=== PATIENT | female | born 1965 | race Caucasian/White ===

== ENCOUNTER 2021-08-20 13:59 | Outpatient (CLI) | payer MEDICARE, SELFPAY ==
--- NOTE | ~2021-08-20 | CT_ITS ---
EXAMINATION: CT sinus wo con DATE: 08/20/2021 14:19 INDICATION: Facial pressure, chronic sinus drainage TECHNIQUE: Computed tomography (CT) of the paranasal sinuses was performed without contrast. Iterativ e reconstruction technique was employed. Exam dose: 303.98 mGy-cm total exam DLP. COMPARISON: None FINDINGS: There is prominent rightward deviation of the lower portion of the nasal septum. The upper portion of the nasal septum bows leftward. There is prominent soft tissue swelling of the nasal turbinates. There is mild geovanny bullosa of the right middle nasal turbinate. The ostiomeatal units are patent. Up to 6.7 mm mucus retention cyst at the base of the right maxillary sinus and 10 mm mucus retention cyst at the anterior base of the left maxillary sinus. There is minimal soft tissue thickening in the posterior right ethmoid air cells. The paranasal sinus es are otherwise normally developed and aerated. There is opacification of the minimally developed left mastoid air cells. The right mastoid air cells are normally aerated. IMPRESSION: Small mucus retention cyst in lower aspect of each maxillary sinus, minimal mucoperioste al thickening of posterior right ethmoid air cells; otherwise normal paranasal sinuses Rightward deviation of lower nasal septum, leftward bowing of upper nasal septum Soft tissue prominence of the nasal turbinates, geovanny bullosa of right middle nasal turbinate Reviewed, dictated and finalized at [facility]. Reviewed, dictated and finalized at location [facility]. IMPRESSION: Small mucus retention cyst in lower aspect of each maxillary sinus , minimal mucoperiosteal thickening of posterior right ethmoid air cells; other le normal paranasal sinuses Rightward deviation of lower nasal septum, leftward bowing of upper nasal septu m Soft tissue prominence of the nasal turbinates, geovanny bullosa of right middle nasal turbinate
== END 2021-08-20 14:00 | disposition home or self-care (01) ==
PROVIDERS: PCP Internal Medicine; Visit Provider Otolaryngology
DX: J34.2 Deviated nasal septum (principal); J32.9 Chronic sinusitis, unspecified; J34.3 Hypertrophy of nasal turbinates; J34.89 Other specified disorders of nose and nasal sinuses; R09.81 Nasal congestion; R44.8 Other symptoms and signs involving general sensations and perceptions; R09.82 Postnasal drip
CPT/HCPCS: 70486

== ENCOUNTER 2021-09-10 12:19 | Outpatient (CLI) | payer MEDICARE, SELFPAY ==
--- NOTE | 2021-09-10 12:27 | ECG_ITS ---
Measurements Intervals [place] Rate: 64 P: 68 ME: 176 QRS: -20 QRSD: 91 T: 58 QT: 412 QTc: 427 Interpretive Statements SINUS RHYTHM POSSIBLE LEFT ATRIAL ENLARGEMENT INCOMPLETE RIGHT BUNDLE BRANCH BLOCK BASELINE ARTIFACT- I, III, AVR, AVL, AVF BORDERLINE ECG Electronically Signed On 09-10-2021 18:38:46 CDT by Jeramie Chen D.O.
== END 2021-09-10 12:20 | disposition home or self-care (01) ==
PROVIDERS: PCP Internal Medicine; Visit Provider Otolaryngology
DX: Z01.810 Encounter for preprocedural cardiovascular examination (principal); I45.10 Unspecified right bundle-branch block; I10 Essential (primary) hypertension
CPT/HCPCS: 93005

== ENCOUNTER 2021-09-14 01:00 | Day surgery (SDC) | payer MEDICARE, SELFPAY ==
[2021-09-05 13:00] VITALS: BMI 24.5
--- NOTE | 2021-09-05 13:19 | PC.NURSE ---
Report to the Outpatient Waiting Room, entrance under the green pavilion located off [facility], at time 6:15 on date 09/14/21. OR Time: 8:15. IF YOUR SURGERY TIME CHANGES, YOU WILL BE CALLED FRIDAY AFTERNOON. - You and your visitor will be asked a series of questions to screen for COVID 19 for your protection. - Only one visitor is allowed at this time. - The patient visitor is requested to leave or wait in car when not with patient. - A mask is required within the hospital. Patients may have clear liquids (water, carbonated beverages, clear teas, apple juice) until 3 hours prior to surgery with a maximum of 20 ounces. - No food from midnight until time of surgery Take the following medications with a SIP of water the morning of surgery: BUPROPION, ESCITALOPRAM, TOPIRAMATE, LORAZEPAM (IF NEEDED) Medications to discontinue per physician: VITAMINS/SUPPLEMENTS Date to take last dose: 09/10/21 Please no make-up, nail japanese, hairspray, perfume, deodorant, or body powder the day of surgery. No jewelry (including any body piercings) or valuables the day of surgery, leave them at home. Please take a shower or bath the night before, or the morning of, surgery with an antibacterial soap. Wear comfortable, loose fitting clothing. - Jewelry must be removed prior to entering the operating room. Rings and piercings that are not removed may be cut off. - The hospital will not accept responsibility for valuables. - Please leave all valuables, including medications, at home the day of surgery. If you are going home after surgery, a licensed straddle bug driver must drive you home. - NO public transportation without another adult. - We recommend that an adult stay with you for 24 hours following discharge. - We also recommend that you do not drive, make important decision, drink alcoholic beverages, or take any drugs that were not prescribed by your health care provider for at least 24 hours after your discharge time. Follow any additional instructions given to you from your surgeon. If you or anyone in your household have experienced Covid symptoms in the past week, please notify your surgeon or the nurse liaison at the phone number below for possible testing. Telephone instructions given to PT - SWATI MENDEZ and asked if any additional questions and then verbalized understanding. Patient advised to call surgeon office or pre surgery nurse liaison [phone] if any additional questions.
--- NOTE | 2021-09-13 10:20 | PM.IMHP ---
H&P: HPI History of Present Illness Date/Time: 09/13/21 10:20 Chief Complaint: Septal deviation turbinate hypertrophy right geovanny bullosa nasal obstruction nasal congestion Narrative: planned surgical procedure Review of Systems Review of Systems: All systems reviewed & are unremarkable except as noted in HPI and below PMFSH Family History Family History Father Hypertension Grandparent Hypertension Family history of respiratory disorder Carcinoma of colon Family history of malignant neoplasm of breast Diabetes mellitus Other Family history of malignant neoplasm of male breast Social History Social History Smoking packs per day: 0.5 Smoking cigarettes per day: 10.0 Years smoked: 26 Smoking pack-years: 13.00 Smoking status: Former smoker Tobacco type: cigarettes Smoking end date: 02/24/11 Alcohol intake: current Alcohol use details: 1/MONTH Substance use: never Substance use type: does not use Spiritual care concerns: No Meds Home Medications and Allergies Home Medications Medication Instructions Recorded Confirmed Type bupropion HCl 300 mg 24 hr tablet, 300 mg PO QAM 07/31/21 09/05/21 History extended release (Wellbutrin XL) escitalopram oxalate 20 mg tablet 20 mg PO DAILY 07/31/21 09/05/21 History lisinopril 5 mg tablet 5 mg PO DAILY 07/31/21 09/05/21 History lorazepam 0.5 mg tablet 0.5 mg PO DAILY PRN Anxiety 07/31/21 09/05/21 History sumatriptan succinate 6 mg/0.5 mL 6 mg subcut ONCE 07/31/21 09/05/21 History subcutaneous solution (Imitrex) topiramate 200 mg tablet (Topamax) 200 mg PO BID 07/31/21 09/05/21 History ipratropium bromide 21 mcg (0.03 2 spray intranasal TID 09/05/21 09/05/21 History %) nasal spray lactobacillus comb no.10 20 20,000 mmu cells PO DAILY 09/05/21 09/05/21 History billion cell capsule (Probiotic) multivitamin 1 tablet PO DAILY 09/05/21 09/05/21 History Allergies Allergy/AdvReac Type Severity Reaction Status Date / Time morphine Allergy Unknown Hallucinati Verified 09/05/21 12:57 ng soap Allergy Unknown Hives Verified 09/05/21 12:57 Exam Narrative: normal ENT exam other than septal deviation turbinate hypertrophy right geovanny bullosa Assessment and Plan Assessment and plan (1) Nasal congestion: Code(s): R09.81 - Nasal congestion Status: Acute Assessment and Plan: plan is for OR endoscopic assisted septoplasty inferior turbinate submucosal reduction with outfracture right geovanny bullosa resection. Risks discussed including bleeding infection damage to surrounding structures need for further procedures septal CSF leak brain damage blindness change in vision. Patient voiced understanding and agreed. (2) Nasal obstruction: Code(s): J34.89 - Other specified disorders of nose and nasal sinuses Status: Acute (3) Geovanny bullosa: Code(s): J34.89 - Other specified disorders of nose and nasal sinuses Status: Acute (4) Hypertrophy of both inferior nasal turbinates: Code(s): J34.3 - Hypertrophy of nasal turbinates Status: Acute (5) Nasal septal deviation: Code(s): J34.2 - Deviated nasal septum Status: Acute
[2021-09-14] VITALS (7 sets, daily range): BP systolic 109–156; BP diastolic 66–83; PULSE 60–79; RESP 14–20; TEMP 36.7–36.9; O2SAT 99–100
--- NOTE | 2021-09-14 07:10 | WPDHPUPDATE1 ---
History and Physical Update Update Date/Time: 09/14/21 07:10 History and Physical has been reviewed, including an updated exam of the patient. There are NO changes in the patient's condition. Risks, benefits, and alternatives have been discussed and questions answered. Patient agrees to proceed with procedure.
[2021-09-14] MEDS: ACETAMINOPHEN 500 MG TABLET 1000 MG PO (08:15)
--- NOTE | 2021-09-14 08:20 | WPDANESEPPF ---
Anes - Initial Pre Proc Eval Procedure: Operation Date: 09/14/21 09:15 Proposed Procedures p Bilateral Inferior Turbinectomy with Outfracture, Resection of Right Anel Bullosa - Kike Pepper MD s Endoscopic Septoplasty - Kike Pepper MD Date/Time: 09/14/21 08:20 Surgeon: Kike Pepper MD Pre Op Diagnosis: Septal Deviation Turbinate Hypertropic Patient Data Age: 56 Gender: F Height: 1.55 m Weight: 59 kg Allergies Allergy/AdvReac Type Severity Reaction Status Date / Time morphine Allergy Unknown Hallucinati Verified 09/14/21 08:16 ng soap Allergy Unknown Hives Verified 09/14/21 08:16 Home Medications Medication Instructions Recorded Confirmed Type bupropion HCl 300 mg 24 hr tablet, 300 mg PO QAM 07/31/21 09/05/21 History extended release (Wellbutrin XL) escitalopram oxalate 20 mg tablet 20 mg PO DAILY 07/31/21 09/05/21 History lisinopril 5 mg tablet 5 mg PO DAILY 07/31/21 09/05/21 History lorazepam 0.5 mg tablet 0.5 mg PO DAILY PRN Anxiety 07/31/21 09/05/21 History sumatriptan succinate 6 mg/0.5 mL 6 mg subcut ONCE 07/31/21 09/05/21 History subcutaneous solution (Imitrex) topiramate 200 mg tablet (Topamax) 200 mg PO BID 07/31/21 09/05/21 History ipratropium bromide 21 mcg (0.03 2 spray intranasal TID 09/05/21 09/05/21 History %) nasal spray lactobacillus comb no.10 20 20,000 mmu cells PO DAILY 09/05/21 09/05/21 History billion cell capsule (Probiotic) multivitamin 1 tablet PO DAILY 09/05/21 09/05/21 History Patient hx anesthesia problems: none Family hx anesthesia problems: none Results Review: All pre-operative results and documents have been reviewed as part of the pre-operative evaluation. [facility] Past Medical History Medical History Anxiety Chronic pain syndrome Depression Hx of migraines Reactive airway disease Family History Family History Father Hypertension Grandparent Hypertension Family history of respiratory disorder Carcinoma of colon Family history of malignant neoplasm of breast Diabetes mellitus Other Family history of malignant neoplasm of male breast Social History Social History Smoking packs per day: 0.5 Smoking cigarettes per day: 10.0 Years smoked: 26 Smoking pack-years: 13.00 Smoking status: Former smoker Tobacco type: cigarettes Smoking end date: 02/24/11 Alcohol intake: current Alcohol use details: 1/MONTH Substance use: never Substance use type: does not use Living arrangements: alone Spiritual care concerns: No Anes - Eval Final PreProcedure Day of Procedure 09/14/21 08:20 Patient weight: normal Heart: regular rate and rhythm Lungs: clear to auscultation Airway: Mallampati scale class II Neurological: alert and oriented Last oral intake: >/= 8 hours ASA classification: III Emergent: no Anesthetic plan: proceed Anesthesia type and monitoring: general GIVS and standard monitoring Results Review: All pre-operative results and documents have been reviewed as part of the pre-operative evaluation. Informed Consent: The patient's anesthetic plan and its attendant risks and benefits were discussed with the patient/family/POA. Questions were solicited and answers provided to the satisfaction of the patient/family/POA.
[2021-09-14] MEDS: ceFAZolin 2 GM/D5W 50 ML 2 GM/50 ML BAG IVPB (09:03)
[2021-09-14] MEDS: OXYMETAZOLINE HCL 0.05% NAS 15 ML BTL (*BKC) 1 SPRAY NASAL (09:13)
[2021-09-14] MEDS: LACTATED RINGERS 1,000 ML 30 ML IV CONT (09:24)
[2021-09-14] MEDS: MUPIROCIN 2% OINT 22 GM TUBE 1 APPLIC EACH NARE (10:20)
[2021-09-14] MEDS: LIDO 1%/EPINEPHRINE 1:100,000 10 ML VIAL INFILTRATE (10:20)
--- NOTE | 2021-09-14 11:00 | W.PM.PROC2 ---
Procedure Note - Detailed Date of Procedure 09/14/21 Pre-op Diagnosis Septal Deviation Turbinate Hypertropic, nasal obstruction, nasal congestion, right geovanny bullosa Post-op Diagnosis Same Procedure Performed Endoscopic assisted septoplasty, inferior turbinate submucosal resection with outfracture, right geovanny bullosa resection Surgeon Kike Pepper MD Anesthesia General Indications See above Findings Big turbinates deviated septum right geovanny all resected straightened good results small amount of excess bleeding probably 20-25 cc Description of Procedure Patient identified consent verified. Patient brought operating room. Time-out performed. General anesthesia induced endotracheal tube secured patient's airway taped left lower lip. Patient prepped and draped for for mentioned procedure. Second time-out performed. 10 cc 1% lidocaine 1 100,000 parts epinephrine injected into the bilateral submucoperichondrial nasal septum inferior turbinates and right geovanny Afrin-soaked pledgets then placed allowed to sit for 5 minutes before being removed. Left Sean incision made with 15 blade. Left mucoperichondrial flap elevated with 7 Chinese suction. Septum crossed over the osteotome. Right mucoperichondrial flap elevated. Small perforations on the right none on the left right is were was deviated severely to. Deviated nasal septum removed combination Kike forceps Dany Wu forceps and osteotome with mallet. Again small perforations were noted on the right none on the left. Turbinates reduced in the submucosal plane with microdebrider with turbinate blade this was bilateral. Outfractured with Gans. Good reduction. Right geovanny incised inferiorly with sickle blade lateral aspect removed with straight through cut. Stump cauterized with Bovie suction electrocautery. [place] tips also cauterized with Bovie suction electrocautery. Patient tolerated the procedure very well. Total blood loss about 20 cc. Sean incision closed with 2 interrupted 5 0 fast gut sutures. Rust splints covered in mupirocin placed bilaterally sutured anteriorly using a 3-0 interrupted nylon suture. Care the patient given Anesthesiology transferred to PACU no complications. Estimated Blood Loss -25.0 Drains No Packing No Pathology None sent Complications No immediate complications Condition Stable Disposition PACU
[2021-09-14] MEDS: oxyCODONE HCL (*CRX) 5 MG TAB IR PO (12:06)
== END 2021-09-14 12:15 | disposition home or self-care (01) ==
PROVIDERS: PCP Internal Medicine; Visit Provider Otolaryngology
PROC: (CPT 31240; principal; 2021-09-14 09:15)
PROC: (CPT 30520; 2021-09-14 09:15)
DX: J34.2 Deviated nasal septum (principal); J34.3 Hypertrophy of nasal turbinates; J34.89 Other specified disorders of nose and nasal sinuses; R09.81 Nasal congestion; F41.9 Anxiety disorder, unspecified; F32.A Depression, unspecified; Z87.891 Personal history of nicotine dependence
CPT/HCPCS: 31240; 30520; 30140; 93005; A9270; J0330; J0690; J1100; J2250; J2405; J2704; J3010; J7120

== ENCOUNTER → 2021-12-27 10:09 | Outpatient (CLI) | payer MEDICARE, SELFPAY ==
--- NOTE | ~2021-12-27 | CT_ITS ---
EXAMINATION: CT pelvis wo con DATE: 12/27/2021 10:22 INDICATION: Right groin pain. TECHNIQUE: Computed tomography (CT) of the pelvis was performed without intravenous contrast. Automat ed exposure control and iterative reconstruction technique were employed. The dose-length product was 336.51 mGy-cm. COMPARISON: CT abdomen and pelvis 07/09/2010 FINDINGS: There are no dilated loops of bowel. There is diverticulosis of the colon without evidence of diverticulitis. There are no pathologically enlarged lymph nodes. There is no free intraperitoneal fluid. There is mild osteoarthritis of the hips. There is moderate lumbar spondylosis. IMPRESSION: 1. No specific etiology for the patient's symptoms. Reviewed, dictated and finalized at location [facility].
== END ==
PROVIDERS: PCP Internal Medicine; Visit Provider Surgery
DX: R10.31 Right lower quadrant pain (principal)
CPT/HCPCS: 72192

== ENCOUNTER → 2022-02-11 11:46 | Outpatient (CLI) | payer MEDICARE, SELFPAY ==
--- NOTE | ~2022-02-11 | CT_ITS ---
EXAMINATION: CT sinus wo con DATE: 02/11/2022 12:01 INDICATION: Chronic sinusitis. Right rhinorrhea. History of surgery and deviated septum in August 2021. TECHNIQUE: Computed tomography (CT) of the paranasal sinuses was performed without contrast. Iterativ e reconstruction technique was employed. Exam dose: 401.69 mGy-cm total exam DLP. COMPARISON: 08/20/2021 CT sinuses FINDINGS: There is interval correction of the septal deviation since 08/20/2021. There is interval par tial resection of the right middle nasal turbinate with elimination of the prior geovanny bullosa struc ture noted on 08/20/2021. Chronic stable mucous retention cysts or polyps in the lower aspect of each maxillary sinus, not sign ificantly changed since since 08/20/2021. Minimal mucoperiosteal thickening in the right posterior ethmoid area. The paranasal sinuses are othe rwise normally developed and aerated. The right mastoid air cells are normally developed and aerated. The left mastoid air cells are normal ly developed and aerated. Degenerative changes of the temporal mandibular joints. IMPRESSION: Interval surgical correction of rightward deviation of the nasal septum and partial rese ction of right middle nasal turbinate eliminating geovanny bullosa Reviewed, dictated and finalized at [facility]. Reviewed, dictated and finalized at location [facility]. O TECHNICIAN IMPRESSION: Interval surgical correction of rightward deviation of the nasal s eptum and partial resection of right middle nasal turbinate eliminating geovanny bullosa
== END ==
PROVIDERS: PCP Internal Medicine; Visit Provider Otolaryngology
DX: J32.9 Chronic sinusitis, unspecified (principal)
CPT/HCPCS: 70486

== ENCOUNTER 2022-04-09 00:55 | Day surgery (SDC) | payer MEDICARE, SELFPAY ==
--- NOTE | 2022-03-27 12:15 | PC.NURSE ---
Report to the Outpatient Waiting Room, entrance under the green pavilion located off [address], at time on date . Planned Procedure Time: . Time changes happen often and if your time is changed the preop area will call you the afternoon before. - You and your visitor will be asked to self-screen and do not enter if you have any COVID symptoms. - Only one visitor is requested with a max of two and NO children visitors are allowed at this time. - The patient visitor may be requested to leave or wait in car when not with patient due to distancing restrictions. - A mask is optional within the hospital at this time. Patients may have clear liquids (water, carbonated beverages, clear teas, apple juice) until 3 hours prior to surgery with a maximum of 20 ounces. - No food from midnight until time of surgery - Infants may have breast milk until 4 hours before surgery, infant formula 6 hours prior to surgery. - Children will be allowed to drink immediately following surgery. If applicable, please bring a bottle or sippy cup to assist with drinking. Juice, water, soda, and popsicles are readily available. For infants on formula, please bring formula the day of surgery. Pacifiers are allowed. Take the following medications with a SIP of water the morning of surgery: _BUPROPRION, ESCITALOPRAM, LORAZEPAM, TOPIRAMATE, IMITREX INJECTION IF NEEDED DO NOT STOP ANY OF YOUR OTHER PRESCRIPTION MEDICATIONS PRIOR TO SURGERY ?EXCEPT THE FOLLOWING Medications to discontinue per physician MULTIVITAMIN 04/06/[address] REYES R/T STOPPING MOBIC Date to take last dose____04/06/22 Please no make-up, nail spanish, hairspray, perfume, deodorant, or body powder the day of surgery. No jewelry (including any body piercings) or valuables the day of surgery, leave them at home. Please take a shower or bath the night before, or the morning of, surgery with an antibacterial soap. Wear comfortable, loose fitting clothing. Children are encouraged to wear pajamas. - Jewelry must be removed prior to entering the operating room. Rings and piercings that are not removed may be cut off. - The hospital will not accept responsibility for valuables. - Please leave all valuables, including medications, at home the day of surgery. If you are going home after surgery, a licensed tractor trailer driver must drive you home. - NO public transportation without another adult if you receive anesthesia. - We recommend that an adult stay with you for 24 hours following discharge. - We also recommend that you do not drive, make important decision, drink alcoholic beverages, or take any drugs that were not prescribed by your health care provider for at least 24 hours after your discharge time. For Pediatric surgeries, we recommend two adults accompany the child home. Follow any additional instructions given to you from your surgeon. If you or anyone in your household have experienced Covid symptoms in the past week, please notify your surgeon or the nurse liaison at the phone number below for possible testing. Telephone instructions given to __OLIVE and asked if any additional questions and then verbalized understanding. Patient advised to call surgeon office or pre surgery nurse liaison [phone] if any additional questions.
[2022-03-27 12:19] VITALS: BMI 24.1
--- NOTE | 2022-04-08 15:45 | WPDANESEPPF ---
Anes - Initial Pre Proc Eval Procedure: Operation Date: 04/09/22 10:30 Proposed Procedures p Image Guided Bilateral Endoscopic Maxillary Antrostomy without Tissue Removal, Bilateral Anterior Ethmoidectomy - Kike Pepper MD Date/Time: 04/08/22 15:45 Surgeon: Kike Pepper MD Pre Op Diagnosis: chronic sinusitis Patient Data Age: 57 Gender: F Height: 1.55 m Weight: 58 kg Allergies Allergy/AdvReac Type Severity Reaction Status Date / Time morphine Allergy Unknown Hallucinati Verified 03/27/22 12:21 ng soap Allergy Unknown Hives Verified 03/27/22 12:21 Home Medications Medication Instructions Recorded Confirmed Type bupropion HCl 300 mg 24 hr tablet, 300 mg PO QAM 07/31/21 03/27/22 History extended release (Wellbutrin XL) escitalopram oxalate 20 mg tablet 20 mg PO DAILY 07/31/21 03/27/22 History lisinopril 5 mg tablet 5 mg PO DAILY 07/31/21 03/27/22 History lorazepam 0.5 mg tablet 0.5 mg PO DAILY PRN Anxiety 07/31/21 03/27/22 History sumatriptan succinate 6 mg/0.5 mL 6 mg subcut ONCE 07/31/21 03/27/22 History subcutaneous solution (Imitrex) topiramate 200 mg tablet (Topamax) 100 mg PO BID 07/31/21 03/27/22 History lactobacillus comb no.10 20 20,000 mmu cells PO DAILY 09/05/21 03/27/22 History billion cell capsule (Probiotic) multivitamin 1 tablet PO DAILY 09/05/21 03/27/22 History calcium citrate 250 mg 1 tablet PO DAILY 12/05/21 03/27/22 History calcium-vitamin D3 5 mcg (200 unit) tablet (Citracal Regular) vitamin B complex 1 tablet PO DAILY 12/05/21 03/27/22 History meloxicam 15 mg tablet 15 mg PO DAILY 03/27/22 03/27/22 History Patient hx anesthesia problems: none Family hx anesthesia problems: none Results Review: All pre-operative results and documents have been reviewed as part of the pre-operative evaluation. [facility] Past Medical History Medical History Anxiety Basal cell carcinoma Chronic pain syndrome Depression Diverticular disease High cholesterol Hx of migraines Hyperparathyroidism Hypertension Kidney stones Memory loss Reactive airway disease Screening mammogram, encounter for Vitamin D deficiency Surgical History Surgical History H/O sinus surgery (~08/2021) H/O: hysterectomy with oopherectomy / endometriosis History of x2 History of dilation and curettage x2 History of elective History of endometrial ablation History of exploratory laparotomy lysis of adhesions History of local excision of skin lesion basal cell carcinoma removed from forehead History of parathyroidectomy (~04/2015) History of placement of ear tubes x3 History of tonsillectomy Family History Family History Father Hypertension Grandparent Hypertension Family history of respiratory disorder Carcinoma of colon maternal grandmother Family history of malignant neoplasm of breast Diabetes mellitus maternal grandfather Breast cancer maternal grandmother Malignant tumor of pharynx maternal grandfather Mother Heart disease Dementia Other Family history of malignant neoplasm of male breast Social History Social History (Updated 01/15/22 @ 11:44 by BOGDAN Garzon) Smoking packs per day: 0.5 Smoking cigarettes per day: 10.0 Years smoked: 35 Smoking pack-years: 17.50 Smoking status: Former smoker Tobacco type: cigarettes Smoking end date: 02/24/11 Alcohol intake: current Alcohol use details: 1/MONTH Substance use: never Substance use type: does not use Last use: 12/17/21 Lack of Transportation: No Lack of Food: Never True Current Housing: I Have Housing Concerned About Future Housing: No Difficulty Paying Gas/Electric Bills: No Difficulty Paying for Meds: No Currently Unemployed: No Education: Associate Degree
--- NOTE | 2022-04-08 18:14 | PM.IMHP ---
H&P: HPI History of Present Illness Date/Time: 04/08/22 18:14 Chief Complaint: Chronic sinusitis Narrative: Casey surgical procedure Review of Systems Review of Systems: All systems reviewed & are unremarkable except as noted in HPI and below PMFSH Past Medical History Medical History Anxiety Basal cell carcinoma Chronic pain syndrome Depression Diverticular disease High cholesterol Hx of migraines Hyperparathyroidism Hypertension Kidney stones Memory loss Reactive airway disease Screening mammogram, encounter for Vitamin D deficiency Surgical History Surgical History H/O sinus surgery (~08/2021) H/O: hysterectomy with oopherectomy / endometriosis History of x2 History of dilation and curettage x2 History of elective History of endometrial ablation History of exploratory laparotomy lysis of adhesions History of local excision of skin lesion basal cell carcinoma removed from forehead History of parathyroidectomy (~04/2015) History of placement of ear tubes x3 History of tonsillectomy Family History Family History Father Hypertension Grandparent Hypertension Family history of respiratory disorder Carcinoma of colon maternal grandmother Family history of malignant neoplasm of breast Diabetes mellitus maternal grandfather Breast cancer maternal grandmother Malignant tumor of pharynx maternal grandfather Mother Heart disease Dementia Other Family history of malignant neoplasm of male breast Social History Social History (Updated 01/15/22 @ 11:44 by BOGDAN Garzon) Smoking packs per day: 0.5 Smoking cigarettes per day: 10.0 Years smoked: 35 Smoking pack-years: 17.50 Smoking status: Former smoker Tobacco type: cigarettes Smoking end date: 02/24/11 Alcohol intake: current Alcohol use details: 1/MONTH Substance use: never Substance use type: does not use Last use: 12/17/21 Lack of Transportation: No Lack of Food: Never True Current Housing: I Have Housing Concerned About Future Housing: No Difficulty Paying Gas/Electric Bills: No Difficulty Paying for Meds: No Currently Unemployed: No Education: Associate Degree Difficulty w/ Childcare or Family Care: No Living arrangements: with family Additional living arrangements comments: Occupation/Education: unemployed Additional occupation/education comments: disabled Gender identity (if verbalized by the patient): Female Sexual Orientation (if Verbalized by the Patient): Straight or Heterosexual Spiritual care concerns: No Meds Home Medications and Allergies Home Medications Medication Instructions Recorded Confirmed Type bupropion HCl 300 mg 24 hr tablet, 300 mg PO QAM 07/31/21 03/27/22 History extended release (Wellbutrin XL) escitalopram oxalate 20 mg tablet 20 mg PO DAILY 07/31/21 03/27/22 History lisinopril 5 mg tablet 5 mg PO DAILY 07/31/21 03/27/22 History lorazepam 0.5 mg tablet 0.5 mg PO DAILY PRN Anxiety 07/31/21 03/27/22 History sumatriptan succinate 6 mg/0.5 mL 6 mg subcut ONCE 07/31/21 03/27/22 History subcutaneous solution (Imitrex) topiramate 200 mg tablet (Topamax) 100 mg PO BID 07/31/21 03/27/22 History lactobacillus comb no.10 20 20,000 mmu cells PO DAILY 09/05/21 03/27/22 History billion cell capsule (Probiotic) multivitamin 1 tablet PO DAILY 09/05/21 03/27/22 History calcium citrate 250 mg 1 tablet PO DAILY 12/05/21 03/27/22 History calcium-vitamin D3 5 mcg (200 unit) tablet (Citracal Regular) vitamin B complex 1 tablet PO DAILY 12/05/21 03/27/22 History meloxicam 15 mg tablet 15 mg PO DAILY 03/27/22 03/27/22 History Allergies Allergy/AdvReac Type Severity Reaction Status Date / Time morphine Allergy Unkn
[2022-04-09] VITALS (12 sets, daily range): BP systolic 119–154; BP diastolic 49–79; PULSE 57–71; RESP 14–20; TEMP 36.3–37.2; O2SAT 97–100
--- NOTE | 2022-04-09 07:12 | WPDHPUPDATE1 ---
History and Physical Update Update Date/Time: 04/09/22 07:12 History and Physical has been reviewed, including an updated exam of the patient. There are NO changes in the patient's condition. Risks, benefits, and alternatives have been discussed and questions answered. Patient agrees to proceed with procedure.
[2022-04-09] MEDS: LACTATED RINGERS 1,000 ML 30 ML IV CONT ×2 (08:45→11:16)
[2022-04-09] MEDS: ACETAMINOPHEN 500 MG TABLET 1000 MG PO (09:10)
[2022-04-09] MEDS: ceFAZolin 2 GM/D5W 50 ML 2 GM/50 ML BAG IVPB (09:28)
[2022-04-09] MEDS: OXYMETAZOLINE HCL 0.05% NAS 15 ML BTL (*BKC) 1 SPRAY NASAL (10:01)
[2022-04-09] MEDS: MUPIROCIN 2% OINT 22 GM TUBE 1 APPLIC EACH NARE (10:33)
--- NOTE | 2022-04-09 11:11 | W.PM.PROC2 ---
Procedure Note - Detailed Date of Procedure 04/09/22 Pre-op Diagnosis chronic sinusitis Post-op Diagnosis Same Procedure Performed Bilateral image guided endoscopic anterior maxillary sorry anterior ethmoidectomies maxillary antrostomies no tissue removed Surgeon Kike Pepper MD Anesthesia General Indications see above Findings somewhat polypoid diseased edema tissue of the aforementioned sinuses Description of Procedure patient identified consent verified. Patient brought operating room. Time-out performed. General anesthesia induced endotracheal tube secured. Image guidance initiated confirmed. Patient prepped draped reposition 2nd time-out performed. Afrin-soaked pledgets placed allowed to sit for 5 minutes then removed. 0 degree endoscope utilized well image guidance middle turbinates medialized double ball tip probe utilized to open the retroflex the uncinate perform maxillary antrostomy as well as with backbiter microdebrider ensured to connect to the natural os. Ethmoidectomies performed with Kerrison as well as image guided microdebrider. Image guidance was utilized throughout the procedure blood loss about 25 cc I performed all dictated portions of the procedure care the patient given Anesthesiology there were no complications. No packs placed the bilateral middle meati I. Estimated Blood Loss 25 Drains No Packing Yes Pathology None sent Complications No immediate complications Condition Stable Disposition PACU [facility] Billing Surgery - Charge Forward: Surgery Billing
--- NOTE | 2022-04-09 12:28 | SUR.PHASEII ---
1228 - dr. cordero in room talking with pt
== END 2022-04-09 12:35 | disposition home or self-care (01) ==
PROVIDERS: PCP Internal Medicine; Visit Provider Otolaryngology
PROC: (CPT 31254; principal; 2022-04-09 10:30)
DX: J32.9 Chronic sinusitis, unspecified (principal); I10 Essential (primary) hypertension; E78.00 Pure hypercholesterolemia, unspecified; E55.9 Vitamin D deficiency, unspecified; E21.3 Hyperparathyroidism, unspecified; F41.9 Anxiety disorder, unspecified; F32.A Depression, unspecified; Z87.891 Personal history of nicotine dependence
CPT/HCPCS: 31254; 31256; 61782; A9270; J0330; J0690; J1100; J2250; J2405; J2704; J3010; J7120

== ENCOUNTER 2023-05-27 11:05 | Outpatient (CLI) | payer MEDICARE, SELFPAY ==
--- NOTE | ~2023-05-27 | MR_ITS ---
MRI of the lumbar spine Clinical History: Back pain Technique: Axial T2-weighted images, and sagittal T1-weighted, T2-weighted, and T2 fat-sat images wer e acquired. Findings: No acute fracture seen. There is 6 mm retrolisthesis of L4 over L5. No suspicious bone kentrell ow signal reality seen. At L1-L2, there is no disc bulge or herniation. There is mild facet arthropathy. No central canal ruben nosis or neural foraminal narrowing. At L2-L3, there is mild degenerative disc narrowing with minimal disc bulge and moderate facet arthro john. No central canal stenosis or neural foraminal narrowing. L3-L4, there is mild disc bulge with moderate facet arthropathy. No central canal stenosis. There is mild bilateral neural foraminal narrowing. At L4-L5, there is diffuse disc bulge with possible superimposed left paracentral disc extrusion, as well as advanced facet arthropathy. There is mild central canal stenosis as well as left lateral rece ss stenosis. There is severe left neural foraminal compromise, and moderate right neural foraminal co mpromise. At L5-S1, there is mild disc bulge and mild facet arthropathy. No central canal stenosis or definite neural foraminal narrowing. Paravertebral soft tissues are unremarkable. Impression: Severe spondylitic change at L4-L5, as detailed above. Mild degenerative change in the remainder of the lumbar spine. Reviewed, dictated and finalized at [facility]. Impression: Severe spondylitic change at L4-L5, as detailed above. Mild degenerative change in the remainder of the lumbar spine.
== END 2023-05-27 11:06 ==
LOC: MICIMG 11:07
PROVIDERS: PCP Internal Medicine; Visit Provider Internal Medicine
DX: M43.16 Spondylolisthesis, lumbar region (principal); M51.36 Other intervertebral disc degeneration, lumbar region
CPT/HCPCS: 72148

== ENCOUNTER 2024-01-20 08:09 | Outpatient (CLI) | payer MEDICARE, SELFPAY ==
--- NOTE | ~2024-01-20 | XR_ITS ---
XR hip LT 2V w AP pelvis Ordering provider: Liana Christopher History: . Left hip pain . Comparison: None. FINDINGS: BONES: No acute fracture or dislocation. HIP JOINT SPACES: Slight narrowing of the hip joints. Mild Osteoarthritic changes is not excluded. SACROILIAC JOINT SPACES/LUMBAR SPINE: The sacroiliac joint spaces are normal. Mild degenerative lund es of the visualized lower lumbar spine. Levoscoliosis. PUBIC SYMPHYSIS: Mild pubic symphysitis. SOFT TISSUES: Normal. IMPRESSION: No acute osseous abnormality pelvis and left hip. Mild osteoarthritic changes of both hips. Levoscoliosis with degenerative changes. Mild pubic symphysitis. Reviewed, dictated and finalized at location A. [facility]UR[facility]
== END 2024-01-20 08:10 | disposition home or self-care (01) ==
PROVIDERS: PCP Internal Medicine
DX: M25.552 Pain in left hip (principal); M16.0 Bilateral primary osteoarthritis of hip; M41.86 Other forms of scoliosis, lumbar region; M85.30 Osteitis condensans, unspecified site
CPT/HCPCS: 73502

== ENCOUNTER 2024-02-09 07:06 | Outpatient (CLI) | payer MEDICARE, SELFPAY ==
--- NOTE | ~2024-02-09 | MM_ITS ---
EXAMINATION: MM screening augustina BI w arabella HISTORY: Screening TECHNIQUE: Craniocaudal and mediolateral oblique 3-D tomosynthesis images were obtained and synthetic 2-D images were generated. CAD analysis was submitted and interpreted. COMPARISON: 10/26/2013 BREAST PARENCHYMAL COMPOSITION: Not dense: There are scattered areas of fibroglandular density. FINDINGS: There is no evidence of suspicious mass, calcification, or architectural distortion to sugg est malignancy in either breast. There has been no suspicious interval change. IMPRESSION: 1. No mammographic evidence of malignancy. 2. Recommend routine screening mammography in one year. BI-RADS Category 1: Negative Reviewed, dictated and finalized at location B. OL CUSTODIAN
== END 2024-02-09 07:07 | disposition home or self-care (01) ==
LOC: MICIMG 07:06
PROVIDERS: PCP Internal Medicine; Visit Provider Obstetrics & Gynecology
DX: Z12.31 Encounter for screening mammogram for malignant neoplasm of breast (principal)
CPT/HCPCS: 77063; 77067

== ENCOUNTER 2024-02-19 11:10 | Outpatient (CLI) | payer MEDICARE, SELFPAY ==
--- NOTE | ~2024-02-19 | XR_ITS ---
XR chest 2V Ordering provider: Joshua Loo, History: 59 years Female with . Cough . Comparison: None. FINDINGS: MEDIASTINUM: The cardiac silhouette is not enlarged. LUNGS: No infiltrates, effusions or pneumothorax. OTHER: No free air under the diaphragm. IMPRESSION: No acute cardiopulmonary pathology. Reviewed, dictated and finalized at location A. MANAGER
== END 2024-02-19 11:11 | disposition home or self-care (01) ==
LOC: MICIMG 11:12
PROVIDERS: PCP Internal Medicine; Visit Provider Internal Medicine
DX: R05.9 Cough, unspecified (principal)
CPT/HCPCS: 71046

== ENCOUNTER 2024-04-30 11:17 | Emergency (ER) | payer MEDICARE, SELFPAY ==
[2024-04-30 11:22] VITALS: BP 117/74; PULSE 84; RESP 16; TEMP 36.9; O2SAT 100
--- NOTE | 2024-04-30 11:37 | ED_ITS ---
HPI - Female Genitourinary General Chief complaint: Urogenital-Female Stated complaint: Urinary Problem/Chills/Left Flank Pain/Back Pain Time Seen by Provider: 04/30/24 11:38 Source: patient Mode of arrival: ambulatory Limitations: no limitations History of Present Illness HPI Narrative: 59-year-old female presents with complaint urinary frequency, urgency, dysuria for 8 days. Left lower back pain for the past 2-3 days. Feeling nauseated. Afebrile. Having chills at bedtime. All systems reviewed and negative except as noted above. Related Data Home Medications ?Medication ?Instructions ?Recorded ?Confirmed ?Last Taken ?Type bupropion HCl 300 mg 24 hr tablet, 300 mg PO QAM 07/31/21 01/12/24 04/09/22 06:00 History extended release (Wellbutrin XL) escitalopram oxalate 20 mg tablet 20 mg PO DAILY 07/31/21 04/30/24 04/09/22 06:00 History lisinopril 5 mg tablet 5 mg PO DAILY 07/31/21 04/30/24 04/09/22 06:00 History lorazepam 0.5 mg tablet 0.5 mg PO DAILY PRN Anxiety 07/31/21 04/30/24 04/09/22 06:00 History sumatriptan succinate 6 mg/0.5 mL 6 mg subcut ONCE 07/31/21 04/30/24 Unknown History subcutaneous solution (Imitrex) topiramate 200 mg tablet (Topamax) 100 mg PO BID 07/31/21 04/30/24 Unknown History lactobacillus comb no.10 20 20,000 mmu cells PO DAILY 09/05/21 01/12/24 Unknown History billion cell capsule (Probiotic) multivitamin 1 tablet PO DAILY 09/05/21 04/30/24 Unknown History vitamin B complex 1 tablet PO DAILY 12/05/21 04/30/24 Unknown History meloxicam 15 mg tablet 15 mg PO DAILY 03/27/22 04/30/24 Unknown History gabapentin 300 mg capsule 300 mg PO TID 07/08/23 04/30/24 Unknown History magnesium oxide 500 mg capsule 500 mg PO QHS 07/08/23 04/30/24 Unknown History zoledronic acid 5 mg/100 mL in ea IV 01/12/24 01/12/24 Unknown History mannitol 5 %-water intravenous piggybck (Reclast) bupropion HCl 150 mg tablet,12 hr mg PO 04/30/24 Unknown History sustained-release Allergies Allergy/AdvReac Type Severity Reaction Status Date / Time morphine Allergy Unknown Hallucinati Verified 04/30/24 11:42 ng soap Allergy Unknown Hives Verified 04/30/24 11:42 Review of Systems Review of Systems: CONSTITUTIONAL: Denies fever, chills, or sweats. EYES: Denies visual changes, redness, or discharge. ENT: Denies rhinorrhea, congestion, sore throat, or otalgia. CARDIOVASCULAR: Denies chest pain, palpitations, or edema. RESPIRATORY: Denies cough or dyspnea. GASTROINTESTINAL: Denies abdominal pain, nausea, vomiting, or diarrhea. GENITOURINARY: Reports dysuria, urgency, frequency. Denies hematuria. SKIN: Denies rash or itching. MUSCULOSKELETAL: Denies back pain, joint pain, or myalgia. NEUROLOGIC: Denies headache, numbness, or weakness. PSYCHIATRIC: Denies anxiety or depression. All other systems reviewed are negative, except as documented in HPI. [facility] Past Medical History Medical History (Updated 04/30/24 @ 11:46 by Alva Meraz NP) Kidney stones Screening mammogram, encounter for Basal cell carcinoma Memory loss Hyperparathyroidism Hypertension High cholesterol Vitamin D deficiency Diverticular disease Hx of migraines Depression Chronic pain syndrome Reactive airway disease Anxiety Surgical History Surgical History (Updated 01/12/24 @ 15:09 by BOGDAN Handley) H/O thumb surgery H/O sinus surgery (~08/2021) H/O: hysterectomy with oopherectomy / endometriosis History of elective History of x2 History of placement of ear tubes x3 History of local excision of skin lesion basal cell carcinoma removed from forehead History of exploratory laparotomy lysis of adhesions History of endometrial ablation History of dilation and curettage x2 History of tonsillectomy History of parathyroidectomy (~04/2015) Family History Family History Father Hypertension Grandparent Hypertension Family history of respiratory disorder Carcinoma of colon maternal grandmother Family history of malignant neoplasm of breast Diabetes mellitus maternal grandfather Breast cancer maternal grandmother Malignant tumor of pharynx maternal grandfather Mother Heart disease Dementia Other Family history of malignant neoplasm of male breast Social History Social History (Updated 01/12/24 @ 15:09 by Ashlyn Hernandez [facility]) Smoking packs per day: 0.5 Smoking cigarettes per day: 10.0 Years smoked: 35 Smoking pack-years: 17.50 Smoking status: Former smoker Tobacco type: cigarettes Second hand tobacco smoke exposure: No Smoking end date: 02/24/11 Alcohol intake: current Alcohol use details: 1/MONTH Substance use: never Substance use type: does not use Last use: 12/17/21 Do You Feel Safe in your Home?: Yes Lack of Transportation: No Lack of Food: Never True Current Housing: Decline to Answer Concerned About Future Housing: Decline to Answer Difficulty Paying Gas/Electric Bills: Decline to Answer Difficulty Paying for Meds: Decline to Answer Currently Unemployed: Decline to Answer Education: Decline to Answer Difficulty w/ Childcare or Family Care: Decline to Answer Living arrangements: with family Additional living arrangements comments: Occupation/Education: unemployed Additional occupation/education comments: disabled Gender identity (if verbalized by the patient): Female Sexual Orientation (if Verbalized by the Patient): Straight or Heterosexual Spiritual care concerns: No Comments At time of signature, agree with nursing past medical, surgical, social and family history. There is no relevant family history pertinent to the presenting complaint. Exam Narrative: GENERAL: This is a well-nourished, well-developed patient, in no apparent distress. HEAD: normocephalic, atraumatic. EYES: PERRL. Sclera clear/white. Vision is grossly intact. EARS: External ears normal NOSE: External nose normal NECK: Neck supple, non-tender without lymphadenopathy, masses or thyromegaly. CARDIOVASCULAR: Regular rate and rhythm without murmurs, gallops, or rubs. RESPIRATORY: Clear to auscultation. Breath sounds equal bilaterally. No wheezes, rales, or rhonchi. SKIN: warm, Dry, intact with no suspicious lesions or rash, good texture and turgor. NEURO: awake, alert, and oriented to person, place and time. There were no obvious focal neurologic abnormalities. EXTREMITIES: No joint tenderness, effusion, or edema noted. Course Course Level of Care: Express Care Visit Vital Signs Vital signs: Vital Signs Temperature 36.9 C 04/30/24 11:22 Pulse Rate 84 04/30/24 11:22 Respiratory Rate 16 04/30/24 11:22 Blood Pressure 117/74 04/30/24 11:22 Pulse Oximetry 100 04/30/24 11:22 Oxygen Delivery Room Air 04/30/24 11:22 Temperature 36.9 C 04/30/24 11:22 Pulse Rate 84 04/30/24 11:22 Respiratory Rate 16 04/30/24 11:22 Blood Pressure 117/74 04/30/24 11:22 Pulse Oximetry 100 04/30/24 11:22 Oxygen Delivery Room Air 04/30/24 11:22 reviewed MDM - Female Genitourinary MDM Narrative Medical decision making narrative: urinalysis positive leukocytes, nitrites, blood. Will treat with Augmentin for urinary tract infection. Patient is alert, nontoxic. Afebrile. Please be advised this is a medical document. It is intended for [id number]-bplh communication. It is written in medical language and may contain unfamiliar abbreviations or verbiage. Medical documents are intended to carry relevant information, facts as evident, and the clinical opinion of the practitioner at the time of the encounter. This report may have been done utilizing a voice recognition system. Attempts have been made to correct errors. However, there may be uncorrected grammatical, spelling, and recognition errors present. The file time of this note does not necessarily represent the time of service. Differential Diagnosis Differential diagnosis: Likely urinary tract infection Discharge Plan Discharge Clinical Impression: Urinary tract infection Qualifiers: Urinary tract infection type: site unspecified Hematuria presence: with hematuria Qualified Code(s): N39.0 - Urinary tract infection, site not specified Patient Disposition: Home, Self-Care Condition: Stable Instructions: Antibiotic Form, Urinary Tract Infection in Women (ED) Additional Instructions: take antibiotic as prescribed until gone. May continue taking [id number] azo as directed on packaging. Drink at least 64 oz of water a day. See your doctor if symptoms are not improving. Patient Language: Kiswahili Prescriptions: New amoxicillin-pot clavulanate [Augmentin] 500-125 mg tablet 1 tablet PO BID 5 Days Qty: 10 0RF No Action bupropion HCl [Wellbutrin XL] 300 mg tablet extended release 24 hr 300 mg PO QAM lisinopril 5 mg tablet 5 mg PO DAILY escitalopram oxalate 20 mg tablet 20 mg PO DAILY lorazepam 0.5 mg tablet 0.5 mg PO DAILY PRN (Reason: Anxiety) topiramate [Topamax] 200 mg tablet 100 mg PO BID sumatriptan succinate [Imitrex] 6 mg/0.5 mL solution 6 mg subcut ONCE Rx Instructions: may repeat dose once in 1 hour if not relieved zoledronic [id number] [Reclast] 5 mg/100 mL piggyback IV vitamin B complex Tablet 1 tablet PO DAILY meloxicam 15 mg tablet 15 mg PO DAILY multivitamin Tablet 1 tablet PO DAILY Probiotic 20 billion cell Capsule 20,000 mmu cells PO DAILY Rx Instructions: administer with a meal gabapentin 300 mg capsule 300 mg PO TID magnesium oxide 500 mg capsule 500 mg PO QHS Follow-up/Referrals: Eze,MD Joshua [Primary Care Provider] - Time of Disposition: 11:46
[2024-04-30 11:40] LABS: EDUAAPPEAR Clear; EDUABILI Negative (Negative); EDUABLOOD Trace (Negative); EDUACOLOR1 Orange; EDUAGLUCOSE Negative (Negative); EDUAKETONE Negative (Negative); EDUALEUKO 1+ (Negative); EDUANITRATE Positive (Negative); EDUAPROTEIN 1+ (Negative); EDUASPGRAVITY 1.025; EDUAUROBILI 0.2
--- OUTSIDE RECORDS SUMMARY | 2024-04-30 12:11 | XMS_ITS | Encounter Summary ---
Author Organization [facility] Address [facility] [place] [address] Care Team Providers Care Director Biologics Name Role Phone Joshua Loo MD Primary Care Provider [phone] Encounter Details Date Type Department Care Team (Late st Contact Info) Description 12/14/2022 MyChart Message Enc [facility] - [address], [address] [place] [id number] Saida Willams MD [address] [place] [id number] [facility] mail order pharmacy issue Social History Tobacco Use Types Packs/Day Years Used Date Smoking Tobacco: Former Cigarettes 0.5 30 1 - 12/19/2011 Passive Smoke Exposure: Never Smokeless Tobacco: Never Alcohol Use Standard Drinks/Week Comments Yes 0 (1 standard drink = 0.6 oz pur e alcohol) occassionally PHQ-2 Answer Date Recorded Patient Health Questionnaire-2 Score 0 05/28/2022 Comments Unknown Sex and Gender Information Value Date Recorded Sex Assigned at Female 03/11/2024 11:55 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 Legal Sex Female 5:06 PM CDT Gender Identity Not on file Sexual Orientation Not on file documented as of this encounter Plan of Treatment Upcoming Encounters Date Type Department Care Team (Late st Contact Info) Description 09/20/2024 8:00 AM CDT Office Visit [facility] - [address], [address] [place] [address] Saida Willams MD [address] [place] [address] documented as of this encounter Visit Diagnoses Not on filedocumented in this encounter Care Teams Director Biologics Relationship Specialty Start Date End Date Joshua Loo MD [address] [place] [id number] PCP - General INTERNAL MEDICINE 12/21/21 documented as of this encounter
--- OUTSIDE RECORDS SUMMARY | 2024-04-30 12:11 | XMS_ITS | Clinical Summary ---
Demographics Address [address] [place] [address] Mobile Phone Home Phone Work Phone Email Address Preferred Language Turkmen Marital Status Advent Affiliation Unknown Race White Ethnic Group Not or Lati no Author Organization [facility] Address [address] [place] [address] Care Team Providers Care Park Warden Name Role Phone Joshua Loo MD Primary Care Provider [phone] Allergies Active Allergy Reactions Criticality Noted Date Comments Morphine Hallucinations Medium 07/03/2016 Medications LORazepam (ATIVAN) 0.5 mg tablet take 2 tablet by oral route 3 times every day as needed 0 0 5 Active Additional Information Patient taking differently:0.5 mg,One tablet at night, Reported on 07/29/2022 buPROPion SR (WELLBUTRIN SR) 150 mg 12 hr tablet take 1 tablet by oral route every morning for 3 days, then 1 tablet by mouth twice a day for 12 weeks 0 0 5 Active multivitamin with minerals tablet Take 1 tablet by mouth Active lisinopril (PRINIVIL,ZESTR IL) 5 mg tablet 8 Active b complex vitamins tablet Take 1 tablet by mouth Active acetaminophen 500 mg capsule Activ e escitalopram (LEXAPRO) 20 mg tablet escitalopram 20 mg tablet Active calcium phosphate trib/vit D3 (CITRACAL + D3, CALCIUM PHOS, ORAL) 1 Active topiramate (TOPAMAX) 100 mg tablet Take 1 tablet (100 mg total) by mouth 2 (two) times a day 180 tablet 2 Active Lactobac no.41/Bifidobac t no.7 (PROBIOTIC-10 ORAL) Take by mouth Active SUMAtriptan (Imitrex) 6 mg/0.5 mL solution 8 Active zoledronic nlur-vhdilxeA-u ater (RECLAST) 5 mg/100 mL piggyback Infuse 100 mL (5 mg total) into a venous catheter once Active ipratropium (ATROVENT) 21 mcg (0.03 %) nasal spray 3 Active magnesium oxide (MAG-OX) 500 mg (301.6 mg elemental) tablet Take 1 tablet (500 mg total) by mouth daily 2 Active bacillus coagulans-inuli n 1 billion-250 cell-mg capsule Probiotic Acti ve prochlorperazin e (Compazine) 10 mg tablet every 8 hours Act chris meloxicam (MOBIC) 15 mg tablet TAKE 1 TABLET BY MOUTH DAILY 100 tablet 2 4 Active amoxicillin-cla vulanate (AUGMENTIN) 875-125 mg per tablet Take 1 tablet by mouth 2 (two) times a day 4 Active ciprofloxacin (CILOXAN) 0.3 % ophthalmic solution INSTILL 5 DROPS INTO AFFECTED EAR THREE TIMES DAILY FOR 7 DAYS 4 Active diphenhydrAMINE (BenadryL) 25 mg capsule every 8 hours Activ e ergocalciferol (VITAMIN D) 50,000 unit capsule Take 1 capsule every week by oral route. 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 This regimen is well tolerated seems to work to her satisfaction. I have renewed both the topiramate and sumatriptan as scheduled and she will follow-up in neurology clinic in a year. Assessment & Plan (09/17/2019 2:13 PM CDT): Patient's migraine status appears unchanged from prior years. Her headache frequency and severity has been reviewed. She has good tolerability with both her topiramate and sumatriptan, and is satisfied with the response that she has been having with his medical regimen. I have renewed her medications as scheduled, and I plan on seeing her back in 1 year's time. Onychomycosis 09/17/2019 Drug-induced tremor 09/17/2019 Assessment & Plan (09/15/2020 2:32 PM CDT): Patient continues with a mild tremor felt to be related to chronic lithium usage. It is not debilitating at this time so observation remains most appropriate. Assessment & Plan (09/17/2019 2:13 PM CDT): Patient's mild action tremor is very likely lithium associated. She has noticed a tremor to be less bothersome this year. Observation from the neurological standpoint is appropriate. 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 Surgical History Surgery Date Site/Laterality Comments HYSTERECTOMY SECTION EAR SURGERY ORAL SURGERY Medical History Medical History Date Comments Anxiety disorder Anxiety Depression Depression Hypertension Hypertension Hx Other Medical 05/02/2015 Parathyroidecto my; Comments: EMB 05/17/2015 -; Laterality: right Thyroiditis Family History Medical History Relation Name Comments Hypertension Brother 2 Hypertension Brother 3 Depression Father Hypertension Father Stroke Father Osteoporosis Maternal Grandmother COPD Mother Dementia Mother Hypertension Mother Rheum arthritis Mother Hypertension Other 1 Family history of Hypertension; Curvature of spine Other 2 Curvature of spine - Relation: Grandmother (Added by TW Conv) Broken bones Neg Hx Hip fracture Neg Hx Kyphosis Neg Hx Scoliosis Neg Hx Relation Name Status Comments Brother 1 Brother 2 Alive Brother 3 Alive Father Maternal Grandmother Alive Mother Alive Other 1 Other 2 Social History Tobacco Use Types Packs/Day Years Used Date Smoking Tobacco: Former Smokeless Tobacco: Never Alcohol Use Standard Drinks/Week Comments No 0 (1 standard drink = 0.6 oz pur e alcohol) Hunger Vital Sign Answer Date Recorded Within the past 12 months, y ou worried that your food would run out before you got the money to buy more. Never true 10/13/19 24 Within the past 12 months, t he food you bought just didn't last and you didn't have money to get more. Never true 10/13/2023 Personal Safety Answer Date Recorded Have you ever been in or are you currently in a harmful physical or emotional relationship or is someone making you feel afraid or unsafe? Denies 10/13/2023 Comments Unknown Sex and Gender Information Value Date Recorded Sex Assigned at Not on file Legal Sex Female 9:23 PM CONTINUITY MANAGER Gender Identity Female 09/08/2020 9:41 AM CDT Sexual Orientation Straight 09/08/2020 9: 41 AM CDT Obstetrics History Last Filed Vital Signs Vital Sign Reading Time Taken Comments Blood Pressure 125/62 10/13/2023 11:45 AM CDT Pulse 61 10/13/2023 10:27 AM CDT Temperature 36.9 C (98.5 F) 10/13/2023 10:27 AM CDT Respiratory Rate 18 10/13/2023 10:27 AM CDT Oxygen Saturation 98% 10/13/2023 10:27 AM CDT Inhaled Oxygen Concentration - - Weight 64.6 kg (142 lb 8 oz) 10/13/2023 10:27 AM CDT Height 154.9 cm (5' 1 ) 10/13/2023 10:27 AM CDT Body Mass Index 26.93 10/13/2023 10:27 AM CDT Plan of Treatment Health Maintenance Due Date Last Done Comments Breast Cancer Screening-Mammogram 1965 Colon Cancer Screening-Colonoscopy 1965 Depression Screening 1965 Hepatitis C Screening 1965 Hepatitis B Screening 1983 Regular Well Visit/Exam 18-64 1983 Influenza Vaccine (#1) 2023 3, 11/29/2021, 12/07/2020, Additional history exists DTaP/Tdap/Td Vaccine (2 - Td or Tdap) 08/02/2031 08/01/2021 Zoster Vaccine Completed 06/25/2021, 04/26/2021 Pneumococcal vaccine <65 Aged Out No longer eligible based on patient's age to complete this topic Insurance * Guarantor: Porsha Ochoa Account Type Relation to Patient Date of Phone Billing Address Personal/Family Self 1965 [address] [place] [address] MEDICARE SOLUTIONS [facility] MEDIC[facility] Address: [place] [address] [address] H[address] REF [facility] MEDICARE Address: [place] [address] [address] HMO REF MEDICARE SOLUTIONS Advance Directives For more information, please contact: [phone] Documents on File Type Date Recorded Patient Family Engagement Specialist Expl anation ADVANCE DIRECTIVE 12/29/2017 3:29 PM Care Teams Park Warden Relationship Specialty Start Date End Date Joshua Loo MD PCP - General 05/17/15
--- OUTSIDE RECORDS SUMMARY | 2024-04-30 12:11 | XMS_ITS | Encounter Summary ---
Author Organization [facility] Address [facility] [place] [address] Care Team Providers Care Automotive Service Management Teacher Name Role Phone Joshua Loo MD Primary Care Provider Encounter Details Date Type Department Care Team (Late st Contact Info) Description 08/14/2023 MyChart Message Enc [address], [address] [place] [phone] Saida Willams MD [address] [place] [address] [facility] prior authorization denial Social History Tobacco Use Types Packs/Day Years [...] Sex Assigned at Female 03/11/2024 11:55 AM LAPEL BASTER Legal Sex Female 5:06 PM CDT Gender Identity Not on file Sexual Orientation Not on file documented as of this encounter Plan of Treatment Upcoming Encounters Date Type Department Care Team (Late st Contact Info) Description 09/20/2024 8:00 AM CDT Office Visit [facility] - [address], [address] [place] [address] Saida Willams MD [address] [place] [address] documented as of this encounter Visit Diagnoses Not on filedocumented in this encounter Care Teams Automotive Service Management Teacher Relationship Specialty Start Date End Date Joshua Loo MD [address] [address] PCP - General INTERNAL MEDICINE 12/21/21 documented as of this encounter
--- OUTSIDE RECORDS SUMMARY | 2024-04-30 12:11 | XMS_ITS | Encounter Summary ---
Author Organization [facility] Address [facility] [place] [address] Care Team Providers Care Licensed Professional Counselor Name Role Phone Joshua Loo MD Primary Care Provider [phone] Encounter Details Date Type Department Care Team (Late Contact Info) Description 04/02/2023 MyChart Message Enc [address], [address] [place] [phone] Saida Willams MD [address] [place] [phone] received a phone call? Social History Tobacco Use Types Packs/Day Years [...] Sex Assigned at Female 03/11/2024 11:55 AM 1ST PRESSMAN Legal Sex Female 5:06 PM CDT Gender Identity Not on file Sexual Orientation Not on file documented as of this encounter Plan of Treatment Upcoming Encounters Date Type Department Care Team (Late Contact Info) Description 09/20/2024 8:00 AM CDT Office Visit [address], [address] [place] [address] Saida Willams MD [address] [place] [address] documented as of this encounter Visit Diagnoses Not on filedocumented in this encounter Care Teams Licensed Professional Counselor Relationship Specialty Start Date End Date Joshua Loo MD [address] [address] PCP - General INTERNAL MEDICINE 12/21/21 documented as of this encounter
--- OUTSIDE RECORDS SUMMARY | 2024-04-30 12:11 | XMS_ITS | Encounter Summary ---
Author Organization [facility] Address [facility] [place] [address] Care Team Providers Care Coffee Roaster Name Role Phone Joshua Loo MD Primary Care Provider [phone] Encounter Details Date Type Department Care Team (Late Contact Info) Description 02/10/2023 MyChart Message Enc [facility] - [address], [address] [place] [phone] Saida Willams MD [address] [place] [phone] problems with zonegran Social History Tobacco Use Types Packs/Day Years [...] Sex Assigned at Female 03/11/2024 11:55 AM TRAILER PARK MANAGER Legal Sex Female 5:06 PM CDT Gender Identity Not on file Sexual Orientation Not on file documented as of this encounter Plan of Treatment Upcoming Encounters Date Type Department Care Team (Late Contact Info) Description 09/20/2024 8:00 AM CDT Office Visit [facility] - [address], [address] [place] [address] Saida Willams MD [address] [place] [address] documented as of this encounter Visit Diagnoses Not on filedocumented in this encounter Care Teams Coffee Roaster Relationship Specialty Start Date End Date Joshua Loo MD [address] [place] [address] PCP - General INTERNAL MEDICINE 12/21/21 documented as of this encounter
--- OUTSIDE RECORDS SUMMARY | 2024-04-30 12:11 | XMS_ITS ---
Author Organization [facility] Address [address] [place] [address] Care Team Providers Care Construction Engineer Name Role Phone Joshua Loo Primary Care Provider UnavailAshwini Barroso Unavailable [phone] REASON FOR VISIT ARC follow-up Encounters Encounter Location Date Provider Diagnosis [facility] [address] [place] [address] 03/12/2023 Ashwini Medina Plan Of Treatment No Information Progress Notes * Porsha OCHOADOB:1965 (59 yo F)Acc No.[id number]:03/12/2023 Progress Notes Patient: Porsha CISSE Provider: Bharti Medina MD :1965 A ge:58 Y S ex:Female Date:03/12/2023 Address:[facility] [address] [facility] Pcp:Joshua Loo Subjective: * Chief Complaints: * 1 . ARC follow-up. * Medical History: Objective: * Vitals: Assessment: Plan: * Treatment: * Billing Information: * Visit Code: * Procedure Codes: * Electronic signature of Kiara Medina MD on 04/30/2024 at 12:11 PM HEALTHCARE ASSOCIATE Sign off status: Pending * Provider: Bharti Medina MD Date: 0 03/12/2023 Generated for Johnnie ahuja/Esteban/eTransmitting on: 0 04/30/2024 12:11 PM HEALTHCARE ASSOCIATE
--- OUTSIDE RECORDS SUMMARY | 2024-04-30 12:11 | XMS_ITS | Referral Summary ---
Demographics Address [address] [place] [address] Mobile Phone Home Phone Work Phone Email Address Preferred Language Azeri Marital Status Anabaptism Affiliation Unknown Race White Ethnic Group Not or Lati no Author Organization [facility] Address [address] [place] [address] Care Team Providers Care Dermatological Surgeon Name Role Phone Joshua Loo MD Primary Care Provider Allergies Active Allergy Reactions Criticality Noted Date [...] 6 mg/0.5 mL solution 8 Active zoledronic algo-fsvkjmuK-o ater (RECLAST) 5 mg/100 mL piggyback Infuse [...] neurological standpoint is appropriate. 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 Social History Tobacco Use Types Packs/Day Years [...] on file Legal Sex Female 9:23 PM RIGGING MAN Gender Identity Female 09/08/2020 9:41 AM CDT Sexual Orientation Straight 09/08/2020 9: 41 AM CDT Last Filed Vital Signs Vital Sign Reading [...] 10/13/2023 10:27 AM CDT Plan of Treatment Not on file Insurance * Guarantor: Porsha Ochoa Account Type Relation to Patient Date of Phone Billing Address Personal/Family Self 1965 [address] [place] [address] MEDICARE SOLUTIONS [address] [place] HMO REF [address] [place] HMO REF MEDICARE SOLUTIONS Advance Directives For more information, please contact: [phone] Documents on File Type Date Recorded Patient Insulation Worker Expl anation ADVANCE DIRECTIVE 12/29/2017 3:29 PM Care Teams Dermatological Surgeon Relationship Specialty Start Date End Date Joshua Loo MD PCP - General 05/17/15
--- OUTSIDE RECORDS SUMMARY | 2024-04-30 12:11 | XMS_ITS | Encounter Summary ---
Author Organization [facility] Address [address] [place] [address] Phone Care Team Providers Care Director Of Product Marketing Name Role Phone Joshua Loo MD Primary Care Provider [phone] Encounter Details Date Type Department Care Team (Late st Contact Info) Description 08/19/2023 Therapy [facility] Advanced Medicine 5th [place] [address] [place] [address] Ivonne Patel MD [address] [facility] [address] SHAYLA [facility], [address] [place] [address] Social History Tobacco Use Types Packs/Day Years Used Date Smoking Tobacco: Former Smokeless Tobacco: Never Alcohol Use Standard Drinks/Week Comments No 0 (1 standard drink = 0.6 oz pur e alcohol) Hunger Vital Sign Answer Date Recorded Within the past 12 months, y ou worried that your food would run out before you got the money to buy more. Never true 09/12/19 23 Within the past 12 months, t he food you bought just didn't last and you didn't have money to get more. Never true 09/11/2022 Personal Safety Answer Date Recorded Have you ever been in or are you currently in a harmful physical or emotional relationship or is someone making you feel afraid or unsafe? Denies 09/11/2022 Comments Unknown Sex and Gender Information Value Date Recorded Sex Assigned at Not on file Legal Sex Female 9:23 PM BRICKLAYER TENDER Gender Identity Female 09/08/2020 9:41 AM CDT Sexual Orientation Straight 09/08/2020 9: 41 AM CDT documented as of this encounter Plan of Treatment Not on file documented as of this encounter Visit Diagnoses Not on filedocumented in this encounter Care Teams Director Of Product Marketing Relationship Specialty Start Date End Date Joshua Loo MD PCP - General 05/17/15 documented as of this encounter
--- OUTSIDE RECORDS SUMMARY | 2024-04-30 12:11 | XMS_ITS | Encounter Summary ---
Author Organization [facility] Address [facility] [place] [address] Care Team Providers Care Planer Operator / Grader Name Role Phone Joshua Loo MD Primary Care Provider [phone] Encounter Details Date Type Department Care Team (Late Contact Info) Description 12/10/2022 Therapy Plan [facility] - [address], [address] [place] [phone] Saida Willams MD [address] [place] [address] Social History Tobacco Use Types Packs/Day Years [...] Sex Assigned at Female 03/11/2024 11:55 AM TRANSITION SOCIAL WORKER Legal Sex Female 5:06 PM CDT Gender Identity Not on file Sexual Orientation Not on file documented as of this encounter Plan of Treatment Upcoming Encounters Date Type Department Care Team (Late Contact Info) Description 09/20/2024 8:00 AM CDT Office Visit [facility] - [address], [address] [place] [address] Saida Willams MD [address] [place] [address] documented as of this encounter Visit Diagnoses Not on filedocumented in this encounter Care Teams Planer Operator / Grader Relationship Specialty [place] [address] [place] [address] PCP - General INTERNAL MEDICINE 12/21/21 documented as of this encounter
--- OUTSIDE RECORDS SUMMARY | 2024-04-30 12:11 | XMS_ITS | Encounter Summary ---
Author Organization [facility] Address [address] [place] [address] Care Team Providers Care Process Architect Name Role Phone Joshua Loo MD Primary Care Provider [phone] Encounter Details Date Type Department Care Team (Late Contact Info) Description 07/31/2023 MyChart Message Enc [address], [address] [place] [phone] Saida Willams MD [address] [place] [address] follow-up from visit on 07/30/23 Social History Tobacco Use Types Packs/Day Years [...] Sex Assigned at Female 03/11/2024 11:55 AM ONCOLOGY TECHNICIAN Legal Sex Female 5:06 PM CDT Gender Identity Not on file Sexual Orientation Not on file documented as of this encounter Plan of Treatment Upcoming Encounters Date Type Department Care Team (Late Contact Info) Description 09/20/2024 8:00 AM CDT Office Visit [address] [place] [address] Saida Willams MD [address] [place] [address] documented as of this encounter Visit Diagnoses Not on filedocumented in this encounter Care Teams Process Architect Relationship Specialty Start Date End Date Joshua Loo MD [address] [place] [address] PCP - General INTERNAL MEDICINE 12/21/21 documented as of this encounter
--- OUTSIDE RECORDS SUMMARY | 2024-04-30 12:11 | XMS_ITS | Continuity of Care Document ---
Author Organization [facility] Address [address] [facility] [address] [place] [address] Phone Care Team Providers Care Quantitative Research Analyst Name Role Phone Mily Tripathi Unavailable Unavailable Advance Directives Directive Yes / No Effective Date File Name No Information Encounters Encounter Description Practice Location Reason(s) For Visit Diagnoses Date Provider Providers Copied on Encounter [facility], [address], [place], [place], [id number], [place] tel:[phone] [facility] No Information Mar-2 6-200 4 Bhumi Minor. [address] , [address], [place], [address], [place]. tel:[phone] Family History Family Member Type Diagnosis Age At Onset No Information Payers Payer name Insurance type Covered green party ID Authoriza tiantonio(s) [facility] Commercial CI [id number] Social History Type Description Quantity Date Captured Comments Sex Female Smoking Status No Information Chief Complaint And Reason For Visit No Information Reason For Referral Reason For Referral No Information History Of Present Illness Encounter Date Complaint History Of Prese nt Illness No Information Functional Status Date Functional Assessmen t No Information Instructions Date Instruction Additional Infor mation No Information Assessments Type Assessment Date No Information Patient Care Teams Name Effective Dates (start - stop) Status Members No Information
--- OUTSIDE RECORDS SUMMARY | 2024-04-30 12:12 | XMS_ITS | Encounter Summary ---
Author Organization [facility] Address [address] [place] [address] Phone Care Team Providers Care Tone Artist Apprentice Name Role Phone Joshua Loo MD Primary Care Provider [phone] Encounter Details Date Type Department Care Team (Late st Contact Info) Description 08/07/[address] Medical Office [address] [place] [phone] Samson Stewart MD [address] [id number] Social History Tobacco Use Types Packs/Day Years Used Date Smoking Tobacco: Former Smokeless Tobacco: Never Alcohol Use Standard Drinks/Week Comments No 0 (1 standard drink = 0.6 oz pur e alcohol) Comments Unknown Sex and Gender Information Value Date Recorded Sex Assigned at Not on file Legal Sex Female 9:23 PM STRATEGIC PLANNING DIRECTOR Gender Identity Female 09/08/2020 9:41 AM CDT Sexual Orientation Straight 09/08/2020 9: 41 AM CDT documented as of this encounter Plan of Treatment Not on file documented as of this encounter Visit Diagnoses Not on filedocumented in this encounter Care Teams Tone Artist Apprentice Relationship Specialty Start Date End Date Joshua Loo MD PCP - General 05/17/15 documented as of this encounter
--- OUTSIDE RECORDS SUMMARY | 2024-04-30 12:12 | XMS_ITS ---
Author Organization [facility] Address [address] [facility] [address] [place] [address] Care Team Providers Care Remote Coders Name Role Phone Joshua Loo MD Primary Care Provider Unavaila Nelly Torres Unavailable [phone] Summer Green Unavailable [phone] REASON FOR VISIT MIPS PHQ less than 5 Positive with f/u doc, Depression screening positive, Depressed mood Medications Medication SIG (Take, Route, Frequency, Duration) Notes Start Date End Date Status Gabapentin 100 MG Oral 05/06/2023 A ctive buPROPion HCl ER (SR) 150 MG 2 tablets in the morning Oral daily for 90 days Active Escitalopram Oxalate 20 MG 1 tablet Oral Once a day for 90 days Active IPRATROPIUM BROMIDE 21 MCG (0.03 %) NASAL SPRAY *Reorder from [facility] for eRx and Interaction Alerts* 05/06/2023 Active Escitalopram Oxalate 20 MG TAKE 1 TABLET BY MOUTH DAILY for 90 Active Meloxicam 15 MG Oral 05/06/2023 Act chris SUMAtriptan Succinate 6 MG/0.5ML Subcutaneous 05/06/2023 Active Topiramate 100 MG Oral 05/06/2023 A ctive MAGNESIUM 500 MG TABLET *Reorder from [facility] for eRx and Interaction Alerts* 05/06/2023 Active Lisinopril 5 MG Oral 05/06/2023 Act chris buPROPion HCl ER (SR) 150 MG 2 tablets in the morning Oral daily for 90 days Active LORazepam 0.5 MG 1 tablet at bedtime Oral daily for 90 days 11/04/2023 Active Prochlorperazine Maleate 10 MG Oral 05/06/2023 Active Social History Tobacco Use: Social History Observation Description Date Details (start date - stop date) Former Smoker 02/24/1979 - 12/19/2011 Sex Assigned At : Social History Observation Description Sex Assigned At Female Tobacco Control (Standard) Question Answer Notes Tobacco use: Former smoker When did you start smoking? 02/24/1979 When did you stop smoking? 12/19/2011 How long has it been since you last smoked? Binua ter than 10 years Section Notes: Social History Substance Use Do you or have you ever smoked tobacco?: Former smoker How much tobacco do you smoke?: None Do you or have you ever used any other forms of tobacco or nicotine?: No Do you or have you ever used e-cigarettes or vape?: Never used electronic cigarettes Do you or have you ever used smokeless tobacco?: Never used smokeless tobacco How much tobacco do you chew?: none What was the date of your most recent tobacco screening?: 05/06/2023 Has tobacco cessation counseling been provided?: No What is your level of alcohol consumption?: Occasional How many years have you consumed alcohol?: 40 Do you use any illicit or recreational drugs?: No Which illicit or recreational drugs have you used?: None Have you used IV drugs?: No What is your level of caffeine consumption?: Moderate Education and Occupation What is the highest grade or level of school you have completed or the highest degree you have received?: Associate degree: academic program Are you currently employed?: No Marriage and Sexuality What is your relationship status?: Are you sexually active?: No How many children do you have?: 2 (Notes: Daughter (27) lives in [place]; son (29) lives in [place]. Daughter is in school for medical administrative specialist.) Home and Environment Do you have any siblings?: 3 (Notes: ARVIN Sterling, lives in [place]; Her middle brother was murdered) Are there any smokers in your house?: No Are there any guns present in your home?: No Advance Directive Do you have an advance directive?: Yes Do you have a medical power of immigration attorney?: Yes Encounters Encounter Location Date Provider Diagnosis [facility] [email or web address] [facility] [address] [address] [place] [id number] 02/03/2024 Summer Green Generalized anxiety disorder F41.1 and Major depressive disorder, recurrent, mild F33.0 Assessments Encounter Date Diagnosis (ICD Code) Assessment Notes Treatment Notes Treatment Clinical Notes Section Notes 02/03/2024 Generalized anxiety disorder (ICD-10 - F41.1) 02/03/2024 Major depressive disorder, recurrent, mild (ICD-10 - F33.0) Plan Of Treatment Next Appt Details Follow Up: 2 Months, Reason: Provider Name:Summer Green, 05/03/2024 10:00:00 AM, [address], [address], [address], Provider Name:Nelly Michele encinas, 05/03/2024 11:15:00 AM, [address], [address], [address], Progress Notes * SWATI MENDEZ LDOB: 5 (59 yo F)Acc No.[id number]:02/03/2024 Patient: SWATI CISSE Provider: Montserrat GREEN LCSW :1965 A ge:59 Y S ex:Female Date:02/03/2024 Address:[facility] [address] [facility] Pcp:Joshua Loo MD Data: * Time Tracker: * Date Start Time End Time Duration User Type Captured By Mode Notes 02/03/2024 09:03 AM 10:05 AM 01:02:06 Therapist Summer Green er * Chief Complaints: * 1 . MIPS PHQ less than 5 Positive with f/u doc. 2. Depression screening positive. 3. Depressed mood. * HPI: D epression Screening: FARIDEH-7 (2018 Edition) F eeling nervous, anxious, or on edge?Nearly every day, N ot being able to stop or control worrying M ore than half the days,?Worrying too much about different things N early every day, T rouble relaxing N early every day, B eing so restless that it is hard to sit still N early every day, B ecoming easily annoyed or irritable N early every day, F eeling afraid as if something awful might happen N early every day, T otal FARIDEH-7 Score 2 0, I f you checked any problems, how difficult have they made it for you to do your work, take care of things at home, or get along with other people? E xtremely difficult, I nterpretation of Total ( 15 and over) Severe.? [place]-Suicide Severity Rating Scale: Suicide Risk (CSRS-screener) i n the past one month Have you wished you were or wished you could go to sleep and not wake up? Y es, i n the past one month Have you actually had any thoughts of killing yourself? N o. D epression screening: PHQ-9 L ittle interest or pleasure in doing things S everal days, F eeling down, depressed, or hopeless S everal days, T rouble falling or staying asleep, or sleeping too much N early every day, F eeling tired or having little energy Nearly every day, P oor appetite or overeating N early every day, F eeling bad about yourself or that you are a failure, or have let yourself or your family down S everal days, Trouble concentrating on things, such as reading the newspaper or watching television M ore than half the days, M oving or speaking so slowly that other people could have noticed; or the opposite, being so fidgety or restless that you have been moving around a lot more than usual S everal days, T houghts that you would be better off or of hurting yourself in some way N ot at all, T otal Score 1 5, I nterpretation M oderately Severe Depression. I ntervention D epression Screening Findings P ositve, F ollow-Up for Depression M ental health treatment assessment, Patient follow-up to return when and if necessary, S uicide Risk Assessment Performed 1 04/05/2023 , A dditional Evaluation for Depression P sychiatric interview and evaluation, N sebastian of the standardized tool used for adult depression screening: P atient Health Questionnaire (PHQ-9). F unctional Status: Date: 02/03/2024 Current symptoms: Financial stressors, family system stressors Severity: Moderate Context: Cl. reported significant financial stressors- CL.'s mother was hospitalized with pneumonia, leg infection and was in rehab unit. Cl. dealing with back/leg pain- receiving injections which aren't helpful. CL. worried about continued medical bills and copays and not eligible for assistance. Cl brought poem written by her son. Discussed son's life and struggles with addiction. ? Intervention: During this session, clinician prompted Cl. to process thoughts and feelings associated with financial stressors and medical issues f or the purpose of gaining insight. Clinician provided support and validation where appropriate. Response: Cl. participated actively in discussion and displayed good insight. Cl. appears to be making good progress. Plan:. * Family History: P aternal Grandfather: Diabetes mellitus . M aternal Grandfather: Alcohol abuse . S on: Substance abuse , Depressive disorder . D aughter: Anxiety disorder . * Social History: T obacco Use: T obacco Control (Standard) T obacco use: F ormer smoker, W hen did you start smoking? , W hen did you stop smoking? 1 , H ow long has it been since you last smoked? G reater than 10 years. M igrated Social History: M igrated Social History: Alcohol Intake: Occasional 06/28/2020,Tobacco Years: Former smoker 06/28/2020. S ocial History Substance Use Do you or have you ever smoked tobacco?: Former smoker How much tobacco do you smoke?: None Do you or have you ever used any other forms of tobacco or nicotine?: No Do you or have you ever used e-cigarettes or vape?: Never used electronic cigarettes Do you or have you ever used smokeless tobacco?: Never used smokeless tobacco How much tobacco do you chew?: none What was the date of your most recent tobacco screening?: 05/06/2023 Has tobacco cessation counseling been provided?: No What is your level of alcohol consumption?: Occasional How many years have you consumed alcohol?: 40 Do you use any illicit or recreational drugs?: No Which illicit or recreational drugs have you used?: None Have you used IV drugs?: No What is your level of caffeine consumption?: Moderate Education and Occupation What is the highest grade or level of school you have completed or the highest degree you have received?: Associate degree: academic program Are you currently employed?: No Marriage and Sexuality What is your relationship status?: Are you sexually active?: No How many children do you have?: 2 (Notes: Daughter (27) lives in [place]; son (29) lives in [place]. Daughter is in school for medical administrative specialist.) Home and Environment Do you have any siblings?: 3 (Notes: ARVIN Sterling, lives in [place]; Her middle brother was murdered) Are there any smokers in your house?: No Are there any guns present in your home?: No Advance Directive Do you have an advance directive?: Yes Do you have a medical power of immigration attorney?: Yes. * Medications: T aking Prochlorperazine Maleate 10 MG Tablet Oral , Taking MAGNESIUM 500 MG TABLET , Notes to Pharmacist: *Reorder from [facility] for eRx and Interaction Alerts*, Taking Lisinopril 5 MG Tablet Oral , Taking SUMAtriptan Succinate 6 MG/0.5ML Solution Auto-injector Subcutaneous , Taking Topiramate 100 MG Tablet Oral , Taking Meloxicam 15 MG Tablet Oral , Taking Gabapentin 100 MG Capsule Oral , Taking IPRATROPIUM BROMIDE 21 MCG (0.03 %) NASAL SPRAY , Notes to Pharmacist: *Reorder from [facility] for eRx and Interaction Alerts*, Taking Escitalopram Oxalate 20 MG Tablet TAKE 1 TABLET BY MOUTH DAILY , Taking buPROPion HCl ER (SR) 150 MG Tablet Extended Release 12 Hour 2 tablets in the morning Oral daily , Taking Escitalopram Oxalate 20 MG Tablet 1 tablet Oral Once a day , Taking buPROPion HCl ER (SR) 150 MG Tablet Extended Release 12 Hour 2 tablets in the morning Oral daily , Taking LORazepam 0.5 MG Tablet 1 tablet at bedtime Oral daily , Medication List reviewed and reconciled with the patient * Examination: P sychiatry: Appearance: w ell-groomed. Affect / mood: a ppropriate. Attitude: c ooperative. Homicidal ideation: n one. Suicidal ideation: n one. Hallucinations: n o. Insight: g ood. Intellectual functioning: a damion average. Orientation: a wake, alert and oriented x 3. ? Assessment: * Assessment: 1. G eneralized anxiety disorder - F41.1 (Primary) 2 . M ajor depressive disorder, recurrent, mild - F33.0 Plan: * Treatment: * Procedure Codes: 9 0834 PSYCHOTHERAPY W/PATIENT 45 MINUTES, G8431 CLIN DEPRESSION SCREEN DOC, 1036F TOBACCO NON-USER * Follow Up: 2 Months * Billing Information: * Visit Code: * Procedure Codes: 37493 PSYCHOTHERAPY W/PATIENT 45 MINUTES. G8431 CLIN DEPRESSION SCREEN DOC. 1036F TOBACCO NON-USER. * NE LATHE SET UP OPERATOR Sign off status: Completed Signatures: No Ad Hoc Signature Added true * Provider: Montserrat GREEN LCSW Date: 1 04/05/2023 Generated for Mickeyi seymour/Faguilherme/eTransmitting on: 0 04/30/2024 12:12 PM ENGINE LATHE SET UP OPERATOR History and Physical Notes * HPI (History of Present Illness) Category Sub-Category Detail Notes Category Not es Depression screening PHQ-9 Little inte rest or pleasure in doing things: Several days Feeling down, depressed, or hopeless: Se veral days Trouble falling or staying asleep, or sl eeping too much: Nearly every day Feeling tired or having little energy: N early every day Poor appetite or overeating: Nearly ever y day Feeling bad about yourself o r that you are a failure, or have let yourself or your family down: Several days Trouble concentrating on thi ngs, such as reading the newspaper or watching television: More than half the days Moving or speaking so slowly that other people could have noticed; or the opposite, being so fidgety or restless that you have been moving around a lot more than usual: Several days Thoughts that you would be b max off or of hurting yourself in some way: Not at all Total Score: 15 Interpretation: Moderately Severe Depres agustin Intervention Depression Screening Findings: P ositve Follow-Up for Depression: [facility] treatment assessment, Patient follow-up to return when and if necessary Suicide Risk Assessment Performed: 02/02 Additional Evaluation for De pression: Psychiatric interview and evaluation Name of the standardized too l used for adult depression screening:: Patient Health Questionnaire (PHQ-9) Functional Status Date: 02/03/2024 Current symptoms: Financial stressors, family system stressors Severity: Moderate Context: Cl. reported significant financial stressors- CL.'s mother was hospitalized with pneumonia, leg infection and was in rehab unit. Cl. dealing with back/leg pain- receiving injections which aren't helpful. CL. worried about continued medical bills and copays and not eligible for assistance. Cl brought poem written by her son. Discussed son's life and struggles with addiction. Intervention: During this session, clinician prompted Cl. to process thoughts and feelings associated with financial stressors and medical issues for the purpose of gaining insight. Clinician provided support and validation where appropriate. Response: Cl. participated actively in discussion and displayed good insight. Cl. appears to be making good progress. Plan: Depression Screening FARIDEH-7 (2018 Edition) Feeling nervous, anxious, or on edge: Nearly every day Not being able to stop or control worryi ng: More than half the days Worrying too much about different things : Nearly every day Trouble relaxing: Nearly every day Being so restless that it is hard to sit still: Nearly every day Becoming easily annoyed or irritable: Ne bubba every day Feeling afraid as if something awful [place] ht happen: Nearly every day Total FARIDEH-7 Score: 20 If you checked any problems, how difficult have they made it for you to do your work, take care of things at home, or get along with other people?: Extremely difficult Interpretation of Total: (15 and over) [facility] Suicide Risk (CSRS-screener) in the past one month Have you wished you were or wished you could go to sleep and not wake up?: Yes in the past one month Have y ou actually had any thoughts of killing yourself?: No Examination Category Sub-Category Detail Notes Category Not es Psychiatry Appearance: well-groomed Attitude: cooperative Orientation: awake, alert and daylin ented x 3 Affect / mood: appropriate Insight: good Suicidal ideation: none Homicidal ideation: none Intellectual functioning: above average Hallucinations: no
--- OUTSIDE RECORDS SUMMARY | 2024-04-30 12:12 | XMS_ITS | CONTINUITY OF CARE DOCUMENT ---
Demographics Address [address] [place] [address] Work Phone [phone] Home Phone [phone] Mobile Phone [phone] Preferred Language en Marital Status Unknown Uatsdin Affiliation Unknown Race White Ethnic Group Not or Lati no Author Name mickey arevalo Address Unknown Organization [facility] Address [address] [facility] [address] [place] [address] Phone [phone] Care Team Providers Care Dot Etcher Apprentice Name Role Phone Micha Peace MD Unavailable [phone] Micha Peace MD Unavailable INSURANCE PROVIDERS Payer name Policy type / Coverage type [place] [employer] party ID AARP MEDICARE ADVANTAGE HMO-POS HMO [id number]
--- OUTSIDE RECORDS SUMMARY | 2024-04-30 12:12 | XMS_ITS ---
Author Organization [facility] [employer] Address [address] [place] [address] Care Team Providers Care Brick Baker Name Role Phone Joshua Loo MD Primary Care Provider Unavaila Nelly Torres Unavailable [phone] Allergies Allergen (clinical drug ingredient) Drug/Non Drug Allergy documented on EMR Reaction Allergy Type Onset Date Status morphine Morphine Sulfate Unknown Drug Allergy 05/06/2023 Active REASON FOR VISIT Follow up depression, anxiety, Medications Medication SIG (Take, Route, Frequency, Duration) Notes Start Date End Date Status Meloxicam 15 MG Oral 05/06/2023 Act chris Topiramate 100 MG Oral 05/06/2023 A ctive SUMAtriptan Succinate 6 MG/0.5ML Subcutaneous 05/06/2023 Active Gabapentin 100 MG 1 capsule Oral three times a day 05/06/2023 Active IPRATROPIUM BROMIDE 21 MCG (0.03 %) NASAL SPRAY *Reorder from [employer] for eRx and Interaction Alerts* 05/06/2023 Active MAGNESIUM 500 MG TABLET *Reorder from [employer] ([employer]) for eRx and Interaction Alerts* 05/06/2023 Active Prochlorperazine Maleate 10 MG Oral 05/06/2023 Active LORazepam 0.5 MG 1 tablet at bedtime Oral daily for 90 days 02/09/2024 Active buPROPion HCl ER (SR) 150 MG 2 tablets in the morning Oral daily for 90 days Active Lisinopril 5 MG Oral 05/06/2023 Act chris Escitalopram Oxalate 20 MG 1 tablet Oral Once a day for 90 days Active Social History Sex Assigned At : Social History Observation Description Sex Assigned At Female Section Notes: Social History Substance Use Do [...] have?: 2 (Notes: Daughter (27) lives in [place]; son (29) lives in [place]. 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 (Z79.899) 3 Active confirmed Problem Hypertension (98755887) Hypertension (I10) Active confirmed Vital Signs Blood pressure systolic 147 mm Hg 02/03/20 24 Blood pressure diastolic 83 mm Hg 024 Heart Rate 76 /min 02/03/2024 Height 62.00 in 02/03/2024 Weight 145 lbs 02/03/2024 BMI 26.52 kg/m2 02/03/2024 Height-cm 157.48 cm 02/03/2024 Weight-kg 65.77 kg 02/03/2024 Encounters Encounter Location Date Provider Diagnosis [facility] [employer] [address] [place] [address] 02/03/2024 Nelly Macias Generalized anxiety disorder F41.1 ; Major depressive disorder, recurrent, mild F33.0 ; Chronic migraine without aura, not intractable, with status migrainosus G43.701 ; Other residential (current) drug therapy Z79.899 and Hypertension I10 Assessments Encounter Date Diagnosis (ICD Code) Assessment Notes Treatment Notes Treatment Clinical Notes Section Notes 02/03/2024 Generalized anxiety disorder (ICD-10 - F41.1) Assessment and Plan: Anxiety - Manageable with current medications and therapy techniques Plan: - Continue Lexapro 20 mg daily - Continue lorazepam 0.5 mg at bedtime as needed - Encourage continued emotional support from daughter and best friend - Continue therapy with Summer Depression - Mild, relatively manageable with current medications Plan: - Continue bupropion 150 mg, two tablets in the morning - Encourage continued emotional support from daughter and best friend - continue therapy with Summer Hypertension, elevated BP reading - Reports high blood pressure due to pain Plan: - Encourage regular blood pressure monitoring - Report significant changes residential use of 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 revisit topic next visit Follow-up in 3 months to monitor progress and discuss concerns or changes in condition 02/03/2024 Major depressive disorder, recurrent, mild (ICD-10 - F33.0) Assessment and Plan: Anxiety - Manageable with current medications and therapy techniques Plan: - Continue Lexapro 20 mg daily - Continue lorazepam 0.5 mg at bedtime as needed - Encourage continued emotional support from daughter and best friend - Continue therapy with Summer Depression - Mild, relatively manageable with current medications Plan: - Continue bupropion 150 mg, two tablets in the morning - Encourage continued emotional support from daughter and best friend - continue therapy with Summer Hypertension, elevated BP reading - Reports high blood pressure due to pain Plan: - Encourage regular blood pressure monitoring - Report significant changes residential use of 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 revisit topic next visit Follow-up in 3 months to monitor progress and discuss concerns or changes in condition 02/03/2024 Chronic migraine without aura, not intractable, with status migrainosus (ICD-10 - G43.701) Assessment and Plan: Anxiety - Manageable with current medications and therapy techniques Plan: - Continue Lexapro 20 mg daily - Continue lorazepam 0.5 mg at bedtime as needed - Encourage continued emotional support from daughter and best friend - Continue therapy with Summer Depression - Mild, relatively manageable with current medications Plan: - Continue bupropion 150 mg, two tablets in the morning - Encourage continued emotional support from daughter and best friend - continue therapy with Summer Hypertension, elevated BP reading - Reports high blood pressure due to pain Plan: - Encourage regular blood pressure monitoring - 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 (ICD-10 - Z79.899) Assessment and Plan: Anxiety - Manageable with current medications and therapy techniques Plan: - Continue Lexapro 20 mg daily - Continue lorazepam 0.5 mg at bedtime as needed - Encourage continued emotional support from daughter and best friend - Continue therapy with Summer Depression - Mild, relatively manageable with current medications Plan: - Continue bupropion 150 mg, two tablets in the morning - Encourage continued emotional support from daughter and best friend - continue therapy with Summer Hypertension, elevated BP reading - Reports high blood pressure due to pain Plan: - Encourage regular blood pressure monitoring - 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 revisit topic next visit Follow-up in 3 months to monitor progress and discuss concerns or changes in condition 02/03/2024 Hypertension (ICD-10 - I10) Assessment and Plan: Anxiety - Manageable with current medications and therapy techniques Plan: - Continue Lexapro 20 mg daily - Continue lorazepam 0.5 mg at bedtime as needed - Encourage continued emotional support from daughter and best friend - Continue therapy with Summer Depression - Mild, relatively manageable with current medications Plan: - Continue bupropion 150 mg, two tablets in the morning - Encourage continued emotional support from daughter and best friend - continue therapy with Summer Hypertension, elevated BP reading - Reports high blood pressure due to pain Plan: - Encourage regular blood pressure monitoring - 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 revisit topic next visit Follow-up in 3 months to monitor progress and discuss concerns or changes in condition Plan Of Treatment Medication Medication Name Sig Start Date Stop Date Notes LORazepam 0.5 MG 1 tablet at bedtime Oral daily for 90 days 02/09/2024 buPROPion HCl ER (SR) 150 MG 2 tablets i n the morning Oral daily for 90 days Escitalopram Oxalate 20 MG 1 tablet Oral Once a day for 90 days Next Appt Details Follow Up: 3 Months, Reason: Provider Name:Summer Gardner, 05/03/2024 10:00:00 AM, [address], [facility] [address], [place], [address], Provider Name:Nelly encinas, 05/03/2024 11:15:00 AM, [address], [facility] [address], [place], [address], Progress Notes * SWATI MENDEZ LDOB: 5 (59 yo F)Acc No.[id number]:02/03/2024 Patient: SWATI CISSE Provider: Saul Macias :1965 A ge:59 Y S ex:Female Date:02/03/2024 Address:[facility] [address] [facility] Pcp:Joshua Loo MD Subjective: * Chief Complaints: * F ollow up depression, anxiety, * HPI: H istory of Presenting Problem: 59 y/o female, , on disability, here to follow up for depression and anxiety. context chronic migraines and back pain. uses a cane Reports anxiety and depression have been relatively stable and manageable since last visit in October. Experiencing significant stress due to various life events including mother's birthday alliance party, relatives visiting, financial strain, family health issues, and caring for brother with brain trauma. Managing panic attacks using techniques learned from therapist. Occasional depressive episodes present, denies suicidal thoughts. Dealing with chronic back pain, receiving injections for pain management. Pain relief from injections is temporary. Insurance requires steroid injections before nerve blocks. Scheduled for radiofrequency ablation procedure, expected to provide 6- 12 months of pain relief. Unable to walk dog for almost two years due to pain, feels out of shape with shortness of breath during daily activities. Appetite fine, sleep generally okay considering discomfort. Feels satisfied with current medications. ongoing notes: Son from addiction 10/[address] Gary and Mary were sendning 90 day fill of lorazepam through [employer]. D epression Screening: FARIDEH-7 (2018 Edition) F eeling nervous, anxious, or on edge?Several days, N ot being able to stop or control worrying S everal days, W orrying too much about different things S everal , T rouble relaxing S everal , B eing so restless that it is hard to sit still S ever, B ecoming easily annoyed or irritable S everal , F eeling afraid as if something awful might happen S ever,?Total FARIDEH-7 Score 7 , I nterpretation of Total ( 5 to 9) Mild. D epression screening: PHQ-9 L ittle interest or pleasure in doing things S everal days, F eeling down, depressed, or hopeless S everal , T rouble falling or staying asleep, or sleeping too much M ore than half the days, F eeling tired or having little energy M ore than half the days, P oor appetite or overeating S everal , F eeling bad about yourself or that you are a failure, or have let yourself or your family down S everal , T rouble concentrating on things, such as reading the newspaper or watching television?Nearly every day, M oving or speaking so slowly that other people could have noticed; or the opposite, being so fidgety or restless that you have been moving around a lot more than usual S ever days, T houghts that you would be better off or of hurting yourself in some way N ot at all, T otal Score 1 2, I nterpretation M oderate Depression. I ntervention D epression Screening Findings P ositmilvia, Luz Maria ollow-Up for Depression M ental health treatment assessment, Patient follow-up to return when and if necessary, S uicide Risk Assessment Performed 1 04/05/2023, A dditional Evaluation for Depression P sychiatric interview and evaluation, N sebastian of the standardized tool used for adult depression screening: Vanessa lowry Health Questionnaire (PHQ-9). * ROS: G eneral / Constitutional: Patient complains of m igraines, , sleep disturbance, fatigue. R espiratory: Patient complains of s hortness of breath with exertion.? N eurologic: Patient complains of b ack pain, balance difficulty. ? P sychiatric: Patient denies a uditory / visual hallucinations, delusions, substance abuse, suicidal thoughts, lsisett, Dissociations, psychosis, panic attacks. C omments?See HPI for details. P atchapincito not eligible due to active diagnosis of hypertension: Wilber 9744. * Medical History: * Surgical History: T onsilectomy/adenoids 02/24/1971Other 02/24/1971Any surgical history 02/25/1972Endometrial ablation (58489) 02/24/1999Hysterectomy (16554) 02/25/2004Oophorectomy (54901) 02/25/2004Myringotomy tube placement 02/24/2005Sinus surgery 09/14/2021 * Hospitalization/Major Diagno stic Procedure: D enies Past Hospitalization * Family History: P aternal Grandfather: Diabetes mellitus . M aternal Grandfather: Alcohol abuse . S on: Substance abuse , Depressive disorder . D aughter: Anxiety disorder . * Social History: M igrated Social History: M igrated Social [...] have?: 2 (Notes: Daughter (27) lives in [place]; son (29) lives in [place]. Daughter is in school for medical translator.) Home and Environment Do you have any siblings?: 3 (Notes: ARVIN Sterling, lives in [place]; Her middle brother was murdered) Are there any smokers in your house?: No Are there any guns present in your home?: No Advance Directive Do you have an advance directive?: Yes Do you have a medical power of business attorney?: Yes. * Medications: T akingProchlorperazine Maleate 10 MG Tablet Oral MAGNESIUM 500 MG TABLET , Notes to Pharmacist: *Reorder from [facility] for eRx and Interaction Alerts*Lisinopril 5 MG Tablet Oral SUMAtriptan Succinate 6 MG/0.5ML Solution Auto-injector Subcutaneous Topiramate 100 MG Tablet Oral Meloxicam 15 MG Tablet Oral Gabapentin 100 MG Capsule 1 capsule Oral three times a day IPRATROPIUM BROMIDE 21 MCG (0.03 %) NASAL SPRAY , Notes to Pharmacist: *Reorder from [facility] for eRx and Interaction Alerts*Escitalopram Oxalate 20 MG Tablet 1 tablet Oral Once a day buPROPion HCl ER (SR) 150 MG Tablet Extended Release 12 Hour 2 tablets in the morning Oral daily LORazepam 0.5 MG Tablet 1 tablet at bedtime Oral daily Taking Prochlorperazine Maleate 10 MG Tablet Oral Taking MAGNESIUM 500 MG TABLET , Notes to Pharmacist: *Reorder from [facility] for eRx and Interaction Alerts*Taking Lisinopril 5 MG Tablet Oral Taking SUMAtriptan Succinate 6 MG/0.5ML Solution Auto-injector Subcutaneous Taking Topiramate 100 MG Tablet Oral Taking Meloxicam 15 MG Tablet Oral Taking Gabapentin 100 MG Capsule 1 capsule Oral three times a day Taking IPRATROPIUM BROMIDE 21 MCG (0.03 %) NASAL SPRAY , Notes to Pharmacist: *Reorder from [facility] for eRx and Interaction Alerts*Taking Escitalopram Oxalate 20 MG Tablet 1 tablet Oral Once a day Taking buPROPion HCl ER (SR) 150 MG Tablet Extended Release 12 Hour 2 tablets in the morning Oral daily Taking LORazepam 0.5 MG Tablet 1 tablet at bedtime Oral daily DiscontinuedEscitalopram Oxalate 20 MG Tablet TAKE 1 TABLET BY MOUTH DAILY buPROPion HCl ER (SR) 150 MG Tablet Extended Release 12 Hour 2 tablets in the morning Oral daily Medication List reviewed and reconciled with the patientDiscontinued Escitalopram Oxalate 20 MG Tablet TAKE 1 TABLET BY MOUTH DAILY Discontinued buPROPion HCl ER (SR) 150 MG Tablet Extended Release 12 Hour 2 tablets in the morning Oral daily Medication List reviewed and reconciled with the patient * Allergies: M orphine Sulfate: Allergy - Onset Date 05/06/2023no[Allergies Verified] Objective: * Vitals: B P:147/83mm Hg, HR:76/min, Wt:145lbs, Wt-k.77 kg, Ht: 62.00 in, Ht-cm: 157.48 cm, BMI:26.52Index, Body Surface Area: 1.69. * Examination: P sychiatry: Appearance: a lert, groomed, pleasant, in no acute distress. Abnormal body movements: n one. Affect / mood: a ppropriate, full range. Attention: n ormal in conversation. Attitude: c ooperative, collaborative approach. Homicidal ideation: n one. Suicidal ideation: n one. Memory status: n o impairment noted. Degree of awareness of surroundings: w ithin normal limits.? Hallucinations: n o. Insight: g ood. Intellectual functioning: n o impairment noted. Judgement: g ood. Orientation: a wake, alert and oriented x 3. Psychomotor activity: w ithin normal range. Speech / language: a ppropriate pitch/modulation, clear and coherent, normal rate, volume, and articulation (RVR), proper grammar used. Thought content: a ppropriate. Thought process: i ntact. Assessment: * Assessment: 1. G eneralized anxiety disorder - F41.1 (Primary) 2 . M ajor depressive disorder, recurrent, mild - F33.0 3 . C hronic migraine without aura, not intractable, with status migrainosus - G43.701 4 . 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 H ypertension - I10 Assessment and Plan: Anxiety - Manageable with current medications and therapy techniques Plan: - Continue Lexapro 20 mg daily - Continue lorazepam 0.5 mg at bedtime as needed - Encourage continued emotional support from daughter and best friend - Continue therapy with Summer Depression - Mild, relatively manageable with current medications Plan: - Continue bupropion 150 mg, two tablets in the morning - Encourage continued emotional support from daughter and best friend - continue therapy with Summer Hypertension, elevated BP reading - Reports high blood pressure due to pain Plan: - Encourage regular blood pressure monitoring - Report significant changes 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 revisit topic next visit Follow-up in 3 months to monitor progress and discuss concerns or changes in condition Plan: * Treatment: 2. M ajor depressive disorder, recurrent, mild Refill buPROPion HCl ER (SR) Tablet Extended Release 12 Hour, 150 MG, 2 tablets in the morning, Oral, daily, 90 days, 180 Tablet, Refills 0. * Procedure Codes: 9 6127 BEHAV ASSMT W/SCORE & DOCD/STAND [id number] Pt not peter d/t act dig [id number] VISIT COMPLEXITY INHERENT TO ONGOING CARE RELATED TO A PATIENT'S SINGLE, SERIOUS CONDITION OR A COMPLEX [id number] CLIN DEPRESSION SCREEN DOC * Follow Up: 3 Months * Billing Information: * Visit Code: 13976 OFFICE OUTPATIENT VISIT 25 MINUTES DETAILED HISTORY AND EXAM/MODERATE MEDICAL DECISION MAKING. * Procedure Codes: 80609 BEHAV ASSMT W/SCORE & DOCD/STAND INSTRUMENT. G9744 Pt not peter d/t act dig htn. G2211 VISIT COMPLEXITY INHERENT TO ONGOING CARE RELATED TO A PATIENT'S SINGLE, SERIOUS CONDITION OR A COMPLEX CONDITION. G8431 CLIN DEPRESSION SCREEN DOC. * TYPE CUTTER Sign off status: Completed true * Provider: Saul Macias Date: 1 04/05/2023 Generated for Johnnie ahuja/Esteban/Calixto on: 0 04/30/2024 12:12 PM [employer] TYPE CUTTER History and Physical Notes * HPI (History of Present Illness) Category Sub-Category Detail Notes Category Not es Depression screening PHQ-9 Little inte rest or pleasure in doing things: Several days Feeling down, depressed, or hopeless: Se veral days Trouble falling or staying a sleep, or sleeping too much: More than half the days Feeling tired or having little energy: M ore than half the days Poor appetite or overeating: Several day s Feeling bad about yourself o r that you are a failure, or have let yourself or your family down: Several days Trouble concentrating on thi ngs, such as reading the newspaper or watching television: Nearly every day Moving or speaking so slowly that other people could have noticed; or the opposite, being so fidgety or restless that you have been moving around a lot more than usual: Several days Thoughts that you would be b max off or of hurting yourself in some way: Not at all Total Score: 12 Interpretation: Moderate Depression Intervention Depression Screening Findings: P ositve Follow-Up for Depression: [facility] treatment assessment, Patient follow-up to return when and if necessary Suicide Risk Assessment Performed: 02/02 Additional Evaluation for Depression: Ps ychiatric interview and evaluation Name of the standardized too l used for adult depression screening:: Patient Health Questionnaire (PHQ-9) Depression Screening FARIDEH-7 (2018 Edition) Feelin g nervous, anxious, or on edge: Several days Not being able to stop or control worryi ng: Several days Worrying too much about different things : Several days Trouble relaxing: Several days Being so restless that it is hard to sit still: Several days Becoming easily annoyed or irritable: Se veral days Feeling afraid as if something awful [place]and[place] ht happen: Several days Total FARIDEH-7 Score: 7 Interpretation of Total: (5 to 9) Mild Examination Category Sub-Category Detail Notes Category Not es Psychiatry Appearance: alert, groomed, pleasant, in no acute distress Attitude: cooperative, collabo rative approach Psychomotor activity: within normal rang e Abnormal body movements: none Attention: normal in conversati on Degree of awareness of surroundings: wit hin normal limits Orientation: awake, alert and daylin ented x 3 Affect / mood: appropriate, full ra nge Speech / language: appropriate pitch/mo dulation, clear and coherent, normal rate, volume, and articulation (RVR), proper grammar used Insight: good Judgement: good Thought process: intact Thought content: appropriate Suicidal ideation: none Homicidal ideation: none Intellectual functioning: no impairment noted Memory status: no impairment noted Hallucinations: no
--- OUTSIDE RECORDS SUMMARY | 2024-04-30 12:12 | XMS_ITS | Referral Summary ---
Author Organization [facility] Address [address] [facility] [place] [address] Care Team Providers Care Railroad Operator Name Role Phone Joshua Loo MD Primary Care Provider [phone] Source Comments [facility],non-owned Affiliates and Associated Physician Practices is amultiple site organization consisting of ambulatory clinics and hospital sitesin [place], [place], [place] and [place]. This disclosure is being madepursuant to the Care Everywhere program and may not contain all information available regarding this patient. Last updated 17.[facility] Allergies Active Allergy Reactions Criticality Noted Date Comments Morphine 07/03/2016 Medications * Be aware that medications may not be up to date on this document. Alwaysverify current medications with the patient. Medication Sig Dispensed Refills Start Date End Date Status buPROPion SR 12hr (WELLBUTRIN-SR) 150 MG tablet Take 150 mg by mouth 2 times daily 05/20/2016 Active VIIBRYD 40 MG tablet Take 40 mg by mouth daily with breakfast 06/20/2016 Active lisinopril (PRINIVIL;ZESTRIL) 5 MG tablet Take 5 mg by mouth once daily 06/06/2016 Active LORazepam (ATIVAN) 0.5 MG tablet Take 0.5 mg by mouth every 12 hours as needed 06/20/2016 Active methylPREDNISolone (MEDROL DOSEPAK) 4 MG tablet 07/02/2016 Active PREMARIN 0.625 MG/GM vaginal creamIndications:T WICE A WEEK Insert into the vagina as directed Reasons: TWICE A WEEK 06/18/2016 Active Probiotic Product (PROBIOTIC DAILY PO) Take 1 tablet by mouth once daily Active B Complex Vitamins (B COMPLEX PO) Take 1 tablet by mouth once daily Active phenylephrine (RUTH-SYNEPHRINE) infusion Active ketorolac (TORADOL) 10 MG tablet Take 1 Tab by mouth every 8 hours as needed (migraine) 21 Tab 5 07/03/2016 Active Additional Information Patient not taking.Reported on 12/25/2016 prochlorperazine (COMPAZINE) 10 MG tablet Take 1 Tab by mouth every 8 hours as needed (migraine) 21 Tab 5 07/03/2016 Active topiramate (TOPAMAX) 100 MG tablet Take 1 Tab by mouth 2 times daily 180 Tab 3 10/14/2016 Active REXULTI 3 MG tablet Take 3 mg by mouth once daily 10/15/2016 Active multivitamin daily (THERAGRAN) tablet Take 1 tablet by mouth daily with food Active SUMAtriptan (IMITREX) 6 MG/0.5ML injectionIndicatio ns:Intractable migraine with aura with status migrainosus Inject 6 mg subcutaneously as needed for Migraine 8 vial 11 12/25/2016 Active SUMAtriptan Succinate (IMITREX STATDOSE SYSTEM) 6 MG/0.5ML Inject 6 mg subcutaneously daily as needed - may repeat one time 9 syringe 5 01/06/2017 Active Social History Tobacco Use Types Packs/Day Years Used Date Smoking Tobacco: Former Smokeless Tobacco: Never Alcohol Use Standard Drinks/Week Comments No 0 (1 standard drink = 0.6 oz pur e alcohol) Sex and Gender Information Value Date Recorded Sex Assigned at Not on file Gender Identity Not on file Sexual Orientation Not on file Last Filed Vital Signs Vital Sign Reading Time Taken Comments Blood Pressure 116/82 12/25/2016 11:28 AM CDT Pulse 80 12/25/2016 11:28 AM CDT Temperature - - Respiratory Rate 12 12/25/2016 11:28 AM CDT Oxygen Saturation 97% 12/25/2016 11:28 AM CDT Inhaled Oxygen Concentration - - Weight 52.6 kg (116 lb) 12/25/2016 11:28 AM CDT Height 154.9 cm (5' 1 ) 12/25/2016 11:28 AM CDT Body Mass Index 21.92 12/25/2016 11:28 AM CDT Plan of Treatment Not on file Care Teams Railroad Operator Relationship Specialty Start Date End Date Joshua Loo MD PCP - General Internal Medicine 06/26/16
--- OUTSIDE RECORDS SUMMARY | 2024-04-30 12:12 | XMS_ITS | Clinical Summary ---
Demographics Address [address] [place] [address] Mobile Phone Email Address Preferred Language Tongan Marital Status Single [employer] Affiliation Unknown Race White Ethnic Group Not or Lati no Author Organization [facility] Address [address] [place] [address] Care Team Providers Care Clinical Research Coordinator Name Role Phone Joshua Loo MD Primary Care Provider [phone] Allergies Active Allergy Reactions Criticality Noted Date Comments Morphine Hallucinations 07/03/2016 Medications Multiple Vitamins-Minera ls (MULTIVITAMIN ADULTS 50+ OR) multivitamin Ac tive Bacillus Coagulans-Inuli n (PROBIOTIC) 1-250 BILLION-MG Cap Probiotic Activ e escitalopram (LEXAPRO) 20 MG tablet escitalopram 20 mg tablet Active lisinopril (PRINIVIL) 5 MG tablet lisinopril 5 mg tablet TAKE 1 TABLET BY MOUTH ONCE DAILY Active LORazepam (ATIVAN) 0.5 MG tablet 2 Active zoledronic acid (RECLAST) 5 MG/100ML Solution infusion Inject 100 mLs (5 mg total) into the vein once. Yearly Active B COMPLEX VITAMINS ER OR Take 1 tablet by mouth daily. Active Acetaminophen 500 MG Cap Active ipratropium (ATROVENT) 0.03 % nasal spray every 8 (eight) hours. Active buPROPion XL (WELLBUTRIN XL) 300 MG 24 hr tablet 0 Active meloxicam (MOBIC) 15 MG tablet meloxicam 15 mg tablet TAKE 1 TABLET BY MOUTH ONCE DAILY 3 Active chlorpheniramin e (CHLOR-TRIMETON ) 4 MG tablet 5 Active gabapentin (NEURONTIN) 300 MG capsule Take 1 capsule (300 mg total) by mouth 3 (three) times daily. Active Magnesium Oxide 420 MG Tab Patient is taking 450 mg Active topiramate (TOPAMAX) 100 MG tabletIndicatio ns:Migraine, chronic, without aura TAKE 1/2 (ONE-HALF) TABLET BY MOUTH IN THE MORNING AND 1 IN THE EVENING 180 tablet 3 4 Active SUMAtriptan Succinate (IMITREX) 6 MG/0.5ML Solution Auto-injectorIn dications:Chron ic migraine w/o aura w/o status migrainosus, not intractable Inject 0.5 mLs (6 mg total) into the skin 2 (two) times daily as needed. 5 mL 5 5 Active Active Problems Problem Noted Date Diagnosed Date Migraine, chronic, without aura 09/05/2022 Encounters Date Type Department Care Team Description 03/22/2024 7:40 AM RINKMAN Office Visit [facility] [address] [facility], [address] [place] [address] Saida Farley MD Follow Up (1 month f/u) 03/22/2024 Travel 03/14/2024 Shoaibt Message Enc [facility] [address] [facility], [address] [place] [address] Saida Farley MD sumatriptan refill 03/12/2024 Telephone [facility] [address] [facility], [address] [place] [address] Saida Farley MD Results 03/12/2024 MyChart Message Enc [facility] [address] [facility], [address] [place] [address] [facility] Provider Results 03/11/2024 11:58 AM RINKMAN - 03/11/2024 11:59 PM RINKMAN Hospital Encounter [facility] Neurology [facility] [place] [address] Saida Farley MD Discharge Disposition: Home or Self Care (Routine Discharge) 03/11/2024 Travel from Last 3 Months Immunizations Name Administration Dates Next Due Influenza (Generic) 01/01/2013 Influenza Adult (Generic) 11/29/2021,,12/16/2017, 015 PFIZER COVID-19 (ORIGINAL FORMULATION, PURPLE CAP) mRNA, LNP-S, PF, 30 MCG/0.3 ML DOSE 11/29/2021 Shingrix 06/25/2021,04/26/2021 Tdap (Generic) 08/01/2021 Family History Medical History Relation Comments Dementia Father Dementia Mother Parkinson's Disease Mother Relation Status Comments Father Mother Social History Tobacco Use Types Packs/Day Years Used Date Smoking Tobacco: Former Cigarettes 0.5 30 1 - 12/19/2011 Passive Smoke Exposure: Never Smokeless Tobacco: Never Tobacco Cessation:Counseling Given: No Alcohol Use Standard Drinks/Week Comments Yes 0 (1 standard drink = 0.6 oz pur e alcohol) occassionally PHQ-2 Answer Date Recorded Patient Health Questionnaire-2 Score 1 03/22/2024 Comments Unknown Sex and Gender Information Value Date Recorded Sex Assigned at Female 03/11/2024 11:55 AM RINKMAN Legal Sex Female 5:06 PM CDT Gender Identity Not on file Sexual Orientation Not on file Last Filed Vital Signs Vital Sign Reading Time Taken Comments Blood Pressure 154/87 03/22/2024 8:36 AM RINKMAN Pulse 68 03/22/2024 7:57 AM RINKMAN Temperature 36.6 C (97.8 F) 03/22/2024 7:57 AM RINKMAN Respiratory Rate 16 03/22/2024 7:57 AM RINKMAN Oxygen Saturation 99% 03/22/2024 7:57 AM RINKMAN Inhaled Oxygen Concentration - - Weight 63.5 kg (140 lb) 03/22/2024 7:57 AM RINKMAN Height 154.9 cm (5' 1 ) 03/22/2024 7:57 AM RINKMAN Body Mass Index 26.45 03/22/2024 7:57 AM RINKMAN Plan of Treatment Upcoming Encounters Date Type Department Care Team (Late st Contact Info) Description 09/20/2024 8:00 AM CDT Office Visit [facility] - [facility] [address], [address] [place] [phone] Saida Farley MD [address] [place] [address] Health Maintenance Due Date Last Done Comments Cervical Cancer Screening Pap Smear (Age 30 to 64) Every 3 Years 1965 Colorectal Cancer Screening Colonoscopy (10 Years) 1965 Annual Physical 01/18/1968 Hepatitis C 1983 Cervical Cancer Screening Pap with HPV Testing (Age 30 to 64) Every 5 Years 1995 Cervical Cancer Screening with HPV 1995 Mammogram Screening 2005 COVID-19 Vaccine ( season) 2023 01/14/2023, 11/29/2021, 11/29/2021, Additional history exists Influenza Adult (#1) 2023 01/14/2023, 11/29/2021, 12/07/2020, Additional history exists DTaP, Tdap and Td Vaccines (2 - Td or Tdap) 08/02/2031 08/01/2021 Zoster Vaccines Completed 06/25/2021, 04/26/2021 PHQ-2 (Physician [place]) Completed 03/22/2024 Meningococcal B Vaccine Aged Out No l onger eligible based on patient's age to complete this topic Meningococcal Vaccine Aged Out No cherry eliazar eligible based on patient's age to complete this topic Pneumococcal Vaccine: Pediatrics (0 to 5 Years) and At-Risk Patients (6 to 64 Years) Aged Out No longer eligible based on patient's age to complete this topic RSV Immunizations Under 20 Months Aged Out No longer eligible based on patient's age to complete this topic Procedures Procedure Name Priority Date/Time Associated Diagnosis Comments EEG SLEEP DEPRIVED Routine 03/11/2024 12 :00 PM R[facility]MAN Memory loss from Last 3 Months Results * EEG awake or drowsy routine (03/11/2024 12:00 PM RINKMAN) Narrative [facility] - 03/11/2024 12:00 PM RINKMAN Saida Farley MD 03/12/2024 7:09 AM Extended EEG Report Patient Name: Porsha Ochoa [facility] Medical Record Number (MRN): [id number] Date of (): 1965 EEG Date: 03/11/2024 CC: JOSHUA LOO MD Start Time: 1221 End Time: 1329 Introduction: Porsha Ochoa is a 59-year-old female with a history of memory loss. EEG was performed to evaluate for seizures. This is a 22 channel EEG recording acquired on a Kluster EEG-1200 acquisition system. Scalp electrodes were placed according to the international 10-20 System. The analog EEG was filtered from 1-70 Hz and digitally sampled at 200 Hz. The record was then reformatted for review in bipolar and referential montages. EEG Description: The awake background included a 8 Hz posterior rhythm which attenuated with eye opening and activity. During drowsiness, identified by ocular signs and alpha attenuation, there was intermittent, diffuse, asynchronous theta activity admixed with 2-4 Hz polymorphic frontotemporal delta activity. Hyperventilation was not performed. Photic strobe stimulation elicited no abnormalities. There were no focal, lateralized or epileptiform abnormalities. Interpretation: This is a normal awake and drowsy routine EEG. A normal EEG does not exclude a diagnosis of epilepsy or seizures. SAIDA FARLEY MD Saida Farley MD NEUROLOGY ORDERABLES Fin al Result Performing Organization Address City/State/[facility] Co de Phone Number [facility] [address] [place] [address], from Last 3 Months Insurance * Guarantor: Porsha Ochoa Account Type Relation to Patient Date of Phone Billing Address Personal/Family Self 1965 [address] [place] [address] [facility] Care Teams Clinical Research Coordinator Relationship Specialty Start Date End Date Joshua Loo MD [address] [facility] [address] [place] [address] PCP - General INTERNAL MEDICINE 12/21/21
--- OUTSIDE RECORDS SUMMARY | 2024-04-30 12:12 | XMS_ITS ---
Author Organization [facility] Address [address] [place] [address] [address] Care Team Providers Care Compensation Administrator Name Role Phone Joshua Loo MD Primary Care Provider Nelly Rothman Unavailable [phone] REASON FOR VISIT Problems with billing department Social History Sex Assigned At : Social History Observation Description Sex Assigned At Female Encounters Encounter Location Date Provider Diagnosis [facility] [address] [address] 02/09/2024 Nelly Macias Plan Of Treatment Next Appt Details Provider Name:Summer Gardner, 05/03/2024 10:00:00 AM, [address] [place] [address], [phone], Provider Name:Nelly encinas, 05/03/2024 11:15:00 AM, [address] [place] [address], [phone], Progress Notes * SWATI MENDEZ LDOB: 5 (59 yo F)Acc No.[id number]:02/09/2024 Patient: Jenae SWATI HILL :1965 A ge:59 Y S ex:Female Address:[address] [place], [address] * true * Date: Generated for Johnnie ahuja/Esteban/eTransmitting on: 0 04/30/2024 12:11 PM HEAVY EQUIPMENT OPERATOR
--- OUTSIDE RECORDS SUMMARY | 2024-04-30 12:12 | XMS_ITS | Encounter Summary ---
Author Organization [facility] Address [address] [place] [address] Care Team Providers Care Rubber Tubing Backer Name Role Phone Joshua Loo MD Primary Care Provider Encounter Details Date Type Department Care Team (Late st Contact Info) Description 03/12/2024 Ornicept Message Enc [facility] - [address], [address] [place] [address] [facility] Provider Results Social History Tobacco Use Types Packs/Day Years [...] Sex Assigned at Female 03/11/2024 11:55 AM GSA COORDINATOR Legal Sex Female 5:06 PM CDT Gender Identity Not on file Sexual Orientation Not on file documented as of this encounter Plan of Treatment Upcoming Encounters Date Type Department Care Team (Late st Contact Info) Description 09/20/2024 8:00 AM CDT Office Visit [facility] - [address], [address] [place] [address] Saida Willams MD [address] [place] [address] documented as of this encounter Visit Diagnoses Not on filedocumented in this encounter Care Teams Rubber Tubing Backer Relationship Specialty Start Date End Date Joshua Loo MD [address] [facility] [address] [place] [address] PCP - General INTERNAL MEDICINE 12/21/21 documented as of this encounter
--- OUTSIDE RECORDS SUMMARY | 2024-04-30 12:12 | XMS_ITS | Encounter Summary ---
Author Organization [facility] Address [facility] [place] [address] Care Team Providers Care Desk Maker Name Role Phone Joshua Loo MD Primary Care Provider [phone] Encounter Details Date Type Department Care Team (Latest Contact Info) Description 09/06/2022 Argo Navis Consultinghart Message Enc [facility] Multispecialty Care - [address], [address] [place] [address] Hanna Mejia MD [address] [place] [address] topiramate dosage Social History Tobacco Use Types Packs/Day Years [...] Sex Assigned at Female 03/11/2024 11:55 AM BANANA LOADER Legal Sex Female 5:06 PM CDT Gender Identity Not on file Sexual Orientation Not on file documented as of this encounter Progress Notes * Hanna Mejia MD - 09/06/2022 10:03 AM CDT I thought we had decreased it down to 50mg twice a day. If she has been doing ok on 75mg twice a day, we will maintain that dose. We decreased it to relieve side effects, so I just want to keep her at a dose that prevents those side effects. documented in this encounter Plan of Treatment Upcoming Encounters Date Type Department Care Team (Late st Contact Info) Description 09/20/2024 8:00 AM CDT Office Visit [facility] Multispecialty Care - [facility] [address] [facility], [address] [place] [address] Saida Willams MD [address] [place] [address] documented as of this encounter Visit Diagnoses Not on filedocumented in this encounter Care Teams Desk Maker Relationship Specialty Start Date End Date Joshua Loo MD [address] [address] PCP - General INTERNAL MEDICINE 12/21/21 documented as of this encounter
--- OUTSIDE RECORDS SUMMARY | 2024-04-30 12:12 | XMS_ITS | Clinical Summary ---
Author Organization [facility] Address [address] [place] [address] Care Team Providers Care Nailhead Operator Name Role Phone Joshua Loo MD Primary Care Provider [phone] Source Comments [facility],non-owned Affiliates and Associated Physician Practices is amultiple site organization consisting of ambulatory clinics and hospital sitesin [place], [place], [place] and [place]. This disclosure is being madepursuant to the Care Everywhere program and may not contain all information available regarding this patient. Last updated 17.[facility] Allergies Active Allergy Reactions Criticality Noted Date [...] one time 9 syringe 5 01/06/2017 Active Family History Medical History Relation Name Comments Hypertension Brother Diabetes - Type 2 Father Hypertension Father Hypertension Mother Relation Name Status Comments Brother Father Mother Social History Tobacco Use Types [...] 12/25/2016 11:28 AM CDT Plan of Treatment Health Maintenance Due Date Last Done Comments COLOGUARD (AGES 45-75) - COL ON CA SCREENING 1965 COLON MONITORING 1965 COLONOSCOPY - COLON CA SCREENING 1965 CT COLONOGRAPHY - COLON CA SCREENING 1965 Colorectal Cancer Screening 1965 FIT - COLON CA SCREENING 1965 FLEX SIG - COLON CA SCREENING 1965 LIPID TESTING 1965 MAMMOGRAM 1965 PAP SMEAR 1965 HIV SCREENING 01/18/1980 HEPATITIS C SCREENING 01/13/1983 DTAP/TDAP/TD VACCINES (1 - Tdap) 01/18/1984 HEPATITIS B VACCINE (1 of 3 - 19+ 3-dose series) 01/18/1984 PNEUMOCOCCAL VACCINE 50+ (1 of 1 - PCV) 2015 ZOSTER VACCINE (1 of 2) 2015 COVID-19 VACCINE ( - 2023-2 5 season) 2023 INFLUENZA VACCINE (#1) 2023 DEPRESSION SCREENING 02/25/2024 MEDICARE AWV CALENDAR YEAR 2024 HIB VACCINE Aged Out No longer eligi ble based on patient's age to complete this topic HPV VACCINE Aged Out No longer eligi ble based on patient's age to complete this topic MENINGOCOCCAL (Group B) VACCINE Aged Out No longer eligible based on patient's age to complete this topic MENINGOCOCCAL VACCINE Aged Out No cherry eliazar eligible based on patient's age to complete this topic PNEUMOCOCCAL VACCINE Aged Out No long er eligible based on patient's age to complete this topic Care Teams Nailhead Operator Relationship Specialty Start Date End Date Joshua Loo MD PCP - General Internal Medicine 06/26/16
--- OUTSIDE RECORDS SUMMARY | 2024-04-30 12:12 | XMS_ITS | Patient Health Summary ---
Author Organization [facility] Address [address] [facility] [address] Care Team Providers Care Apigee Developer Name Role Phone Joshua Loo MD Primary Care Provider [phone] Note from [facility][note 3],non-owned Affiliates and Associated Physician Practices is amultiple site organization consisting of ambulatory clinics and hospital sitesin [place], [place], [place] and [place]. This disclosure is being madepursuant to the Care Everywhere program and may not contain all information available regarding this patient. Last updated 17.[facility] Allergies * Morphine Medications * Be aware that medications may not be up to date on this document. Alwaysverify current medications with the patient. * buPROPion SR 12hr (WELLBUTRIN-SR) 150 MG tablet(Started 05/20/2016) Take 150 mg by mouth 2 times daily * VIIBRYD 40 MG tablet(Started 06/20/2016) Take 40 mg by mouth daily with breakfast * lisinopril (PRINIVIL;ZESTRIL) 5 MG tablet(Started 06/06/2016) Take 5 mg by mouth once daily * LORazepam (ATIVAN) 0.5 MG tablet(Started 06/20/2016) Take 0.5 mg by mouth every 12 hours as needed * methylPREDNISolone (MEDROL DOSEPAK) 4 MG tablet(Started 07/02/2016) * PREMARIN 0.625 MG/GM vaginal cream(Started 06/18/2016) Insert into the vagina as directed Reasons: TWICE A WEEK * Probiotic Product (PROBIOTIC DAILY PO) Take 1 tablet by mouth once daily * B Complex Vitamins (B COMPLEX PO) Take 1 tablet by mouth once daily * phenylephrine (RUTH-SYNEPHRINE) infusion * ketorolac (TORADOL) 10 MG tablet(Started 07/03/2016) Take 1 Tab by mouth every 8 hours as needed (migraine) 5 refills remaining * prochlorperazine (COMPAZINE) 10 MG tablet(Started 07/03/2016) Take 1 Tab by mouth every 8 hours as needed (migraine) 5 refills remaining * topiramate (TOPAMAX) 100 MG tablet(Started 10/14/2016) Take 1 Tab by mouth 2 times daily 3 refills remaining * REXULTI 3 MG tablet(Started 10/15/2016) Take 3 mg by mouth once daily * multivitamin daily (THERAGRAN) tablet Take 1 tablet by mouth daily with food * SUMAtriptan (IMITREX) 6 MG/0.5ML injection(Started 12/25/2016) Inject 6 mg subcutaneously as needed for Migraine 11 refills remaining * SUMAtriptan Succinate (IMITREX STATDOSE SYSTEM) 6 MG/0.5ML(Started 01/06/2017) Inject 6 mg subcutaneously daily as needed - may repeat one time 5 refills remaining Social History Tobacco Use Types Packs/Day Years [...] Mass Index 21.92 12/25/2016 11:28 AM CDT Care Teams Apigee Developer Relationship Specialty Start Date End Date Joshua Loo MD PCP - General Internal Medicine 06/26/16
--- OUTSIDE RECORDS SUMMARY | 2024-04-30 12:13 | XMS_ITS ---
Author Organization [facility] Address [address] [place] [address] Care Team Providers Care Siphoner Name Role Phone Eze Joshua Primary Care Provider UnavailAshwini Barroso Unavailable [phone] ZZ-Migration, Provider Unavailable Unavailab le Allergies Allergen (clinical drug ingredient) Drug/Non Drug Allergy documented on EMR Reaction Allergy Type Onset Date Status morphine Morphine Hallucinations Drug Allergy Ac tive [facility] Conversion Encounter Medications Medication SIG (Take, Route, Frequency, Duration) Notes Start Date End Date Status Fosamax 70 MG 1 tab(s) orally once a week for 28 day(s) Active Probiotic Formula *Please review and pick correct strength-formula tion from [employer] options. If intended option is not shown, discontinue and re-order from Quick Search* Active Multivitamin VITAMIN B COMPLEX WITH C AND FOLIC ACID 1 TAB(S) ORALLY ONCE A DAY for 30 DAY(S) *Please review and pick correct strength-formula tion from [employer] options. If intended option is not shown, discontinue and re-order from Quick Search* Active Vitamin B Complex 100 *Please re view and pick correct strength-formula tion from [employer] options. If intended option is not shown, discontinue and re-order from Quick Search* Active Prochlorperazine Maleate 10 MG 1 tab(s) orally 3 times a day Active Flonase Allergy Relief 50 MCG/ACT 1 spray(s) in each nostril once a day for 30 day(s) Not-Taking Wellbutrin XL 300 MG 1 tab(s) orally every 24 hours for 30 day(s) Active Benadryl Allergy 25 MG 1 cap(s) orally 3 times a day Active Topamax 100 MG 1 tab(s) orally 2 times a day for 30 day(s) Active Ipratropium [place] 21 MCG/INH 2 SPRAY(S) INTRANASALLY 3 TIMES A DAY for 90 DAYS *Please review and pick correct strength-formula tion from [employer] options. If intended option is not shown, discontinue and re-order from Quick Search* Active CITRACAL *Please review for potential replacement for e-prescription and drug interaction check* Active Lisinopril 5 MG 1 tab(s) orally once a day for 30 day(s) Active LORazepam 0.5 MG 1 tab(s) orally 3 times a day Active Escitalopram Oxalate 20 MG 1 tab(s) orally once a day for 30 day(s) Active Imitrex 6 MG/0.5 ML DIRECTED SUBCUTANEOUSLY ONCE *Please review and pick correct strength-formula tion from [employer] options. If intended option is not shown, discontinue and re-order from Quick Search* Active Encounters Encounter Location Date Provider Diagnosis [address] [address] 08/09/2023 Provider ZZ-Migration Plan Of Treatment Medication Medication Name Sig Start Date Stop Date Notes Ipratropium [place] 21 MCG/INH 2 SPRAY(S) INTRANASALLY 3 TIMES A DAY for 90 DAYS *Please review and pick correct [facility]formulation [facility]. If intended option is not shown, discontinue and re-order from Quick Search* Progress Notes * Porsha OCHOADOB:1965 (59 yo F)Acc No.[id number]:08/09/2023 Patient: Porsha CISSE Provider: Vanessa dunn Migration :1965 A ge:58 Y S ex:Female Date:08/09/2023 Address:[address] [facility] Pcp:Joshua Loo Subjective: * Chief Complaints: * 1 . Multum To Medispan Conversion Encounter. * Medical History: * Medications: T aking Benadryl Allergy 25 MG Capsule 1 cap(s) orally 3 times a day , Taking Prochlorperazine Maleate 10 MG Tablet 1 tab(s) orally 3 times a day , Taking Vitamin B Complex 100 , Notes to Pharmacist: *Please review and pick correct strength-formulation from [employer] options. If intended option is not shown, discontinue and re-order from Quick Search*, Taking Multivitamin VITAMIN B COMPLEX WITH C AND FOLIC ACID TABLET 1 TAB(S) ORALLY ONCE A DAY , Notes to Pharmacist: *Please review and pick correct strength-formulation from [employer] options. If intended option is not shown, discontinue and re-order from Quick Search*, Taking Probiotic Formula , Notes to Pharmacist: *Please review and pick correct strength-formulation from [employer] options. If intended option is not shown, discontinue and re-order from Quick Search*, Taking Fosamax 70 MG Tablet 1 tab(s) orally once a week , Taking Imitrex 6 MG/0.5 ML SOLUTION DIRECTED SUBCUTANEOUSLY ONCE , Notes to Pharmacist: *Please review and pick correct strength-formulation from [employer] options. If intended option is not shown, discontinue and re-order from Quick Search*, Taking Escitalopram Oxalate 20 MG Tablet 1 tab(s) orally once a day , Taking LORazepam 0.5 MG Tablet 1 tab(s) orally 3 times a day , Taking Lisinopril 5 MG Tablet 1 tab(s) orally once a day , Taking CITRACAL , Notes to Pharmacist: *Please review for potential replacement for e-prescription and drug interaction check*, Taking Topamax 100 MG Tablet 1 tab(s) orally 2 times a day , Taking Wellbutrin XL 300 MG Tablet Extended Release 24 Hour 1 tab(s) orally every 24 hours , Not- Taking/PRN Flonase Allergy Relief 50 MCG/ACT Suspension 1 spray(s) in each nostril once a day * Allergies: M orphine: Hallucinations. Objective: * Vitals: Assessment: Plan: * Treatment: * Billing Information: * Visit Code: * Procedure Codes: * Electronic signature of Xin BURRIS-Migration on 04/30/2024 at 12:12 PM FIRE ENGINE OPERATOR Sign off status: Pending * Provider: Vanessa dunn Migration Date: 0 08/09/2023 Generated for Johnnie ahuja/Esteban/Calixto on: 0 04/30/2024 12:12 PM FIRE ENGINE OPERATOR
--- OUTSIDE RECORDS SUMMARY | 2024-04-30 12:13 | XMS_ITS | Patient Health Record ---
Author Organization [facility] Address [address] [place] [address] Care Team Providers Care Resident Care Provider Name Role Phone Joshua Loo Primary Care Provider UnavailAshwini Barroso Unavailable [phone] ZZ-Migration, Provider Unavailable Unavailab le Allergies Allergen (clinical drug ingredient) Drug/Non Drug Allergy documented on EMR Reaction Allergy Type Onset Date Status morphine Morphine Hallucinations Drug Allergy Ac tive Reason For Referral No Information Medications Medication SIG (Take, Route, Frequency, Duration) Notes Start Date End Date Status FLONASE 50 mcg/inh 1 spray(s) in each nostril once a day for 30 day(s) Not-Taking Prochlorperazine Maleate 10 MG 1 tab(s) orally 3 times a day Active Benadryl Allergy 25 MG 1 cap(s) orally 3 times a day Active Flonase Allergy Relief 50 MCG/ACT 1 spray(s) in each nostril once a day for 30 day(s) Not-Taking Wellbutrin XL 300 MG 1 tab(s) orally every 24 hours for 30 day(s) Active VITAMIN B COMPLEX 100 Active PROCHLORPERAZINE 10 mg 1 tab(s) orally 3 times a day Active BENADRYL 25 mg 1 cap(s) orally 3 times a day Active IMITREX 6 mg/0.5 mL as directed subcutaneously once Active FOSAMAX 70 mg 1 tab(s) orally once a week for 28 day(s) Active IPRATROPIUM BROMIDE NASAL 21 mcg/inh 2 spray(s) intranasally 3 times a day for 90 days Active PROBIOTIC FORMULA Ac tive MULTIVITAMIN Vitamin B Complex with C and Folic Acid 1 tab(s) orally once a day for 30 day(s) Active Topamax 100 MG 1 tab(s) orally 2 times a day for 30 day(s) Active CITRACAL *Please review for potential replacement for e-prescription and drug interaction check* Active Lisinopril 5 MG 1 tab(s) orally once a day for 30 day(s) Active LORazepam 0.5 MG 1 tab(s) orally 3 times a day Active Ipratropium [place] 21 MCG/INH 2 SPRAY(S) INTRANASALLY 3 TIMES A DAY for 90 DAYS *Please review and pick correct strength-formula tion from [employer] options. If intended option is not shown, discontinue and re-order from Quick Search* Active Escitalopram Oxalate 20 MG 1 tab(s) orally once a day for 30 day(s) Active Imitrex 6 MG/0.5 ML DIRECTED SUBCUTANEOUSLY ONCE *Please review and pick correct strength-formula tion from [employer] options. If intended option is not shown, discontinue and re-order from Quick Search* Active Fosamax 70 MG 1 tab(s) orally once a week for 28 day(s) Active Probiotic Formula *Please review and pick correct strength-formula tion from [employer] options. If intended option is not shown, discontinue and re-order from Quick Search* Active Multivitamin VITAMIN B COMPLEX WITH C AND FOLIC ACID 1 TAB(S) ORALLY ONCE A DAY for 30 DAY(S) *Please review and pick correct strength-formula tion from [employer] options. If intended option is not shown, discontinue and re-order from Quick Search* Active Vitamin B Complex 100 *Please re view and pick correct strength-formula tion from [employer] options. If intended option is not shown, discontinue and re-order from Quick Search* Active WELLBUTRIN XL 300 mg/24 hours 1 tab(s) orally every 24 hours for 30 day(s) Active TOPAMAX 100 mg 1 tab(s) orally 2 times a day for 30 day(s) Active LISINOPRIL 5 mg 1 tab(s) orally once a day for 30 day(s) Active LORAZEPAM 0.5 mg 1 tab(s) orally 3 times a day Active ESCITALOPRAM 20 mg 1 tab(s) orally once a day for 30 day(s) Active Social History Tobacco Use: Social History Observation Description Date Details (start date - stop date) Former Smoker NA - NA Smoking Smart Form: Question Answer Notes Are you a: former smoker How long it has been since you last smoked? > 10 years Problems Problem Type SNOMED Code ICD Code Onset Dates Problem Status W/U Status Risk Notes Problem Chronic allergic conjunctivitis (54716433) Other chronic allergic conjunctivitis (H10.45) Active confirmed Problem Allergic rhinitis (25575426) Other allergic rhinitis (J30.89) Active confirmed Problem Chronic rhinitis (99534009) Chronic rhinitis (J31.0) Active confirmed Problem Mild intermittent asthma (462880751) Mild intermittent asthma, uncomplicated (J45.20) Active confirmed Problem Uncomplicated mild persistent asthma (272890925) Mild persistent asthma, uncomplicated (J45.30) Active confirmed Problem Uncomplicated moderate persistent asthma (492370968) Moderate persistent asthma, uncomplicated (J45.40) Active confirmed Problem Uncomplicated severe persistent asthma (012984793) Severe persistent asthma, uncomplicated (J45.50) Active confirmed Problem Pruritus (429540713) Pruritus, unspecified (L29.9) Active confirmed Problem Age-related osteoporosis (566091780) Age-related osteoporosis without current pathological fracture (M81.0) Active confirmed Problem Allergic rhinitis caused by pollen (disorder) (18745532) Allergic rhinitis due to pollen (J30.1) Active confirmed Problem Allergic rhinitis caused by animal hair and dander (647179844590218) Allergic rhinitis due to animal (cat) (dog) hair and dander (J30.81) Active confirmed Problem Essential hypertension (74494102) Essential (primary) hypertension (I10) Active confirmed Problem Depression (562647272) Depression, unspecified (F32.A) Active confirmed Encounters Encounter Location Date Provider Diagnosis [facility] [place] [address] 08/09/2023 Provider ZZ-Migration Plan Of Treatment No Information Insurance Providers Payer Name Payer Address Payer Phone Subscriber Number Group Number Insured Name Patient Relationship to Insured Coverage Start Date Coverage End Date [facility] [employer] [address] [address] [place] [address] [id number] Porsha Ochoa Self - patient is the insured Medical (General) History Medical History History ICD Code Essential (primary) hypertension I10 Depression, unspecified F32.A Age-related osteoporosis without current pathological fracture M81.0 Surgical History Surgery Date(Month/Year) Tubes in ears 02/24/1971 Tonsillectomy 02/24/1971 Oral surgery 07/25/1972 L eardrum repair/cyst removal 02/24/1973 L eardrum repair 02/24/1978 Facial laceration repair 07/25/1980 D and C 02/24/1987 10/14/1988 09/01/1990 D and C 02/24/1999 Hospitalization History Reason Date(Month/Year) oophorectomy and hysterectomy 07/25/2004 Bowel obstruction/adhesions 07/05/2010
--- OUTSIDE RECORDS SUMMARY | 2024-04-30 12:13 | XMS_ITS ---
Author Organization [facility] Address [address] [place] [address] Care Team Providers Care Health Screener Name Role Phone Joshua Loo Primary Care Provider UnavailAshwini Barroso Unavailable [phone] REASON FOR VISIT [facility] follow-up Encounters Encounter Location Date Provider Diagnosis [facility] [address] [place] [address] 01/07/2023 Ashwini Medina Plan Of Treatment No Information Progress Notes * Porsha OCHOADOB:1965 (59 yo F)Acc No.[id number]:01/07/2023 Progress Notes Patient: Porsha CISSE Provider: Bharti Medina MD :1965 A ge:57 Y S ex:Female Date:01/07/2023 Address:[facility] [address] [facility] Pcp:Joshua Loo Subjective: * Chief Complaints: * 1 . [facility] follow-up. * Medical History: Objective: * Vitals: Assessment: Plan: * Treatment: * Billing Information: * Visit Code: * Procedure Codes: * Electronic signature of Kiara Medina MD on 04/30/2024 at 12:12 PM SAMPLING THEORY TEACHER Sign off status: Pending * Provider: Bharti Medina MD Date: 1 03/09/2022 Generated for Mickeyi seymour/Esteban/eTransmitting on: 0 04/30/2024 12:12 PM SAMPLING THEORY TEACHER
--- OUTSIDE RECORDS SUMMARY | 2024-04-30 12:13 | XMS_ITS | Encounter Summary ---
Author Organization [facility] Address [facility] [place] [address] Care Team Providers Care Toddler Nanny Name Role Phone Joshua Loo MD Primary Care Provider [phone] Encounter Details Date Type Department Care Team (Late st Contact Info) Description 08/01/2018 Abstract [facility]FL CONVERSION [address] [place] [address] , Generic Conversion, Social History Tobacco Use Types Packs/Day Years Used Date Smoking Tobacco: Never Assessed Comments Unknown Sex and Gender Information Value Date Recorded Sex Assigned at Female 03/11/2024 11:55 AM SUPER[employer]OR [employer] Sex Female 5:06 PM CDT Gender Identity Not on file Sexual Orientation Not on file documented as of this encounter Plan of Treatment Upcoming Encounters Date Type Department Care Team (Late st Contact Info) Description 09/20/2024 8:00 AM CDT Office Visit [facility] - [address], [address] [place] [address] Saida Willams MD [address] [place] [address] documented as of this encounter Visit Diagnoses Not on filedocumented in this encounter Care Teams Toddler Nanny Relationship Specialty Start Date End Date Joshua Loo MD [address] [address] PCP - General INTERNAL MEDICINE 12/21/21 documented as of this encounter
--- OUTSIDE RECORDS SUMMARY | 2024-04-30 12:16 | XMS_ITS | Patient Health Record ---
Author Organization [facility] As Ecomsual Address [address] [place] [address] Care Team Providers Care Md Senior Research Scientist Name Role Phone Joshua Loo MD Primary Care Provider Unavaila Nelly Torres Unavailable [phone] Summer Gardner Unavailable [phone] Servando Gary Unavailable [phone] Mary Vidales Unavailable [phone] Migration, Provider Unavailable Unavailable Allergies Allergen (clinical drug ingredient) Drug/Non Drug Allergy documented on EMR Reaction Allergy Type Onset Date Status morphine Morphine Sulfate Unknown Drug Allergy 05/06/2023 Active Results Component Value Reference Range Notes UDT Reviewed date:11/04/2023 10:44:21 AM Interpretation: Performing Lab: Notes/Report: THC n 0 - 50 ng/ml Cocaine n 0 - 300 ng/ml Amphetamine n 0 - 1000 ng/ml Buprenorphine (BUP) n 0 - 10 ng/ml Secobarbital (Bar) n 0 - 300 ng/ml Oxazepam (BZO) p 0 - 300 ng/ml 5-xrwqmiwwbr-3,3-cvkjotjb-1,3-diphenylpyrrolidine (FRANKIE P) n 0 - 300 ng/ml Methamphetamine (MET) n 0 - 1000 ng/ml Methylenedioxymethamphetamine (MDMA) n 0 - 500 ng/ml Morphine (MOP 300/XNT4618) n 0 - 300 ng/ml Methadone (MTD) n 0 - 300 ng/ml Phencyclidine (PCP) n 0 - 25 ng/ml Nortriptyline (TCA) n 0 - 1000 ng/ml Oxycodone n 0 - 300 ng/ml x n 0 - 300 ng/ml Reason For Referral No Information Medications Medication SIG (Take, Route, Frequency, Duration) Notes Start Date End Date Status MAGNESIUM 500 MG TABLET *Reorder from [employer] [facility] for eRx and Interaction Alerts* 05/06/2023 Active Prochlorperazine Maleate 10 MG Oral 05/06/2023 Active LORazepam 0.5 MG 1 tablet at bedtime Oral daily for 90 days 02/09/2024 Active Meloxicam 15 MG Oral 05/06/2023 Act chris Topiramate 100 MG Oral 05/06/2023 A ctive Escitalopram Oxalate 20 MG 1 tablet Oral Once a day for 90 days Active SUMAtriptan Succinate 6 MG/0.5ML Subcutaneous 05/06/2023 Active buPROPion HCl ER (SR) 150 MG 2 tablets in the morning Oral daily for 90 days Active Lisinopril 5 MG Oral 05/06/2023 Act chris Gabapentin 100 MG 1 capsule Oral three times a day 05/06/2023 Active IPRATROPIUM BROMIDE 21 MCG (0.03 %) NASAL SPRAY *Reorder from [employer] [facility] for eRx and Interaction Alerts* 05/06/2023 Active Immunizations Vaccine Route Administration Date Status Comme nts Zoster Unknown 04/26/2021 Administered Pfizer Biontech Covid-19 Vac cine 2nd dose Unknown 05/05/2020 Administered Pfizer [employer] Covid-19 Vac cine 2nd dose Unknown 05/29/2020 Administered Pfizer [employer]tech Covid-19 Vac cine 2nd dose Unknown 02/21/2021 Administered Novel Thdnaadid-O1S0-17, preservative free Unknown 01/05/2015 Administered Novel Wknjiwamu-[id number], preservative free Unknown 12/16/2017 Administered Influenza, seasonal, injecta ble, preservative free, 3 yrs and above Unknown 01/01/2013 Administered Influenza virus vaccine, quadrivalent (IIV4), split virus, 0.25 mL dosage Unknown 12/16/2017 Administered Social History Tobacco Use: Social History Observation Description Date Details (start date - stop date) Former Smoker 02/24/1979 - 12/19/2011 Sex Assigned At : Social History Observation Description Sex Assigned At Female Tobacco Control (Standard) Question Answer Notes Tobacco use: Former smoker When did you start smoking? 02/24/1979 When did you stop smoking? 12/19/2011 How long has it been since you last smoked? 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 Daughter is in school for rn medical inpatient services.) Home and Environment Do you have any siblings?: 3 (Notes: ARVIN Sterling, lives in [place]; Her middle brother was murdered) Are there any smokers in your house?: No Are there any guns present in your home?: No Advance Directive Do you have an advance directive?: Yes Do you have a medical power of deputy prosecuting attorney?: Yes Public Health and Travel Have you been to an area known to be high risk for COVID-19?: No Other Education: 4 Year College Family history of heart disease?: Yes High blood pressure: Yes High Cholesterol: No High number of sexual partners: No History of inconsistent/no condom use: No Marital status: Social History Substance Use Do you or [...] have?: 2 (Notes: Daughter (27) lives in [place]; son (29) lives in [place]. Daughter is in school for rn medical inpatient services.) Home and Environment Do you have any siblings?: 3 (Notes: Asher ARVIN, lives in [place]; Her middle brother was murdered) Are there any smokers in your house?: No Are there any guns present in your home?: No Advance Directive Do you have an advance directive?: Yes Do you have a medical power of deputy prosecuting attorney?: Yes Social History Substance Use Do you or [...] have?: 2 (Notes: Daughter (27) lives in [place]; son (29) lives in [place]. Daughter is in school for rn medical inpatient services.) Home and Environment Do you have any siblings?: 3 (Notes: ARVIN Sterling, lives in [place]; Her middle brother was murdered) Are there any smokers in your house?: No Are there any guns present in your home?: No Advance Directive Do you have an advance directive?: Yes Do you have a medical power of deputy prosecuting attorney?: Yes Social History Substance Use Do you or [...] have?: 2 (Notes: Daughter (27) lives in [place]; son (29) lives in [place]. 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 Daughter is in school for rn medical inpatient services.) Home and Environment Do you have any siblings?: 3 (Notes: ARVIN Sterling, lives in [place]; Her middle brother was murdered) Are there any smokers in your house?: No Are there any guns present in your home?: No Advance Directive Do you have an advance directive?: Yes Do you have a medical power of deputy prosecuting attorney?: Yes Public Health and Travel Have you been to an area known to be high risk for COVID-19?: No Other Education: 4 Year College Family history of heart disease?: Yes High blood pressure: Yes High Cholesterol: No High number of sexual partners: No History of inconsistent/no condom use: No Marital status: Problems Problem Type SNOMED Code ICD Code Onset Dates Problem Status W/U Status Risk Notes Problem Mild recurrent major depression (90572593) Major depressive disorder, recurrent, mild (F33.0) 4 Active confirmed Problem Generalized anxiety disorder (69771678) Generalized anxiety disorder (F41.1) 4 Active confirmed Problem Chronic migraine without aura with status migrainosus (683686394734963 ) Chronic migraine without aura, not intractable, with status migrainosus (G43.701) 4 Active confirmed Problem Long-term current use of drug therapy (340047454) Other roasterman (current) drug therapy (Z79.899) 3 Active confirmed Problem Hypertension (65910501) Hypertension (I10) Active confirmed Vital Signs Heart Rate 76 /min 02/03/2024 Blood pressure diastolic 83 mm Hg 02/03/2024 Height-cm 157.48 cm 02/03/2024 Weight-kg 65.77 kg 02/03/2024 Height 62.00 in 02/03/2024 Blood pressure systolic 147 mm Hg 02/03/2024 Weight 145 lbs 02/03/2024 BMI 26.52 kg/m2 02/03/2024 Encounters Encounter Location Date Provider Diagnosis [place] [id number] [address] 05/06/2023 Mary Vidales Major depressive disorder, recurrent severe without psychotic features F33.2 ; Generalized anxiety disorder F41.1 ; Major depressive disorder, recurrent, mild F33.0 ; 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 and Chronic migraine without aura, not intractable, with status migrainosus G43.701 [facility] [address] [address] 05/06/2023 Summer Gardner [place] [address] [address] 08/04/2023 Mary Vidales Major depressive disorder, recurrent, mild F33.0 ; Generalized anxiety disorder F41.1 ; Chronic migraine without aura, not intractable, with status migrainosus G43.701 and Parathyroid neoplasm D49.7 [place] [address] [facility] [address] [address] 08/04/2023 Summer Gardner Generalized anxiety disorder F41.1 and Major depressive disorder, recurrent, mild F33.0 [place] [address] [address] 11/04/2023 Summer Hemann Generalized anxiety disorder F41.1 and Major depressive disorder, recurrent, mild F33.0 [place] [address] [facility] [address] [address] 11/04/2023 Mary Simsyarielsommer Major depressive disorder, recurrent, mild F33.0 ; Generalized anxiety disorder F41.1 ; Chronic migraine without aura, not intractable, with status migrainosus G43.701 and Parathyroid neoplasm D49.7 [place] [address] [facility] [address] [address] 02/03/2024 Summer Hemann Generalized anxiety disorder F41.1 and Major depressive disorder, recurrent, mild F33.0 [place] [address] [facility] [address] [address] 02/03/2024 Nelly Macias Generalized anxiety disorder F41.1 ; Major depressive disorder, recurrent, mild F33.0 ; Chronic migraine without aura, not intractable, with status migrainosus G43.701 ; Other usp (current) drug therapy Z79.899 and Hypertension I10 [place] [address] [facility] [address] [address] 07/12/2023 Provider Migration [address] [address] 07/13/2023 Provider Migration [address] [address] 11/03/[address] [address] 11/29/[address] [address] 02/09/2024 Nelly Macias Assessments Encounter Date Diagnosis (ICD Code) Assessment Notes Treatment Notes Treatment Clinical Notes Section Notes 08/04/2023 Major depressive disorder, recurrent, mild (ICD-10 - F33.0) cont bupropion SR 150mg takes 2 tabs qam cont escitalopram 20mg daily cont therapy stable, satisfied with current meds no new orders cont therapy wants all scripts changed to local pharmacy[facility], not [facility]-has issues f/u in 3 months, earlier if concerns 08/04/2023 Generalized anxiety disorder (ICD-10 - F41.1) cont lorazepam 0.5mg qhs cont therapy note also has gabapentin recently for pain 11/04/2023 Major depressive disorder, recurrent, mild (ICD-10 - F33.0) 11/04/2023 Generalized anxiety disorder (ICD-10 - F41.1) 11/04/2023 Major depressive disorder, recurrent, mild (ICD-10 - F33.0) cont bupropion SR 150mg takes 2 tabs qam cont escitalopram 20mg daily cont therapy stable UDS +BZO still having back pain issues, not taking any opiate pain medication-di scuss if went down that avenue would not want to use lorazepam as increased risks and is against our controlled substance policy d/t this, also cannabis as well if that is suggested by medical. pt v/u. Option to change meds for residual sx, she wants to keep meds as is. education on meds and treatment course. cont therapy f/u in 3 months, earlier if concerns 02/03/2024 Major depressive disorder, recurrent, mild (ICD-10 [...] blood pressure monitoring - Report significant changes roasterman use of benzodiazepine s - not receptive to stopping/decre asing Plan: - continue to educate, encourage minimized use. revisit topic next visit Follow-up in 3 months to monitor progress and discuss concerns or changes in condition 02/03/2024 Generalized anxiety disorder (ICD-10 - F41.1) [...] blood pressure monitoring - Report significant changes roasterman use of benzodiazepine s - not receptive to stopping/decre asing Plan: - continue to educate, encourage minimized use. 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) 05/06/2023 Major depressive disorder, recurrent, mild (ICD-10 - F33.0) 05/06/2023 Major depressive disorder, recurrent severe without psychotic features (ICD-10 - F33.2) 05/06/2023 Generalized anxiety disorder (ICD-10 - F41.1) 05/06/2023 Chronic migraine without aura, not intractable, with status migrainosus (ICD-10 - G43.701) 02/03/2024 Major depressive disorder, recurrent, mild (ICD-10 - F33.0) 02/03/2024 Generalized anxiety disorder (ICD-10 - F41.1) 08/04/2023 Major depressive disorder, recurrent, mild (ICD-10 - F33.0) 08/04/2023 Generalized anxiety disorder (ICD-10 - F41.1) 02/03/2024 Chronic migraine without aura, not intractable, [...] blood pressure monitoring - Report significant changes usp use of benzodiazepine s - not receptive to stopping/decre asing Plan: - continue to educate, encourage minimized use. revisit topic next visit Follow-up in 3 months to monitor progress and discuss concerns or changes in condition 11/04/2023 Generalized anxiety disorder (ICD-10 - F41.1) cont lorazepam 0.5mg qhs cont therapy note also has gabapentin recently for pain prior Dr Gary was doing 90 day fill through [facility] 08/04/2023 Chronic migraine without aura, not intractable, with status migrainosus (ICD-10 - G43.701) treated by neurology 08/04/2023 Parathyroid neoplasm (ICD-10 - D49.7) sees specialist 11/04/2023 Chronic migraine without aura, not intractable, with status migrainosus (ICD-10 - G43.701) treated by neurology 02/03/2024 Other usp (current) drug therapy (ICD-10 - Z79.899) Assessment [...] blood pressure monitoring - Report significant changes usp use of benzodiazepine s - not receptive to stopping/decre asing Plan: - continue to educate, encourage minimized [...] blood pressure monitoring - Report significant changes usp use of benzodiazepine s - not receptive to stopping/decre asing Plan: - continue to educate, encourage minimized use. revisit topic next visit Follow-up in 3 months to monitor progress and discuss concerns or changes in condition 11/04/2023 Parathyroid neoplasm (ICD-10 - D49.7) sees specialist 08/04/2023 Other chronic migraines treated by neurology hx parathyroid Plan Of Treatment Next Appt Details Provider Name:Summer Gardner, 05/03/2024 10:00:00 AM, [address], [address], [place], [address], Provider Name:Nelly Michele encinas, 05/03/2024 11:15:00 AM, [address], [address], [place], [address], Insurance Providers Payer Name Payer Address Payer Phone Subscriber Number Group Number Insured Name Patient Relationship to Insured Coverage Start Date Coverage End Date [employer] Medicare Replacement/ Advantage - Hmo [address] [address] [place] [address] [id number] SWATI MENDEZ Self - patient is the insured Medical (General) History Medical History History ICD Code Problems: Chronic migraine without aura with status migrainosus Familial combined hyperlipidemia Generalized anxiety disorder Hyperparathyroidism 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 Severe recurrent major depression Severe recurrent major depression withou t psychotic features Suicidal thoughts , Benign essential hypertension I10 Surgical History Surgery Date(Month/Year) Tonsilectomy/adenoids 02/24/1971 Other 02/24/1971 Any surgical history 02/25/1972 Endometrial ablation (17373) 02/24/1999 Hysterectomy (93901) 02/25/2004 Oophorectomy (18511) 02/25/2004 Myringotomy tube placement 02/24/2005 Sinus surgery 09/14/2021
--- OUTSIDE RECORDS SUMMARY | 2024-04-30 12:16 | XMS_ITS | Data Portability ---
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 She reports worsening symptoms, currently rated as 8 out 10. She has instability and crepitus of the joint as well. She has exhausted conservative management including anti-inflammator y, bracing, cortisone injection. She wants to proceed with surgical intervention. She has tenderness palpation of the thumb CMC. There is crepitus with motion of the joint. Positive grind. She has sensation intact to light touch throughout, 2+ radial pulse. Palpable FCR. 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 Risks, benefits, and alternatives to surgery were discussed with the patient. Risks include but are not limited to pain, stiffness, infection, bleeding, blood clot, injury to other structures including nerves or blood vessels, need for future surgery, and anesthesia risks. We discussed the goal of surgery is to improve symptoms but there is no guarantee of improvement and it is possible the patient's condition is worse after surgery. Patient agreed and would like to proceed. Not available 03/18/2023 22:16:19 04/25/2023 04/25/2023 58 yo patient presents today for first post op follow up after left thumb CMC arthoplasty and tendon interposition on 04/15/[address] Estrada. She states she is doing well overall, 6/10 pain. She is taking ibuprofen for pain. Physical exam: Incisions clean, dry, intact, without s/s of infection. Sutures were removed and steri strips placed. Minimal edema around thumb. Some stiffness with thumb ROM. Sensation intact. Progressing as expected. We discussed proper incisional care. We placed her in a wrist brace that should should wear at all times. We will see her back in 4 weeks to check her progress. Not available 04/26/2023 12:09:33 05/28/2023 05/28/2023 58 yo patient presents today for post op follow up after left thumb CMC arthoplasty and tendon interposition on 04/15/[address] Estrada. She states she is doing well overall, minimal pain. She is taking gabapentin for pain. She is still in the brace. Physical exam: Incisions clean, dry, intact, without s/s of infection. No edema or bruising. No issues with thumb ROM. Sensation intact. Progressing as expected. She is 6 weeks out from surgery. We discussed that she can slowly transition out of the brace over the next few weeks. She can start to work on strengthening exercises on her own as well. We will see her back in 6-8 weeks to check her progress. Not available 05/28/2023 14:47:09 07/09/2023 07/09/2023 58-year-old female presents for follow-up of her left thumb CMC arthroplasty on 04/15/2023. She reports she is doing better, not having anymore pain at the thumb CMC joint. She is doing more with her hand and has been doing activities at home without issues. She currently rates her pain as 5/10, primarily located at the wrist and at the thumb MCP joint. Incisions well healed. She has no tenderness at the thumb CMC, she does have some tenderness at the MCP joint and the distal radius. Sensation intact to light touch throughout, brisk cap refill, 2+ radial pulse. At this point she is progressing well and feels like she already has significant improvement in her strength. Follow-up in 3 months. She may continue to be activities as tolerated. Not available 07/09/2023 12:32:39 10/08/2023 10/08/2023 58-year-old female presents for follow-up of her left thumb CMC arthroplasty on 04/15/2023. She reports she is doing well, not having constant pain at the thumb CMC joint. 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 Imaging: xrays of left hand reviewed showing preservation of surgical intervention of CMC joint space. Incisions well healed. She has no tenderness at the thumb CMC. Sensation intact to light touch throughout, brisk cap refill, 2+ radial pulse. At this point she is progressing well and feels like she has had significant improvement in her strength. We no longer need to see her for follow up. She may call if she has any changes. Not available 10/15/2023 09:41:58 Plan of Treatment Reminders Order Date Submit Date Provider Last Modified By Organization Details Last Modified Time Details Appointments None record ed. Lab None record ed. Referral None record ed. Procedures None record ed. Surgeries None record ed. Imaging XR, hand, 3 or more view 024 10/08/19 [email or web address] [facility], [address] [facility] [address], [place], [address], 09:42:02 Medication Orders None record ed. Patient TargetsNo targets recorded. Patient InstructionsNo instructions recorded. Reason for Referral None Reported. Results Created Date Observation Date Name Description Value Unit Range Abnormal Flag Note LastModifiedBy Organization Detail LastModifiedTime 10/08/19 24 XR, hand, 3 or more view No observ ation record ed. [email or web address] [address] [facility] [address], [place], [address], 10/15/2023 09:42:01 01/19/20 24 01/16/2024 XR, chest No observ ation record ed. [email or web address] [address], [place], [address], 04/01/2024 14:06:27 03/12/19 25 03/11/2024 imagi ng/flo stillos tic resul t No observ ation record ed. [email or web address] [facility] [address], [place], [address], 04/01/2024 14:06:22 Result Notes None recorded. Problems Name Problem SNOMED Code Status Onset Date Resolution Date Notes Provider Name and Address Organization Details Recorded Time Contusion of multiple sites 859301394 Completed Not Available [facility] 3 01:36:29 Chronic back pain 545951370 Completed Not Available [facility] 3 01:36:29 Anxiety disorder 036961473 Active Not Available [facility] 4 14:52:34 Low back pain 485957827 Completed BOGDAN Garces [place] [facility] [employer] [facility] 3 14:48:30 Menopause present 702319321 Active Not Available [facility] 4 14:52:34 Scoliosis deformity of spine 726397684 Active 2021 Not Available [facility] 4 14:52:34 Chest pain 79883179 Completed Not Available [facility] 3 01:36:30 Hypertrig lyceridem ia 795333237 Active Not Available [facility] 4 14:52:34 Pain in finger of right hand 98899869442 9109 Active 2021 Not Available [facility] 4 14:52:34 Pain in right hand 26008080697 9109 Active 2022 Not Available [facility] 4 14:52:34 Blood in urine 10770874 Completed Not Available [facility] 3 01:36:30 Vitamin D deficienc y 97665545 Active Not Available [facility] 4 14:52:34 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 Completed Not Available [facility] 3 01:36:31 Migraine 48885363 Active Not Available [facility] 4 14:52:34 Diverticu lar disease 825499915 Active Not Available [facility] 4 14:52:34 Chronic sinusitis 69143747 Completed Not Available [facility] 3 01:36:31 Onychomyc osis 111319818 Active Not Available [facility] 4 14:52:34 Atrophic vaginitis 94378257 Active Not Available [facility] 4 14:52:34 Essential hypertens ion 89546969 Active Not Available [facility] 4 14:52:34 Allergic rhinitis 93154479 Active 2021 Not Available [facility] 4 14:52:34 Diarrhea 36472077 Completed Not Available [facility] 3 01:36:32 Hyperpara thyroidis m 82392825 Active Not Available [facility] 4 14:52:34 Urinary tract infectiou s disease 43740282 Completed Not Available [facility] 3 01:36:32 Rhinitis 44790265 Active 2021 Not Available [facility] 4 14:52:34 Altered bowel function 98461479 Completed Not Available [facility] 3 01:36:32 Idiopathi c parathyro idism Active Not Available [facility] 4 14:52:34 Pain of right knee joint 60387048823 4100 Active 2022 Not Available [facility] 4 14:52:34 Low back pain 008774286 Active 2022 Not Available [facility] 4 14:52:34 Pain of left hand 89705545905 9103 Active 2022 Not Available [facility] 4 14:52:34 Hyperlipi demia 11563238 Active 2022 Not Available [facility] 4 14:52:34 Medial epicondyl itis of right elbow joint 48053344141 9109 Active 2022 Not Available [facility] 4 14:52:34 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 Procedures Surgical History Date Name Laterality Status Provider Name and Address Organization Details Recorded Time 023 Ortho - Cortisone Injection completed Maria Fernanda Archibald NP [address] [facility] [facility] [address], [place], [address], [facility] 10/09/2022 13:38:08 022 Most Recent Mammogram completed Not Available [facility] 04/24/2022 01:22:47 021 Colonoscopy completed Not Available [facility] 04/24/2022 01:22:56 021 Date of Last Colonoscopy completed Not Available [facility] 04/24/2022 01:22:47 008 Colonoscopy completed Not Available [facility] 04/24/2022 01:22:56 laparoscopy completed Not Available [facility] 04/24/2022 01:22:56 Tonsillectomy completed Not Available [facility] 04/24/2022 01:22:56 Hysterectomy completed Not Available [facility] 04/24/2022 01:22:56 destruction of lesion of uterus completed Not Available [facility] 04/24/2022 01:22:56 Excisions - Specify completed Not Available [facility] 04/24/2022 01:22:56 ENT Surgery completed Not Available [facility] 04/24/2022 01:22:56 parathyroidectomy completed Not Available [facility] 04/24/2022 01:22:56 completed Not Available [facility] 04/24/2022 01:22:56 Dilation and curettage completed Not Available [facility] 04/24/2022 01:22:56 Sinus Surgery completed Not Available [facility] 04/24/2022 01:22:56 Imaging Results Imaging Date Name Status LastModified by Organiz ation Details LastModified Time 10/08/2023 XR, hand, 3 or more view completed [email or web address] [facility]ota [address], [place], [address], 10/15/2023 09:42:01 01/16/2024 XR, chest completed [email or web address] [address], [address], 04/01/2024 14:06:27 03/11/2024 imaging/diag nostic result active [facility] [address], [place], [address], 04/01/2024 14:06:22 Procedure Notes None recorded. Medical Equipment None Reported. Allergies Allergen ID Allergen Name Allergen Category Reaction Reaction Severity Criticality Documentation Date Start Date Code Code System Note Provider Name and Address Organization Details Recorded Time 3011 morphine medicatio n hallucina tions Not available Not available 04/24/2022 7052 RxNorm Not Available [facility] 3 01:55:11 Medications Name Sig Start Date Stop Date Status Note LastModified by Organization Details LastModified Time carisoprod ol 350 mg tablet Take 1 tablet twice a day by oral route. 08/12 completed Not Available Not Available Not Available buspirone 5 mg tablet 06/05 completed Not Available Not Available Not Available bupropion HCl SR 150 mg tablet,12 hr sustained- release TAKE 2 TABLETS BY MOUTH ONCE DAILY IN THE MORNING active Not Available Not Available No t Available magnesium 500 mg tablet Take by oral route. 2021 active Not Available Not Available Not Avai lable doxycyclin e hyclate 100 mg capsule TAKE 1 CAPSULE BY MOUTH ONCE DAILY (AVOID TAKING WITH MINERAL SUPPLEMEN TS) 07/02 completed Not Available Not Available Not Available cefuroxime axetil 250 mg tablet TAKE 1 TABLET BY MOUTH TWICE DAILY 02/21 completed Not Available Not Available Not Available hydrocodon e 5 mg-acetami nophen 325 mg tablet TAKE 1 TABLET BY MOUTH EVERY 6 HOURS 10/07 completed Not Available Not Available Not Available meloxicam 15 mg tablet TAKE 1 TABLET BY MOUTH ONCE DAILY active Not Available Not Available No t Available ondansetro n HCl 4 mg tablet Take 1 tablet every day by oral route as needed. 06/18 completed Not Available Not Available Not Available alendronat e 70 mg tablet 01/01 completed Not Available Not Available Not Available sumatripta n 6 mg/0.5 mL subcutaneo us cartridge (refill) 07/08 completed Not Available Not Available Not Available prednisone 5 mg tablet TAKE 2 TABLETS BY MOUTH ONCE DAILY ON DAYS 1-4 THEN TAKE 1 TABLET BY MOUTH ONCE DAILY ON DAYS 5-7 (TAKE IN THE MORNING) 07/02 completed Not Available Not Available Not Available penicillin V potassium 500 mg tablet 01/05 completed Not Available Not Available Not Available topiramate 25 mg tablet Take 2 tablets twice a day by oral route. 03/24 completed Not Available Not Available Not Available lithium carbonate 150 mg capsule Take 1 capsule twice a day by oral route for 90 days. 04/03 completed Not Available Not Available Not Available ciprofloxa pam 250 mg tablet Take 1 tablet twice a day by oral route for 7 days. 03/24 completed Not Available Not Available Not Available prochlorpe razine maleate 10 mg tablet active Not Available Not Available No t Available peg-electr olyte solution 420 gram oral solution 07/28 completed Not Available Not Available Not Available tramadol 50 mg tablet Take 1 tablet 3 times a day by oral route. 08/12 completed Not Available Not Available Not Available nortriptyl ine 25 mg capsule 08/12 completed Not Available Not Available Not Available oxycodone- acetaminop hen 5 mg-325 mg tablet 06/05 completed Not Available Not Available Not Available terbinafin e HCl 250 mg tablet Take 1 tablet every day by oral route. 07/08 completed Not Available Not Available Not Available sumatripta n 6 mg/0.5 mL subcutaneo us solution INJECT 0.5 MILLILITE R (6 MG) BY SUBCUTANE OUS ROUTE ONCE; MAY BE REPEATED 1 HOUR AFTER THE FIRST DOSE IF HEADACHE PAIN RETURNS OR INCREASES IN SEVERITY; DO NOT EXCEED 2 DOSES WITHIN 24 HOURS 03/16 completed Not Available Not Available Not Available Vitamin C 1,000 mg tablet Take 1 tablet every day by oral route. 10/07 completed Not Available Not Available Not Available lorazepam 0.5 mg tablet TAKE 1 TABLET BY MOUTH ONCE DAILY AT BEDTIME FOR 90 DAYS active Not Available Not Available No t Available ciprofloxa pam 0.3 % eye drops active Not Available Not Available No t Available Kenalog 10 mg/mL suspension for injection Take 1 mL by injection route. 10/07 completed [facility]: [phone] Not Available Not Available Not Available lithium carbonate 300 mg capsule TAKE 1 TAB DAILY 05/02 completed takes one tab bid Not Available Not Available Not Available cephalexin 500 mg capsule 07/21 completed Not Available Not Available Not Available promethazi ne 25 mg tablet 06/05 completed Not Available Not Available Not Available gabapentin 300 mg capsule TAKE 1 CAPSULE BY MOUTH THREE TIMES DAILY active Not Available Not Available No t Available montelukas t 10 mg tablet Take 1 tablet every day by oral route. 01/01 completed Not Available Not Available Not Available ampicillin 250 mg capsule Take 1 capsule 3 times a day by oral route for 7 days. 03/24 completed Not Available Not Available Not Available lisinopril 5 mg tablet TAKE 1 TABLET BY MOUTH ONCE DAILY active Not Available Not Available No t Available mirtazapin e 15 mg tablet 03/24 completed Not Available Not Available Not Available gabapentin 100 mg capsule TAKE 1 CAPSULE BY MOUTH THREE TIMES DAILY NEEDED 10/07 completed Not Available Not Available Not Available azelastine 137 mcg (0.1 %) nasal spray USE 1 SPRAY(S) IN EACH NOSTRIL EVERY 12 HOURS 01/01 completed Not Available Not Available Not Available methylpred nisolone 4 mg tablets in a dose pack TAKE BY MOUTH DIRECTED ON INSIDE OF PACKAGE 10/04 completed Not Available Not Available Not Available Vitamin D2 1,250 mcg (50,000 unit) capsule Take 1 capsule every week by oral route. active Not Available Not Available No t Available topiramate 100 mg tablet TAKE 1/2 (ONE-HALF ) TABLET BY MOUTH IN THE MORNING AND 1 IN THE EVENING active Not Available Not Available No t Available fluticason e propionate 50 mcg/actuat ion nasal spray,susp ension USE 1 TO 2 SPRAY(S) IN EACH NOSTRIL TWICE DAILY 03/25 completed Not Available Not Available Not Available ipratropiu m bromide 21 mcg (0.03 %) nasal spray active Not Available Not Available Not Available amoxicilli n 875 mg-potassi um clavulanat e 125 mg tablet Take 1 tablet twice a day by oral route for 7 days. 10/06 completed Not Available Not Available Not Available oxycodone 5 mg tablet TAKE 1 TABLET BY MOUTH TWICE DAILY NEEDED FOR PAIN 01/01 completed Not Available Not Available Not Available sumatripta n 6 mg/0.5 mL subcutaneo us pen injector INJECT 0.5 ML INTO THE SKIN SEE ADMINISTR ATION INSTRUCTI ONS active Not Available Not Available No t Available escitalopr am 10 mg tablet 07/21 completed Not Available Not Available Not Available escitalopr am 20 mg tablet TAKE 1 TAB DAILY active Not Available Not Available No t Available Premarin 0.625 mg/gram vaginal cream Insert 1 g twice a week by vaginal route for 90 days. 10/20 completed Not Available Not Available Not Available zonisamide 50 mg capsule 10/07 completed Not Available Not Available Not Available topiramate 50 mg tablet TAKE ONE TABLET BY MOUTH TWICE DAILY active Not Available Not Available No t Available nitrofuran toin monohydrat e/macrocry stals 100 mg capsule Take 1 capsule twice a day by oral route with meals for 2 days. 06/05 completed Not Available Not Available Not Available duloxetine 30 mg capsule,de layed release 06/05 completed Not Available Not Available Not Available duloxetine 60 mg capsule,de layed release Take 1 capsule every day by oral route. 06/05 completed Not Available Not Available Not Available B Complex TAKE 1 TAB DAILY 12/08 completed Not Available Not Available Not Available Super B Complex 2020 active Not Available Not Available Not Avai lable multivitam in 2020 active Not Available Not Available Not Avai lable lidocaine (PF) 10 mg/mL (1 %) injection solution In office injection administe red by the provider 03/16 completed [facility]: [phone] Not Available Not Available Not Available Forteo 20 mcg/dose (600 mcg/2.4 mL) subcutaneo us pen injector Inject by subcutane ous route. 05/02 completed Not Available Not Available Not Available Seroquel XR 50 mg tablet,ext ended release 03/24 completed Not Available Not Available Not Available Citracal + D Maximum 10/07 completed Not Available Not Available Not Available Probiotic 10/04 completed Not Available Not Available Not Available Viibryd 40 mg tablet 07/21 completed Not Available Not Available Not Available ropivacain e (PF) 5 mg/mL (0.5 %) injection solution Take 4 mL by injection route. 10/07 completed [facility] [phone] Not Available Not Available Not Available naftifine 2 % topical cream 09/29 completed Not Available Not Available Not Available Rexulti 3 mg tablet active Not Available Not Available No t Available Rexulti 2 mg tablet 11/05 completed Not Available Not Available Not Available Vitals Date Recorded Body height Body mass index (BMI) Body weight Provider Name and Address Organization Details Last Updated DateTime 03/18/2023 154.94 cm 24.6 kg/m2 03045.01 g Lilia Marie [facility] [employer] [facility] [employer] 03/18/2023 11:33:19 Date Recorded Body height Body mass index (BMI) Body weight Pain severity - 0-10 verbal numeric rating [Score] - Reported Provider Name and Address Organization Details Last Updated DateTime 04/25/2023 154.94 cm 25.5 kg/m2 01766.97 g 6 Serina Elena [facility] [employer] 04/25/2023 10:06:40 Date Recorded Body height Body mass index (BMI) Body weight Pain severity - 0-10 verbal numeric rating [Score] - Reported Provider Name and Address Organization Details Last Updated DateTime 05/28/2023 154.94 cm 25.5 kg/m2 58136.97 g 5 Serina Elena [facility] [employer] 05/28/2023 14:28:37 Date Recorded Body height Body mass index (BMI) Body weight Provider Name and Address Organization Details Last Updated DateTime 07/09/2023 154.94 cm 25.5 kg/m2 18372.97 g Martha Estrella [facility] [employer] [facility] [employer] 07/09/2023 11:32:55 Date Recorded Body height Body mass index (BMI) Body weight Pain severity - 0-10 verbal numeric rating [Score] - Reported Provider Name and Address Organization Details Last Updated DateTime 10/08/2023 154.94 cm 26.5 kg/m2 99818.93 g 1 Serina Elena [facility] [email or web address] 10/08/2023 14:17:05 Social History Question Answer Notes LastModified by Organization Details LastModified Time Tobacco Smoking Status Former Smoker quit 2011 ALEXANDER Varghese - [email or web address] 11/05/2022 11:31:24 Do You Have An Advance Directive? Yes [id number] Information not available 04/24/2022 What Is Your Level Of Alcohol Consumption? Occasional [id number] Information not available 04/24/2022 Do You Wear A Helmet When Biking? No Does Not Ride Bike Information not available 11/05/2022 What Is Your Level Of Caffeine Consumption? Moderate [id number] Information not available 04/24/2022 How Much Tobacco Do You Chew? None [id number] Information not available 04/24/2022 In The 14 Days Before Symptom Onset, Have You Had Close Contact With A Laboratory-con firmed COVID-19 While That Case Was Ill? No Information not available 11/05/2022 In The 14 Days Before Symptom Onset, Have You Had Close Contact With A Person Who Is Under Investigation For COVID-19 While That Person Was Ill? No Information not available 11/05/2022 Are You Currently Employed? No Information not available 11/05/2022 Are You Deaf Or Do You Have Serious Difficulty Hearing? No Information not available 11/05/2022 What Type Of Diet Are You Following? REGULAR [id number] Information not available 04/24/2022 Which Illicit Or Recreational Drugs Have You Used? None Information not available 11/05/2022 Do You Or Have You Ever Used E-cigarettes Or Vape? Never Used Electronic Cigarettes Information not available 11/05/2022 What Is The Highest Grade Or Level Of School You Have Completed Or The Highest Degree You Have Received? [id number] Information not available 11/05/2022 What Is Your Occupation? Disabled Information not available 11/05/2022 How Many Days Of Moderate To Strenuous Exercise, Like A Brisk Walk, Did You Do In The Last 7 Days? 7 Walks- 10 Minutes Of Video Information not available 11/05/2022 Have You Been Exposed To Chemicals Or Toxins? No Information not available 11/05/2022 Have There Been Any Changes To Your Family Or Social Situation? Yes Mom Has Dementia In Assisted Living Information not available 11/05/2022 What Is The Fluoride Status Of Your Home? Unknown Information not available 11/05/2022 When Did You Quit Smoking? 6-10yearssincelastcigar ette Information not available 11/05/2022 Are There Any Guns Present In Your Home? No Information not available 11/05/2022 Do You Use Insect Repellent Routinely? No Information not available 11/05/2022 Where Do You Live? Apartment Information not available 11/05/2022 Do You Have A Medical Power Of Bad Work Gatherer? Yes Information not available 11/05/2022 Do You Have Moisture Problems In Your Home? No Information not available 11/05/2022 What Was The Date Of Your Most Recent Tobacco Screening? 10/08/2023 [email or web address] Information not available 10/08/2023 What Is Your Current Pack Years? 10-19packyears Information not available 11/05/2022 Have You Ever Been Counseled For Unhealthy Alcohol Use? No Information not available 11/05/2022 Do You Have Any Pets? No Information not available 11/05/2022 What Is Your Relationship Status? [id number] Information not available 04/24/2022 Do You Use Your Seat Belt Or Car Seat Routinely? Yes Information not available 11/05/2022 Do You Have Smoke And Carbon Monoxide Detectors In Your Home? No Information not available 11/05/2022 At What Age Did You Start Smoking Tobacco? 15 Information not available 11/05/2022 Are You Passively Exposed To Smoke? No Information not available 11/05/2022 Do You Or Have You Ever Used Smokeless Tobacco? Never Used Smokeless Tobacco [id number] Information not available 04/24/2022 Are There Any Smokers In Your House? No Information not available 11/05/2022 How Much Tobacco Do You Smoke? 0.5 PPD [id number] Information not available 04/24/2022 What Types Of Sporting Activities Do You Participate In? None Information not available 11/05/2022 Do You Feel Stressed (tense, Restless, Nervous, Or Anxious, Or Unable To Sleep At Night)? [id number] Information not available 11/05/2022 Do You Use Any Illicit Or Recreational Drugs? No Information not available 11/05/2022 Do You Use Sunscreen Routinely? No Information not available 11/05/2022 Has Tobacco Cessation Counseling Been Provided? No Information not available 11/05/2022 How Many Years Have You Smoked Tobacco? 32 Information not available 11/05/2022 Have You Recently Traveled Abroad? No Information not available 11/05/2022 What Type Of Noise Exposure Are You Exposed To? NoExposureToExcessiveNo ise Information not available 11/05/2022 Are You Currently In School? No Information not available 11/05/2022 Do You Have Any Dietary Restrictions? No Information not available 11/05/2022 Do You Or Have You Ever Used Any Other Forms Of Tobacco Or Nicotine? No Information not available 11/05/2022 Sex: Female Functional Status Question Answer Note LastModified by Organizat ion Details LastModified Time Are you able to care for yourself? Yes Information not available 11/05/2022 What is your exercise level? Moderate [id number] Information not available 04/24/2022 Mental Status None recorded. Family History Relationship Description Onset Age of this Age Resolved Age Notes LastModified by Organization Details LastModified Time Mother Heart disease [id number] Not available 04/24/2022 01:23:00 Mother Dementia Not availab le 10/08/2023 14:03:50 Mother Parkinson's disease 78 [id number] Not available 10/07 14:03:50 Father Hypertensive disorder MIGRATION.404 [id number] Not available 04/24/2022 01:23:00 Paternal Grandfather Diabetes mellitus MIGRATION.855 [id number] Not available 04/24/2022 01:23:00 Maternal Grandmother Malignant tumor of breast [id number] Not available 10/07 14:03:50 Maternal Grandmother Malignant tumor of colon [id number] Not available 10/07 14:03:50 Maternal Grandfather Malignant tumor of pharynx [email or web address] Not available 10/07 14:03:50 Medical History Condition Response NERVE DISEASE N BLINDNESS N RHEUMATIC FEVER N KIDNEY STONES N BLADDER PROBLEMS N OTHER # 1 Y POLIO N LUNG DISEASE/DISORDER N COPD N RADIATION / CHEMOTHERAPY N Other # 2 N BLOOD DISEASES N SURGERY N EAR OR HEARING PROBLEMS N MUMPS N BOWEL PROBLEMS Y DEPRESSION (INCLUDING POST ) Y STROKE/TIA N ULCERS N BENIGN PROSTATIC HYPERPLASIA N MEASLES N MYOCARDIAL INFARCTION N OBESITY N GERD/NAUSEA N ANEURYSM N URINARY/BLADDER/KIDNEY PROBLEMS N CORONARY ARTERY DISEASE (CAD) N INPATIENT PSYCH CARE N ADDICTION CONCERNS N ENDOMETRIOSIS N Impotence N USE OF BLOOD THINNERS N SKIN PROBLEMS N GASTROINTESTINAL DISORDER N PERIPHERAL VASCULAR DISEASE N MUSCLE,JOINT OR BONE PROBLEMS N GASTROINTESTINAL BLEEDING N BLOOD CLOTS N ASTHMA N CATARACTS N ERECTILE DYSFUNCTION N VARICOSITIES N GI PROBLEMS N Low Testosterone N INFERTILITY N AIDS/HIV N LIVER DISEASE N MALE HYPOGONADISM N HYPERTENSION Y Deficiency Y ANXIETY DISORDER Y BLOOD TRANSFUSION N ANEMIA/BLOOD DISORDER N CHRONIC EAR INFECTIONS N BRONCHITIS N TUBERCULOSIS N GLAUCOMA N FOOT PROBLEM N DIVERTICULITIS N SLEEP APNEA N CHICKENPOX N INFECTIOUS DISEASE N HEART ARRHYTHMIA N PROSTATE N INSOMNIA N HIGH CHOLESTEROL / HYPERLIPIDEMIA Y HYPERTHYROIDISM N EYE PROBLEMS N NEUROLOGICAL PROBLEMS N EDEMA N CHRONIC PAIN SYNDROME N HYPOTHYROIDISM N CAROTID BLOCKAGE N CONSTIPATION N BACK / NECK PROBLEMS Y HAVE YOU BEEN HOSPITALIZED OR SEEN IN [facility] IN THE PAST YEAR ? N ATHEROSCLEROSIS N BREAST PROBLEMS N DIALYSIS N ECZEMA N OSTEOPOROSIS Y ARTHRITIS N APPENDICITIS N DIABETES, TYPE N BAD TEETH N ENT N HEARTBURN / REFLUX N AUTISM SPECTRUM DISORDER (ASD) N HEPATITIS / LIVER DISEASE N PULMONARY DISEASE N GOUT N SLEEP DISORDER N ALZHEIMER'S DISEASE N Brain Problems N HERPES N DEMENTIA N HEADACHES/MIGRAINES Y SEIZURES/EPILEPSY N VASCULAR DISEASE N PACEMAKER N Blood Disorder N DIZZINESS N HEART DISEASE/HEART PROBLEMS N KIDNEY DISEASE N MULTIPLE SCLEROSIS N CARDIAC ARRHYTHMIA N CANCER: SPECIFY N ANESTHESIA COMPLICATIONS N ATRIAL FIBRILLATION N Gall Stones N PULMONARY EMBOLISM N AUTOIMMUNE DISEASE N Gynecological History Statement/Question Response Date of Last Pap Date of Last Mammogram 02/11/2022 Current Control Method Hysterectom y Date of Last Colonoscopy 11/27/2020 Most Recent Mammogram 02/11/2022 Most Recent Bone Density Obstetrics History GPAL:G 3 P 2 0 1 2 Type Value Full Term 2 Induced 1 Living 2 Total 3 Immunizations Vaccine Type Date Status Note Provider Nam e and Address Organization Details Recorded Time influenza, unspecified formulation 3 completed Not Available [facility] 04/14/2023 14:52:34 COVID-19, mRNA, LNP-S, PF, 30 mcg/0.3 mL dose 3 completed Not Available [facility] 04/14/2023 14:52:34 Influenza, split virus, trivalent, preservative 3 completed Not Available [facility] 04/14/2023 14:52:34 COVID-19, mRNA, LNP-S, PF, 30 mcg/0.3 mL dose 1 completed Not Available [facility] 04/14/2023 14:52:34 COVID-19, mRNA, LNP-S, PF, 30 mcg/0.3 mL dose 1 completed Not Available [facility] 04/14/2023 14:52:34 Influenza, split virus, trivalent, preservative 2 completed Not Available [facility] 04/14/2023 14:52:34 COVID-19, mRNA, LNP-S, PF, 30 mcg/0.3 mL dose 2 completed Not Available [facility] 04/14/2023 14:52:34 Tdap 2 completed Not Available [facility] 04/14/2023 14:52:34 zoster recombinant 2 completed Not Available [facility] 04/14/2023 14:52:34 Influenza, split virus, quadrivalent, PF 1 completed Not Available [facility] 04/14/2023 14:52:34 Influenza, split virus, quadrivalent, PF 5 completed Not Available [facility] 04/14/2023 14:52:35 Influenza, split virus, quadrivalent, PF 8 completed Not Available [facility] 04/14/2023 14:52:35 Past Encounters Encounter ID Performer Location Encounter Start Date Encounter Closed Date Diagnosis/Indication Diagnosis SNOMED-CT Code Diagnosis ICD10 Code Diagnosis Note [id number] [facility] Internal Med [facility] [address] [facility] , [place] [address] 05/02/2020 00:00:00 06/22/2020 13:59:02 [id number] _ANITAENA_M IGRATION_ DEFAULT_1 _1 , 10/25/2020 00:00:00 10/25/2020 11:47:25 [id number] [facility] [place] [address] [place] [address] y , [place] [address] 11/07/2020 00:00:00 12/03/2020 14:01:30 [id number] [facility] [place] [address] [place] [address] y , [place] [address] 04/03/2021 00:00:00 04/03/2021 14:52:14 [id number] [facility] [place] [address] [place] [address] y , [place] [address] 08/07/2021 00:00:00 09/07/2021 23:11:18 [id number] [facility] [place] [address] [place] [address] y , [place] [address] 01/01/2022 00:00:00 01/01/2022 14:40:01 [id number] [facility] [place] [address] [place] [address] y , [place] [address] 02/21/2022 00:00:00 02/22/2022 09:34:04 [id number] [facility] [address] [place] [address] 03/25/2022 00:00:00 03/26/2022 18:03:41 [id number] [facility] [place] [address] [place] [address] 04/05/2022 00:00:00 04/08/2022 12:00:06 [id number] Power Estrada MD [facility] [place] [address] [place] [address] 05/15/2022 11:31:51 05/15/2022 11:53:01 Pain in right hand [id number] 72983 M79.641 [id number] Amadou Loo MD [facility] Internal Med [facility] [address] [facility] [place] [address] 07/02/2022 13:50:50 07/02/2022 14:51:05 Essential hypertension 50535753 I10 Anxiety disorder 2733296 06 F41.9 Hypertriglyceridemia 302 933426 E78.2 Pain of ri ght knee joint 9953766982 15113 M25.561 Low back pain 614198365 M54.50 [id number] Amadou Loo MD [facility] Internal Med [facility] [address] [address] 08/09/2022 10:39:24 08/09/2022 11:29:09 Low back pain 324291559 M54.50 [id number] Maria Fernanda Archibald NP [facility] [place] [address] [place] [address] 10/09/2022 11:10:38 10/09/2022 11:53:45 Pain of left hand 1959073149 72213 M79.846 [id number] Amadou Loo MD [facility] Internal Med [facility] [address] [place] [address] [place] [address] 11/05/2022 11:31:00 11/05/2022 12:50:55 Essential hypertension 72099705 I10 Hyperlipidemia 25758996 E78.5 Hyperparathyroidism 6699 9008 E21.3 Low back pain 816502384 M54.50 Migraine 07450424 G43.90 9 [id number] ANNIE Infante [facility] [place] [address] [place] [address] 11/19/2022 11:27:31 11/19/2022 12:14:03 Pain of left hand 5136443893 01484 M79.642 patient returns to clinic concerning left thumb pain. At her last visit she received a corticoste roid injection into the left CMC joint of the thumb. Today she has pain in the left thumb MCP and IP joint. We discussed possible treatments with oral and topical anti-infla mmatories. She will continue taking the meloxicam that she has already been prescribed previously . She may use Voltaren gel as needed. She will follow up as needed if his symptoms persist or worsen. Medial epi condylitis of right elbow joint 8168528011 44920 M77.01 since her last visit she has developed some medial epicondyli tis. We discussed that this is an overuse injury and is inflammati on of the tendons at the attachment on the medial epicondyle , which is why she is experienci ng symptoms with flexing her wrist. We discussed possible treatment options including oral and topical anti-infla mmatories. We also discussed home exercises and she was provided with a handout that she can follow. She will follow up as needed if her symptoms persist or worsen. [id number] Amadou Loo MD [facility] Internal Med [place] [address] [facility] [address] [facility] [place] [address] 02/04/2023 13:32:22 02/04/2023 14:30:37 Hypogammaglobulinemia 486086198 D80.1 Anxiety disorder 5755764 06 F41.9 Migraine 77844687 G43.90 9 Essential hypertension 19469409 I10 Hyperlipidemia 37606194 E78.5 [id number] Power Estrada MD [facility] [place] [address] [place] [address] 03/18/2023 11:25:21 03/18/2023 16:24:57 Osteoarthrosis of the carpometacarpal joint of the thumb 83151814 M18.9 [id number] Maria Fernanda [facility]ibald [facility] [place] [address] [place] [address] 04/25/2023 10:03:13 04/25/2023 10:30:13 Pain of left hand 2531369756 48958 M79.668 [id number] Maria Fernanda Archibald NP [facility] [place] [address] [place] [address] 05/28/2023 14:26:18 05/28/2023 14:46:33 Pain of left hand 4190373029 66522 M79.106 [id number] Power Estrada MD [facility] [place] [address] [place] [address] 07/09/2023 11:28:56 07/09/2023 11:45:24 Pain of left hand 6666125911 62450 M79.642 Osteoarthr osis of the carpometacarpal joint of the thumb 25436515 M18.9 [id number] Maria Fernanda Archibald NP [facility] [place] [address] [place] [address] 10/08/2023 14:01:19 10/08/2023 15:13:47 Pain of left hand 2022733806 77057 M79.642 Goals Section Goal Description Progress Status Start Date LastModified by Organization Details LastModified Time Managing Anxiety Patient verbalizes strategies for coping with anxiety [facility] active 2023 Viloeta Estevez RN Information not available 07/23/2023 15:25:38 Healthy Diet Patient demonstrates understanding of beneficial diet and exercise plan [facility] active 2023 Violeta Estevez RN Information not available 07/23/2023 15:27:56 Exercise Plan Patient demonstrates understanding of beneficial diet and exercise plan [facility] active 2023 Violeta Estevez RN Information not available 07/23/2023 15:27:56 Blood Pressure Maintains blood pressure goal as defined by care team [facility] active 2023 Violeta Estevez RN Information not available 07/23/2023 15:27:35 Medication Regimen Follows medication regimen as per care team recommendation (s) [facility] active 2023 Violeta Estevez RN Information not available 07/23/2023 15:27:56 Coping Patient verbalizes strategies for coping with anxiety [facility] active 2023 Violeta Estevez RN Information not available 07/23/2023 15:25:38 Family and Social Support Reports family and/or social support needs are met [facility] active 2023 Violeta Estevez RN Information not available 07/23/2023 15:27:56 Foods to Avoid Pt will have a clear understanding of foods to avoid that antagonize diverticular disease [facility] active 2023 Violeta Estevez RN Information not available 07/23/2023 15:27:56 Health Concerns Section Related Observation LastModified by Organization Detai ls LastModified Time None Recorded Concern Status LastModified by Organization Details LastModified Time Diverticular disease Active Violeta Estevez RN Not Av ailable 07/23/2023 15:26:53 Essential hypertension Active Violeta Estevez RN Not Available 07/23/2023 1 5:27:35 Anxiety disorder Active Violeta Estevez RN Not Availa ble 07/23/2023 15:27:10 Hyperlipidemia Active Violeta Estevez RN Not Availabl e 07/23/2023 15:27:56 Advance Directives Directive Y: Payers Encounter Date Sequence Insurance Name Policy Number Policy Turner Covered Member ID Turner Member ID Guarantor Name 03/18/2023 1 [facility] (MEDICARE REPLACEMENT/ ADVANTAGE - HMO) [id number] Porsha L Cook [id number] Porsha L Cook 04/25/2023 1 [facility] (MEDICARE REPLACEMENT/ ADVANTAGE - HMO) [id number] Porsha L Cook [id number] Porsha L Cook 05/28/2023 1 [facility] (MEDICARE REPLACEMENT/ ADVANTAGE - HMO) [id number] Porsha L Cook [id number] Porsha L Cook 07/09/2023 1 [facility] (MEDICARE REPLACEMENT/ ADVANTAGE - HMO) [id number] Porsha L Cook [id number] Porsha L Cook 10/08/2023 1 [facility] (MEDICARE REPLACEMENT/ ADVANTAGE - HMO) [id number] Porsha L Cook [id number] Porsha L Cook OBGyn Episode No OBEpisode recorded.
--- OUTSIDE RECORDS SUMMARY | 2024-04-30 12:16 | XMS_ITS | Continuity of Care Document ---
Author Organization [facility] Address [address] [facility] [address] [place] [address] Phone Care Team Providers Care Drum Handler Name Role Phone Mily Tripathi Unavailable Unavailable Advance Directives Directive Yes / No Effective Date File Name No Information Encounters Encounter Description Practice Location Reason(s) For Visit Diagnoses Date Provider Providers Copied on Encounter [facility], [address], [place], [place], [id number], [place] tel:[phone] [facility] No Information Mar-2 6-200 4 Bhumi Minor. [address] , [address], [place], [address], [place]. tel:[phone] Family History Family Member Type Diagnosis Age At Onset No Information Payers Payer name Insurance type Covered democrat ID Authoriza tiantonio(s) [facility] Commercial CI [id number] Social History Type Description Quantity Date Captured [...]
--- OUTSIDE RECORDS SUMMARY | 2024-04-30 12:17 | XMS_ITS | Data Portability ---
Demographics Address [address] [place] [address] Home Phone Mobile Phone Email Address Preferred Language en Marital Status Hoahaoism Affiliation Unknown Race White Ethnic Group Not or Lati no [facility] [address] [facility] [address] Care Team Providers Care Land Leveler Name Role Phone AMADOU LOO Primary Care Provider Assessment Encounter Date Assessment Date Assessment LastModified by Organization Details LastModified Time 05/19/2023 05/19/2023 Obtain MRI of the lumbar spine she has had physical therapy with no luck. Anxiety hypertension AL appear to be stable unspecified thyroid disorder we need to get her old records we have incomplete database at this time. Regular visit with me in 4 months we will see what the MRI shows. [email or web address] Not available 05/19/2023 21:48:24 09/22/2023 09/22/2023 diagnose and assessment and plan have been discussed we will continue current therapy . All questions have been answered. Healthy lifestyle care instructions discussed. Follow up with me in 3-4 months. She will be due for blood work at that time. [email or web address] Not available 09/25/2023 20:52:30 11/06/2023 11/06/2023 preventative checklist screenings immunizations functional assessments discussed immunizations and screenings ordered where appropriate and patient agreeable keep regular follow up [email or web address] Not available 11/08/2023 15:45:49 01/12/2024 01/12/2024 blood pressure is controlled healthy lifestyle care instructions to help weight management blood work has been ordered continue with current therapy we will see me back in 4 months [email or web address] Not available 01/25/2024 20:48:34 Plan of Treatment Reminders Order Date Submit Date Provider Last Modified By Organization Details Last Modified Time Details Appointments ANY 15 2024 10:00A Trip Loo MD Not available Not available Not available Lab lipid panel, serum 2023 024 [facility], [address], [address], [place], [address], 01/16/2024 08:26:50 CBC w/ auto diff 2023 024 [facility], [address] [facility], [address], [place], [address], 01/16/2024 08:26:53 CMP, serum or plasma 2023 024 [facility], [address] [facility], [address], [place], [address], 01/16/2024 08:26:52 Referral None recorded. Procedures None recorded. Surgeries None recorded. Imaging MRI, lumbar spine, w/o contrast 2023 024 [facility] ([facility]), [address] [place] [address] [address], [place], [address], 05/27/2023 14:18:22 Medication Orders None recorded. Patient TargetsNo targets recorded. Patient Instructions Encounter Date Encounter Id Patient Instructions Last Modified By Organization Details Last Modified Time 09/22/2023 [id number] A healthy lifestyle: care instructions [email or web address] Not available 09/25/2023 20:52:45 11/06/2023 [id number] preventing falls : care instructions [email or web address] Not available 11/06/2023 11:56:18 Medicare [facility] Preventive Checklist [email or web address] Not available 11/06/2023 11:56:18 01/12/2024 [id number] A healthy lifestyle: care instructions [email or web address] Not available 01/12/2024 12:27:35 Reason for Referral None Reported. Results Created Date Observation Date Name Description Value Unit Range Abnormal Flag Note LastModifiedBy Organization Detail LastModifiedTime 01/15/20 24 01/16/2024 LIPID PANEL cholesterol, total 214 mg/dL 100-19 9 above high normal Not Available [facility] ([facility]) [address] [place], [address], 01/16/2024 08:26:50 01/15/20 24 01/16/2024 LIPID PANEL triglyceride s 87 mg/dL 0-149 Not Available [facility] ([facility]) [address] [place], [address], 01/16/2024 08:26:50 01/15/20 24 01/16/2024 LIPID PANEL HDL cholesterol 85 mg/dL >39 Not Available [facility] ([facility]) [address] [place], [address], 01/16/2024 08:26:50 01/15/20 24 01/16/2024 LIPID PANEL VLDL cholesterol bisi 15 mg/dL 5-40 Not Available [facility] ([facility]) [address] [place], [address], 01/16/2024 08:26:50 01/15/20 24 01/16/2024 LIPID PANEL LDL chol calc ([facility]) 114 mg/dL 0-99 above high normal Not Available [facility] ([facility]) [address] [place], [address], 01/16/2024 08:26:50 01/15/20 24 01/16/2024 COMP. METAB OLIC PANEL (14) glucose 74 mg/dL 70-99 Not Available [facility] ([facility]) [address] [place], [address], 01/16/2024 08:26:52 01/15/20 24 01/16/2024 COMP. METAB OLIC PANEL (14) BUN 15 mg/dL 6-24 Not Available [facility] ([facility]) [address] [place], [address], 01/16/2024 08:26:52 01/15/20 24 01/16/2024 COMP. METAB OLIC PANEL (14) creatinine 0.78 mg/dL 0.57-1 .00 Not Available [facility] ([facility]) [address] [facility], [place], [address], 01/16/2024 08:26:52 01/15/20 24 01/16/2024 COMP. METAB OLIC PANEL (14) eGFR 88 mL/mi n/1.7 3 >59 Not Available [facility] ([facility]) [address] [facility] [place], [address], 01/16/2024 08:26:52 01/15/20 24 01/16/2024 COMP. METAB OLIC PANEL (14) BUN/creatini ne ratio 19 9-23 Not Available [facility] ([facility]) [address] [facility] [place], [address], 01/16/2024 08:26:52 01/15/20 24 01/16/2024 COMP. METAB OLIC PANEL (14) sodium 137 mmol/ L 134-14 4 Not Available [facility] ([facility]) [address] [facility] [place], [address], 01/16/2024 08:26:52 01/15/20 24 01/16/2024 COMP. METAB OLIC PANEL (14) potassium 4.0 mmol/ L 3.5-5. 2 Not Available [facility] ([facility]) [address] [facility] [place], [address], 01/16/2024 08:26:52 01/15/20 24 01/16/2024 COMP. METAB OLIC PANEL (14) chloride 104 mmol/ L 96-106 Not Available [facility] ([place] [facility]) [address] [facility] [place], [address], 01/16/2024 08:26:52 01/15/20 24 01/16/2024 COMP. METAB OLIC PANEL (14) carbon dioxide, total 20 mmol/ L 20-29 Not Available [facility] ([place] [facility]) [address] [facility] [place], [address], 01/16/2024 08:26:52 01/15/20 24 01/16/2024 COMP. METAB OLIC PANEL (14) calcium 8.8 mg/dL 8.7-10 .2 Not Available [facility] ([facility]) [address] [place], [address], 01/16/2024 08:26:52 01/15/20 24 01/16/2024 COMP. METAB OLIC PANEL (14) protein, total 5.9 g/dL 6.0-8. 5 below low normal Not Available [facility] ([facility]) [address] [place], [address], 01/16/2024 08:26:52 01/15/20 24 01/16/2024 COMP. METAB OLIC PANEL (14) albumin 4.2 g/dL 3.8-4. 9 Not Available [facility] ([facility]) [address] [place], [address], 01/16/2024 08:26:52 01/15/20 24 01/16/2024 COMP. METAB OLIC PANEL (14) globulin, total 1.7 g/dL 1.5-4. 5 Not Available [facility] ([facility]) [address] [facility] [place], [address], 01/16/2024 08:26:52 01/15/20 24 01/16/2024 COMP. METAB OLIC PANEL (14) bilirubin, total <0.2 mg/dL 0.0-1. 2 Not Available [facility] ([facility]) [address] [place], [address], 01/16/2024 08:26:52 01/15/20 24 01/16/2024 COMP. METAB OLIC PANEL (14) alkaline phosphatase 51 IU/L 44-121 Not Available [facility] ([facility]) [address] [place], [address], 01/16/2024 08:26:52 01/15/20 24 01/16/2024 COMP. METAB OLIC PANEL (14) AST (SGOT) 29 IU/L 0-40 Not Available [facility] ([facility]) [address] [facility], [place], [address], 01/16/2024 08:26:52 01/15/20 24 01/16/2024 COMP. METAB OLIC PANEL (14) ALT (SGPT) 26 IU/L 0-32 Not Available [facility] ([facility]) [address] [facility], [place], [address], 01/16/2024 08:26:52 01/15/20 24 01/16/2024 CBC WITH DIFFE RENTI AL/PL ATELE T WBC 4.7 x10e3 /uL 3.4-10 .8 Eff ectiv e Decem charanjit 2023 profi wendi [id number] 5 WBC will be made* * non-o rdera ble as a stand -jaxon e order code. Not Available [facility] ([facility]) [address] [facility], [place], [address], 01/16/2024 08:26:53 01/15/20 24 01/16/2024 CBC WITH DIFFE RENTI AL/PL ATELE T RBC 4.92 x10e6 /uL 3.77-5 .28 Not Available [facility] ([facility]) [address] [facility], [place], [address], 01/16/2024 08:26:53 01/15/20 24 01/16/2024 CBC WITH DIFFE RENTI AL/PL ATELE T hemoglobin 13.4 g/dL 11.1-1 5.9 Not Available [facility] ([facility]) [address] [facility], [place], [address], 01/16/2024 08:26:53 01/15/20 24 01/16/2024 CBC WITH DIFFE RENTI AL/PL ATELE T hematocrit 41.9 % 34.0-4 6.6 Not Available [facility] ([facility]) [address] [facility], [place], [address], 01/16/2024 08:26:53 01/15/20 24 01/16/2024 CBC WITH DIFFE RENTI AL/PL ATELE T MCV 85 fL 79-97 Not Available [facility] ([facility]) [address] [facility], [place], [address], 01/16/2024 08:26:53 01/15/20 24 01/16/2024 CBC WITH DIFFE RENTI AL/PL ATELE T MCH 27.2 pg 26.6-3 3.0 Not Available [facility] ([facility]) [address] [facility], [place], [address], 01/16/2024 08:26:53 01/15/20 24 01/16/2024 CBC WITH DIFFE RENTI AL/PL ATELE T MCHC 32.0 g/dL 31.5-3 5.7 Not Available [facility] ([facility]) [address] [facility], [place], [address], 01/16/2024 08:26:53 01/15/20 24 01/16/2024 CBC WITH DIFFE RENTI AL/PL ATELE T RDW 14.7 % 11.7-1 5.4 Not Available [facility] ([facility]) [address] [facility], [place], [address], 01/16/2024 08:26:53 01/15/20 24 01/16/2024 CBC WITH DIFFE RENTI AL/PL ATELE T platelets 231 x10e3 /uL 150-45 0 Not Available [facility] ([facility]) [address] [place], [address], 01/16/2024 08:26:53 01/15/20 24 01/16/2024 CBC WITH DIFFE RENTI AL/PL ATELE T neutrophils 49 % notest ab. Not Available [facility] ([facility]) [address] [facility], [place], [address], 01/16/2024 08:26:53 01/15/20 24 01/16/2024 CBC WITH DIFFE RENTI AL/PL ATELE T lymphs 34 % notest ab. Not Available [facility] ([facility]) [address] [facility], [place], [address], 01/16/2024 08:26:53 01/15/20 24 01/16/2024 CBC WITH DIFFE RENTI AL/PL ATELE T monocytes 10 % notest ab. Not Available [facility] ([facility]) [address] [place], [address], 01/16/2024 08:26:53 01/15/20 24 01/16/2024 CBC WITH DIFFE RENTI AL/PL ATELE T eos 6 % notest ab. Not Available [facility] ([facility]) [address] [place], [address], 01/16/2024 08:26:53 01/15/20 24 01/16/2024 CBC WITH DIFFE RENTI AL/PL ATELE T basos 1 % notest ab. Not Available [facility] ([facility]) [address] [place], [address], 01/16/2024 08:26:53 01/15/20 24 01/16/2024 CBC WITH DIFFE RENTI AL/PL ATELE T neutrophils (absolute) 2.3 x10e3 /uL 1.4-7. 0 Not Available [facility] ([facility]) [address] [place], [address], 01/16/2024 08:26:53 01/15/20 24 01/16/2024 CBC WITH DIFFE RENTI AL/PL ATELE T lymphs (absolute) 1.6 x10e3 /uL 0.7-3. 1 Not Available [facility] ([facility]) [address] [place], [address], 01/16/2024 08:26:53 01/15/20 24 01/16/2024 CBC WITH DIFFE RENTI AL/PL ATELE T monocytes(ab solute) 0.5 x10e3 /uL 0.1-0. 9 Not Available [facility] ([facility]) [address] [facility], [place], [address], 01/16/2024 08:26:53 01/15/20 24 01/16/2024 CBC WITH DIFFE RENTI AL/PL ATELE T eos (absolute) 0.3 x10e3 /uL 0.0-0. 4 Not Available [facility] ([facility]) [address] [facility], [place], [address], 01/16/2024 08:26:53 01/15/20 24 01/16/2024 CBC WITH DIFFE RENTI AL/PL ATELE T baso (absolute) 0.1 x10e3 /uL 0.0-0. 2 Not Available [facility] ([facility]) [address] [facility], [place], [address], 01/16/2024 08:26:53 01/15/20 24 01/16/2024 CBC WITH DIFFE RENTI AL/PL ATELE T immature granulocytes 0 % notest ab. Not Available [facility] ([facility]) [address] [facility], [place], [address], 01/16/2024 08:26:53 01/15/20 24 01/16/2024 CBC WITH DIFFE RENTI AL/PL ATELE T immature grans (abs) 0.0 x10e3 /uL 0.0-0. 1 Not Available [facility] ([facility]) [address] [place], [address], 01/16/2024 08:26:53 05/27/19 24 05/27/2023 MRI, lumba r spine , w/o contr ast No observ ation record ed. [email or web address] [address], [place], [address], 06/02/2023 11:48:30 11/06/19 24 01/06/2023 MAMMO , scree lluvia, digit al, bilat eral No observ ation record ed. [email or web address] [facility] [address] [place], [address], 11/16/2023 22:59:24 11/07/19 24 DEXA No observ ation record ed. [email or web address] [facility] [address] [place], [address], 11/16/2023 22:59:24 01/20/20 24 01/20/2024 XR, hip + pelvi s, bilat eral, 2 view No observ ation record ed. [facility] [address] [facility] [address], [place], [address], 01/21/2024 13:17:15 02/09/20 24 02/09/2024 MAMMO , scree lluvia, digit al, bilat eral No observ ation record ed. [facility] [address], [place], [address], 02/09/2024 16:29:25 02/19/20 24 02/19/2024 XR, chest No observ ation record ed. [email or web address] [facility] [address], [place], [address], 02/27/2024 16:26:36 Result Notes None recorded. Problems Name Problem SNOMED Code Status Onset Date Resolution Date Notes Provider Name and Address Organization Details Recorded Time Essential hypertensio n 04359326 Active 2023 Amadou Loo MD Attn: Yobanisada jimenez,[address] [facility], [place], [address], [facility] - [facility] 15:38:24 Anxiety 24969837 Active 2023 Amadou Loo MD Attn: Марина jimenez,[address] [facility], [place], [address], [place] [facility] 4 15:38:25 Low back pain 417937056 Active 2023 Amadou Loo MD Attn: Марина tony,[address] [facility], [place], [address], [place] [facility] 4 15:38:26 Migraine 18934629 Active 2023 Amadou Loo MD Attn: Марина tony,[address] [facility], [place], [address], [place] [facility] 4 15:38:28 Chronic rhinitis 30487515 Active 2023 Amadou Loo MD Attn: Марина jimenez,[address] [facility], [place], [address], [place] [facility] 4 15:38:49 Hyperlipide elfego 11542664 Active 2023 Amadou Loo MD Attn: Марина jimenez,[address] [facility], [place], [address], [place] [facility] 4 20:48:01 HIV screening declined 5880725090437 00 Active 2023 Amadou Loo MD Attn: Марина jimenez,[address] [facility], [place], [address], [place] [facility] 4 20:48:20 Osteoporosi s 75826520 Active 2023 Amadou Loo MD Attn: Марина jimenez,[address] [facility], [place], [address], [place] [facility] 20:49:49 Problem Notes None recorded. Procedures Surgical History Date Name Laterality Status Provider Name and Address Organization Details Recorded Time Gastrointestinal Surgery completed Reynold Conroy [place] [facility] 05/19/2023 15:13:45 endometrial thermal ablation completed MAKSIM Davis - [facility] 05/19/2023 15:14:51 Tonsillectomy completed MAKSIM Davis [facility] 05/19/2023 15:15:01 ligation of bilateral fallopian tubes completed MAKSIM Davis [facility] 05/19/2023 15:15:28 delivery completed MAKSIM Davis [facility] 05/19/2023 15:15:39 Dilation and Curettage completed Reynold Conroy [facility] 05/19/2023 15:15:46 Total hysterectomy completed José Miguel Conroy MA [facility] 05/19/2023 15:15:53 Imaging Results Imaging Date Name Status LastModified by Organiz [facility] Details LastModified Time 05/27/2023 MRI, lumbar spine, w/o contrast [email or web address] [address], [place], [address], 06/02/2023 11:48:30 01/06/2023 MAMMO, screening, digital, bilateral completed [address] [place], [address], 11/16/2023 22:59:24 11/07/2023 DEXA completed [address] [place], [address], 11/16/2023 22:59:24 01/20/2024 XR, hip + pelvis, bilateral, 2 view completed [facility] [address] [facility] [address], [place], [address], 01/21/2024 13:17:15 02/09/2024 MAMMO, screening, digital, bilateral completed [email or web address] [address], [place], [address], 02/09/2024 16:29:25 02/19/2024 XR, chest completed [facility] [address], [place], [address], 02/27/2024 16:26:36 Procedure Notes None recorded. Medical Equipment None Reported. Allergies Allergen ID Allergen Name Allergen Category Reaction Reaction Severity Criticality Documentation Date Start Date Code Code System Note Provider Name and Address Organization Details Recorded Time 232424 morphine medicatio n hallucina tions itching Not available Not available Not available 05/19/2023 7052 RxNorm Not Available Not Available Not Available Medications Name Sig Start Date Stop Date Status Note LastModified by Organization Details LastModified Time bupropion HCl SR 150 mg tablet,12 hr sustained -release TAKE 2 TABLETS BY MOUTH ONCE DAILY IN THE MORNING active Not Available Not Available No t Available doxycycli ne hyclate 100 mg capsule TAKE 1 CAPSULE BY MOUTH ONCE DAILY (AVOID TAKING WITH MINERAL SUPPLEME NTS) 05/18 completed Not Available Not Available Not Available hydrocodo ne 5 mg-acetam inophen 325 mg tablet TAKE 1 TABLET BY MOUTH EVERY 6 HOURS 05/18 completed Not Available Not Available Not Available meloxicam 15 mg tablet TAKE 1 TABLET BY MOUTH ONCE DAILY active Not Available Not Available No t Available Compazine 10 mg tablet Take 1 tablet 3 times a day by oral route as needed. active Not Available Not Available No t Available prednison e 5 mg tablet TAKE 2 TABLETS BY MOUTH ONCE DAILY ON DAYS 1-4 THEN TAKE 1 TABLET BY MOUTH ONCE DAILY ON DAYS 5-7 (TAKE IN THE MORNING) 05/18 completed Not Available Not Available Not Available lorazepam 0.5 mg tablet TAKE 1 TABLET BY MOUTH ONCE DAILY AT BEDTIME FOR 90 DAYS active Not Available Not Available No t Available ciproflox acin 0.3 % eye drops INSTILL 5 DROPS INTO AFFECTED EAR THREE TIMES DAILY FOR 7 DAYS active Not Available Not Available No t Available gabapenti n 300 mg capsule TAKE 1 CAPSULE BY MOUTH THREE TIMES DAILY active Not Available Not Available No t Available lisinopri l 5 mg tablet TAKE 1 TABLET BY MOUTH ONCE DAILY active Not Available Not Available No t Available gabapenti n 100 mg capsule TAKE 1 CAPSULE BY MOUTH THREE TIMES DAILY NEEDED 11/05 completed Dose increase d Not Available Not Available Not Available cefuroxim e axetil 500 mg tablet TAKE 1 TABLET BY MOUTH TWICE DAILY FOR 14 DAYS active Not Available Not Available No t Available methylpre dnisolone 4 mg tablets in a dose pack TAKE BY MOUTH DIRECTED ON INSIDE OF PACKAGE 05/18 completed Not Available Not Available Not Available topiramat e 100 mg tablet TAKE 1/2 (ONE-JOSÉ F) TABLET BY MOUTH IN THE MORNING AND 1 IN THE EVENING active Not Available Not Available No t Available ipratropi um bromide 21 mcg (0.03 %) nasal spray [place] 1 spray 3 times a day by nasal route as needed for 100 days. active Not Available Not Available No t Available amoxicill in 875 mg-potass ium clavulana te 125 mg tablet TAKE 1 TABLET BY MOUTH TWICE DAILY 11/05 completed Not Available Not Available Not Available sumatript an 6 mg/0.5 mL subcutane ous pen injector INJECT 0.5 ML INTO THE SKIN SEE ADMINIST RATION INSTRUCT IONS active Not Available Not Available No t Available escitalop arabella 20 mg tablet TAKE 1 TABLET BY MOUTH ONCE DAILY FOR 90 DAYS active Not Available Not Available No t Available magnesium active Not Available Not Jessica ilable Not Available Super B Complex active Not Available Not Available Not Available Reclast 5 mg/100 mL intraveno us piggyback active Not Available Not Available No t Available Probiotic active Not Available Not Jessica ilable Not Available Multi Vitamin active Not Available Not Available Not Available Vitals Date Recorded Body weight Body mass index (BMI) Body height Heart rate Oxygen saturation Oxygen saturation in Arterial blood by Pulse oximetry Systolic blood pressure Diastolic blood pressure Provider Name and Address Organization Details Last Updated DateTime 4 82478.3 4 g 26.3 kg/m2 154.94 cm 66 /min 99 % 99 % 118 mm[Hg] 78 mm[Hg] Reynold Conroy MA [facility] 4 15:21:26 Date Recorded Body height Body mass index (BMI) Body weight Heart rate Oxygen saturation Oxygen saturation in Arterial blood by Pulse oximetry Systolic blood pressure Diastolic blood pressure Provider Name and Address Organization Details Last Updated DateTime 4 154.94 cm 26.5 kg/m2 30038.3 7 g 63 /min 97 % 97 % 120 mm[Hg] 72 mm[Hg] Cristiane Miller MA [facility] 4 14:13:07 Date Recorded Body height Body mass index (BMI) Body weight Heart rate Oxygen saturation Oxygen saturation in Arterial blood by Pulse oximetry Systolic blood pressure Diastolic blood pressure Provider Name and Address Organization Details Last Updated DateTime 4 154.94 cm 26.9 kg/m2 60227.5 5 g 90 /min 97 % 97 % 132 mm[Hg] 68 mm[Hg] Cristiane Miller MA [facility] 4 09:35:10 Date Recorded Pain severity - 0-10 verbal numeric rating [Score] - Reported Provider Name and Address Organization Details Last Updated DateTime 11/06/2023 8 Emely iLz [facility] 11/06/2023 09:40:47 Date Recorded Body height Body mass index (BMI) Body weight Heart rate Oxygen saturation Oxygen saturation in Arterial blood by Pulse oximetry Systolic blood pressure Diastolic blood pressure Provider Name and Address Organization Details Last Updated DateTime 4 154.94 cm 27.4 kg/m2 89278.8 9 g 77 /min 97 % 97 % 130 mm[Hg] 72 mm[Hg] Cristiane Miller MA [facility] 4 11:38:02 Social History Question Answer Notes LastModified by Organizat ion Details LastModified Time Tobacco Smoking Status Former Smoker quit 12/19/11 Emely Liz [facility] 11/06/2023 09:46:59 Do You Have An Advance Directive? Yes Information not available 05/19/2023 What Is Your Level Of Alcohol Consumption? Occasional Information not available 05/19/2023 Are You Blind Or Do You Have Difficulty Seeing? No Information not available 05/19/2023 What Is Your Level Of Caffeine Consumption? Moderate Information not available 05/19/2023 In The 14 Days Before Symptom Onset, Have You Had Close Contact With A Laboratory-confir med COVID-19 While That Case Was Ill? No Information not available 09/22/2023 In The 14 Days Before Symptom Onset, Have You Had Close Contact With A Person Who Is Under Investigation For COVID-19 While That Person Was Ill? No Information not available 09/22/2023 Have You Been To An Area Known To Be High Risk For COVID-19? No Information not available 09/22/2023 Are You Currently Employed? No Information not available 09/22/2023 Are You Deaf Or Do You Have Serious Difficulty Hearing? 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 REGULAR Information not available 05/19/2023 Are There Any Guns Present In Your Home? No Information not available 09/22/2023 In The Past 7 Days, How Many Days Did You Exercise? -1 Information not available 11/06/2023 In The Past 7 Days, How Much Pain Have You [place]? A Lot Information not available 11/06/2023 In General, Would You Say You Health Is: Fair Information not available 11/06/2023 How Would You Describe The Condition Of Your Mouth And Teeth- Including False Teeth Or Dentures? Fair Information not available 11/06/2023 Each Night, How Many Hours Of Sleep Do You Get? 9 Information no t available 11/06/2023 Has Anyone Ever Told You That You Snore? No Information not available 11/06/2023 In The Past 7 Days, How Often Have You [place] Sleep[place] In The Daytime? Always Information not available 11/06/2023 # Alcohol Drinks Per Week 0 Information not available 11/06/2023 What Was The Date Of Your Most Recent Tobacco Screening? 01/12/2024 Information not available 01/12/2024 What Is Your Current Pack Years? 20-29packyears Information not available 05/19/2023 What Is Your Relationship Status? Information not available 05/19/2023 Do You Use Your Seat Belt Or Car Seat Routinely? Yes Information not available 05/19/2023 Do You Have Smoke And Carbon Monoxide Detectors In Your Home? Yes Information not available 05/19/2023 At What Age Did You Start Smoking Tobacco? 14 Information not available 11/06/2023 How Much Tobacco Do You Smoke? 0.5 PPD Information not available 05/19/2023 Do You Feel Stressed (tense, Restless, Nervous, Or Anxious, Or Unable To Sleep At Night)? [id number] Information not available 11/06/2023 Do You Use Any Illicit Or Recreational Drugs? No Information not available 05/19/2023 Do You Use Sunscreen Routinely? No Information not available 11/06/2023 Has Tobacco Cessation Counseling Been Provided? No Information not available 05/19/2023 Do You Or Have You Ever Used Any Other Forms Of Tobacco Or Nicotine? No Information not available 05/19/2023 Sex: Female Functional Status Question Answer Note LastModified by Organization D etails LastModified Time Are you able to care for yourself? Yes Information n ot available 05/19/2023 What is your exercise level? None Information not available 05/19/2023 Mental Status None recorded. Family History Relationship Description Onset Age of this Age Resolved Age Notes LastModified by Organization Details LastModified Time Father Alcohol abuse [email or web address] Not available 04/25 15:07:35 Father Hypertensive disorder [email or web address] Not available 04/25 15:07:53 Father Migraine [email or web address] Not availa ble 05/19/2023 15:08:03 Brother Alcohol abuse [email or web address] Not available 04/25 15:07:35 Brother Hypertensive disorder bandersonma Not available 04/25 15:07:53 Mother Hypertensive disorder bandersonma Not available 04/25 15:07:53 Medical History Condition Response Coronary Artery Disease N Other N Atrial Fibrillation N High Blood Pressure Y Kidney or Bladder Problems N Thyroid Problems Y GI Problems N Depression Y COPD N Blood Clots N Have you had a mammogram in the last yea r? Y Skin Problems N Anemia N Heart Attack ([place]) N Anxiety Disorder Y Diabetes N Muscle, Joint, or Bone Problems Y Seizures/Epilepsy N Have you had a colonoscopy in the last 1 0 years? Y Acid Reflux (GERD) N Cancer N Stroke N Asthma N Allergies N Have you had a PSA blood test in the las t year? N High Cholesterol N Hepatitis N Liver Disease N Headaches Y Osteoporosis Y Heart Failure N Gynecological History Statement/Question Response If Post Menopausal, Age at Menopause 41 Obstetrics History GPAL:G 0 P 0 0 0 0 Immunizations Vaccine Type Date Status Note Provider Nam e and Address Organization Details Recorded Time zoster recombinant 2 completed Em[place], [place] - [facility] 10/22/2023 15:12:37 zoster recombinant 2 antonino [place], [place] - [facility] 10/22/2023 15:12:37 COVID-19, mRNA, LNP-S, PF, 30 mcg/0.3 mL dose 1 completed Emely [place] - [facility] 10/22/2023 15:12:37 COVID-19, mRNA, LNP-S, PF, 30 mcg/0.3 mL dose 1 completed Emely [place] [facility] 10/22/2023 15:12:37 COVID-19, mRNA, LNP-S, PF, 30 mcg/0.3 mL dose 1 completed Emely [place] [facility] 10/22/2023 15:12:37 COVID-19, mRNA, LNP-S, bivalent, PF, 30 mcg/0.3 mL dose 2 completed Emely [place] [facility] 10/22/2023 15:12:37 COVID-19, mRNA, LNP-S, PF, aguila-sucrose, 30 mcg/0.3 mL 3 completed Emely [place] [facility] 10/22/2023 15:12:37 Tdap 2 completed Emely [place] [facility] 10/22/2023 15:12:37 Influenza, split virus, trivalent, preservative 3 completed Emely [place] [facility] 10/22/2023 15:12:37 Influenza, split virus, quadrivalent, PF 2 completed Em[place] [facility] 10/22/2023 15:12:37 Influenza, split virus, quadrivalent, PF 1 completed Emely [place] [facility] 10/22/2023 15:12:37 Influenza, split virus, quadrivalent, PF 8 completed Emely [place] [facility] 10/22/2023 15:12:37 Influenza, split virus, quadrivalent, PF 5 completed Emely [place] [facility] 10/22/2023 15:12:37 Influenza, split virus, quadrivalent, PF 3 [place] [facility] 10/22/2023 15:12:37 Past Encounters Encounter ID Performer Location Encounter Start Date Encounter Closed Date Diagnosis/Indication Diagnosis SNOMED-CT Code Diagnosis ICD10 Code Diagnosis Note [id number] Amadou Loo MD [facility] [place] [address] [place] [address] 05/19/2023 14:54:37 05/19/2023 15:49:04 Essential hypertension 21519108 I10 Anxiety 54131447 F41.9 Low back pain 022840550 M54.50 Migraine 32517383 G43.90 9 Chronic rhinitis 2545110 6 J31.0 [id number] Amadou Loo MD [facility] [place] [address] [place] [address] 09/22/2023 13:56:50 09/22/2023 14:42:09 Overweight 110461509 E66.3 Essential hypertension 37397739 I10 Migraine 70659675 G43.90 9 Anxiety 89284717 F41.9 Chronic rhinitis 2205361 6 J31.0 [id number] Amadou Loo MD [facility] [place] [address] [place] [address] 11/06/2023 09:27:41 11/06/2023 10:40:08 Adult health examination 987500796 Z00.00 Health Risk Assessment collected and reviewed [id number] Amadou Loo MD [facility] [place] [address] [place] [address] 01/12/2024 11:24:18 01/12/2024 12:16:15 Overweight 638880107 E66.3 Essential hypertension 13911322 I10 Migraine 68504767 G43.90 9 Chronic rhinitis 6208956 6 J31.0 Anxiety 68443730 F41.9 Hyperlipidemia 40978324 E78.5 HIV screen ing declined 1426662259 92490 Z53.20 Health Concerns Section Related Observation LastModified by Organization Detai ls LastModified Time None Recorded Concern Status LastModified by Organization Details LastModified Time None Recorded Advance Directives Directive Y: Payers Encounter Date Sequence Insurance Name Policy Number Policy Turner Covered Member ID Turner Member ID Guarantor Name 05/19/2023 1 [facility] (MEDICARE REPLACEMENT/A DVANTAGE - HMO) [id number] Porsha Ochoa [id number] Porsha Ochoa 09/22/2023 1 [facility] (MEDICARE REPLACEMENT/A DVANTAGE - HMO) [id number] Porsha Ochoa [id number] Porsha Ochoa 11/06/2023 1 [facility] (MEDICARE REPLACEMENT/A DVANTAGE - HMO) [id number] Porsha Ochoa [id number] Porsha Ochoa 01/12/2024 1 [facility] (MEDICARE REPLACEMENT/A DVANTAGE - HMO) [id number] Porsha Ochoa [id number] Porsha Ochoa Notes Date Note Type Note Provider Name and Address Organization Details Recorded Time 05/19/2023 text/html 1. Having proble ms with pain shooting down her left leg from her buttock she has been to physical therapy and it is not any better. #2 anxiety has been doing reasonably well but she is anxious about her back migraines have been fairly stable chronic rhinitis as long as she takes her medicine seems to be doing all right. Hypertension she has not had any chest pain no shortness of breath. History of unspecified thyroid disorder and also states that she has had osteoporosis she believes Amadou Loo MD Attn: [address] [place], [address], [facility] [place] 05/19/2023 21:48:51 09/22/2023 text/html follow up on med ical problems hypertension no headache or dizziness blood pressure 120/72. Migraines have been stable on current therapy. Anxiety no new interval developments or complaints referable their osteoarthritis and back pain she continues to see pain management. Osteoporosis she is taking the Reclast and there has not been any problems Amadou Loo MD Attn: [address] [place], [address], [facility] 09/25/2023 20:52:47 11/06/2023 text/html MAW 2Reported bypatient.Diet and Nutrition:discussed diet improvement Fracture Risk:no sudden unexplained fractures;history of fractures Concentration and Memory:no decreased concentrating ability; does not forget words;memory lapses or loss(Patient stated they are migraine related) Speech/Motor difficulties:no speech difficulties; no difficulty expressing formulated concepts; no difficulty with fine manipulative tasks; no difficulty writing/copying; no slowed reaction time; does not knock things over when trying to pick them up Hearing: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) Vision:worse both distance and near(migraine related) Activities of Daily Living:able to bathe with limited or no assistance; able to contol urination and bowels; able to dress with limited or no assistance; able to feed self with limited or no assistance; able to get out of chair or bed with limited or no assistance; able to groom with limited or no assistance; able to toilet with limited or no assistance Instrumental Activities of Daily Living:able to do house work with limited or no assistance; able to grocery shop with limited or no assistance; able to manage medications with limited or no assistance; able to manage money with limited or no assistance; able to prepare meals with limited or no assistance; able to use the phone with limited or no assistance Falls Risk Assessment:no frequent falls while walking; no fall since last visit; no dizziness/vertigo; fall(s) in the past year ;fear of falling Home Safety:no unsafe jan hazzards; no unsafe stairs; working smoke/CO detectors; practicing 'safer sex'; no fire arms; has hand bars in the bathroom/shower; good lighting in the home Amadou Loo MD Attn: [address] [place], [address], [facility] 11/08/2023 15:46:03 01/12/2024 text/html hypertension no headache no dizziness back pain has been stable migraines there has been a little bit of uptake but no change in character or intensity anxiety has been up a little bit no SI or HI still goes to the pain clinic Amadou Loo MD Attn: [address] [place], [address], [facility] 01/25/2024 20:50:10 OBGyn Episode No OBEpisode recorded.
== END 2024-04-30 11:53 | disposition home or self-care (01) ==
PROVIDERS: Emergency Provider Nurse Practitioner Family; PCP Internal Medicine
DX: N39.0 Urinary tract infection, site not specified (principal); B96.20 Unspecified Escherichia coli [E. coli] as the cause of diseases classified elsewhere; Z87.891 Personal history of nicotine dependence; E21.3 Hyperparathyroidism, unspecified; I10 Essential (primary) hypertension; E78.00 Pure hypercholesterolemia, unspecified; J45.909 Unspecified asthma, uncomplicated; F41.9 Anxiety disorder, unspecified; F32.A Depression, unspecified
CPT/HCPCS: 81003; 87086; 87186; 99213; G0463

== ENCOUNTER 2024-06-22 13:06 | Outpatient (CLI) | payer MEDICARE, SELFPAY ==
[2024-06-22 13:49] LABS: Basophils Absolute Auto 0.1 K/mm3 (0.0-0.1); Basophils Percent Auto 0.7 % (0.2-1.2); Eosinophils Absolute Auto 0.2 K/mm3 (0-0.3); Eosinophils Percent Auto 3.3 % (0-4.4); Hematocrit 42.2 % (37.0-47.0); Hemoglobin 12.8 g/dL (12.0-15.0); Immature Granulocyte Absolute 0.03 K/mm3 (0.00-0.031); Immature Granulocyte Percent A 0.4 % (0-0.5); Lymphocytes Absolute Auto 1.41 K/mm3 (0.9-3.2); Lymphocytes Percent Auto 20.4 % (18.3-44.2); Mean Corpuscular HGB Conc 30.3 g/dl (32-36); Mean Corpuscular Hemoglobin 27.6 pg (26-34); Mean Corpuscular Volume 90.9 fl (80-100); Mean Platelet Volume 10.6 fl (7.4-10.4); Monocytes Absolute Auto 0.5 K/mm3 (0.1-0.6); Monocytes Percent Auto 7.1 % (2.6-8.5); Neutrophils Absolute Auto 4.7 K/mm3 (1.3-6.7); Neutrophils Percent Auto 68.1 % (45.5-73.1); Platelet Count Result 221 k/mm3 (150-375); Red Blood Count 4.64 M/mm3 (4.2-5.4); Red Cell Distribution Width 13.6 % (11.5-14.5); White Blood Count 6.9 K/mm3 (4.5-10.0)
[2024-06-22 14:01] LABS: Alanine Aminotransferase 18 U/L (6-35); Alkaline Phosphatase 52 U/L (38-126); Anion Gap 10 mmol/L (4-12); Aspartate Amino Transferase 28 U/L (14-36); Bilirubin,Total 0.5 mg/dL (0.2-1.3); Blood Urea Nitrogen 12 mg/dL (7-17); Calcium 8.8 mg/dL (8.4-10.2); Carbon Dioxide 19 mmol/L (22-30); Chloride 106 mmol/L (98-107); Cholesterol 198 mg/dL (0-200); Estimated Glomerular Filt Rate > 60; Glucose 98 mg/dL (65-110); HDL Direct 67 mg/dL; Potassium 3.7 mmol/L (3.4-5.0); Sodium 135 mmol/L (137-145); Triglycerides 159 mg/dL (<150)
[2024-06-22 14:06] LABS: Bacteria Urine 4+ /hpf; Bilirubin Urine Negative (Negative); Blood Urine Negative (Negative); Color Urine Yellow (Yellow); Glucose Urine UA Negative (Negative); Ketones Urine Negative (Negative); Leukocyte Esterase Ur 1+ LEU/UL (Negative); Nitrate Urine Positive (Negative); Non Pathogenic Casts 0-2; Protein Urine Negative (Negative); RBC Urine 0-2 /hpf (0-2); Specific Grav Ur 1.007 (1.001-1.035); Squamous Epithelial Cell Urine None Seen /hpf (Few); Urobilinogen Urine 0.2 mg/dL (<2.0); pH Urine 5.5 (5.0-9.0)
[2024-06-22 14:08] LABS: Add Urine Microscopic? YES; Appearance Urine Clear (Clear)
[2024-06-22 14:18] LABS: LDL Cholesterol Direct 75 mg/dL
--- OUTSIDE RECORDS SUMMARY | 2024-06-22 14:18 | XMS_ITS | Encounter Summary ---
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 Sex Female 5:06 PM CDT Gender Identity Not on file Sexual Orientation Not on file documented as of this encounter Plan of Treatment Upcoming Encounters Date Type Department Care Team (Late st Contact Info) Description 09/20/2024 8:00 AM CDT Office Visit [facility] - [address], [address] [place] [address] Saida Willams MD [address] [place] [address] documented as of this encounter Visit Diagnoses Not on filedocumented in this encounter Care Teams Java J2Ee Lead Relationship Specialty Start Date End Date Joshua Loo MD [address] [place] [id number] PCP - General INTERNAL MEDICINE 12/21/21 documented as of this encounter
--- OUTSIDE RECORDS SUMMARY | 2024-06-22 14:18 | XMS_ITS | Encounter Summary ---
Author Organization [facility] Address [address] [place] [address] Phone Care Team Providers Care Digital Imaging Technician Name Role Phone Joshua Loo MD Primary Care Provider Encounter Details Date Type Department Care Team (Late st Contact Info) Description 08/19/[address] 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
--- OUTSIDE RECORDS SUMMARY | 2024-06-22 14:18 | XMS_ITS | Data Portability ---
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, [place], [address], 09:42:02 Medication Orders None record ed. Patient TargetsNo targets recorded. Patient InstructionsNo instructions recorded. Reason for Referral None Reported. Results Created Date Observation Date Name Description Value Unit Range Abnormal Flag Note LastModifiedBy Organization Detail LastModifiedTime 10/08/19 24 XR, hand, 3 or more view No observ ation record ed. [email or web address] [facility] [address], [place], [address], 10/15/2023 09:42:01 01/19/20 24 01/16/2024 XR, chest No observ ation record ed. [address], [place], [address], 04/01/2024 14:06:27 03/12/19 25 03/11/2024 imagi ng/flo stillos tic resul t No observ ation record ed. [email or web address] [facility] [address], [place], [address], 04/01/2024 14:06:22 Result Notes None recorded. Problems Name Problem SNOMED Code Status Onset Date Resolution Date Notes Provider Name and Address Organization Details Recorded Time Contusion of multiple sites 670608159 Completed Not Available Counts include 234 beds at the [facility] 3 01:36:29 Chronic back pain 096929779 Completed Not Available [facility] 3 01:36:29 Anxiety disorder 278679598 Active Not Available Counts include 234 beds at the [facility] 4 14:52:34 Low back pain 278070116 Completed BOGDAN Garces [place] [facility] [employer] [facility] 3 14:48:30 Menopause present 560481314 Active Not Available Counts include 234 beds at the [facility] 4 14:52:34 Scoliosis deformity of spine 863152634 Active 2021 Not Available Counts include 234 beds at the [facility] 4 14:52:34 Chest pain 88583567 Completed Not Available Counts include 234 beds at the [facility] 3 01:36:30 Hypertrig lyceridem ia 752756231 Active Not Available Counts include 234 beds at the [facility] 4 14:52:34 Pain in finger of right hand 04269517573 9109 Active 2021 Not Available Counts include 234 beds at the [facility] 4 14:52:34 Pain in right hand 63162646804 9109 Active 2022 Not Available Counts include 234 beds at the [facility] 4 14:52:34 Blood in urine 83770218 Completed Not Available Counts include 234 beds at the [facility] 3 01:36:30 Vitamin D deficienc y 74839340 Active Not Available Counts include 234 beds at the [facility] 4 14:52:34 Hypoparat hyroidism 40281346 Completed Not Available Counts include 234 beds at the [facility] 3 01:36:31 Migraine 87145095 Active Not Available Counts include 234 beds at the [facility] 4 14:52:34 Diverticu lar disease 537897958 Active Not Available Counts include 234 beds at the [facility] 4 14:52:34 Chronic sinusitis 55772681 Completed Not Available Counts include 234 beds at the [facility] 3 01:36:31 Onychomyc osis 273941793 Active Not Available [facility] 4 14:52:34 Atrophic vaginitis 17898503 Active Not Available [employer] 4 14:52:34 Essential hypertens ion 89866563 Active Not Available [facility] 4 14:52:34 Allergic rhinitis 01873030 Active 2021 Not Available [facility] 4 14:52:34 Diarrhea 42548114 Completed Not Available [facility] 3 01:36:32 Hyperpara thyroidis m 51635461 Active Not Available [facility] 4 14:52:34 Urinary tract infectiou s disease 59410626 Completed Not Available [facility] 3 01:36:32 Rhinitis 59058327 Active 2021 Not Available [facility] 4 14:52:34 Altered bowel function 59561294 Completed Not Available [facility] 3 01:36:32 Idiopathi c parathyro idism Active Not Available [facility] 4 14:52:34 Pain of right knee joint 09513768575 4100 Active 2022 Not Available [employer] 4 14:52:34 Low back pain 982177607 Active 2022 Not Available [facility] 4 14:52:34 Pain of left hand 25373642655 9103 Active 2022 Not Available [facility] 4 14:52:34 Hyperlipi demia 83201956 Active 2022 Not Available [facility] 4 14:52:34 Medial epicondyl itis of right elbow joint 09605856646 9109 Active 2022 Not Available [employer] 4 14:52:34 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 Procedures Surgical History Date Name Laterality Status Provider Name and Address Organization Details Recorded Time 023 Ortho - Cortisone Injection completed Maria Fernanda Archibald NP [address] [facility], [facility] [address], [place], [address], [facility] 10/09/2022 13:38:08 022 Most Recent Mammogram completed Not Available [facility] 04/24/2022 01:22:47 021 Colonoscopy completed Not Available [facility] 04/24/2022 01:22:56 021 Date of Last Colonoscopy completed Not Available [facility] 04/24/2022 01:22:47 008 Colonoscopy completed Not Available [facility] 04/24/2022 01:22:56 laparoscopy completed Not Available [facility] 04/24/2022 01:22:56 Tonsillectomy completed Not Available [facility] 04/24/2022 01:22:56 Hysterectomy completed Not Available [facility] 04/24/2022 01:22:56 destruction of lesion of uterus completed Not Available [facility] 04/24/2022 01:22:56 Excisions - Specify completed Not Available [facility] 04/24/2022 01:22:56 ENT Surgery completed Not Available [facility] 04/24/2022 01:22:56 parathyroidectomy completed Not Available [facility] 04/24/2022 01:22:56 completed Not [facility] 04/24/2022 01:22:56 Dilation and curettage completed Not Available [facility] 04/24/2022 01:22:56 Sinus Surgery completed Not Available [facility] 04/24/2022 01:22:56 Imaging Results Imaging Date Name Status LastModified by Organiz ation Details LastModified Time 10/08/2023 XR, hand, 3 or more view completed [email or web address] [facility] Jihan Mota [address], [place], [address], 10/15/2023 09:42:01 01/16/2024 XR, chest completed [email or web address] [address], [address], 04/01/2024 14:06:27 03/11/2024 imaging/diag nostic result active [email or web address] [facility] Internal Med [facility] [address], [place], [address], 04/01/2024 14:06:22 Procedure Notes None recorded. Medical Equipment None Reported. Allergies Allergen ID Allergen Name Allergen Category Reaction Reaction Severity Criticality Documentation Date Start Date Code Code System Note Provider Name and Address Organization Details Recorded Time 3011 morphine medicatio n hallucina tions Not available Not available 04/24/2022 7052 RxNorm Not Available [facility] 3 01:55:11 Medications Name Sig Start [...] 1 mL by injection route. 10/[address] [facility]: 0003-0 494-20 Not Available Not Available Not [...] administe red by the provider 03/[address] [facility]: 0409-4 276-17 Not Available Not Available Not Available [employer]o 20 mcg/dose (560 mcg/2.24 mL) subcutaneo us pen injector Inject by [...] 4 mL by injection route. 10/[address] [facility] 73543- 064-01 Not Available Not Available Not Available [...] Updated DateTime 03/18/2023 154.94 cm 24.6 kg/m2 84379.01 g Lilia Marie [facility] [employer] [facility] 03/18/2023 11:33:19 Date Recorded Body height Body mass index (BMI) Body weight Pain severity - 0-10 verbal numeric rating [Score] - Reported Provider Name and Address Organization Details Last Updated DateTime 04/25/2023 154.94 cm 25.5 kg/m2 68275.97 g 6 Serina Elena [facility] [employer] [facility] 04/25/2023 10:06:40 Date Recorded Body height Body mass index (BMI) Body weight Pain severity - 0-10 verbal numeric rating [Score] - Reported Provider Name and Address Organization Details Last Updated DateTime 05/28/2023 154.94 cm 25.5 kg/m2 44423.97 g 5 Serina Elena [facility] [employer] [facility] 05/28/2023 14:28:37 Date Recorded Body height Body mass index (BMI) Body weight Provider Name and Address Organization Details Last Updated DateTime 07/09/2023 154.94 cm 25.5 kg/m2 11153.97 g Martha Estrella [facility] [place] [employer] [facility] [employer] 07/09/2023 11:32:55 Date Recorded Body height Body mass index (BMI) Body weight Pain severity - 0-10 verbal numeric rating [Score] - Reported Provider Name and Address Organization Details Last Updated DateTime 10/08/2023 154.94 cm 26.5 kg/m2 59278.93 g 1 Serina Elena [facility] [employer] Time 10/08/2023 14:17:05 Social History Question Answer Notes LastModified by Organization Details LastModified Time Tobacco Smoking Status Former Smoker quit 2011 ALEXANDER Varghese - [employer] 11/05/2022 11:31:24 Do You Have An Advance Directive? Yes MIGRATION.543 [id number] Information not available 04/24/2022 What Is Your Level Of Alcohol Consumption? Occasional MIGRATION.598 [id number] Information not available 04/24/2022 Do You Wear A Helmet When Biking? No Does Not Ride Bike Information not available 11/05/2022 What Is Your Level Of Caffeine Consumption? Moderate MIGRATION.295 [id number] Information not available 04/24/2022 How Much Tobacco Do You Chew? None MIGRATION.776 [id number] Information not available 04/24/2022 In The 14 [...] Type Of Diet Are You Following? REGULAR MIGRATION.807 [id number] Information not available 04/24/2022 Which Illicit Or Recreational Drugs Have You Used? None Information not available 11/05/2022 Do You Or Have You Ever Used E-cigarettes Or Vape? Never Used Electronic Cigarettes Information not available 11/05/2022 What Is The Highest Grade Or Level Of School You Have Completed Or The Highest Degree You Have Received? [id number] Information not available 11/05/2022 What Is Your [...] Do You Have A Medical Power Of Returned Materials Inspector? Yes Information not available 11/05/2022 Do You Have Moisture Problems In Your Home? No Information not available 11/05/2022 What Was The Date Of Your Most Recent Tobacco Screening? 10/08/2023 [email or web address] Information not available 10/08/2023 What Is Your Current Pack Years? 10-19packyears Information not available 11/05/2022 Have You Ever Been Counseled For Unhealthy Alcohol Use? No Information not available 11/05/2022 Do You Have Any Pets? No Information not available 11/05/2022 What Is Your Relationship Status? MIGRATION.208 [id number] Information not available 04/24/2022 Do You Use [...] Used Smokeless Tobacco? Never Used Smokeless Tobacco MIGRATION.939 [id number] Information not available 04/24/2022 Are There Any Smokers In Your House? No Information not available 11/05/2022 How Much Tobacco Do You Smoke? 0.5 PPD MIGRATION.265 5396807 Information not available 04/24/2022 What Types Of Sporting Activities Do You Participate In? None Information not available 11/05/2022 Do You Feel Stressed (tense, Restless, Nervous, Or Anxious, Or Unable To Sleep At Night)? US4268-1 Information not available 11/05/2022 Do You Use [...] 11/05/2022 What is your exercise level? Moderate [id number] Information not available 04/24/2022 Mental Status None recorded. Family History Relationship Description Onset Age of this Age Resolved Age Notes LastModified by Organization Details LastModified Time Mother Heart disease MIGRATION.239 [id number] Not available 04/24/2022 01:23:00 Mother Dementia [email or web address] Not availab le 10/08/2023 14:03:50 Mother Parkinson's disease 78 Not available 10/07 14:03:50 Father Hypertensive disorder MIGRATION.862 5672556 Not available 04/24/2022 01:23:00 Paternal Grandfather Diabetes mellitus MIGRATION.860 4473782 Not available 04/24/2022 01:23:00 Maternal Grandmother Malignant tumor of breast [email or web address] Not available 10/07 14:03:50 Maternal Grandmother Malignant tumor of colon [email or web address] Not available 10/07 14:03:50 Maternal Grandfather Malignant tumor of pharynx [email or web address] Not available 10/07 14:03:50 Medical History Condition [...] HAVE YOU BEEN HOSPITALIZED OR SEEN IN [facility] IN THE PAST YEAR ? N ATHEROSCLEROSIS [...] influenza, unspecified formulation 3 completed Not Available Counts include 234 beds at the [facility] 04/14/2023 14:52:34 COVID-19, mRNA, LNP-S, PF, 30 mcg/0.3 mL dose 3 completed Not Available Counts include 234 beds at the [facility] 04/14/2023 14:52:34 Influenza, split virus, trivalent, preservative 3 completed Not Available Counts include 234 beds at the [facility] 04/14/2023 14:52:34 COVID-19, mRNA, LNP-S, PF, 30 mcg/0.3 mL dose 1 completed Not Available Counts include 234 beds at the [facility] 04/14/2023 14:52:34 COVID-19, mRNA, LNP-S, PF, 30 mcg/0.3 mL dose 1 completed Not Available Counts include 234 beds at the [facility] 04/14/2023 14:52:34 Influenza, split virus, trivalent, preservative 2 completed Not Available Counts include 234 beds at the [facility] 04/14/2023 14:52:34 COVID-19, mRNA, LNP-S, PF, 30 mcg/0.3 mL dose 2 completed Not Available Counts include 234 beds at the [facility] 04/14/2023 14:52:34 Tdap 2 completed Not Available Counts include 234 beds at the [facility] 04/14/2023 14:52:34 zoster recombinant 2 completed Not Available Counts include 234 beds at the [facility] 04/14/2023 14:52:34 Influenza, split virus, quadrivalent, PF 1 completed Not Available Counts include 234 beds at the [facility] 04/14/2023 14:52:34 Influenza, split virus, quadrivalent, PF 5 completed Not Available Counts include 234 beds at the [facility] 04/14/2023 14:52:35 Influenza, split virus, quadrivalent, PF 8 completed Not Available Counts include 234 beds at the [facility] 04/14/2023 14:52:35 Past Encounters Encounter ID Performer Location Encounter Start Date Encounter Closed Date Diagnosis/Indication Diagnosis SNOMED-CT Code Diagnosis ICD10 Code Diagnosis Note [id number] [facility] [address] [facility] [address] , [place] [address] 05/02/2020 00:00:00 06/22/2020 13:59:02 [id number] _ANITAENA_M IGRATION_ DEFAULT_1 _1 , 10/25/2020 00:00:00 10/25/2020 11:47:25 [id number] [facility] [place] [address] [place] [address] y , [place] [address] 11/07/2020 00:00:00 12/03/2020 14:01:30 [id number] [facility] [place] [address] [place] [address] y , [place] [address] 04/03/2021 00:00:00 04/03/2021 14:52:14 [id number] [facility] [place] [address] [place] [address] y , [place] [address] 08/07/2021 00:00:00 09/07/2021 23:11:18 [id number] [facility] [place] [address] [place] [address] y , [place] [address] 01/01/2022 00:00:00 01/01/2022 14:40:01 [id number] [facility] [place] [address] [place] [address] y , [place] [address] 02/21/2022 00:00:00 02/22/2022 09:34:04 [id number] [facility] [address] [place] [address] 03/25/2022 00:00:00 03/26/2022 18:03:41 [id number] [facility] [address] [place] [address] 04/05/2022 00:00:00 04/08/2022 12:00:06 [id number] Power Estrada MD [facility] [place] [address] [place] [address] 05/15/2022 11:31:51 05/15/2022 11:53:01 Pain in right hand 9070407584 59057 M79.641 [id number] Amadou Loo MD [facility] Internal Med [facility] [address] [facility] [place] [address] 07/02/2022 13:50:50 07/02/2022 14:51:05 Essential hypertension 47079864 I10 Anxiety disorder 9837333 06 F41.9 Hypertriglyceridemia 302 724745 E78.2 Pain of ri ght knee joint 8657851672 19907 M25.561 Low back pain 849795190 M54.50 [id number] Amadou Loo MD [facility] Internal Med [facility] [address] [address] 08/09/2022 10:39:24 08/09/2022 11:29:09 Low back pain 706442249 M54.50 [id number] Maria Fernanda Archibald NP [facility] [address] [place] [address] 10/09/2022 11:10:38 10/09/2022 11:53:45 Pain of left hand 4740196525 55688 M79.131 [id number] Amadou Loo MD [facility] Internal Med [facility] [address] [place] [address] [place] [address] 11/05/2022 11:31:00 11/05/2022 12:50:55 Essential hypertension 98022032 I10 Hyperlipidemia 95999566 E78.5 Hyperparathyroidism 6699 9008 E21.3 Low back pain 418260427 M54.50 Migraine 11139631 G43.90 9 [id number] ANNIE Infante [facility] [address] [place] [address] 11/19/2022 11:27:31 11/19/2022 12:14:03 Pain of left hand 4359272777 50447 M79.642 patient returns to clinic concerning left [...] Medial epi condylitis of right elbow joint 4718124605 00394 M77.01 since her last visit she has [...] needed if her symptoms persist or worsen. [id number] Amadou Loo MD [facility] [place] [address] [facility] [place] [address] 02/04/2023 13:32:22 02/04/2023 14:30:37 Hypogammaglobulinemia 704843187 D80.1 Anxiety disorder 0265807 06 F41.9 Migraine 37650634 G43.90 9 Essential hypertension 73714000 I10 Hyperlipidemia 45199137 E78.5 [id number] Power Estrada MD [facility] [address] [place] [address] 03/18/2023 11:25:21 03/18/2023 16:24:57 Osteoarthrosis of the carpometacarpal joint of the thumb 85274519 M18.9 [id number] Maria Fernanda [facility]ibald NP [facility] [place] [address] [place] [address] 04/25/2023 10:03:13 04/25/2023 10:30:13 Pain of left hand 4958952688 42850 M79.807 [id number] Maria Fernanda [facility]ald [facility] [address] [place] [address] 05/28/2023 14:26:18 05/28/2023 14:46:33 Pain of left hand 9629804743 44272 M79.263 [id number] Power Estrada MD [facility] [place] [address] [place] [address] 07/09/2023 11:28:56 07/09/2023 11:45:24 Pain of left hand 1143759016 85410 M79.642 Osteoarthr osis of the carpometacarpal joint of the thumb 31345490 M18.9 [id number] Maria Fernanda Archibald NP [facility] [address] [place] [address] 10/08/2023 14:01:19 10/08/2023 15:13:47 Pain of left hand 6811289860 75031 M79.642 Health Concerns Section Related Observation LastModified by Organization Detai ls LastModified Time None Recorded Concern Status LastModified by Organization Details LastModified Time None Recorded Advance Directives Directive Y: Payers Encounter Date Sequence Insurance Name Policy Number Policy Turner Covered Member ID Turner Member ID Guarantor Name 03/18/2023 1 [facility] (MEDICARE REPLACEMENT/ ADVANTAGE - HMO) [id number] Porsha Albert Don [id number] Porsha Albert Don 04/25/2023 1 [facility] (MEDICARE REPLACEMENT/ ADVANTAGE - HMO) [id number] Porsha Albert Don [id number] Porsha Albert Don 05/28/2023 1 [facility] (MEDICARE REPLACEMENT/ ADVANTAGE - HMO) [id number] Porsha Albert Cook [id number] Porsha Albert Cook 07/09/2023 1 [facility] (MEDICARE REPLACEMENT/ ADVANTAGE - HMO) [id number] Porsha Albert Cook [id number] Porsha Albert Cook 10/08/2023 1 [facility] (MEDICARE REPLACEMENT/ ADVANTAGE - HMO) [id number] Porsha Albert Don [id number] Porsha Albert Don OBGyn Episode No OBEpisode recorded.
--- OUTSIDE RECORDS SUMMARY | 2024-06-22 14:18 | XMS_ITS | Encounter Summary ---
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
--- OUTSIDE RECORDS SUMMARY | 2024-06-22 14:18 | XMS_ITS | Encounter Summary ---
Author Organization [facility] Address [facility] [place] [address] Care Team Providers Care Die Maker Trim Name Role Phone Joshua Loo MD Primary Care Provider [phone] Encounter Details Date Type Department Care Team (Late Contact Info) Description 04/02/2023 MyChart Message Enc [address], [address] [place] [phone] Saida Willams MD [address] [place] [address] [phone] received a phone call? 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 Legal Sex Female 5:06 PM CDT Gender Identity Not on file Sexual Orientation Not on file documented as of this encounter Plan of Treatment Upcoming Encounters Date Type Department Care Team (Late Contact Info) Description 09/20/2024 8:00 AM CDT Office Visit [address], [address] [place] [address] Saida Willams MD 3 [place] [address] documented as of this encounter Visit Diagnoses Not on filedocumented in this encounter Care Teams Die Maker Trim Relationship Specialty Start Date End Date Joshua Loo MD [address] [address] PCP - General INTERNAL MEDICINE 12/21/21 documented as of this encounter
--- OUTSIDE RECORDS SUMMARY | 2024-06-22 14:18 | XMS_ITS ---
Demographics Address [address] [place] [address] Email Address Preferred Language en Marital Status Caodaism Affiliation Unknown Race White Ethnic Group Not or Lati no Author Organization [facility] [place] ([address]) Address [address] [place] [address] Care Team Providers Care Office Administration Instructor Name Role Phone Joshua Loo Primary Care Provider Ashwini Hough Unavailable [phone] REASON FOR VISIT ARC follow-up Encounters Encounter Location Date Provider Diagnosis [facility] - [place] [address] [place] [address] 03/12/2023 Ashwini Medina Plan Of Treatment No Information Progress Notes * Porsha MENDEZDOB:1965 (59 yo F)Acc No.[id number]:03/12/2023 Progress Notes Patient: Porsha CISSE Provider: Bharti Medina MD :1965 A ge:58 Y S ex:Female Date:03/12/2023 Address:[facility] [address] [facility] Pcp:Joshua Loo Subjective: * Chief Complaints: * 1 . ARC follow-up. * Medical History: Objective: * Vitals: Assessment: Plan: * Treatment: * Billing Information: * Visit Code: * Procedure Codes: * Electronic signature of Kiara Medina MD on 06/22/2024 at 02:18 PM CDT Sign off status: Pending * Provider: Bharti Medina MD Date: 0 03/12/2023 Generated for Johnnie ahuja/Esteban/eTransmitting on: 0 06/22/2024 02:18 PM CDT
--- OUTSIDE RECORDS SUMMARY | 2024-06-22 14:18 | XMS_ITS | Clinical Summary ---
Demographics Address [address] [place] [address] Mobile Phone Email Address Preferred Language Korean Marital Status Single Mandaen Affiliation Unknown Race White Ethnic Group Not or Lati no Author Organization [facility] Address [address] [place] [address] Care Team Providers Care Corporate Safety Manager Name Role Phone Joshua Loo MD Primary Care Provider [phone] Allergies Active Allergy Reactions Criticality Noted Date [...] Diagnosed Date Migraine, chronic, without aura 09/05/2022 Immunizations Immunization Administration Dates Next Due Influenza (Generic) 01/01/2013 Influenza Adult (Generic) 11/29/2021,,12/16/2017,2014 PFIZER COVID-19 (ORIGINAL FORMULATION, PURPLE CAP) mRNA, [...] Sex Assigned at Female 03/11/2024 11:55 AM VENETIAN BLIND MACHINE OPERATOR Legal Sex Female 5:06 PM CDT Gender Identity Not on file Sexual Orientation Not on file Last Filed Vital Signs Vital Sign Reading Time Taken Comments Blood Pressure 154/87 03/22/2024 8:36 AM VENETIAN BLIND MACHINE OPERATOR Pulse 68 03/22/2024 7:57 AM VENETIAN BLIND MACHINE OPERATOR Temperature 36.6 C (97.8 F) 03/22/2024 7:57 AM VENETIAN BLIND MACHINE OPERATOR Respiratory Rate 16 03/22/2024 7:57 AM VENETIAN BLIND MACHINE OPERATOR Oxygen Saturation 99% 03/22/2024 7:57 AM VENETIAN BLIND MACHINE OPERATOR Inhaled Oxygen Concentration - - Weight 63.5 kg (140 lb) 03/22/2024 7:57 AM VENETIAN BLIND MACHINE OPERATOR Height 154.9 cm (5' 1 ) 03/22/2024 7:57 AM VENETIAN BLIND MACHINE OPERATOR Body Mass Index 26.45 03/22/2024 7:57 AM VENETIAN BLIND MACHINE OPERATOR Plan of Treatment Upcoming Encounters Date Type Department Care Team (Late st Contact Info) Description 09/20/2024 8:00 AM CDT Office Visit [facility] - [facility] [address], [address] [place] [address] Saida Willams MD [address] [place] [address] Health Maintenance Due Date Last Done Comments Cervical Cancer Screening Pap Smear (Age 30 to 64) Every 3 Years 1965 Colorectal Cancer Screening Colonoscopy (10 Years) 1965 Annual Physical 01/18/1968 Hepatitis C 1983 Cervical Cancer Screening Pap with HPV Testing (Age 30 to 64) Every 5 Years 1995 Cervical Cancer Screening with HPV 1995 Mammogram Screening 2005 Pneumococcal Vaccine: 50+ Years (1 of 1 - PCV) 2015 COVID-19 Vaccine ( season) 2023 01/14/2023, 11/29/2021, 11/29/2021, Additional history exists DTaP, Tdap and Td Vaccines (2 - Td or Tdap) 08/02/2031 08/01/2021 Zoster Vaccines Completed 06/25/2021, 04/26/2021 PHQ-2 (Physician [place]) Completed 03/22/2024 Meningococcal B Vaccine Aged Out [...] of Phone Billing Address Personal/Family Self 1965 [address] [place] [address] [facility] Care Teams Corporate Safety Manager Relationship Specialty Start Date End Date Joshua Loo MD [address] [address] PCP - General INTERNAL MEDICINE 12/21/21
--- OUTSIDE RECORDS SUMMARY | 2024-06-22 14:18 | XMS_ITS | Encounter Summary ---
Author Organization [facility] Address [facility] [place] [address] Care Team Providers Care Casino Operations Supervisor Name Role Phone Joshua Loo MD Primary Care Provider [phone] Encounter Details Date Type Department Care Team (Late Contact Info) Description 12/10/2022 Therapy Plan [facility] - [address], [address] [place] [phone] Saida Willams MD [address] [place] [address] Social History Tobacco Use Types Packs/Day Years [...] Sex Assigned at Female 03/11/2024 11:55 AM ORDER BOOKER Legal Sex Female 5:06 PM CDT Gender Identity Not on file Sexual Orientation Not on file documented as of this encounter Plan of Treatment Upcoming Encounters Date Type Department Care Team (Late Contact Info) Description 09/20/2024 8:00 AM CDT Office Visit [facility] - [address], [address] [place] [address] Saida Willams MD [address] [place] [address] documented as of this encounter Visit Diagnoses Not on filedocumented in this encounter Care Teams Casino Operations Supervisor Relationship Specialty [place] [address] [place] [address] PCP - General INTERNAL MEDICINE 12/21/21 documented as of this encounter
--- OUTSIDE RECORDS SUMMARY | 2024-06-22 14:18 | XMS_ITS | Encounter Summary ---
Author Organization [facility] Address [address] [place] [address] Phone Care Team Providers Care Lube Man Name Role Phone Joshua Loo MD Primary Care Provider Encounter Details Date Type Department Care Team (Late st Contact Info) Description 08/07/[address] Medical Office Building [address] [place] [phone] Samson Stewart MD [address] [id number] Social History Tobacco Use Types Packs/Day Years Used Date Smoking Tobacco: Former Smokeless Tobacco: Never Alcohol Use Standard Drinks/Week Comments No 0 (1 standard drink = 0.6 oz pur e alcohol) Comments Unknown Sex and Gender Information Value Date Recorded Sex Assigned at Not on file Legal Sex Female 9:23 PM BRASSIERE CUP MOLD CUTTER Gender Identity Female 09/08/2020 9:41 AM CDT Sexual Orientation Straight 09/08/2020 9: 41 AM CDT documented as of this encounter Plan of Treatment Not on file documented as of this encounter Visit Diagnoses Not on filedocumented in this encounter Care Teams Lube Man Relationship Specialty Start Date End Date Joshua Loo MD PCP - General 05/17/15 documented as of this encounter
--- OUTSIDE RECORDS SUMMARY | 2024-06-22 14:18 | XMS_ITS | Encounter Summary ---
Author Organization [facility] Address [facility] [place] [address] Care Team Providers Care Polymerization Helper Name Role Phone Joshua Loo MD Primary Care Provider [phone] Encounter Details Date Type Department Care Team (Late st Contact Info) Description 08/14/2023 MyChart Message Enc [address], [address] [place] [phone] Saida Willams MD [address] [place] [address] [facility] prior authorization denial Social History Tobacco Use [...] Sex Assigned at Female 03/11/2024 11:55 AM STAFF MIDWIFE/APPRENTICESHIP DIRECTOR Legal Sex Female 5:06 PM CDT Gender Identity Not on file Sexual Orientation Not on file documented as of this encounter Plan of Treatment Upcoming Encounters Date Type Department Care Team (Late st Contact Info) Description 09/20/2024 8:00 AM CDT Office Visit [facility] - [address], [address] [place] [address] Saida Willams MD [address] [place] [address] documented as of this encounter Visit Diagnoses Not on filedocumented in this encounter Care Teams Polymerization Helper Relationship Specialty Start Date End Date Joshua Loo MD [address] [address] PCP - General INTERNAL MEDICINE 12/21/21 documented as of this encounter
--- OUTSIDE RECORDS SUMMARY | 2024-06-22 14:18 | XMS_ITS | Clinical Summary ---
Demographics Address [address] [place] [address] Mobile Phone Home Phone Work Phone Email Address Preferred Language Pashto Marital Status Methodist Affiliation Unknown Race White Ethnic Group Not or Lati no Author Organization [facility] Address [address] [facility] [place] [address] Care Team Providers Care Visual Merchandising Assistant Name Role Phone Joshua Loo MD Primary [...] 6 mg/0.5 mL solution 8 Active zoledronic hctj-yzxoghjY-n ater (RECLAST) 5 mg/100 mL piggyback Infuse [...] on file Legal Sex Female 9:23 PM MANAGER DEPARTMENT Gender Identity Female 09/08/2020 9:41 AM CDT [...] Regular Well Visit/Exam 18-64 1983 Influenza Vaccine (Season Ended) 2024 01/14/2023, 11/29/2021, 12/07/2020, Additional history exists DTaP/Tdap/Td Vaccine (2 - Td or Tdap) 08/02/2031 08/01/2021 Zoster Vaccine Completed 06/25/2021, 04/26/2021 Pneumococcal vaccine <65 Aged Out No longer eligible based on patient's age to complete this topic Insurance [id number] MEDICARE ADVANTAGE Member Subscriber Plan / Payer (Ef fective 2022-Present) Name:David Ochoayn Relation to Subscriber:Self Name:Porsha Ochoa Payer ID:[id number] (NAIC) Type:[facility] MEDICARE Address: [place] [id number] [address] MEDIC[address] ADVANTAGE Advance Directives For more information, please contact: [phone] Documents on File Type Date Recorded Patient Outdoor Adventure Instructor Expl anation ADVANCE DIRECTIVE 12/29/2017 3:29 PM Care Teams Visual Merchandising Assistant Relationship Specialty Start Date End Date Joshua Loo MD [phone] (work) PCP - General 05/17/15
--- OUTSIDE RECORDS SUMMARY | 2024-06-22 14:18 | XMS_ITS | Encounter Summary ---
Author Organization [facility] Address [address] [place] [address] Care Team Providers Care Director Center Name Role Phone Joshua Loo MD Primary Care Provider [phone] Encounter Details Date Type Department Care Team (Late Contact Info) Description 07/31/2023 MyChart Message Enc [address], [address] [place] [phone] Saida Willams MD [address] [place] [address] follow-up from visit on 07/30/23 Social History [...] Sex Assigned at Female 03/11/2024 11:55 AM TECHNOLOGY INSTRUCTOR Legal Sex Female 5:06 PM CDT Gender Identity Not on file Sexual Orientation Not on file documented as of this encounter Plan of Treatment Upcoming Encounters Date Type Department Care Team (Late Contact Info) Description 09/20/2024 8:00 AM CDT Office Visit [address] [place] [address] Saida Willams MD [address] [place] [address] documented as of this encounter Visit Diagnoses Not on filedocumented in this encounter Care Teams Director Center Relationship Specialty Start Date End Date Joshua Loo MD [address] [place] [address] PCP - General INTERNAL MEDICINE 12/21/21 documented as of this encounter
--- OUTSIDE RECORDS SUMMARY | 2024-06-22 14:18 | XMS_ITS | Continuity of Care Document ---
Author Organization [facility] Address [address] [facility] [address] [place] [address] Phone Care Team Providers Care Watch Assembler Name Role Phone Mily Tripathi Unavailable Unavailable Advance Directives Directive Yes / No Effective Date File Name No Information Encounters Encounter Description Practice Location Reason(s) For Visit Diagnoses Date Provider Providers Copied on Encounter [facility], [address], [place], [place], [id number], [place] tel:[phone] [facility] No Information Mar-2 6-200 4 Bhumi Minor. [address] , [address], [place], [address], [place]. tel:[phone] Family History Family Member Type Diagnosis Age At Onset No Information Payers Payer name Insurance type Covered democrat ID Authoriza tiantonio(s) [facility] Commercial CI [id number] Social History Type Description Quantity Date Captured [...]
--- OUTSIDE RECORDS SUMMARY | 2024-06-22 14:18 | XMS_ITS | Encounter Summary ---
Author Organization [facility] Address [address] [place] [address] Care Team Providers Care Electronic Imaging System Operator Name Role Phone Joshua Loo MD Primary Care Provider [phone] Encounter Details Date Type Department Care Team (Late st Contact Info) Description 03/12/2024 Drinks4-you Message Enc [facility] - [address], [address] [place] [address] [place], [facility] Provider Results Social History Tobacco Use Types [...] Sex Assigned at Female 03/11/2024 11:55 AM IT ANALYST Legal Sex Female 5:06 PM CDT Gender Identity Not on file Sexual Orientation Not on file documented as of this encounter Plan of Treatment Upcoming Encounters Date Type Department Care Team (Late st Contact Info) Description 09/20/2024 8:00 AM CDT Office Visit [facility] - [address], [address] [place] [address] Saida Willams MD [address] [place] [address] documented as of this encounter Visit Diagnoses Not on filedocumented in this encounter Care Teams Electronic Imaging System Operator Relationship Specialty Start Date End Date Joshua Loo MD [address] [facility] [address] [place] [address] PCP - General INTERNAL MEDICINE 12/21/21 documented as of this encounter
--- OUTSIDE RECORDS SUMMARY | 2024-06-22 14:18 | XMS_ITS | CONTINUITY OF CARE DOCUMENT ---
Demographics Address [address] [place] [address] Work Phone [phone] Home Phone [phone] Mobile Phone [phone] Preferred Language en Marital Status Unknown Hinduism Affiliation Unknown Race White Ethnic Group Not or Lati no Author Name mickey arevalo Address Unknown Organization [facility] Address [address] [facility] [address] [place] [address] Phone [phone] Care Team Providers Care Cso Name Role Phone Micha Peace MD Unavailable Micha Peace MD Unavailable INSURANCE PROVIDERS Payer name Policy type / Coverage type Bicknell red alliance party ID AARP MEDICARE ADVANTAGE HMO-POS HMO [id number]
--- OUTSIDE RECORDS SUMMARY | 2024-06-22 14:18 | XMS_ITS | Encounter Summary ---
Author Organization [facility] Address [facility] [place] [address] Care Team Providers Care Music Industry Intern Name Role Phone Joshua Loo MD Primary Care Provider [phone] Encounter Details Date Type Department Care Team (Late Contact Info) Description 02/10/2023 MyChart Message Enc [facility] - [address], [address] [place] [phone] Saida Willams MD [address] [place] [phone] problems with zonegran Social History Tobacco Use [...] Sex Assigned at Female 03/11/2024 11:55 AM WARP DYEING TENDER Legal Sex Female 5:06 PM CDT Gender Identity Not on file Sexual Orientation Not on file documented as of this encounter Plan of Treatment Upcoming Encounters Date Type Department Care Team (Late Contact Info) Description 09/20/2024 8:00 AM CDT Office Visit [facility] - [address], [address] [place] [address] Saida Willams MD [address] [place] [address] documented as of this encounter Visit Diagnoses Not on filedocumented in this encounter Care Teams Music Industry Intern Relationship Specialty Start Date End Date Joshua Loo MD [address] [place] [address] PCP - General INTERNAL MEDICINE 12/21/21 documented as of this encounter
--- OUTSIDE RECORDS SUMMARY | 2024-06-22 14:18 | XMS_ITS | Referral Summary ---
Demographics Address [address] [place] [address] Mobile Phone Home Phone Work Phone Email Address Preferred Language Polish Marital Status Druze Affiliation Unknown Race White Ethnic Group Not or Lati no Author Organization [facility] Address [address] [facility] [place] [address] Care Team Providers Care Staff Physical Therapist Name Role Phone Joshua Loo MD Primary Care Provider [phone] Allergies Active Allergy Reactions Criticality Noted Date [...] 6 mg/0.5 mL solution 8 Active zoledronic zvxt-sxuibyoH-s ater (RECLAST) 5 mg/100 mL piggyback Infuse [...] on file Legal Sex Female 9:23 PM FLASH DEVELOPER Gender Identity Female 09/08/2020 9:41 AM CDT [...] Plan of Treatment Not on file Insurance [id number] MEDICARE ADVANTAGE [facility] MED[facility] Address: [address] [address] [address] [place] [address] * Guarantor: Porsha Ochoa Account Type Relation to Patient Date of Phone Billing Address Personal/Family Self 1965 [address] [place] [address] Advance Directives For more information, please contact: [phone] Documents on File Type Date Recorded Patient Conservation Engineer Expl anation ADVANCE DIRECTIVE 12/29/2017 3:29 PM Care Teams Staff Physical Therapist Relationship Specialty Start Date End Date Joshua Loo MD PCP - General 05/17/15
--- OUTSIDE RECORDS SUMMARY | 2024-06-22 14:19 | XMS_ITS | Patient Health Record ---
Demographics Address [address] [place] [address] Email Address Preferred Language en Marital Status Mosque Affiliation Unknown Race White Ethnic Group Not or Lati no Author Organization [facility] [place] ([address]) Address [address] [place] [address] Care Team Providers Care Manager Of Business Name Role Phone Eze Joshua Primary Care Provider UnavailAshwini Barroso Unavailable [phone] ZZ-Migration, Provider Unavailable Unavailab le Allergies Allergen [...] orally 3 times a day Active Ipratropium Kyburz 21 MCG/INH 2 SPRAY(S) INTRANASALLY 3 TIMES A DAY for 90 DAYS *Please review and pick correct strength-formula tion from Tappit options. If intended option is not shown, discontinue and re-order from Quick Search* Active Escitalopram Oxalate 20 MG 1 tab(s) orally once a day for 30 day(s) Active Imitrex 6 MG/0.5 ML DIRECTED SUBCUTANEOUSLY ONCE *Please review and pick correct strength-formula tion from Tappit options. If intended option is not shown, discontinue and re-order from Quick Search* Active Fosamax 70 MG 1 tab(s) orally once a week for 28 day(s) Active Probiotic Formula *Please review and pick correct strength-formula tion from Tappit options. If intended option is not shown, discontinue and re-order from Quick Search* Active Multivitamin VITAMIN B COMPLEX WITH C AND FOLIC ACID 1 TAB(S) ORALLY ONCE A DAY for 30 DAY(S) *Please review and pick correct strength-formula tion from Tappit options. If intended option is not shown, discontinue and re-order from Quick Search* Active Vitamin B Complex 100 *Please re view and pick correct strength-formula tion from Tappit options. If intended option is not shown, [...] Status Risk Notes Problem Chronic allergic conjunctivitis (65706924) Other chronic allergic conjunctivitis (H10.45) Active confirmed Problem Allergic rhinitis (19585849) Other allergic rhinitis (J30.89) Active confirmed Problem Chronic rhinitis (26710155) Chronic rhinitis (J31.0) Active confirmed Problem Mild intermittent asthma (844955999) Mild intermittent asthma, uncomplicated (J45.20) Active confirmed Problem Uncomplicated mild persistent asthma (916069757) Mild persistent asthma, uncomplicated (J45.30) Active confirmed Problem Uncomplicated moderate persistent asthma (510098707) Moderate persistent asthma, uncomplicated (J45.40) Active confirmed Problem Uncomplicated severe persistent asthma (187533500) Severe persistent asthma, uncomplicated (J45.50) Active confirmed Problem Pruritus (028097857) Pruritus, unspecified (L29.9) Active confirmed Problem Age-related osteoporosis (734038122) Age-related osteoporosis without current pathological fracture (M81.0) Active confirmed Problem Allergic rhinitis caused by pollen (disorder) (86293540) Allergic rhinitis due to pollen (J30.1) Active confirmed Problem Allergic rhinitis caused by animal hair and dander (782911975545061) Allergic rhinitis due to animal (cat) (dog) hair and dander (J30.81) Active confirmed Problem Essential hypertension (78619538) Essential (primary) hypertension (I10) Active confirmed Problem Depression (593078789) Depression, unspecified (F32.A) Active confirmed Encounters Encounter Location Date Provider Diagnosis ELIAS Hammonds [address] [place], [place] [address]aur[place] [address] 08/09/2023 Provider ZZ-Migration Plan Of Treatment No Information Insurance Providers Payer Name Payer Address Payer Phone Subscriber Number Group Number Insured Name Patient Relationship to Insured Coverage Start Date Coverage End Date UHC Medicare [address] [address] [place] [address] [id number] Porsha Ochoa Self - patient is the [...]
--- OUTSIDE RECORDS SUMMARY | 2024-06-22 14:19 | XMS_ITS ---
Author Organization [facility] [place] ([address]) Address [address] [place] [address] Care Team Providers Care Supervisor Contact Lens Name Role Phone Joshua Loo Primary Care Provider Ashwini Hough Unavailable [phone] REASON FOR VISIT ARC follow-up Encounters Encounter Location Date Provider Diagnosis [facility] - [place] [address] [place] [address] 01/07/2023 Ashwini Medina Plan Of Treatment No Information Progress Notes * Porsha OCHOADOB:1965 (59 yo F)Acc No.[id number]:01/07/2023 Progress Notes Patient: Porsha CISSE Provider: Bharti Medina MD :1965 A ge:57 Y S ex:Female Date:01/07/2023 Address:[facility] [address] [facility] Pcp:Joshua Loo Subjective: * Chief Complaints: * 1 . ARC follow-up. * Medical History: Objective: * Vitals: Assessment: Plan: * Treatment: * Billing Information: * Visit Code: * Procedure Codes: * Electronic signature of Kiara Medina MD on 06/22/2024 at 02:19 PM CDT Sign off status: Pending * Provider: Bharti Medina MD Date: 03/09/2022 Generated for Johnnie ahuja/Esteban/eTransmitting on: 0 06/22/2024 02:19 PM CDT
--- OUTSIDE RECORDS SUMMARY | 2024-06-22 14:19 | XMS_ITS | Clinical Summary ---
Author Organization [facility] Address [address] [place] [address] Care Team Providers Care Waistline Joiner Lockstitch Name Role Phone Joshua Loo MD Primary Care Provider [phone] Source Comments [facility],non-owned Affiliates and Associated Physician Practices is amultiple site organization consisting of ambulatory clinics and hospital sitesin [place], [place], [place] and [place]. This disclosure is being madepursuant to the Care Everywhere program and may not contain all information available regarding this patient. Last updated 17.[facility] Allergies Active Allergy Reactions Criticality Noted Date Comments Morphine 07/03/2016 Medications * Be aware that medications may not be up to date on this document. Alwaysverify current medications with the patient. buPROPion SR 12hr (WELLBUTRIN-SR) 150 MG tablet Take 150 mg by mouth 2 times daily 05/21/19 17 Active VIIBRYD 40 MG tablet Take 40 mg by mouth daily with breakfast 06/21/19 17 Active lisinopril (PRINIVIL;ZESTR IL) 5 MG tablet Take 5 mg by mouth once daily 06/07/19 17 Active LORazepam (ATIVAN) 0.5 MG tablet Take 0.5 mg by mouth every 12 hours as needed 06/21/19 17 Active methylPREDNISol one (MEDROL DOSEPAK) 4 MG tablet 07/03/19 17 Active PREMARIN 0.625 MG/GM vaginal creamIndication s:TWICE A WEEK Insert into the vagina as directed Reasons: TWICE A WEEK 06/19/19 17 Active Probiotic Product (PROBIOTIC DAILY PO) Take 1 tablet by mouth once daily Active B Complex Vitamins (B COMPLEX PO) Take 1 tablet by mouth once daily Active phenylephrine (RUTH-SYNEPHRINE ) infusion Active ketorolac (TORADOL) 10 MG tablet Take 1 Tab by mouth every 8 hours as needed (migraine) 21 Tab 5 07/04/19 17 Active Additional Information Patient not taking.Reported on 12/25/2016 prochlorperazin e (COMPAZINE) 10 MG tablet Take 1 Tab by mouth every 8 hours as needed (migraine) 21 Tab 5 07/04/19 17 Active topiramate (TOPAMAX) 100 MG tablet Take 1 Tab by mouth 2 times daily 180 Tab 3 10/15/19 17 Active REXULTI 3 MG tablet Take 3 mg by mouth once daily 10/16/19 17 Active multivitamin daily (THERAGRAN) tablet Take 1 tablet by mouth daily with food Active SUMAtriptan (IMITREX) 6 MG/0.5ML injectionIndica tions:Intractab le migraine with aura with status migrainosus Inject 6 mg subcutaneously as needed for Migraine 8 vial 11 12/26/19 17 Active SUMAtriptan Succinate (IMITREX STATDOSE SYSTEM) 6 MG/0.5ML Inject 6 mg subcutaneously daily as needed - may repeat one time 9 syringe 5 01/07/20 17 Active Family History Medical History Relation Name [...] at Not on file Legal Sex Female 12:11 PM CDT Gender Identity Not on file [...] SCREENING 1965 LIPID TESTING 1965 MAMMOGRAM 1965 HIV SCREENING 01/18/1980 HEPATITIS C SCREENING 01/13/1983 DTAP/TDAP/TD VACCINES (1 - Tdap) 01/18/1984 HEPATITIS B VACCINE (1 of 3 - 19+ 3-dose series) 01/18/1984 PNEUMOCOCCAL VACCINE 50+ (1 of 1 - PCV) 2015 ZOSTER VACCINE (1 of 2) 2015 COVID-19 VACCINE ( - 2023-2 5 season) 2023 DEPRESSION SCREENING 02/25/2024 INFLUENZA VACCINE (Season Ended) 2024 HIB VACCINE Aged Out No longer eligi ble based on patient's age to complete this topic HPV VACCINE Aged Out No longer eligi ble based on patient's age to complete this topic MENINGOCOCCAL (Group B) VACC INE SHARED DECISION-MAKING Aged Out No longer eligibl e based on patient's age to complete this topic MENINGOCOCCAL GROUPS A/C/Y/W VACCINE Aged Out No longer eligible b ased on patient's age to complete this topic Insurance MANAGED MEDICARE ADV Care Teams Waistline Joiner Lockstitch Relationship Specialty Start Date End Date Joshua Loo MD PCP - General Internal Medicine 06/26/16
--- OUTSIDE RECORDS SUMMARY | 2024-06-22 14:19 | XMS_ITS ---
Author Organization [facility] [place] ([address]) Address [address] [place] [address] Care Team Providers Care Long Chain Quiller Tender Name Role Phone Eze Joshua Primary Care Provider UnavailAshwini Barroso Unavailable [phone] [facility], Provider Unavailable Unavailab le Allergies Allergen (clinical drug ingredient) Drug/Non Drug Allergy documented on EMR Reaction Allergy Type Onset Date Status morphine Morphine Hallucinations Drug Allergy [facility] Medications Medication SIG (Take, Route, Frequency, Duration) Notes Start Date End Date Status Fosamax 70 MG 1 tab(s) orally once a week for 28 day(s) Active Probiotic Formula *Please review and pick correct strength-formula tion from [employer] options. If intended option is not shown, discontinue and re-order from Quick Search* Active Multivitamin VITAMIN B COMPLEX WITH C AND FOLIC ACID 1 TAB(S) ORALLY ONCE A DAY for 30 DAY(S) *Please review and pick correct strength-formula tion from [employer] options. If intended option is not shown, discontinue and re-order from Quick Search* Active Vitamin B Complex 100 *Please re view and pick correct strength-formula tion from [employer] options. If intended option is not shown, [...] a day for 30 day(s) Active Ipratropium [place] 21 MCG/INH 2 SPRAY(S) INTRANASALLY 3 TIMES [...] review and pick correct strength[facility]formula [facility]. If intended option is not shown, discontinue and re-order from Quick Search* Active Encounters Encounter Location Date Provider Diagnosis [address] [address] 08/09/2023 Provider [facility] Plan Of Treatment Medication Medication Name Sig Start Date Stop Date Notes Ipratropium [place] 21 MCG/INH 2 SPRAY(S) INTRANASALLY 3 TIMES A DAY for 90 DAYS *Please review and pick correct [facility]formulation [facility]. If intended option is not shown, discontinue and re-order from Quick Search* Progress Notes * Porsha OCHOADOB:1965 (59 yo F)Acc No.[id number]:08/09/2023 Patient: Porsha CISSE Provider: Vanessa dunn Migration :1965 A ge:58 Y S ex:Female Date:08/09/2023 [address] [id number] Pcp:Joshua Loo Subjective: * Chief Complaints: * [...] *Please review and pick correct strength-formulation from [employer] options. If intended option is not shown, discontinue and re-order from Quick Search*, Taking Multivitamin VITAMIN B COMPLEX WITH C AND FOLIC ACID TABLET 1 TAB(S) ORALLY ONCE A DAY , Notes to Pharmacist: *Please review and pick correct strength-formulation from [employer] options. If intended option is not shown, discontinue and re-order from Quick Search*, Taking Probiotic Formula , Notes to Pharmacist: *Please review and pick correct strength-formulation from [employer] options. If intended option is not shown, discontinue and re-order from Quick Search*, Taking Fosamax 70 MG Tablet 1 tab(s) orally once a week , Taking Imitrex 6 MG/0.5 ML SOLUTION DIRECTED SUBCUTANEOUSLY ONCE , Notes to Pharmacist: *Please review and pick correct strength-formulation from [employer] options. If intended option is not shown, [...] * Electronic signature of Xin BURRIS-Migration on 06/22/2024 at 02:19 PM CDT Sign off status: Pending * Provider: Vanessa dunn Migration Date: 08/09/2023 Generated for Johnnie ahuja/Esteban/Calixto on: 06/22/2024 02:19 PM CDT
--- OUTSIDE RECORDS SUMMARY | 2024-06-22 14:20 | XMS_ITS | Patient Health Record ---
Author Organization [facility] As [employer] Address [address] [place] [address] Care Team Providers Care Milk Wagon Driver Name Role Phone Joshua Loo MD Primary Care Provider Unavaila Nelly Torres Unavailable [phone] Summer Gardner Unavailable [phone] Servando Gary Unavailable [phone] Mary Vidales Unavailable [phone] Migration, Provider Unavailable Unavailable Allergies Allergen (clinical [...] Oxazepam (BZO) p 0 - 300 ng/ml 8-dpkcnuzowz-4,8-imvicjgt-5,3-diphenylpyrrolidine (FRANKIE P) n 0 - 300 ng/ml Methamphetamine (MET) n 0 - 1000 ng/ml Methylenedioxymethamphetamine (MDMA) n 0 - 500 ng/ml Morphine (MOP 300/[id number]) n 0 - 300 ng/ml Methadone (MTD) n 0 - 300 ng/ml Phencyclidine (PCP) n 0 - 25 ng/ml Nortriptyline (TCA) n 0 - 1000 ng/ml Oxycodone n 0 - 300 ng/ml x n 0 - 300 ng/ml UDT Reviewed date:05/20/2024 08:09:06 PM Interpretation: Performing Lab: Notes/Report: THC N 0 - 50 ng/ml Cocaine N 0 - 300 ng/ml Amphetamine P 0 - 1000 ng/ml Buprenorphine (BUP) N 0 - 10 ng/ml Secobarbital (Bar) N 0 - 300 ng/ml Oxazepam (BZO) N 0 - 300 ng/ml 6-jdjglpstiv-2,7-ouuxnibt-1,3-diphenylpyrrolidine (FRANKIE P) N 0 - 300 ng/ml Methamphetamine (MET) N 0 - 1000 ng/ml Methylenedioxymethamphetamine (MDMA) N 0 - 500 ng/ml Morphine (MOP 300/CRA9941) N 0 - 300 ng/ml Methadone (MTD) N 0 - 300 ng/ml Phencyclidine (PCP) N 0 - 25 ng/ml Nortriptyline (TCA) N 0 - 1000 ng/ml Oxycodone N 0 - 300 ng/ml x N 0 - 300 ng/ml Reason For Referral No Information Medications Medication SIG (Take, Route, Frequency, Duration) Notes Start Date End Date Status Escitalopram Oxalate 20 MG 1 tablet Oral Once a day for 90 days Active IPRATROPIUM BROMIDE 21 MCG (0.03 %) NASAL SPRAY *Reorder from [employer] for eRx and Interaction Alerts* 05/06/2023 Active Gabapentin 100 MG 1 capsule Oral three times a day 05/06/2023 Active Amoxicillin-Pot Clavulanate 500-125 MG TAKE 1 TABLET BY MOUTH EVERY 12 HOURS FOR 5 DAYS Oral for 5 Days Active buPROPion HCl ER (SR) 150 MG TAKE 2 TABLETS BY MOUTH ONCE DAILY IN THE MORNING Oral for 90 Days Active Escitalopram Oxalate 20 MG TAKE 1 TABLET BY MOUTH ONCE DAILY FOR 90 DAYS Oral for 90 Days Active Meloxicam 15 MG TAKE 1 TABLET BY MOUTH ONCE DAILY Oral for 100 Days Active Topiramate 100 MG Oral for 90 Days Active Lisinopril 5 MG Oral for 90 Days Active SUMAtriptan Succinate 6 MG/0.5ML Subcutaneous for 30 Days Active Aspirin 81 MG 1 tablet Orally Once a day Active Meloxicam 15 MG Oral 05/06/2023 Act chris Topiramate 100 MG Oral 05/06/2023 A ctive SUMAtriptan Succinate 6 MG/0.5ML Subcutaneous 05/06/2023 Active Lisinopril 5 MG Oral 05/06/2023 Act chris MAGNESIUM 500 MG TABLET *Reorder from [employer] for eRx and Interaction Alerts* 05/06/2023 Active Prochlorperazine Maleate 10 MG Oral 05/06/2023 Active LORazepam 0.5 MG 1 tablet at bedtime Oral daily for 90 days 02/09/2024 Active buPROPion HCl ER (SR) 150 MG 2 tablets in the morning Oral daily for 90 days Active Ipratropium [place] 0.03 % Nasal for 30 Days Active Immunizations Vaccine Route Administration Date Status Comme nts Influenza virus vaccine, quadrivalent (IIV4), split virus, 0.25 mL dosage Unknown 12/16/2017 Administered Influenza, seasonal, injecta ble, preservative free, 3 yrs and above Unknown 01/01/2013 Administered Novel Xdkrhfbia-I5E6-07, preservative free Unknown 01/05/2015 Administered Novel Abyvmbuqy-O5M2-19, preservative free Unknown 12/16/2017 Administered Pfizer Biontech Covid-19 Vac cine 2nd dose Unknown 05/05/2020 Administered Pfizer [employer]tech Covid-19 Vac cine 2nd dose Unknown 05/29/2020 Administered Pfizer Biontech Covid-19 Vac cine 2nd dose Unknown 02/21/2021 Administered Zoster Unknown 04/26/2021 Administered Social History Tobacco Use: Social History [...] has it been since you last smoked? 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 Daughter is in school for director medical writing.) Home and Environment Do you have any siblings?: 3 (Notes: ARVIN Sterling, lives in [place]; Her middle brother was murdered) Are there any smokers in your house?: No Are there any guns present in your home?: No Advance Directive Do you have an advance directive?: Yes Do you have a medical power of nailer hand?: Yes Public Health and Travel Have you [...] have?: 2 (Notes: Daughter (27) lives in [place]; son (29) lives in [place]. Daughter is in school for director medical writing.) Home and Environment Do you have any siblings?: 3 (Notes: ARVIN Sterling, lives in [place]; Her middle brother was murdered) Are there any smokers in your house?: No Are there any guns present in your home?: No Advance Directive Do you have an advance directive?: Yes Do you have a medical power of nailer hand?: Yes Social History Substance Use Do you [...] have?: 2 (Notes: Daughter (27) lives in [place]; son (29) lives in [place]. Daughter is in school for director medical writing.) Home and Environment Do you have any siblings?: 3 (Notes: ARVIN Sterling, lives in [place]; Her middle brother was murdered) Are there any smokers in your house?: No Are there any guns present in your home?: No Advance Directive Do you have an advance directive?: Yes Do you have a medical power of nailer hand?: Yes Social History Substance Use Do you [...] have?: 2 (Notes: Daughter (27) lives in [place]; son (29) lives in [place]. 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 Daughter is in school for director medical writing.) Home and Environment Do you have any siblings?: 3 (Notes: ARVIN Sterling, lives in [place]; Her middle brother was murdered) Are there any smokers in your house?: No Are there any guns present in your home?: No Advance Directive Do you have an advance directive?: Yes Do you have a medical power of nailer hand?: Yes Public Health and Travel Have you [...] have?: 2 (Notes: Daughter (27) lives in [place]; son (29) lives in [place]. Daughter is in school for director medical writing.) Home and Environment Do you have any siblings?: 3 (Notes: ARVIN Sterling, lives in [place]; Her middle brother was murdered) Are there any smokers in your house?: No Are there any guns present in your home?: No Advance Directive Do you have an advance directive?: Yes Do you have a medical power of nailer hand?: Yes Problems Problem Type SNOMED Code ICD Code Onset Dates Problem Status W/U Status Risk Notes Problem Mild recurrent major depression (59533508) Major depressive disorder, recurrent, mild (F33.0) 4 Active confirmed Problem Generalized anxiety disorder (57023860) Generalized anxiety disorder (F41.1) 4 Active confirmed Problem Chronic migraine without aura with status migrainosus (327466477207423 ) Chronic migraine without aura, not intractable, with status migrainosus (G43.701) 4 Active confirmed Problem Long-term current use of drug therapy (675807856) Other mcfp (current) drug therapy (Z79.899) 3 Active confirmed Problem Hypertension (38276489) Hypertension (I10) Active confirmed Vital Signs Heart Rate 89 /min 05/19/2024 Height-cm 157.48 cm 05/19/2024 Blood pressure diastolic 89 mm Hg 05/19/2024 Weight-kg 61.24 kg 05/19/2024 Height 62.00 in 05/19/2024 Blood pressure systolic 140 mm Hg 05/19/2024 Weight 135 lbs 05/19/2024 BMI 24.69 kg/m2 05/19/2024 Encounters [facility] [address] [facility] [address] [place] [address] 05/19/2024 Nelly Macias Generalized anxiety disorder F41.1 ; Major depressive disorder, recurrent, mild F33.0 ; Chronic migraine without aura, not intractable, with status migrainosus G43.701 ; Other terminologist (current) drug therapy Z79.899 ; Hypertension I10 and Encounter for screening for depression Z13.31 [facility] [address] [place] [address] 08/04/2023 Mary Vidales Major depressive disorder, recurrent, mild F33.0 ; Generalized anxiety disorder F41.1 ; Chronic migraine without aura, not intractable, with status migrainosus G43.701 and Parathyroid neoplasm D49.7 [facility] [address] [place] [address] 08/04/2023 Summer Hemann Generalized anxiety disorder F41.1 and Major depressive disorder, recurrent, mild F33.0 [facility] [address] [place] [address] 11/04/2023 Summer Hemann Generalized anxiety disorder F41.1 and Major depressive disorder, recurrent, mild F33.0 [place] [address] [place] [address] 11/04/2023 Mary Vidales Major depressive disorder, recurrent, mild F33.0 ; Generalized anxiety disorder F41.1 ; Chronic migraine without aura, not intractable, with status migrainosus G43.701 and Parathyroid neoplasm D49.7 [facility] [address] [place] [address] 02/03/2024 Summer Hemann Generalized anxiety disorder F41.1 and Major depressive disorder, recurrent, mild F33.0 [place] [address] [place] [address] 02/03/2024 Nelly Macias Generalized anxiety disorder F41.1 ; Major depressive disorder, recurrent, mild F33.0 ; Chronic migraine without aura, not intractable, with status migrainosus G43.701 ; Other terminologist (current) drug therapy Z79.899 and Hypertension I10 [place] [address] [place] [address] 05/19/2024 Summer Hemann Generalized anxiety disorder F41.1 and Major depressive disorder, recurrent, mild F33.0 [place] [address] [place] [address] 07/12/2023 Provider Migration [facility] [address] [place] [address] 07/13/2023 Provider Migration [facility], [facility] [address] [place] [address] 11/03/2023 Servando [facility], [place] [address] [place] [address] [facility] [address] [place] [address] 02/09/2024 Nelly Macias [facility], [facility] [address] [place] [address] 05/01/2024 Nelly [facility], [facility] [address] [place] [address] 05/01/2024 Nelly [facility], [place] [address] [place] [address] 05/01/2024 Nelly Macias [facility], [place] [address] [place] [address] 05/01/2024 [facility], [place] [address] [place] [address] 05/02/2024 Nelly [facility], [facility] [address] [place] [address] 05/03/2024 Nelly [facility], [place] [address] [place] [address] 05/03/2024 Nelly [facility], [facility] [address] [place] [address] 05/03/2024 Nelly [facility], [place] [address] [place] [address] 05/04/2024 Nelly [facility] Assessments Encounter Date Diagnosis (ICD Code) Assessment [...] pain issues, not taking any opiate pain medication-flo jimenez if went down that avenue would not [...] blood pressure monitoring - Report significant changes terminologist use of benzodiazepine s - not receptive [...] blood pressure monitoring - Report significant changes terminologist use of benzodiazepine s - not receptive to stopping/decre asing Plan: - continue to educate, encourage minimized use. revisit topic next visit Follow-up in 3 months to monitor progress and discuss concerns or changes in condition 05/19/2024 Generalized anxiety disorder (ICD-10 - F41.1) Assessment [...] blood pressure monitoring - Report significant changes mcfp use of benzodiazepine s - not receptive to stopping/decre asing Plan: - continue to educate, encourage minimized use. revisit topic next visit Follow-up in 3 months to monitor progress and discuss concerns or changes in condition 05/19/2024 Major depressive disorder, recurrent, mild (ICD-10 - F33.0) 05/19/2024 Generalized anxiety disorder (ICD-10 - F41.1) 08/04/2023 Major depressive disorder, recurrent, mild (ICD-10 - F33.0) 08/04/2023 Generalized anxiety disorder (ICD-10 - F41.1) 05/19/2024 Major depressive disorder, recurrent, mild (ICD-10 - [...] blood pressure monitoring - Report significant changes mcfp use of benzodiazepine s - not receptive [...] blood pressure monitoring - Report significant changes terminologist use of benzodiazepine s - not receptive [...] - G43.701) treated by neurology 02/03/2024 Other mcfp (current) drug therapy (ICD-10 - Z79.899) Assessment [...] blood pressure monitoring - Report significant changes mcfp use of benzodiazepine s - not receptive to stopping/decre asing Plan: - continue to educate, encourage minimized use. revisit topic next visit Follow-up in 3 months to monitor progress and discuss concerns or changes in condition 05/19/2024 Chronic migraine without aura, not intractable, with [...] blood pressure monitoring - Report significant changes terminologist use of benzodiazepine s - not receptive to stopping/decre asing Plan: - continue to educate, encourage minimized use. revisit topic next visit Follow-up in 3 months to monitor progress and discuss concerns or changes in condition 05/19/2024 Other mcfp (current) drug therapy (ICD-10 - Z79.899) Assessment [...] blood pressure monitoring - Report significant changes mcfp use of benzodiazepine s - not receptive [...] blood pressure monitoring - Report significant changes terminologist use of benzodiazepine s - not receptive to stopping/decre asing Plan: - continue to educate, encourage minimized use. revisit topic next visit Follow-up in 3 months to monitor progress and discuss concerns or changes in condition 11/04/2023 Parathyroid neoplasm (ICD-10 - D49.7) sees specialist 05/19/2024 Hypertension (ICD-10 - I10) Assessment and Plan: [...] blood pressure monitoring - Report significant changes mcfp use of benzodiazepine s - not receptive to stopping/decre asing Plan: - continue to educate, encourage minimized use. revisit topic next visit Follow-up in 3 months to monitor progress and discuss concerns or changes in condition 05/19/2024 Encounter for screening for depression (ICD-10 - Z13.31) Assessment and Plan: Anxiety - Manageable with [...] blood pressure monitoring - Report significant changes terminologist use of benzodiazepine s - not receptive to stopping/decre asing Plan: - continue to educate, encourage minimized use. revisit topic next visit Follow-up in 3 months to monitor progress and discuss concerns or changes in condition 08/04/2023 Other chronic migraines treated by neurology hx parathyroid Plan Of Treatment Next Appt Details Provider Name:Summer Gardner, 08/19/2024 09:00:00 AM, [address], [facility], [place], [address], Provider Name:Nelly aguirre, 08/19/2024 10:00:00 AM, [address], [address], [place], [address], Insurance Providers Payer Name Payer Address Payer Phone Subscriber Number Group Number Insured Name Patient Relationship to Insured Coverage Start Date Coverage End Date [employer] Medicare Replacement/ Advantage - [employer]mo [address] [address] [place] [address] [id number] SWATI MENDEZ Self - patient is the [...] 02/24/1971 Any surgical history 02/25/1972 Endometrial ablation (36194) 02/24/1999 Hysterectomy (27195) 02/25/2004 Oophorectomy (78519) 02/25/2004 Myringotomy tube placement 02/24/2005 Sinus surgery 09/14/2021
--- OUTSIDE RECORDS SUMMARY | 2024-06-22 14:20 | XMS_ITS | Encounter Summary ---
Author Organization [facility] Address [facility] [place] [address] Care Team Providers Care Learning Center Instructor Name Role Phone Joshua Loo MD Primary Care Provider [phone] Encounter Details Date Type Department Care Team (Late st Contact Info) Description 08/01/2018 Abstract SFL CONVERSION [address] [place] [address] , Generic Conversion, Social History Tobacco Use Types Packs/Day Years Used Date Smoking Tobacco: Never Assessed Comments Unknown Sex and Gender Information Value Date Recorded Sex Assigned at Female 03/11/2024 11:55 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 Legal Sex Female 5:06 PM CDT Gender Identity Not on file Sexual Orientation Not on file documented as of this encounter Plan of Treatment Upcoming Encounters Date Type Department Care Team (Late st Contact Info) Description 09/20/2024 8:00 AM CDT Office Visit [facility] - [address], [address] [place] [address] Saida Willams MD [address] [place] [address] documented as of this encounter Visit Diagnoses Not on filedocumented in this encounter Care Teams Learning Center Instructor Relationship Specialty Start Date End Date Joshua Loo MD [address] [address] PCP - General INTERNAL MEDICINE 12/21/21 documented as of this encounter
--- OUTSIDE RECORDS SUMMARY | 2024-06-22 14:20 | XMS_ITS ---
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 Name Role Phone Joshua Loo MD Primary Care Provider Unavaila Nelly Torres Unavailable [phone] Allergies Allergen (clinical drug ingredient) Drug/Non Drug Allergy documented on EMR Reaction Allergy Type Onset Date Status morphine Morphine Sulfate Unknown Drug Allergy 05/06/2023 Active REASON FOR VISIT Pt requested appointment Medications Medication SIG (Take, Route, Frequency, Duration) Notes Start Date End Date Status Escitalopram Oxalate 20 MG 1 tablet Oral Once a day for 90 days Active buPROPion HCl ER (SR) 150 MG 2 tablets in the morning Oral daily for 90 days Active Lisinopril 5 MG Oral for 90 Days Active SUMAtriptan Succinate 6 MG/0.5ML Subcutaneous for 30 Days Active Aspirin 81 MG 1 tablet Orally Once a day Active MAGNESIUM 500 MG TABLET *Reorder from [employer] for eRx and Interaction Alerts* 05/06/2023 Active Gabapentin 100 MG 1 capsule Oral three times a day 05/06/2023 Not-Taking Amoxicillin-Pot Clavulanate 500-125 MG TAKE 1 TABLET [...] 100 MG Oral for 90 Days Active LORazepam 0.5 MG 1 tablet at bedtime Oral daily for 90 days 05/19/2024 Active Ipratropium [place] 0.03 % Nasal for 30 Days Active Social History Sex Assigned At : Social History Observation Description Sex Assigned At Female Encounters Encounter [facility] Date [facility] [address] [place] [address] 05/19/2024 Nelly Macias Generalized anxiety disorder F41.1 ; Major depressive disorder, recurrent, mild F33.0 ; Chronic migraine without aura, not intractable, with status migrainosus G43.701 ; Other half-way (current) drug therapy Z79.899 ; Hypertension I10 and Encounter for screening for depression Z13.31 Assessments Encounter Date Diagnosis (ICD Code) Assessment Notes Treatment Notes Treatment Clinical Notes Section Notes 05/19/2024 Generalized anxiety disorder (ICD-10 - F41.1) [...] blood pressure monitoring - Report significant changes 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 revisit topic next visit Follow-up in 3 months to monitor progress and discuss concerns or changes in condition 05/19/2024 Hypertension (ICD-10 - I10) Assessment and [...] blood pressure monitoring - Report significant changes half-way use of benzodiazepines - not receptive to [...] blood pressure monitoring - Report significant changes half-way use of 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 revisit topic next visit Follow-up in 3 months to monitor progress and discuss concerns or changes in condition Plan Of Treatment Medication Medication Name Sig Start Date Stop Date Notes Escitalopram Oxalate 20 MG 1 tablet Oral Once a day for 90 days buPROPion HCl ER (SR) 150 MG 2 tablets i n the morning Oral daily for 90 days LORazepam 0.5 MG 1 tablet at bedtime Oral daily for 90 days 05/19/2024 Next Appt Details Follow Up: 3 Months, Reason: Provider Name:Summer Gardner, 08/19/2024 09:00:00 AM, [address], [facility] [address], [place], [address], Provider Name:Nelly aguirre, 08/19/2024 10:00:00 AM, [address], [address], [place], [address], Progress Notes * SWATI OCHOA LDOB: 5 (59 yo F)Acc No.[id number]:05/19/2024 Patient: SWATI CISSE Provider: Saul yasmeen Macias :1965 A ge:59 Y S ex:Female Date:05/19/2024 [address] [id number] Pcp:Joshua Loo MD Subjective: * Chief Complaints: * 1 . Pt requested appointment. * HPI: H istory of Presenting Problem: 59 y/o female, , on disability, here to follow up for depression and anxiety. context chronic migraines and back pain. uses a c ane This note is transcribed using speech recognition software. It is a reflection of a visit with the patient. It might have some inaccuracy, including medication names and transcribing errors, though efforts have been made to correct them. Presents with multiple medical concerns and psychiatric symptoms, including recent treatment for sinusitis, bronchitis, and a urinary tract infection, as well as increased anxiety and irritability. The patient reports a recent emergency room visit on Friday due to severe illness. She had been experiencing sinusitis and bronchitis, for which she was already on antibiotics. Additionally, she contracted stomach flu and developed a urinary tract infection that progressed to involve her kidneys. Symptoms were severe enough that she experienced extreme chills, requiring multiple layers of clothing and blankets for warmth. Although she visited the ER, she was not admitted and continued treatment at home per her doctor's advice. Reports ongoing gastrointestinal issues following antibiotic treatment, stating, my stomach hasn't been right since the antibiotics. I just can't seem to eat anything. She notes difficulty eating despite having an appetite. The patient also describes increased anxiety and irritability, stating, I've been more excited lately than normal. I just seem more agitated. I'm more short-tempered with my dogs, with neighbors, with... every little thing is bothering me. Attributes to her illness, lack of sleep, and pain flare-ups. Sleep disturbances are reported, with the patient waking frequently throughout the night. This irregular sleep pattern is contributing to severe migraines. Pain management is an ongoing issue, particularly in her hip. She recently received a steroid injection for hip pain a week ago, which provided temporary relief before symptoms worsened. The patient mentions that hip replacement has been discussed as a potential future treatment if injections prove ineffective. Regarding psychiatric medications, continues to take escitalopram 20 mg for mood and anxiety, bupropion 150 mg twice daily in the morning, and lorazepam at bedtime for sleep. She has discontinued gabapentin due to adverse interactions with sumatriptan injections for migraines. The patient reports that her depression is manageable given her circumstances, but anxiety and irritability have increased. Ms. Ochoa has recently started engaging in self-directed physical therapy exercises as recommended by her pain management provider. She denies any thoughts of self- harm and reports that her appetite is normal when not affected by gastrointestinal issues. ongoing notes: Son from addiction 10/[address] Gary and Mary were sendning 90 day fill of lorazepam through [employer]. D epression Screening: FARIDEH-7 (2018 Edition) F eeling nervous, anxious, or on edge S everal days N ot being able to stop or control worrying?Several days W orrying too much about different things M ore than hafl the days T rouble relaxing M ore than half the days B eing so restless that it is hard to sit still M ore than half the days B ecoming easily annoyed or irritable M ore than half the days F eeling afraid as if something awful might happen N ot at all T otal FARIDEH-7 Score 1 0 I f you checked any problems, how difficult have they made it for you to do your work, take care of things at home, or get along with other people? E xtremely difficult I nterpretation of Total ( 10 to 14) Moderate [place]-Suicide Severity Rating Scale: Suicide Risk (CSRS-screener) i n the past one month Have you wished you were or wished you could go to sleep and not wake up? N o i n the past one month Have you actually had any thoughts of killing yourself? N o H ave you ever done anything, started to do anything, or prepared to do anything to end your life? N o D epression screening: PHQ-9 L ittle interest or pleasure in doing things?Several days F eeling down, depressed, or hopeless S everal days T rouble falling or staying asleep, or sleeping too much M ore than half the days F eeling tired or having little energy S everal days P oor appetite or overeating M ore than half the days F eeling bad about yourself or that you are a failure, or have let yourself or your family down S ever T rouble concentrating on things, such as reading the newspaper or watching television S ever M oving or speaking so slowly that other people could have noticed; or the opposite, being so fidgety or restless that you have been moving around a lot more than usual S ever T houghts that you would be better off or of hurting yourself in some way N ot at all T otal Score 1 0 I nterpretation M oderate Depression Intervention D epression Screening Findings P ositve F ollow-Up for Depression M ental health treatment assessment, Patient follow-up to return when and if necessary S uicide Risk Assessment Performed 0 05/19/2024 A dditional Evaluation for Depression P sychiatric interview and evaluation N sebastian of the standardized tool used for adult depression screening: [facility] Health Questionnaire (PHQ-9) * ROS: G eneral / Constitutional: Patient complains of m igraines, , sleep disturbance, fatigue. R espiratory: Patient complains of s hortness of breath with exertion.? N eurologic: Patient complains of b ack pain, balance difficulty. ? P sychiatric: Patient denies a uditory / visual hallucinations, delusions, substance abuse, suicidal thoughts, lissett, Dissociations, psychosis, panic attacks. C omments?See HPI for details. P atient not eligible due to active diagnosis of hypertension: G 9744. * Medical History: P roblems: Chronic migraine without aura with status migrainosus, Familial combined hyperlipidemia, Generalized anxiety disorder, Hyperparathyroidism, Mild recurrent major depression, Neoplasm of parathyroid gland, Severe recurrent major depression, Severe recurrent major depression without psychotic features, Suicidal thoughts, ,, Benign essential hypertension. * Surgical History: T onsilectomy/adenoids 02/24/1971, Other 02/24/1971, Any surgical history 02/25/1972, Endometrial ablation (89646) 02/24/1999, Hysterectomy (88254) 02/25/2004, Oophorectomy (89764) 02/25/2004, Myringotomy tube placement 02/24/2005, Sinus surgery 09/14/2021. * Family History: P aternal Grandfather: Diabetes mellitus . M aternal Grandfather: Alcohol abuse . S on: Substance abuse , Depressive disorder . D aughter: Anxiety disorder . * Medications: T aking Ipratropium [place] 0.03 % Solution Nasal , Taking Amoxicillin-Pot Clavulanate 500-125 MG Tablet TAKE 1 TABLET BY MOUTH EVERY 12 HOURS FOR 5 DAYS Oral , Taking buPROPion HCl ER (SR) 150 MG Tablet Extended Release 12 Hour TAKE 2 TABLETS BY MOUTH ONCE DAILY IN THE MORNING Oral , Taking Escitalopram Oxalate 20 MG Tablet TAKE 1 TABLET BY MOUTH ONCE DAILY FOR 90 DAYS Oral , Taking Meloxicam 15 MG Tablet TAKE 1 TABLET BY MOUTH ONCE DAILY Oral , Taking Topiramate 100 MG Tablet Oral , Taking Lisinopril 5 MG Tablet Oral , Taking SUMAtriptan Succinate 6 MG/0.5ML Solution Auto-injector Subcutaneous , Taking Aspirin 81 MG Tablet Chewable 1 tablet Orally Once a day , Taking MAGNESIUM 500 MG TABLET , Notes to Pharmacist: *Reorder from [facility] for eRx and Interaction Alerts*, Taking LORazepam 0.5 MG Tablet 1 tablet at bedtime Oral daily , Not-Taking Gabapentin 100 MG Capsule 1 capsule Oral three times a day , Discontinued Lisinopril 5 MG Tablet Oral , Discontinued SUMAtriptan Succinate 6 MG/0.5ML Solution Auto-injector Subcutaneous , Discontinued Topiramate 100 MG Tablet Oral , Discontinued Meloxicam 15 MG Tablet Oral , Discontinued IPRATROPIUM BROMIDE 21 MCG (0.03 %) NASAL SPRAY , Notes to Pharmacist: *Reorder from [facility] for eRx and Interaction Alerts*, Discontinued Escitalopram Oxalate 20 MG Tablet 1 tablet Oral Once a day , Discontinued buPROPion HCl ER (SR) 150 MG Tablet Extended Release 12 Hour 2 tablets in the morning Oral daily , Discontinued Prochlorperazine Maleate 10 MG Tablet Oral , Medication List reviewed and reconciled with the patient * Allergies: M orphine Sulfate: Allergy - Onset Date 05/06/2023. Objective: * Vitals: Assessment: * Assessment: 1. G eneralized anxiety disorder - F41.1 (Primary) 2 . M ajor depressive disorder, recurrent, mild - F33.0 3 . C hronic migraine without aura, not intractable, with status migrainosus - G43.701 4 . O ther half-way (current) drug therapy - Z79.899 5 . H ypertension - I10 6 . 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 revisit topic next visit Follow-up in 3 months to monitor progress and discuss concerns or changes in condition. Plan: * Treatment: 2. M ajor depressive disorder, recurrent, mild Refill buPROPion HCl ER (SR) Tablet Extended Release 12 Hour, 150 MG, 2 tablets in the morning, Oral, daily, 90 days, 180 Tablet, Refills 0. * Procedure Codes: 9 6127 BEHAV ASSMT W/SCORE & DOCD/STAND INSTRUMENT, G8431 CLIN DEPRESSION SCREEN DOC * Preventive Medicine: A ssessment and plan reviewed with patient. Educated on diagnoses and recommended treatment options. Educated on risks/benefits of medications, including reason for medications and potential side effects. Alternatives and expected course without treatment reviewed. Education given regarding compliance with medication and expectations regarding adherence to or inconsistent usage of medication. Educated that it can take weeks to see full therapeutic benefits of psychotropic medications and encouraged to trust the process. Educated on good sleep hygiene and importance of adequate sleep on both mental and overall health and well-being. Patient asked appropriate questions, verbalized understanding, and agreed to the recommended treatment and to continue to be followed. Encouraged to reach out if problems, questions, or concerns arise. Educated on suicide hotlines, resources, and safety should suicidal thoughts occur. * Follow Up: 3 Months * Billing Information: * Visit Code: * Procedure Codes: 30952 BEHAV ASSMT W/SCORE & DOCD/STAND INSTRUMENT. G8431 CLIN DEPRESSION SCREEN DOC. * Electronic signature of Manuel Macias on 06/22/2024 at 02:19 PM CDT Sign off status: Pending * Provider: Saul Macias Date: 0 05/19/2024 Generated for Johnnie ahuja/Esteban/Calixto on: 0 06/22/2024 02:19 PM CDT History and Physical Notes * HPI (History of Present Illness) Category Sub-Category Detail Notes Category Not es Depression screening PHQ-9 Little inte rest or pleasure in doing things: Several days Feeling down, depressed, or hopeless: Se veral days Trouble falling or staying a sleep, or sleeping too much: More than half the days Feeling tired or having little energy: S everal days Poor appetite or overeating: More than h half-way the days Feeling bad about yourself o r that you are a failure, or have let yourself or your family down: Several days Trouble concentrating on thi ngs, such as reading the newspaper or watching television: Several days Moving or speaking so slowly that other people could have noticed; or the opposite, being so fidgety or restless that you have been moving around a lot more than usual: Several days Thoughts that you would be b max off or of hurting yourself in some way: Not at all Total Score: 10 Interpretation: Moderate Depression Intervention Depression Screening Findings: P ositve Follow-Up for Depression: [facility] treatment assessment, Patient follow-up to return when and if necessary Suicide Risk Assessment Performed: 05/19 Additional Evaluation for Depression: Ps ychiatric interview and evaluation Name of the standardized too l used for adult depression screening:: Patient Health Questionnaire (PHQ-9) Depression Screening FARIDEH-7 (2018 Edition) Feelin g nervous, anxious, or on edge: Several days Not being able to stop or control worryi ng: Several days Worrying too much about different things : More than hafl the days Trouble relaxing: More than half the day s Being so restless that it is hard to sit still: More than half the days Becoming easily annoyed or irritable: Mo re than half the days Feeling afraid as if something awful [place] ht happen: Not at all Total FARIDEH-7 Score: 10 If you checked any problems, how difficult have they made it for you to do your work, take care of things at home, or get along with other people?: Extremely difficult Interpretation of Total: (10 to 14) Mode rate [place]-Suicide Severity Rating Scale Suicide Risk (CSRS-screener) in the past one month Have you wished you were or wished you could go to sleep and not wake up?: No in the past one month Have y ou actually had any thoughts of killing yourself?: No Have you ever done anything, started to do anything, or prepared to do anything to end your life?: No
--- OUTSIDE RECORDS SUMMARY | 2024-06-22 14:20 | XMS_ITS | Data Portability ---
Demographics Address [address] [place] [address] Home Phone Mobile Phone Email Address Preferred Language en Marital Status Presybeterian Affiliation Unknown Race White Ethnic Group Not or Lati no Author Organization [facility] J[place] Windy Address [address] [facility] [place] [address] Care Team Providers Care Dog Beautician Name Role Phone AMADOU LOO Primary Care Provider JAZMINE [employer] Assessment Encounter Date Assessment Date Assessment LastModified by Organization Details LastModified Time 05/19/2023 05/19/2023 Obtain MRI of the lumbar spine she has had physical therapy with no luck. Anxiety hypertension SD appear to be stable unspecified thyroid disorder we need to get her old records we have incomplete database at this time. Regular visit with me in 4 months we will see what the MRI shows. [email or web address] Not available 05/19/2023 21:48:24 09/22/2023 09/22/2023 diagnose and assessment and plan have been discussed we will continue current therapy . All questions have been answered. Healthy lifestyle care instructions discussed. Follow up with me in 3-4 months. She will be due for blood work at that time. [email or web address] Not available 09/25/2023 20:52:30 11/06/2023 11/06/2023 preventative checklist screenings immunizations functional assessments discussed immunizations and screenings ordered where appropriate and patient agreeable keep regular follow up [email or web address] Not available 11/08/2023 15:45:49 01/12/2024 01/12/2024 blood pressure is controlled healthy lifestyle care instructions to help weight management blood work has been ordered continue with current therapy we will see me back in 4 months Not available 01/25/2024 20:48:34 05/10/2024 05/10/2024 we will continue current therapy refill her ipratropium nasal spray other medicines we will continue diagnosis and assessment and plan have been discussed follow up in 4 months healthy lifestyle care instructions [email or web address] Not available 05/30/2024 18:02:49 Plan of Treatment Reminders Order Date Submit Date Provider Last Modified By Organization Details Last Modified Time Details Appointments ANY 15 2024 10:00A M Amadou Loo MD Not available Not available Not available Lab lipid panel, serum 2023 024 [facility] [address] [place] [address], [address], [place], [address], 01/16/2024 08:26:50 CBC w/ auto diff 2023 024 [facility], [address] [place] [address], [address], [place], [address], 01/16/2024 08:26:53 CMP, serum or plasma 2023 024 [facility], [address] [place] [address], [address], [place], [address], 01/16/2024 08:26:52 Referral None recorded. Procedures None recorded. Surgeries None recorded. Imaging MRI, lumbar spine, w/o contrast 2023 024 [facility] ([facility]), [address] [place] [address], [address], 05/27/2023 14:18:22 Medication Orders ipratropi um bromide 21 mcg (0.03 %) nasal spray 2024 025 [facility], [address] [facility], [place], [address], 05/10/2024 12:23:51 Patient TargetsNo targets recorded. Patient Instructions Encounter Date Encounter Id Patient Instructions Last Modified By Organization Details Last Modified Time 09/22/2023 [id number] A healthy lifestyle: care instructions Not available 09/25/2023 20:52:45 11/06/2023 [id number] preventing falls : care instructions [email or web address] Not available 11/06/2023 11:56:18 Medicare [facility] Preventive Checklist [email or web address] Not available 11/06/2023 11:56:18 01/12/2024 [id number] A healthy lifestyle: care instructions [email or web address] Not available 01/12/2024 12:27:35 05/10/2024 [id number] A healthy lifestyle: care instructions [email or web address] Not available 05/10/2024 11:30:00 Reason for Referral None Reported. Results Created Date Observation Date Name Description Value Unit Range Abnormal Flag Note LastModifiedBy Organization Detail LastModifiedTime 01/15/2001/16/2024 LIPID PANEL cholesterol, total 214 mg/dL 100-19 9 above high normal Not Available [facility] ([facility]) [address] [place], [address], 01/16/2024 08:26:50 01/15/20 24 01/16/2024 LIPID PANEL triglyceride s 87 mg/dL 0-149 Not Available [facility] ([facility]) [address] [place], [address], 01/16/2024 08:26:50 01/15/20 24 01/16/2024 LIPID PANEL HDL cholesterol 85 mg/dL >39 Not Available [facility] ([facility]) [address] [place], [address], 01/16/2024 08:26:50 01/15/20 24 01/16/2024 LIPID PANEL VLDL cholesterol bisi 15 mg/dL 5-40 Not Available [facility] ([facility]) [address] [place], [address], 01/16/2024 08:26:50 01/15/20 24 01/16/2024 LIPID PANEL LDL chol calc [facility]) 114 mg/dL 0-99 above high normal Not Available [facility] ([facility]) [address] [place], [address], 01/16/2024 08:26:50 01/15/20 24 01/16/2024 COMP. METAB OLIC PANEL (14) glucose 74 mg/dL 70-99 Not Available [facility] ([facility]) [address] [place], [address], 01/16/2024 08:26:52 01/15/20 24 01/16/2024 COMP. METAB OLIC PANEL (14) BUN 15 mg/dL 6-24 Not Available [facility] ([facility]) [address] [place], [address], 01/16/2024 08:26:52 01/15/20 24 01/16/2024 COMP. METAB OLIC PANEL (14) creatinine 0.78 mg/dL 0.57-1 .00 Not Available [facility] ([facility]) [address] [place], [address], 01/16/2024 08:26:52 01/15/20 24 01/16/2024 COMP. METAB OLIC PANEL (14) eGFR 88 mL/mi n/1.7 3 >59 Not Available [facility] ([facility]) [address] [place], [address], 01/16/2024 08:26:52 01/15/20 24 01/16/2024 COMP. METAB OLIC PANEL (14) BUN/creatini ne ratio 19 9-23 Not Available [facility] ([facility]) [address] [place], [address], 01/16/2024 08:26:52 01/15/20 24 01/16/2024 COMP. METAB OLIC PANEL (14) sodium 137 mmol/ L 134-14 4 Not Available [facility] ([facility]) [address] [place], [address], 01/16/2024 08:26:52 01/15/20 24 01/16/2024 COMP. METAB OLIC PANEL (14) potassium 4.0 mmol/ L 3.5-5. 2 Not Available [facility] ([facility]) [address] [place], [id number], 01/16/2024 08:26:52 01/15/20 24 01/16/2024 COMP. METAB OLIC PANEL (14) chloride 104 mmol/ L 96-106 Not Available [facility] ([facility]) [address] [place], [address], 01/16/2024 08:26:52 01/15/20 24 01/16/2024 COMP. METAB OLIC PANEL (14) carbon dioxide, total 20 mmol/ L 20-29 Not Available [facility] ([facility]) [address] [place], [id number], 01/16/2024 08:26:52 01/15/20 24 01/16/2024 COMP. METAB OLIC PANEL (14) calcium 8.8 mg/dL 8.7-10 .2 Not Available [facility] ([facility]) [address] [place], [id number], 01/16/2024 08:26:52 01/15/20 24 01/16/2024 COMP. METAB OLIC PANEL (14) protein, total 5.9 g/dL 6.0-8. 5 below low normal Not Available [facility] ([facility]) [address] [place], [id number], 01/16/2024 08:26:52 01/15/20 24 01/16/2024 COMP. METAB OLIC PANEL (14) albumin 4.2 g/dL 3.8-4. 9 Not Available [facility] ([facility]) [address] [place], [id number], 01/16/2024 08:26:52 01/15/20 24 01/16/2024 COMP. METAB OLIC PANEL (14) globulin, total 1.7 g/dL 1.5-4. 5 Not Available [facility] ([facility]) [address] [facility], [place], [address], 01/16/2024 08:26:52 01/15/20 24 01/16/2024 COMP. METAB OLIC PANEL (14) bilirubin, total <0.2 mg/dL 0.0-1. 2 Not Available [facility] ([facility]) [address] [place], [address], 01/16/2024 08:26:52 01/15/20 24 01/16/2024 COMP. METAB OLIC PANEL (14) alkaline phosphatase 51 IU/L 44-121 Not Available [facility] ([facility]) [address] [facility], [place], [address], 01/16/2024 08:26:52 01/15/20 24 01/16/2024 COMP. METAB OLIC PANEL (14) AST (SGOT) 29 IU/L 0-40 Not Available [facility] ([facility]) [address] [facility], [place], [address], 01/16/2024 08:26:52 01/15/20 24 01/16/2024 COMP. METAB OLIC PANEL (14) ALT (SGPT) 26 IU/L 0-32 Not Available [facility] ([facility]) [address] [facility], [place], [address], 01/16/2024 08:26:52 01/15/20 24 01/16/2024 CBC WITH DIFFE RENTI AL/PL ATELE T WBC 4.7 x10e3 /uL 3.4-10 .8 Eff ectiv e Decem charanjit 2023 profi wendi [id number] 5 WBC will be made* * non-o rdera ble as a stand -jaxon e order code. Not Available [facility] ([facility]) [address] [place], [address], 01/16/2024 08:26:53 01/15/20 24 01/16/2024 CBC WITH DIFFE RENTI AL/PL ATELE T RBC 4.92 x10e6 /uL 3.77-5 .28 Not Available [facility] ([facility]) [address] [place], [address], 01/16/2024 08:26:53 01/15/20 24 01/16/2024 CBC WITH DIFFE RENTI AL/PL ATELE T hemoglobin 13.4 g/dL 11.1-1 5.9 Not Available [facility] ([facility]) [address] [place], [address], 01/16/2024 08:26:53 01/15/20 24 01/16/2024 CBC WITH DIFFE RENTI AL/PL ATELE T hematocrit 41.9 % 34.0-4 6.6 Not Available [facility] ([facility]) [address] [place], [address], 01/16/2024 08:26:53 01/15/20 24 01/16/2024 CBC WITH DIFFE RENTI AL/PL ATELE T MCV 85 fL 79-97 Not Available [facility] ([facility]) [address] [place], [address], 01/16/2024 08:26:53 01/15/20 24 01/16/2024 CBC WITH DIFFE RENTI AL/PL ATELE T MCH 27.2 pg 26.6-3 3.0 Not Available [facility] ([facility]) [address] [place], [address], 01/16/2024 08:26:53 01/15/20 24 01/16/2024 CBC WITH DIFFE RENTI AL/PL ATELE T MCHC 32.0 g/dL 31.5-3 5.7 Not Available [facility] ([facility]) [address] [place], [address], 01/16/2024 08:26:53 01/15/20 24 01/16/2024 CBC WITH DIFFE RENTI AL/PL ATELE T RDW 14.7 % 11.7-1 5.4 Not Available [facility] ([facility]) [address] [facility], [place], [address], 01/16/2024 08:26:53 01/15/20 24 01/16/2024 CBC WITH DIFFE RENTI AL/PL ATELE T platelets 231 x10e3 /uL 150-45 0 Not Available [facility] ([facility]) [address] [facility], [place], [address], 01/16/2024 08:26:53 01/15/20 24 01/16/2024 CBC WITH DIFFE RENTI AL/PL ATELE T neutrophils 49 % notest ab. Not Available [facility] ([facility]) [address] [facility], [place], [address], 01/16/2024 08:26:53 01/15/20 24 01/16/2024 CBC WITH DIFFE RENTI AL/PL ATELE T lymphs 34 % notest ab. Not Available [facility] ([facility]) [address] [facility], [place], [address], 01/16/2024 08:26:53 01/15/20 24 01/16/2024 CBC WITH DIFFE RENTI AL/PL ATELE T monocytes 10 % notest ab. Not Available [facility] ([facility]) [address] [facility], [place], [address], 01/16/2024 08:26:53 01/15/20 24 01/16/2024 CBC WITH DIFFE RENTI AL/PL ATELE T eos 6 % notest ab. Not Available [facility] ([facility]) [address] [facility], [place], [address], 01/16/2024 08:26:53 01/15/20 24 01/16/2024 CBC WITH DIFFE RENTI AL/PL ATELE T basos 1 % notest ab. Not Available [facility] ([facility]) [address] [facility], [place], [address], 01/16/2024 08:26:53 01/15/20 24 01/16/2024 CBC WITH DIFFE RENTI AL/PL ATELE T neutrophils (absolute) 2.3 x10e3 /uL 1.4-7. 0 Not Available [facility] ([facility]) [address] [facility], [place], [address], 01/16/2024 08:26:53 01/15/20 24 01/16/2024 CBC WITH DIFFE RENTI AL/PL ATELE T lymphs (absolute) 1.6 x10e3 /uL 0.7-3. 1 Not Available [facility] ([facility]) [address] [facility], [place], [address], 01/16/2024 08:26:53 01/15/20 24 01/16/2024 CBC WITH DIFFE RENTI AL/PL ATELE T monocytes(ab solute) 0.5 x10e3 /uL 0.1-0. 9 Not Available [facility] ([facility]) [address] [facility], [place], [address], 01/16/2024 08:26:53 01/15/20 24 01/16/2024 CBC WITH DIFFE RENTI AL/PL ATELE T eos (absolute) 0.3 x10e3 /uL 0.0-0. 4 Not Available [facility] ([facility]) [address] [facility], [place], [address], 01/16/2024 08:26:53 01/15/20 24 01/16/2024 CBC WITH DIFFE RENTI AL/PL ATELE T baso (absolute) 0.1 x10e3 /uL 0.0-0. 2 Not Available [facility] ([facility]) [address] [facility], [place], [address], 01/16/2024 08:26:53 01/15/20 24 01/16/2024 CBC WITH DIFFE RENTI AL/PL ATELE T immature granulocytes 0 % notest ab. Not Available [facility] ([facility]) [address] [facility], [place], [address], 01/16/2024 08:26:53 01/15/20 24 01/16/2024 CBC WITH DIFFE RENTI AL/PL ATELE T immature grans (abs) 0.0 x10e3 /uL 0.0-0. 1 Not Available [facility] ([facility]) [address] [facility], [place], [address], 01/16/2024 08:26:53 05/27/19 24 05/27/2023 MRI, lumba r spine , w/o contr ast No observ ation record ed. [email or web address] [facility] [address], [place], [address], 06/02/2023 11:48:30 11/06/19 24 01/06/2023 MAMMO , scree lluvia, digit al, bilat eral No observ ation record ed. [email or web address] [facility] [address] [place], [address], 11/16/2023 22:59:24 11/07/19 DEXA No observ ation record ed. [facility] [address] [place], [address], 11/16/2023 22:59:24 01/20/20 24 01/20/2024 XR, hip + pelvi s, bilat eral, 2 view No observ ation record ed. [facility] [address] [facility] [address], [place], [address], 01/21/2024 13:17:15 02/09/20 24 02/09/2024 MAMMO , scree lluvia, digit al, bilat eral No observ ation record ed. [facility] [address], [place], [address], 02/09/2024 16:29:25 02/19/20 24 02/19/2024 XR, chest No observ ation record ed. [email or web address] [facility] [address], [place], [address], 02/27/2024 16:26:36 Result Notes None recorded. Problems Name Problem SNOMED Code Status Onset Date Resolution Date Notes Provider Name and Address Organization Details Recorded Time Essential hypertensio n 11520569 Active 2023 Amadou Loo MD Attn: Марина g,[address] [facility], [place], [address], [place] [facility] 4 15:38:24 Anxiety 84025586 Active 2023 Amadou Loo MD Attn: Марина g,[address] [facility], [place], [address], [place] [facility] 4 15:38:25 Low back pain 624154635 Active 2023 Amadou Loo MD Attn: Марина g,[address] [facility], [place], [address], [place] [facility] 4 15:38:26 Migraine 07623645 Active 2023 Amadou Loo MD Attn: Марина g,[address] [facility], [place], [address], [place] [facility] 4 15:38:28 Chronic rhinitis 50124149 Active 2023 Amadou Loo MD Attn: Марина g,[address] [facility], [place], [address], [place] [facility] 4 15:38:49 Hyperlipide elfego 73945831 Active 2023 Amadou Loo MD Attn: Марина g,[address] [facility], [place], [address], [place] [facility] 4 20:48:01 HIV screening declined 2296406505270 00 Active 2023 Amadou Loo MD Attn: Марина jimenez,[address] [facility], [place], [address], [facility] 20:48:20 Osteoporosi s 65883920 Active 2023 Amadou Loo MD Attn: Марина jimenez,[address], [place], [address], [facility] - SI 20:49:49 Problem Notes None recorded. Procedures Surgical History Date Name Laterality Status Provider Name and Address Organization Details Recorded Time Gastrointestinal Surgery completed Reynold Conroy MA [facility] 05/19/2023 15:13:45 endometrial thermal ablation completed Reynold Conroy MA [facility] 05/19/2023 15:14:51 Tonsillectomy completed Reynold Conroy MA [facility] 05/19/2023 15:15:01 ligation of bilateral fallopian tubes completed Reynold Conroy MA [facility] 05/19/2023 15:15:28 delivery completed Reynold Conroy MA [facility] 05/19/2023 15:15:39 Dilation and Curettage completed Reynold Conroy MA [facility] 05/19/2023 15:15:46 Total hysterectomy completed José Miguel Conroy MA [facility] 05/19/2023 15:15:53 Imaging Results Imaging Date Name Status LastModified by Organiz ation Details LastModified Time 05/27/2023 MRI, lumbar spine, w/o contrast completed [email or web address] [facility] [address], [place], [address], 06/02/2023 11:48:30 01/06/2023 MAMMO, screening, digital, bilateral completed [address] [place], [address], 11/16/2023 22:59:24 11/07/2023 DEXA completed [address] [place], [address], 11/16/2023 22:59:24 01/20/2024 XR, hip + pelvis, bilateral, 2 view completed [facility] [address] [facility] [address], [place], [address], 01/21/2024 13:17:15 02/09/2024 MAMMO, screening, digital, bilateral completed [email or web address] [facility] [address], [place], [address], 02/09/2024 16:29:25 02/19/2024 XR, chest completed [email or web address] [facility] [address], [place], [address], 02/27/2024 16:26:36 Procedure Notes None recorded. Medical Equipment None Reported. Allergies Allergen ID Allergen Name Allergen Category Reaction Reaction Severity Criticality Documentation Date Start Date Code Code System Note Provider Name and Address Organization Details Recorded Time 350991 morphine medicatio n hallucina tions itching Not [...] completed Not Available Not Available Not Available Pyridium 200 mg tablet Take 1 tablet 3 times a day by oral route for 5 days. 05/10 completed Not Available Not Available Not Available aspirin 81 mg tablet,de layed release Take 1 tablet every day by oral route. active Not Available Not Available No t Available lorazepam 0.5 mg tablet TAKE 1 TABLET BY MOUTH ONCE DAILY AT BEDTIME FOR 90 DAYS active Not Available Not Available No t Available ciproflox acin 0.3 % eye drops INSTILL 5 DROPS INTO AFFECTED EAR THREE TIMES DAILY FOR 7 DAYS 05/10 completed Not Available Not Available Not Available gabapenti n 300 mg capsule TAKE 1 CAPSULE BY MOUTH THREE TIMES DAILY active Not Available Not Available No t Available lisinopri l 5 mg tablet Take 1 tablet by mouth once daily 2024 active Not Available Not Available Not Avai lable gabapenti n 100 mg capsule TAKE 1 CAPSULE BY MOUTH THREE TIMES DAILY NEEDED 11/05 completed Dose increase d Not Available Not Available Not Available cefuroxim e axetil 500 mg tablet TAKE 1 TABLET BY MOUTH TWICE DAILY FOR 14 DAYS 05/10 completed Not Available Not Available Not Available methylpre dnisolone 4 mg tablets in a dose pack TAKE BY MOUTH DIRECTED ON INSIDE OF PACKAGE 05/18 completed Not Available Not Available Not Available topiramat e 100 mg tablet TAKE 1/2 (ONE-JOSÉ F) TABLET BY MOUTH IN THE MORNING AND 1 IN THE EVENING active Not Available Not Available No t Available ipratropi um bromide 21 mcg (0.03 %) nasal spray USE 2 SPRAYS IN NOSTRIL( S) TWICE DAILY active Not Available Not Available No t Available amoxicill in 875 mg-potass ium clavulana te 125 mg tablet TAKE 1 TABLET BY MOUTH TWICE DAILY 11/05 completed Not Available Not Available Not Available amoxicill in 500 mg-potass ium clavulana te 125 mg tablet TAKE 1 TABLET BY MOUTH EVERY 12 HOURS FOR 5 DAYS 05/10 completed Not Available Not Available Not Available [...] Address Organization Details Last Updated DateTime 4 12590.3 4 g 26.3 kg/m2 154.94 cm 66 /min 99 % 99 % 118 mm[Hg] 78 mm[Hg] Reynold Conroy MA [facility] 4 15:21:26 Date Recorded Body height Body mass index (BMI) Body weight Heart rate Oxygen saturation Oxygen saturation in Arterial blood by Pulse oximetry Systolic blood pressure Diastolic blood pressure Provider Name and Address Organization Details Last Updated DateTime 4 154.94 cm 26.5 kg/m2 03460.3 7 g 63 /min 97 % 97 % 120 mm[Hg] 72 mm[Hg] Cristiane Miller MA [facility] 4 14:13:07 Date Recorded Body height Body mass index (BMI) Body weight Heart rate Oxygen saturation Oxygen saturation in Arterial blood by Pulse oximetry Systolic blood pressure Diastolic blood pressure Provider Name and Address Organization Details Last Updated DateTime 4 154.94 cm 26.9 kg/m2 61802.5 5 g 90 /min 97 % 97 % 132 mm[Hg] 68 mm[Hg] Cristiane Miller MA [facility] 4 09:35:10 Date Recorded Pain severity - 0-10 verbal numeric rating [Score] - Reported Provider Name and Address Organization Details Last Updated DateTime 11/06/2023 8 Emely Hill [facility] 11/06/2023 09:40:47 Date Recorded Body height Body mass index (BMI) Body weight Heart rate Oxygen saturation Oxygen saturation in Arterial blood by Pulse oximetry Systolic blood pressure Diastolic blood pressure Provider Name and Address Organization Details Last Updated DateTime 4 154.94 cm 27.4 kg/m2 73278.8 9 g 77 /min 97 % 97 % 130 mm[Hg] 72 mm[Hg] Crist[facility] Miller [facility] 4 11:38:02 Date Recorded Body height Body mass index (BMI) Body weight Heart rate Oxygen saturation Oxygen saturation in Arterial blood by Pulse oximetry Systolic blood pressure Diastolic blood pressure Provider Name and Address Organization Details Last Updated DateTime 5 154.94 cm 25.9 kg/m2 01394.8 7 g 74 /min 98 % 98 % 118 mm[Hg] 78 mm[Hg] Soila Gomez MA [facility] 5 11:02:51 Social History Question Answer Notes LastModified by Organizat ion Details LastModified Time Tobacco Smoking Status Former Smoker quit 12/19/11 Emely Liz kan, [place] - [facility] 11/06/2023 09:46:59 Do You Have An Advance [...] 7 Days, How Much Pain Have You [place]? A Lot Information not available 11/06/2023 In [...] Past 7 Days, How Often Have You [place] Sleepy In The Daytime? Always Information not available 11/06/2023 # Alcohol Drinks Per Week 0 Information not available 11/06/2023 What Was The Date Of Your Most Recent Tobacco Screening? 05/10/2024 [email or web address] Information not available 05/10/2024 What Is Your Current Pack Years? 20-29packyears [...] Anxious, Or Unable To Sleep At Night)? [id number] Information not available 11/06/2023 Do You Use [...] LastModified by Organization Details LastModified Time Father Harmful pattern of use of alcohol [email or web address] Not available 04/25 15:07:35 Father Hypertensive disorder [email or web address] Not available 04/25 15:07:53 Father Migraine [email or web address] Not availa ble 05/19/2023 15:08:03 Brother Harmful pattern of use of alcohol [email or web address] Not available 04/25 15:07:35 Brother Hypertensive disorder [email or web address] Not available 04/25 15:07:53 Mother Hypertensive disorder [email or web address] Not available 04/25 15:07:53 Medical History Condition Response Coronary Artery Disease N Other N Atrial Fibrillation N High Blood Pressure Y Depression Y COPD N Blood Clots N Anxiety Disorder Y Muscle, Joint, or Bone Problems Y Acid Reflux (GERD) N Cancer N Stroke N High Cholesterol N Liver Disease N Headaches Y Kidney or Bladder Problems N Thyroid Problems Y GI Problems N Have you had a mammogram in the last yea r? Y Skin Problems N Anemia N Heart Attack (SD) N Diabetes N Seizures/Epilepsy N Have you had a colonoscopy in the last 1 0 years? Y Asthma N Allergies N Have you had a PSA blood test in the las t year? N Hepatitis N Heart Failure N Osteoporosis Y Gynecological History Statement/Question Response If Post Menopausal, Age at Menopause 41 Obstetrics History GPAL:G 0 P 0 0 0 0 Immunizations Vaccine Type Date Status Note Provider Nam e and Address Organization Details Recorded Time zoster recombinant 2 completed Em[place] null, [place] [facility] 10/22/2023 15:12:37 zoster recombinant 2 completed [place] [facility] 10/22/2023 15:12:37 COVID-19, mRNA, LNP-S, PF, 30 mcg/0.3 mL dose 1 completed [place] [facility] 10/22/2023 15:12:37 COVID-19, mRNA, LNP-S, PF, 30 mcg/0.3 mL dose 1 completed [place] [facility] 10/22/2023 15:12:37 COVID-19, mRNA, LNP-S, PF, 30 mcg/0.3 mL dose 1 completed [place] [facility] 10/22/2023 15:12:37 COVID-19, mRNA, LNP-S, bivalent, PF, 30 mcg/0.3 mL dose 2 completed [place] [facility] 10/22/2023 15:12:37 COVID-19, mRNA, LNP-S, PF, aguila-sucrose, 30 mcg/0.3 mL 3 completed [place] [facility] 10/22/2023 15:12:37 Tdap 2 completed [place] [facility] 10/22/2023 15:12:37 Influenza, split virus, trivalent, preservative 3 completed [place] [facility] 10/22/2023 15:12:37 Influenza, split virus, quadrivalent, PF 2 completed [place] [facility] 10/22/2023 15:12:37 Influenza, split virus, quadrivalent, PF 1 completed [place] [facility] 10/22/2023 15:12:37 Influenza, split virus, quadrivalent, PF 8 completed [place] [facility] 10/22/2023 15:12:37 Influenza, split virus, quadrivalent, PF 5 completed [place] [facility] 10/22/2023 15:12:37 Influenza, split virus, quadrivalent, PF 3 completed [place] [facility] 10/22/2023 15:12:37 Past Encounters Encounter ID Performer Location Encounter Start Date Encounter Closed Date Diagnosis/Indication Diagnosis SNOMED-CT Code Diagnosis ICD10 Code Diagnosis Note [id number] Amadou Loo MD [facility] [place] [address] [place] [address] 05/19/2023 14:54:37 05/19/2023 15:49:04 Essential hypertension 63390687 I10 Anxiety 24983727 F41.9 Low back pain 855106978 M54.50 Migraine 61071347 G43.90 9 Chronic rhinitis 7717628 6 J31.0 [id number] Amadou Loo MD [facility] [place] [address] [place] [address] 09/22/2023 13:56:50 09/22/2023 14:42:09 Overweight 715878788 E66.3 Essential hypertension 16903494 I10 Migraine 30783692 G43.90 9 Anxiety 44326896 F41.9 Chronic rhinitis 6621104 6 J31.0 [id number] Amadou Loo MD [facility] [employer] [facility] [place] [address] [place] [address] 11/06/2023 09:27:41 11/06/2023 10:40:08 Adult health examination 952416111 Z00.00 Health Risk Assessment collected and reviewed [id number] Amadou Loo MD [facility] [place] [address] [place] [address] 01/12/2024 11:24:18 01/12/2024 12:16:15 Overweight 294364992 E66.3 Essential hypertension 93860714 I10 Migraine 36650463 G43.90 9 Chronic rhinitis 2531163 6 J31.0 Anxiety 05534055 F41.9 Hyperlipidemia 06555641 E78.5 HIV screen ing declined 5994056893 00826 Z53.20 [id number] Amadou Loo MD [facility] [employer] [facility] [place] [address] [place] [address] 05/10/2024 10:53:40 05/10/2024 11:34:23 Body mass index 25-29 - overweight 741538201 Z68.25 Overweight 382625578 E66 .3 Sinusitis 38428355 J32.9 Chronic rhinitis 2132049 6 J31.0 Essential hypertension 04975752 I10 Hyperlipidemia 41566090 E78.5 Anxiety 42906714 F41.9 Migraine 86356113 G43.90 9 Health Concerns Section Related Observation LastModified by Organization Detai ls LastModified Time None Recorded Concern Status LastModified by Organization Details LastModified Time None Recorded Advance Directives Directive Y: Payers Encounter Date Sequence Insurance Name Policy Number Policy Turner Covered Member ID Turner Member ID Guarantor Name 05/19/2023 1 [facility] (MEDICARE REPLACEMENT/A DVANTAGE - HMO) [id number] Porsha Ochoa [id number] Porsha Ochao 09/22/2023 1 [facility] (MEDICARE REPLACEMENT/A DVANTAGE - HMO) [id number] Porsha Ochoa [id number] Porsha Ochoa 11/06/2023 1 [facility] (MEDICARE REPLACEMENT/A DVANTAGE - HMO) [id number] Porsha Ochoa [id number] Porsha Ochoa 01/12/2024 1 [facility] (MEDICARE REPLACEMENT/A DVANTAGE - HMO) [id number] Porsha Ochoa [id number] Porsha Ochoa 05/10/2024 1 [facility] (MEDICARE REPLACEMENT/A DVANTAGE - HMO) [id number] Porsha Ochoa [id number] Porsha Ochoa Notes Date Note Type Note [...] osteoporosis she believes Amadou Loo MD Attn: Accounting, [place], [address], [place] [facility] 05/19/2023 21:48:51 09/22/2023 text/html follow up on med ical problems hypertension no headache or dizziness blood pressure 120/72. Migraines have been stable on current therapy. Anxiety no new interval developments or complaints referable their osteoarthritis and back pain she continues to see pain management. Osteoporosis she is taking the Reclast and there has not been any problems Amadou Loo MD Attn: Accounting[address] [place], [address], [facility] - [facility] 09/25/2023 20:52:47 11/06/2023 text/html MAW 2Reported bypatient.Diet [...] home Amadou Loo MD Attn: Accounting[address] [facility], [place], [address], [facility] - [facility] 11/08/2023 15:46:03 01/12/2024 text/html hypertension no headache no dizziness back pain has been stable migraines there has been a little bit of uptake but no change in character or intensity anxiety has been up a little bit no SI or HI still goes to the pain clinic Amadou Loo MD Attn: Accounting[address] [facility], [place], [address], [facility] - [facility] 01/25/2024 20:50:10 05/10/2024 text/html anxiety has been doing reasonably well but she is anxious about her back migraines have been fairly stable chronic rhinitis as long as she takes her medicine seems to be doing all right. Hypertension she has not had any chest pain no shortness of breath. History of unspecified parathyroid disorder and also states that she has had osteoporosis she believes Amadou Loo MD Attn: Accounting[address] [facility], [place], [address], [facility] - [facility] 05/30/2024 18:03:06 OBGyn Episode No OBEpisode recorded.
== END 2024-06-22 13:07 | disposition home or self-care (01) ==
PROVIDERS: PCP Internal Medicine; Visit Provider Internal Medicine
DX: R39.9 Unspecified symptoms and signs involving the genitourinary system (principal); I10 Essential (primary) hypertension
CPT/HCPCS: 36415; 80053; 80061; 81001; 85025; 87086; 87186

== ENCOUNTER 2025-02-14 07:39 | Outpatient (CLI) | payer MEDICARE, SELFPAY ==
--- NOTE | ~2025-02-14 | MM_ITS ---
EXAMINATION: MM screening [facility] BI w arabella HISTORY: Screening. TECHNIQUE: Craniocaudal and mediolateral oblique 3-D tomosynthesis images were obtained and synthetic 2-D images were generated. CAD analysis was submitted and interpreted. COMPARISON: 2023 BREAST PARENCHYMAL COMPOSITION: Not Dense: There are scattered areas of fibroglandular FINDINGS: No suspicious masses are seen. There are no suspicious calcifications. No unexplained architectural distortion is seen. There are no skin or nipple abnormalities identified. There is no adenopathy seen on the images submitted. IMPRESSION: No mammographic evidence to suggest malignancy is seen. The patient may return to screening mammography as per ACR guidelines. BI-RADS 1 - Negative. Reviewed, dictated and finalized at location [facility]
--- OUTSIDE RECORDS SUMMARY | 2025-02-14 07:44 | XMS_ITS | Encounter Summary ---
Author Organization [facility] Address [facility]ly [facility], [facility] [place] [address] Care Team Providers Care Gin Inspector Name Role Phone Joshua Loo MD Primary Care Provider [phone] Encounter Details Date Type Department Care Team (Late Contact Info) Description 08/14/2023 MyChart Message Enc [address], [address] [place] [address] Saida Willams MD [address] [place] [address] [phone] [facility] prior authorization denial Social History Tobacco Use [...] Sex Assigned at Female 03/11/2024 11:55 AM COMMISSARY REPRESENTATIVE Legal Sex Female 5:06 PM CDT Gender Identity Not on file Sexual Orientation Not on file documented as of this encounter Plan of Treatment Upcoming Encounters Date Type Department Care Team (Late st Contact Info) Description 06/09/2025 8:40 AM CDT Office Visit [address], [address] [place] [address] Saida Willams MD [address] [place] [address] documented as of this encounter Visit Diagnoses Not on filedocumented in this encounter Care Teams Gin Inspector Relationship Specialty Start Date End Date Joshua Loo MD PCP - General INTERNAL MEDICINE 12/21/21 documented as of this encounter
--- OUTSIDE RECORDS SUMMARY | 2025-02-14 07:44 | XMS_ITS | Encounter Summary ---
Author Organization [facility] Address [facility] [place] [address] Care Team Providers Care Rn Circulating Name Role Phone Jsohua Loo MD Primary Care Provider [phone] Encounter Details Date Type Department Care Team (Late Contact Info) Description 07/31/2023 MyChart Message Enc [address], [address] [place] [address] Saida Willams MD [address] [place] [address] [phone] follow-up from visit on 07/30/23 Social History [...] Sex Assigned at Female 03/11/2024 11:55 AM ROUTE RETURNER Legal Sex Female 5:06 PM CDT Gender Identity Not on file Sexual Orientation Not on file documented as of this encounter Plan of Treatment Upcoming Encounters Date Type Department Care Team (Late Contact Info) Description 06/09/2025 8:40 AM CDT Office Visit [address] [place] [address] Saida Willams MD [address] [place] [address] documented as of this encounter Visit Diagnoses Not on filedocumented in this encounter Care Teams Rn Circulating Relationship Specialty Start Date End Date Joshua Loo MD PCP - General INTERNAL MEDICINE 12/21/21 documented as of this encounter
--- OUTSIDE RECORDS SUMMARY | 2025-02-14 07:44 | XMS_ITS | Encounter Summary ---
Author Organization [facility] Address [facility] [place] [address] Care Team Providers Care Transport Tank Technician Name Role Phone Joshua Loo MD Primary Care Provider [phone] Encounter Details Date Type Department Care Team (Late Contact Info) Description 12/14/2022 MyChart Message Enc [address], [address] [place] [address] Saida Willams MD [address] [place] [address] [phone] [facility] mail order pharmacy issue Social [...] Sex Assigned at Female 03/11/2024 11:55 AM ENVIRONMENTAL HEALTH AND SAFETY INTERN Legal Sex Female 5:06 PM CDT Gender Identity Not on file Sexual Orientation Not on file documented as of this encounter Plan of Treatment Upcoming Encounters Date Type Department Care Team (Late Contact Info) Description 06/09/2025 8:40 AM CDT Office Visit [address], [address] [place] [address] Saida Willams MD [address] [place] [address] documented as of this encounter Visit Diagnoses Not on filedocumented in this encounter Care Teams Transport Tank Technician Relationship Specialty Start Date End Date Joshua Loo MD PCP - General INTERNAL MEDICINE 12/21/21 documented as of this encounter
--- OUTSIDE RECORDS SUMMARY | 2025-02-14 07:44 | XMS_ITS | Clinical Summary ---
Demographics Address [address] [place] [address] Mobile Phone Email Address Preferred Language Jamaican Marital Status Single Anglican Affiliation Unknown Race White Ethnic Group Not or Lati no Author Organization [facility] Address [address] [place] [address] Care Team Providers Care Scrap Picker Name Role Phone Joshua Loo MD Primary Care Provider [phone] Allergies Active Allergy Reactions Criticality Noted Date [...] as needed. 5 mL 5 5 Active aspirin EC 81 MG tablet Take 1 tablet every day by oral route. 4 Active famotidine (PEPCID) 20 MG tablet Take 2 tablets (40 mg total) by mouth 2 (two) times daily. 5 Active losartan (COZAAR) 25 MG tablet Take 1 tablet (25 mg total) by mouth daily. 5 Active Magnesium 400 MG Tab 2 Active prochlorperazin e (COMPAZINE) 10 MG tablet Active Active Problems Problem Noted Date Diagnosed Date Migraine, chronic, without aura 09/05/2022 Encounters Date Type Department Care Team Description 12/09/2024 8:40 AM CDT Office Visit [facility] - [address], [address] [place] [address] Saida Willams MD Follow Up (Migraines) 12/09/2024 Travel from Last 3 Months Immunizations Immunization Administration Dates Next Due Flublok (RIV3, Trivalent, 0.5mL) 12/03/2024,12/25 Influenza (Generic) 01/05/2015,01/01/2013 Influenza Adult (Generic) 01/14/2023,07/2021,12/07/2020,2017,01/05/2015 PFIZER COVID-19 (12+) MRNA, LNP-S, PF, BECKY-SUCROSE, 30 MCG/0.3 ML (COMIRNATY) 01/14/2023 PFIZER COVID-19 (ORIGINAL FORMULATION, PURPLE CAP) mRNA, LNP-S, PF, 30 MCG/0.3 ML DOSE 01/14/2023,11/29/2021 PFIZER COVID-19 BIVALENT (12 +) mRNA, LNP-S, PF, 30 MCG/0.3 ML DOSE [...] Sex Assigned at Female 03/11/2024 11:55 AM INJECTION MOLDING SUPERVISOR Legal Sex Female 5:06 PM CDT Gender Identity Not on file Sexual Orientation Not on file Last Filed Vital Signs Vital Sign Reading Time Taken Comments Blood Pressure 152/83 12/09/2024 8:48 AM CDT Pulse 65 12/09/2024 8:48 AM CDT Temperature 37.2 C (99 F) 12/09/2024 8:48 AM CDT Respiratory Rate 16 03/22/2024 7:57 AM INJECTION MOLDING SUPERVISOR Oxygen Saturation 98% 12/09/2024 8:48 AM CDT Inhaled Oxygen Concentration - - Weight 62.6 kg (138 lb) 12/09/2024 8:48 AM CDT Height 154.9 cm (5' 1) 12/09/2024 8:48 AM CDT Body Mass Index 26.07 12/09/2024 8:48 AM CDT Plan of Treatment Upcoming Encounters Date Type Department Care Team (Late st Contact Info) Description 06/09/2025 8:40 AM CDT Office Visit [facility] - [address], [address] [place] [address] Saida Willams MD [address] [place] [phone] Health Maintenance Due Date Last Done Comments [...] Years (1 of 1 - PCV) 2015 RSV Immunization or 60+ Years (1 - Risk 60-74 years 1-dose series) 2025 DTaP, Tdap and Td Vaccines (2 - Td or Tdap) 08/02/2031 08/01/2021 Zoster Vaccines Completed 06/25/2021, 04/26/2021 PHQ-2 (Physician [place]) Completed 03/22/2024 COVID-19 Vaccine Completed 12/03/2024, , 01/14/2023, Additional history exists Influenza Adult Completed 12/03/2024, 12/25, 01/14/2023, Additional history exists Hepatitis A Vaccines Aged Out No long er eligible based on patient's age to complete this topic Meningococcal B Vaccine Aged Out No l [...] Billing Address Personal/Family Self 1965 [address] [place] [address] [facility] MED[facility] Care Teams Scrap Picker Relationship Specialty Start Date End Date Joshua Loo MD PCP - General INTERNAL MEDICINE 12/21/21
--- OUTSIDE RECORDS SUMMARY | 2025-02-14 07:44 | XMS_ITS | Encounter Summary ---
Author Organization [facility] Address [facility] [place] [address] Care Team Providers Care Full Time Staff Interpreter Name Role Phone Joshua Loo MD Primary Care Provider [phone] Encounter Details Date Type Department Care Team (Late st Contact Info) Description 02/10/2023 MyChart Message Enc [address], [address] [place] [address] Saida Willams MD [address] [place] [phone] problems with zonegran Social History Tobacco Use [...] Sex Assigned at Female 03/11/2024 11:55 AM CATHEAD OPERATOR Legal Sex Female 5:06 PM CDT Gender Identity Not on file Sexual Orientation Not on file documented as of this encounter Plan of Treatment Upcoming Encounters Date Type Department Care Team (Late st Contact Info) Description 06/09/2025 8:40 AM CDT Office Visit [address], [address] [place] [address] Saida Willams MD [address] [place] [address] documented as of this encounter Visit Diagnoses Not on filedocumented in this encounter Care Teams Full Time Staff Interpreter Relationship Specialty Start Date End Date Joshua Loo MD PCP - General INTERNAL MEDICINE 12/21/21 documented as of this encounter
--- OUTSIDE RECORDS SUMMARY | 2025-02-14 07:44 | XMS_ITS | Encounter Summary ---
Author Organization [facility] Address [facility] [place] [address] Care Team Providers Care Director Foundation Name Role Phone Joshua Loo MD Primary Care Provider [phone] Encounter Details Date Type Department Care Team (Late st Contact Info) Description 04/02/2023 MyChart Message Enc [address], [address] [place] [address] Saida Willams MD [address] [place] [phone] received a phone call? Social History Tobacco [...] Sex Assigned at Female 03/11/2024 11:55 AM AUTOMOBILES SALESPERSON Legal Sex Female 5:06 PM CDT Gender Identity Not on file Sexual Orientation Not on file documented as of this encounter Plan of Treatment Upcoming Encounters Date Type Department Care Team (Late st Contact Info) Description 06/09/2025 8:40 AM CDT Office Visit [address], [address] [place] [address] Saida Willams MD [address] [place] [address] documented as of this encounter Visit Diagnoses Not on filedocumented in this encounter Care Teams Director Foundation Relationship Specialty Start Date End Date Joshua Loo MD PCP - General INTERNAL MEDICINE 12/21/21 documented as of this encounter
--- OUTSIDE RECORDS SUMMARY | 2025-02-14 07:44 | XMS_ITS | Data Portability ---
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 [facility] [address], [place], [address], 09:42:02 Medication Orders None record ed. Patient TargetsNo targets recorded. Patient InstructionsNo instructions recorded. Reason for Referral None Reported. Results Created Date Observation Date Name Description Value Unit Range Abnormal Flag Note LastModifiedBy Organization Detail LastModifiedTime 10/08/19 XR, hand, 3 or more view No observ ation record ed. [email or web address] [facility] [place] [address] [facility] [facility] [address], [place], [address], 10/15/2023 09:42:01 01/19/20 24 01/16/2024 XR, chest No observ ation record ed. [email or web address] [address], [place], [address], 04/01/2024 14:06:27 03/12/19 25 03/11/2024 imagi ng inter preta tion No observ ation record ed. [email or web address] [facility] [address], [place], [address], 12/07/2024 08:57:22 Result Notes None recorded. Problems Name Problem SNOMED Code Status Onset Date Resolution Date Notes Provider Name and Address Organization Details Recorded Time Contusion of multiple sites 184444032 Completed Not Available [facility] 3 01:36:29 Chronic back pain 124447883 Completed Not Available [facility] 3 01:36:29 Anxiety disorder 818000052 Active Not Available [facility] 4 14:52:34 Low back pain 663124172 Completed BOGDAN Garces [place] - [place] [employer] [facility] 3 14:48:30 Menopause present 247688058 Active Not Available [facility] 4 14:52:34 Chest pain 43650086 Completed Not Available [facility] 3 01:36:30 Hypertrig lyceridem ia 416262734 Active Not Available [facility] 4 14:52:34 Blood in urine 57438151 Completed Not Available [facility] 3 01:36:30 Vitamin D deficienc y 38596675 Active Not Available [facility] 4 14:52:34 Hypoparat hyroidism 31368965 Completed Not Available [facility] 3 01:36:31 Migraine 45346737 Active Not Available [facility] 4 14:52:34 Diverticu lar disease 077703378 Active Not Available [facility] 4 14:52:34 Chronic sinusitis 26484100 Completed Not Available [facility] 3 01:36:31 Onychomyc osis 416960164 Active Not Available [facility] 4 14:52:34 Atrophic vaginitis 16522349 Active Not Available [facility] 4 14:52:34 Essential hypertens ion 29951006 Active Not Available [facility] 4 14:52:34 Diarrhea 04317066 Completed Not Available [facility] 3 01:36:32 Hyperpara thyroidis m 81319358 Active Not Available [facility] 4 14:52:34 Urinary tract infectiou s disease 18298834 Completed Not Available [facility] 3 01:36:32 Altered bowel function 28427927 Completed Not Available [facility] 3 01:36:32 Idiopathi c parathyro idism Active Not Available [facility] 4 14:52:34 Allergic rhinitis 52634896 Active 2021 Not Available [facility] 4 14:52:34 Rhinitis 02911016 Active 2021 Not Available [facility] 4 14:52:34 Scoliosis deformity of spine 602014930 Active 2021 Not Available [facility] 4 14:52:34 Pain in finger of right hand 43378257219 9109 Active 2021 Not Available [facility] 4 14:52:34 Pain of right hand 57916959888 9109 Active 2022 Not Available [facility] 4 14:52:34 Pain of right knee joint 04781443463 4100 Active 2022 Not Available [facility] 4 14:52:34 Low back pain 718805655 Active 2022 Not Available [facility] 4 14:52:34 Pain of left hand 99904929442 9103 Active 2022 Not Available [facility] 4 14:52:34 Hyperlipi demia 43237561 Active 2022 Not Available [facility] 4 14:52:34 Right medial elbow tendinopa thy 77678376413 9109 Active 2022 Not Available [facility] 4 14:52:34 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 Procedures Surgical History Date Name Laterality Status Provider Name and Address Organization Details Recorded Time 023 Ortho - Cortisone Injection completed Maria Fernanda Archibald NP [address] [facility] [facility] [address], [place], [address], [facility] [employer] [facility] 10/09/2022 13:38:08 022 Most Recent Mammogram completed Not Available [facility] 04/24/2022 01:22:47 021 Colonoscopy completed Not Available [facility] 04/24/2022 01:22:56 021 Date of Last Colonoscopy completed Not Available [facility] 04/24/2022 01:22:47 008 Colonoscopy completed Not Available [facility] 04/24/2022 01:22:56 laparoscopy completed Not Available [facility] 04/24/2022 01:22:56 Tonsillectomy completed Not Available [facility] 04/24/2022 01:22:56 Hysterectomy completed Not Available [facility] 04/24/2022 01:22:56 destruction of lesion of uterus completed Not Available [facility] 04/24/2022 01:22:56 Excisions - Specify completed Not Available [facility] 04/24/2022 01:22:56 ENT Surgery completed Not Available [facility] 04/24/2022 01:22:56 parathyroidectomy completed Not Available [facility] 04/24/2022 01:22:56 completed Not Available [facility] 04/24/2022 01:22:56 Dilation and curettage completed Not Available [facility] 04/24/2022 01:22:56 Sinus Surgery completed Not Available [facility] 04/24/2022 01:22:56 Imaging Results None recorded. Procedure Notes None recorded. Medical Equipment None Reported. Allergies Allergen ID Allergen Name Allergen Category Reaction Reaction Severity Criticality Documentation Date Start Date Code Code System Note Provider Name and Address Organization Details Recorded Time 3011 morphine medicatio n hallucina tions Not available Not available 04/24/2022 7052 RxNorm Not Available [facility] 01:55:11 Medications Name Sig Start Date Stop [...] Available Not Available meloxicam 15 mg tablet Take 1 tablet by mouth once daily 2024 active Not Available Not Available Not Avai lable ondansetro n HCl 4 mg tablet Take [...] 1 mL by injection route. 10/07 completed [facility]: 0003-0 494-20 Not Available Not Available Not [...] administe red by the provider 03/16 completed [facility]: 0409-4 276-17 Not Available Not Available Not [...] 4 mL by injection route. 10/07 completed [facility] 75649- 064-01 Not Available Not Available Not Available [...] Updated DateTime 03/18/2023 154.94 cm 24.6 kg/m2 40939.01 BOGDAN Sanderson [place] [facility] 03/18/2023 11:33:19 Date Recorded Body height Body mass index (BMI) Body weight Pain severity - 0-10 verbal numeric rating [Score] - Reported Provider Name and Address Organization Details Last Updated DateTime 04/25/2023 154.94 cm 25.5 kg/m2 72978.97 g 6 Serina Kassy Montserrat [facility] 04/25/2023 10:06:40 Date Recorded Body height Body mass index (BMI) Body weight Pain severity - 0-10 verbal numeric rating [Score] - Reported Provider Name and Address Organization Details Last Updated DateTime 05/28/2023 154.94 cm 25.5 kg/m2 02675.97 g 5 Serina Elena [facility] [employer] [facility] 05/28/2023 14:28:37 Date Recorded Body height Body mass index (BMI) Body weight Provider Name and Address Organization Details Last Updated DateTime 07/09/2023 154.94 cm 25.5 kg/m2 56477.97 g Martha Estrella [facility] Roosevelt [facility] [employer] [facility] 07/09/2023 11:32:55 Date Recorded Body height Body mass index (BMI) Body weight Pain severity - 0-10 verbal numeric rating [Score] - Reported Provider Name and Address Organization Details Last Updated DateTime 10/08/2023 154.94 cm 26.5 kg/m2 21621.93 g 1 Serina Elena [facility] 10/08/2023 14:17:05 Social History Question Answer Notes LastModified by Organizat ion Details LastModified Time Tobacco Smoking Status Former [facility] 2011 [facility]/05/2022 11:31:24 Do You Have An Advance Directive? Yes [id number] Information not available 04/24/2022 Do You Wear A Helmet When Biking? No Does Not Ride Bike Information not available 11/05/2022 What Is Your Level Of Caffeine Consumption? Moderate MIGRATION. Information not available 04/24/2022 How Much Tobacco Do You Chew? None MIGRATION. Information not available 04/24/2022 In The 14 Days Before Symptom Onset, Have You Had Close Contact With A Laboratory[facility] COVID-19 While That Case Was Ill? [...] Type Of Diet Are You Following? REGULAR [id number] Information not available 04/24/2022 Which Illicit Or Recreational Drugs Have You Used? None Information not available 11/05/2022 What Is The Highest Grade Or Level Of School You Have Completed Or The Highest Degree You Have Received? [id number] Information not available 11/05/2022 How Many Days Of Moderate To Strenuous Exercise, Like A Brisk Walk, Did You Do In The Last 7 Days? 7 Walks- 10 Minutes Of Video Information not available 11/05/2022 Have There Been Any Changes To Your Family Or Social Situation? Yes Mom Has Dementia In Assisted Living Information not available 11/05/2022 What Is The Fluoride Status Of Your Home? Unknown Information not available 11/05/2022 When Did You Quit Smoking? 6-10yearssin celastcigare tte Information not available 11/05/2022 Are There Any Guns Present In Your Home? No Information not available 11/05/2022 Do You Use Insect Repellent Routinely? No Information not available 11/05/2022 Where Do You Live? Apartment Information not available 11/05/2022 Do You Have A Medical Power Of Metal Hanger? Yes Information not available 11/05/2022 Do You Have Moisture Problems In Your Home? No Information not available 11/05/2022 What Was The Date Of Your Most Recent Tobacco Screening? 10/08/2023 [email or web address] Information not available 10/08/2023 What Is Your Current Pack Years? 10-19packyea rs Information not available 11/05/2022 Have You Ever Been Counseled For Unhealthy Alcohol Use? No Information not available 11/05/2022 Do You Have Any Pets? No Information not available 11/05/2022 What Is Your Relationship Status? [id number] Information not available 04/24/2022 Do You Use Your Seat Belt Or Car Seat Routinely? Yes Information not available 11/05/2022 Do You Have Smoke And Carbon Monoxide Detectors In Your Home? No Information not available 11/05/2022 At What Age Did You Start Smoking Tobacco? 15 Information not available 11/05/2022 Are You Passively Exposed To Smoke? No Information no t available 11/05/2022 Are There Any Smokers In Your House? No Information not available 11/05/2022 How Much Tobacco Do You Smoke? 0.5 PPD [id number] Information not available 04/24/2022 What Types Of Sporting Activities Do You Participate In? None Information not available 11/05/2022 Do You Use Sunscreen Routinely? No Information not available 11/05/2022 Has Tobacco Cessation Counseling Been Provided? No Information not available 11/05/2022 How Many Years Have You Smoked Tobacco? 32 Information not available 11/05/2022 Have You Recently Traveled Abroad? No Information not available 11/05/2022 Are You Currently In School? No Information not available 11/05/2022 Do You Have Any Dietary Restrictions? No Information not available 11/05/2022 Sex: Female Functional Status Question Answer Note LastModified by Organization Details LastModified Time Do you use any illicit or recreational drugs? No Information not available 11/05/2022 Do you or have you ever used any other forms of tobacco or nicotine? No Information not available 11/05/2022 What is your level of alcohol consumption? Occasional [id number] [id number] Information not available 04/24/2022 Do you or have you ever used smokeless tobacco? Never used smokeless tobacco MIGRATION.511 [id number] Information not available 04/24/2022 Are you currently employed? No Information not available 11/05/2022 Have you been exposed to chemicals or toxins? No Information not available 11/05/2022 Are you able to care for yourself independently? Yes Information not available 11/05/2022 What is your occupation? disabled Information not available 11/05/2022 Do you or have you ever used e-cigarettes or vape? Never used electronic cigarettes Information not available 11/05/2022 What is your exercise level? Moderate MIGRATION.576 [id number] Information not available 04/24/2022 What type of noise exposure are you exposed to? noExposureToExcessiveNoise Infor mation not available 11/05/2022 Mental Status Question Answer Note LastModified by Organization D etails LastModified Time Do you feel stressed (tense, restless, nervous, or anxious, or unable to sleep at night)? [id number] Information not available 11/05/2022 Family History Relationship Description Onset Age of this Age Resolved Age Notes LastModified by Organization Details LastModified Time Mother Heart disease MIGRATION.610 [id number] Not available 04/24/2022 01:23:00 Mother Dementia [email or web address] Not availab le 10/08/2023 14:03:50 Mother Parkinson's disease 78 [email or web address] Not available 10/07 14:03:50 Father Hypertensive disorder MIGRATION.608 [id number] Not available 04/24/2022 01:23:00 Paternal Grandfather Diabetes mellitus MIGRATION.837 [id number] Not available 04/24/2022 01:23:00 Maternal Grandmother Malignant neoplasm of breast [email or web address] Not available 10/07 14:03:50 Maternal Grandmother Malignant neoplasm of colon [email or web address] Not available 10/07 14:03:50 Maternal Grandfather Malignant neoplasm of pharynx [email or web address] Not available 10/07 14:03:50 Medical History Condition Response NERVE DISEASE N BLINDNESS N RHEUMATIC FEVER N KIDNEY STONES N BLADDER PROBLEMS N OTHER # 1 Y POLIO N LUNG DISEASE/DISORDER N RADIATION / CHEMOTHERAPY N COPD N Other # 2 N BLOOD DISEASES N SURGERY N EAR OR HEARING PROBLEMS N MUMPS N DEPRESSION (INCLUDING POST ) Y BOWEL PROBLEMS Y STROKE/TIA N ULCERS N BENIGN PROSTATIC HYPERPLASIA N MEASLES N MYOCARDIAL INFARCTION N OBESITY N GERD/NAUSEA N ANEURYSM N URINARY/BLADDER/KIDNEY PROBLEMS N INPATIENT PSYCH CARE N CORONARY ARTERY DISEASE (CAD) N ADDICTION CONCERNS N Impotence N ENDOMETRIOSIS N USE OF BLOOD THINNERS N SKIN [...] APNEA N CHICKENPOX N INFECTIOUS DISEASE N PROSTATE N HEART ARRHYTHMIA N INSOMNIA N HIGH CHOLESTEROL / HYPERLIPIDEMIA Y HYPERTHYROIDISM N EYE PROBLEMS N NEUROLOGICAL PROBLEMS N EDEMA N CHRONIC PAIN SYNDROME N HYPOTHYROIDISM N CONSTIPATION N CAROTID BLOCKAGE N BACK / NECK PROBLEMS Y HAVE YOU BEEN HOSPITALIZED OR SEEN IN [facility] IN THE PAST YEAR ? N ATHEROSCLEROSIS N BREAST PROBLEMS N DIALYSIS N ECZEMA N OSTEOPOROSIS Y ARTHRITIS N APPENDICITIS N DIABETES, TYPE N BAD TEETH N ENT N HEARTBURN / REFLUX N AUTISM SPECTRUM DISORDER (ASD) N HEPATITIS / LIVER DISEASE N PULMONARY DISEASE N GOUT N SLEEP DISORDER N ALZHEIMER'S DISEASE N Brain Problems N HERPES N DEMENTIA N SEIZURES/EPILEPSY N HEADACHES/MIGRAINES Y VASCULAR DISEASE N PACEMAKER N Blood Disorder N DIZZINESS N KIDNEY DISEASE N HEART DISEASE/HEART PROBLEMS N MULTIPLE SCLEROSIS N CARDIAC ARRHYTHMIA N CANCER: SPECIFY N ANESTHESIA COMPLICATIONS N Gall Stones N ATRIAL FIBRILLATION N PULMONARY EMBOLISM N AUTOIMMUNE DISEASE N [...] influenza, unspecified formulation 3 completed Not Available [facility] 04/14/2023 14:52:34 COVID-19, mRNA, LNP-S, PF, 30 mcg/0.3 mL dose 3 completed Not Available [facility] 04/14/2023 14:52:34 Influenza, split virus, trivalent, preservative 3 completed Not Available [facility] 04/14/2023 14:52:34 COVID-19, mRNA, LNP-S, PF, 30 mcg/0.3 mL dose 1 completed Not Available [facility] 04/14/2023 14:52:34 COVID-19, mRNA, LNP-S, PF, 30 mcg/0.3 mL dose 1 completed Not Available [facility] 04/14/2023 14:52:34 Influenza, split virus, trivalent, preservative 2 completed Not Available [facility] 04/14/2023 14:52:34 COVID-19, mRNA, LNP-S, PF, 30 mcg/0.3 mL dose 2 completed Not Available [facility] 04/14/2023 14:52:34 Tdap 2 completed Not Available [facility] 04/14/2023 14:52:34 zoster recombinant 2 completed Not Available [facility] 04/14/2023 14:52:34 Influenza, split virus, quadrivalent, PF 1 completed Not Available [facility] 04/14/2023 14:52:34 Influenza, split virus, quadrivalent, PF 5 completed Not Available [facility] 04/14/2023 14:52:35 Influenza, split virus, quadrivalent, PF 8 completed Not Available [facility] 04/14/2023 14:52:35 Past Encounters Encounter ID Performer Location Encounter Start Date Encounter Closed Date Diagnosis/Indication Diagnosis SNOMED-CT Code Diagnosis ICD10 Code Diagnosis IMO Codes Diagnosis Note [id number] Amadou Loo MD [facility] Internal Med Stevevi lldean [address] [place] [address] [place] [address] 05/02/2020 00:00:00 06/22/2020 13:59:02 [id number] [facility] ic_Gateway _ATHENA_M IGRATION_ DEFAULT_1 _1 , 10/25/2020 00:00:00 10/25/2020 11:47:25 [id number] Amadou Loo MD [facility] Internal Med [place] [address] [place] [address] [place] [address] 11/07/2020 00:00:00 12/03/2020 14:01:30 [id number] [facility]ad[facility] [place] [address] [place] [address] [place] [address] 04/03/2021 00:00:00 04/03/2021 14:52:14 [id number] Amadou Loo MD [facility] Internal Med Sarah padilla [address] [place] [address] [place] [address] 08/07/2021 00:00:00 09/07/2021 23:11:18 [id number] Amadou Loo MD [facility] Internal Med Sarah padilla [address] [place] [address] [place] [address] 01/01/2022 00:00:00 01/01/2022 14:40:01 [id number] Amadou Loo MD [facility] Internal [facility] Sarah dean [address] [place] [address] [place] [address] 02/21/2022 00:00:00 02/22/2022 09:34:04 [id number] Power Estrada MD [address], [address] [address] 03/25/2022 00:00:00 03/26/2022 18:03:41 [id number] Power Estrada MD [facility] [place] [address] [place] [address] 04/05/2022 00:00:00 04/08/2022 12:00:06 [id number] Power Estrada MD [facility] [place] [address] [place] [address] 05/15/2022 11:31:51 05/15/2022 11:53:01 Pain of right hand 1266220244 11088 M79.641 [id number] Amadou Loo MD [facility] Sarah padilla [address] [place] [address] [place] [address] 07/02/2022 13:50:50 07/02/2022 14:51:05 Essential hypertension 14553748 I10 Anxiety disorder 6646707 06 F41.9 Hypertriglyceridemia 302 770949 E78.2 Pain of ri ght knee joint 2947311353 12376 M25.561 Low back pain 528074400 M54.50 [id number] Amadou Loo MD [facility] Internal Med [facility] [address] [facility], [facility] [address] [place] [address] 08/09/2022 10:39:24 08/09/2022 11:29:09 Low back pain 675241041 M54.50 [id number] Power Estrada MD [facility] [place] [address] [place] [address] 10/09/2022 11:10:38 10/09/2022 11:53:45 Pain of left hand 5824262799 38126 M79.078 [id number] Amadou Loo MD [facility] Internal Med [facility] [address] [facility] [place] [address] 11/05/2022 11:31:00 11/05/2022 12:50:55 Essential hypertension 39747793 I10 Hyperlipidemia 13758452 E78.5 Hyperparathyroidism 6699 9008 E21.3 Low back pain 256491007 M54.50 Migraine 87396206 G43.90 9 [id number] Power Estrada MD [facility] [place] [address] [facility] [address] [place] [address] 11/19/2022 11:27:31 11/19/2022 12:14:03 Pain of left hand 7847612358 50281 M79.642 patient returns to clinic concerning left [...] needed if his symptoms persist or worsen. Right medi al elbow tendinopathy 2201856869 02432 M77.01 since her last visit she has [...] needed if her symptoms persist or worsen. 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 [place] [address] 03/18/2023 11:25:21 03/18/2023 16:24:57 Osteoarthrosis of the carpometacarpal joint of the thumb 33263435 M18.9 [id number] Power Estrada MD [facility] [place] [address] [place] [address] 04/25/2023 10:03:13 04/25/2023 10:30:13 Pain of left hand 3079077685 89876 M79.680 [id number] Power Estrada MD [facility] [place] [address] [place] [address] 05/28/2023 14:26:18 05/28/2023 14:46:33 Pain of left hand 4396530277 45509 M79.067 [id number] Power Estrada MD [facility] [place] [address] [place] [address] 07/09/2023 11:28:56 07/09/2023 11:45:24 Pain of left hand 0412895369 07489 M79.642 Osteoarthr osis of the carpometacarpal joint of the thumb 20975208 M18.9 [id number] Power Estrada MD [facility] [place] [address] [place] [address] 10/08/2023 14:01:19 10/08/2023 15:13:47 Pain of left hand 6649732783 16298 M79.642 Goals Section Goal Description Progress Status Start Date LastModified by Organization Details LastModified Time Managing Anxiety Patient verbalizes strategies for coping with [facility] 20[facility] Violeta Estevez RN Information not available 07/23/2023 15:25:38 Healthy Diet Patient demonstrates understanding of beneficial diet and exercise plan [facility] active 2023 Violeta Estevez RN Information not available 07/23/2023 15:27:56 Exercise Plan Patient demonstrates understanding of beneficial diet and exercise plan [facility] active 2023 Violeta Estevez RN Information not available 07/23/2023 15:27:56 Blood Pressure Maintains blood pressure goal as defined by care team [facility] active 2023 Violeta Estevez RN Information not available 07/23/2023 15:27:35 Medication Regimen Follows medication regimen as per care team recommendation (s) [facility] active 2023 Violeta Estevez RN Information not available 07/23/2023 15:27:56 Coping Patient verbalizes strategies for coping with anxiety [facility] active 2023 Violeta Estevez RN Information not available 07/23/2023 15:25:38 Family and Social Support Reports family and/or social support needs are met [facility] active 2023 Violeta Estevez RN Information not available 07/23/2023 15:27:56 Foods to Avoid Pt will have a clear understanding of foods to avoid that antagonize diverticular disease [facility] active 2023 Violeta Estevez RN Information [...] 07/23/2023 15:27:56 Advance Directives Directive Y: Payers Insurance Date Sequence Insurance Name Policy Number Policy Turner Covered Member ID Turner Member ID Guarantor Name 10/16/2023 1 [facility] (MEDICARE REPLACEMENT/ ADVANTAGE - HMO) [id number] Porsha Ochoa [id number] Porsha Ochoa OBGyn Episode No OBEpisode recorded.
--- OUTSIDE RECORDS SUMMARY | 2025-02-14 07:44 | XMS_ITS | Encounter Summary ---
Author Organization [facility] Address [facility] [place] [address] Care Team Providers Care Machine Installer Name Role Phone Joshua Loo MD Primary Care Provider [phone] Encounter Details Date Type Department Care Team (Late Contact Info) Description 03/12/2024 Advanced Electron Beams Message Enc [facility] - [address], [address] [place] [phone] [facility] Provider Results Social History Tobacco Use [...] Sex Assigned at Female 03/11/2024 11:55 AM DIRECTOR OF MATERIALS Legal Sex Female 5:06 PM CDT Gender Identity Not on file Sexual Orientation Not on file documented as of this encounter Plan of Treatment Upcoming Encounters Date Type Department Care Team (Late st Contact Info) Description 06/09/2025 8:40 AM CDT Office Visit [facility] - [address], [address] [place] [phone] Saida Willams MD [address] [place] [id number] documented as of this encounter Visit Diagnoses Not on filedocumented in this encounter Care Teams Machine Installer Relationship Specialty Start Date End Date Joshua Loo MD PCP - General INTERNAL MEDICINE 12/21/21 documented as of this encounter
--- OUTSIDE RECORDS SUMMARY | 2025-02-14 07:44 | XMS_ITS | Clinical Summary ---
Demographics Address [address] [place] [address] Mobile Phone Email Address Preferred Language Unknown Marital Status Sikh Affiliation Unknown Race White Ethnic Group Not or Lati no Author Organization [facility] Address [address] [facility] [address] Phone Care Team Providers Care Global Human Resources Director Name Role Phone Joshua Loo MD Primary Care Provider [phone] Allergies Active Allergy Reactions Criticality Noted Date Comments Morphine Anaphylaxis,Hallucination High 07/03/2016 Medications buPROPion HCL (WELLBUTRIN SR) 150 mg Sustained Release 12 hour tablet Take 300 mg by mouth. Active topiramate (TOPAMAX) 100 mg tablet Take 75 mg by mouth 2 times daily. 4 Active lisinopriL (PRINIVIL) 5 mg tablet Take 5 mg by mouth. Active escitalopram oxalate (LEXAPRO) 20 mg tablet Take 20 mg by mouth daily. Active LORazepam (ATIVAN) 0.5 mg tablet take 1 tablet by mouth once daily at bedtime for 90 days Active Magnesium Oxide 420 mg Tablet Take by mouth. A ctive meloxicam (MOBIC) 15 mg tablet Take 15 mg by mouth daily. 3 Active SUMAtriptan (IMITREX) 6 mg/0.5 mL Pen Injector 6 mg. Active VITAMIN B COMPLEX ORAL Take 1 Tablet by mouth daily. Active zoledronic rzes-xqngxwgL-l ater (Reclast) 5 mg/100 mL Piggyback Inject by intravenous injection. Active prochlorperazin e maleate (COMPAZINE) 10 mg tablet Take 10 mg by mouth. Active multivitamin-mi nerals (THERADEX-M) tablet Take 1 Tablet by mouth daily. Active ipratropium bromide (ATROVENT) 21 mcg (0.03 %) [place], Non-Aerosol use 2 spray(s) in each nostril twice daily Active famotidine (PEPCID) 20 mg tablet Take 40 mg by mouth 2 times daily. Active aspirin ([place]alore) 81 mg Capsule Take 1 Capsule by mouth. Active Bacillus coagulans-Inuli n 1 billion-250 cell-mg Capsule Probiotic Acti ve acetaminophen (TYLENOL) 500 mg Capsule Active chlorpheniramin e (CHLOR-TRIMETON ) 4 mg tablet Take 4 mg by mouth every 6 hours as needed for Allergies. Active guaifenesin/dex tromethorphan (GUAIFENEX DM ORAL) Take by mouth. Activ e Cranberry 500 mg Capsule Take by mouth. Acti ve Active Problems Problem Noted Date Diagnosed Date Chronic left-sided lumbar radiculopathy 08/12/19 25 Scoliosis of lumbar spine 08/11/2024 Greater trochanteric bursitis of left hip 2024 Encounters Date Type Department Care Team Description 02/01/2025 External Device Data [facility] ABSTRACTION Provider, Abstract 01/11/2025 External Device Data [facility] Provider, Abstract 12/22/2024 External Device Data [facility] Provider, Abstract 12/21/2024 External Device Data [facility] Provider, Abstract from Last 3 Months Family History Relation Name Status Comments Father Mother Social History Tobacco Use Types Packs/Day Years Used Date Smoking Tobacco: Former Cigarettes Smokeless Tobacco: Never Tobacco Cessation:Counseling Given: Not Answered Alcohol Use Standard Drinks/Week Comments Yes 0 (1 standard drink = 0.6 oz pur e alcohol) rare Comments Unknown Sex and Gender Information Value Date Recorded Sex Assigned at Not on file Legal Sex Female 10:55 AM CDT Gender Identity Not on file Sexual Orientation Not on file Last Filed Vital Signs Vital Sign Reading Time Taken Comments Blood Pressure 126/78 09/06/2024 1:14 PM CDT Pulse 62 09/06/2024 1:14 PM CDT Temperature 36.4 C (97.6 F) 09/06/2024 1:14 PM CDT Respiratory Rate 16 09/06/2024 1:14 PM CDT Oxygen Saturation 99% 08/11/2024 9:26 AM CDT Inhaled Oxygen Concentration - - Weight 63.5 kg (140 lb) 09/06/2024 1:14 PM CDT Height 154.9 cm (5' 1) 09/06/2024 1:14 PM CDT Body Mass Index 26.45 09/06/2024 1:14 PM CDT Plan of Treatment Health Maintenance Due Date Last Done Comments Pre-Diabetes and Diabetes Screening 1965 HPV/Cotest (21-29) 1986 CERVICAL CANCER SCREENING 1995 HPV/Cotest (30-65) 1995 PAP SMEAR 1995 BREAST CANCER SCREENING 2005 FIT-DNA Q 3 years 2010 FIT/FOBT Q 1 year 2010 Flex Sig/CT Colonography Q 5 years 2010 RSV VACCINE (60+ or ) (1 - Risk 50-74 years 1-dose series) 2015 INFLUENZA VACCINE (#1) 2024 , 12/07/2020, 12/16/2017, Additional history exists COLORECTAL SCREENING 11/27/2030 11/27/2020 Colorectal Cancer Screening 11/27/2030 DTAP/TDAP/TD VACCINES (2 - Td or Tdap) 08/02/2031 08/01/2021 ZOSTER VACCINE Completed 06/25/2021, 04/26/2021 HEPATITIS B VACCINES Aged Out No long er eligible based on patient's age to complete this topic Insurance [facility] [id number] Care Teams Global Human Resources Director Relationship Specialty Start Date End Date Joshua Loo MD [facility] [address] [place] [place] [address] PCP - General Internal Medicine 09/09/24
--- OUTSIDE RECORDS SUMMARY | 2025-02-14 07:44 | XMS_ITS | Encounter Summary ---
Author Organization [facility] Address [facility] [place] [address] Care Team Providers Care Campus Receptionist Name Role Phone Joshua Loo MD Primary Care Provider [phone] Encounter Details Date Type Department Care Team (Latest Contact Info) Description 09/06/2022 Gainspeedt Message Enc [facility] - [address], [address] [place] [address] Hanna Mejia MD [address] [place] [address] topiramate dosage Social History Tobacco Use Types [...] Sex Assigned at Female 03/11/2024 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
--- OUTSIDE RECORDS SUMMARY | 2025-02-14 07:44 | XMS_ITS | Encounter Summary ---
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 Legal Sex Female 5:06 PM CDT Gender Identity Not on file Sexual Orientation Not on file documented as of this encounter Plan of Treatment Upcoming Encounters Date Type Department Care Team (Late Contact Info) Description 06/09/2025 8:40 AM CDT Office Visit [facility] - [address], [address] [place] [phone] Saida Willams MD [address] [place] [address] documented as of this encounter Visit Diagnoses Not on filedocumented in this encounter Care Teams Senior Accountant Cpa Relationship Specialty Start Date End Date Joshua Loo MD PCP - General INTERNAL MEDICINE 12/21/21 documented as of this encounter
--- OUTSIDE RECORDS SUMMARY | 2025-02-14 07:44 | XMS_ITS | Encounter Summary ---
Author Organization [facility] Address [address] [place] [address] Phone Care Team Providers Care Spaghetti Machine Operator Name Role Phone Joshua Loo MD Primary Care Provider Encounter Details Date Type Department Care Team (Late st Contact Info) Description 08/07/[address] Medical Office [address] [place] [phone] Samson Stewart MD [address] [address] Social History Tobacco Use Types Packs/Day Years Used Date Smoking Tobacco: Former Smokeless Tobacco: Never Alcohol Use Standard Drinks/Week Comments No 0 (1 standard drink = 0.6 oz pur e alcohol) Comments Unknown Sex and Gender Information Value Date Recorded Sex Assigned at Not on file 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
--- OUTSIDE RECORDS SUMMARY | 2025-02-14 07:44 | XMS_ITS | Clinical Summary ---
Demographics Address [address] [place] [address] Mobile Phone Home Phone Work Phone Email Address Preferred Language Portuguese Marital Status Muslim Affiliation Unknown Race White Ethnic Group Not or Lati no Author Organization [facility] Address [address] [facility] [place] [address] Care Team Providers Care Fire Apparatus Engineer Name Role Phone Joshua Loo MD Primary Care Provider Allergies Active Allergy Reactions Criticality Noted Date Comments Morphine Hallucinations Medium 07/03/2016 Medications LORazepam (ATIVAN) 0.5 mg tablet take 2 tablet by oral route 3 times every day as needed 0 0 5 Active Additional Information Patient not taking.Reported on 08/16/2024 buPROPion SR (WELLBUTRIN SR) 150 mg 12 [...] 6 mg/0.5 mL solution 8 Active zoledronic tkgz-sjruvkjV-g ater (RECLAST) 5 mg/100 mL piggyback Infuse 100 mL (5 mg total) IV once Active ipratropium (ATROVENT) 21 mcg (0.03 [...] by mouth every other day 4 Active aspirin 81 mg enteric coated tablet Take 1 tablet (81 mg total) by mouth daily Active Active Problems Problem Noted Date Diagnosed [...] neurological standpoint is appropriate. 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 Family History Medical History Relation Name Comments [...] 3 Alive Father Maternal Grandmother Alive Mother Other 1 Other 2 Social History Tobacco Use Types Packs/Day Years Used Date Smoking Tobacco: Former Smokeless Tobacco: Never Tobacco Cessation:Counseling Given: Not Answered Alcohol Use Standard Drinks/Week Comments No 0 [...] on file 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 Gender Identity Female 09/08/2020 9:41 AM CDT Sexual Orientation Straight 09/08/2020 9: 41 AM CDT Last Filed Vital Signs Vital Sign Reading Time Taken Comments Blood Pressure 126/81 06/29/2024 9:58 AM CDT Pulse 76 06/29/2024 9:58 AM CDT Temperature 36.9 C (98.5 F) 10/13/2023 10:27 AM CDT Respiratory Rate 18 10/13/2023 10:27 AM CDT Oxygen Saturation 98% 10/13/2023 10:27 AM CDT Inhaled Oxygen Concentration - - Weight 61.5 kg (135 lb 9.6 oz) 08/16/2024 2:41 P M CDT Height 151.4 cm (4' 11.6) 08/16/2024 2:41 PM CD T Body Mass Index 26.84 08/16/2024 2:41 PM CDT Plan of Treatment Health Maintenance Due Date Last Done Comments Breast Cancer Screening-Mammogram 1965 Colon Cancer Screening-Colonoscopy 1965 Depression Screening 1965 Hepatitis C Screening 1965 Hepatitis B Screening 1983 Regular Well Visit/Exam 18-64 1983 Covid-19 Vaccine ( season) 2024 01/14/2023, 11/29/2021, 02/21/2021, Additional history exists Influenza Vaccine (#1) 2024 4, 01/14/2023, 11/29/2021, Additional history exists DTaP/Tdap/Td Vaccine (2 - Td or Tdap) 08/02/2031 08/01/2021 Zoster Vaccine Completed 06/25/2021, 04/26/2021 Pneumococcal vaccine <65 Aged Out No longer eligible based on patient's age to complete this topic Procedures Procedure Name Priority Date/Time Associated Diagnosis Comments CT LUMBAR SPINE WO CONTRAST Schedule Routine, Read Routine (OP Routine) 11/15/2024 8:39 AM CDT Lumbar radiculopathy from Last 3 Months Results * CT Lumbar Spine WO Contrast (11/15/2024 8:39 AM CDT) Anatomical Region Laterality Modality Spine N/A Computed Tomogra phy 11/16/2024 7:33 AM CDT Narrative 11/16/2024 7:41 AM CDT EXAM DESCRIPTION: CT LUMBAR SPINE WO CONTRAST REASON FOR STUDY: M54.16 Low back pain for many years, hx of bulging disc since 2022. TECHNIQUE: Axial images acquired through the lumbar spine without intravenous contrast. Reconstructed coronal and sagittal MPR images reviewed. All images stored on PACS. Automated exposure control was used as a dose optimization technique for this examination. COMPARISON: Lumbar spine CT dated 10/11/2021 and lumbar spine MRI dated 10/11/2021. Lumbar spine radiographs dated 06/30/2017. FINDINGS: SEGMENTATION: In keeping with the nomenclature used on lumbar spine MRI dated 10/11/2021 assumption is made for the last well-formed disc space seen on series 2, image 96 4 to be labeled as L5-S1. In this system of nomenclature there are unfused right and left transverse processes of L1. ALIGNMENT: Levoconvex lumbar curvature. Grade 1 retrolisthesis of L3 on L4 through L5 on S1. VERTEBRAE: Endplate degenerative changes ranging up to severe at L4-L5 to the left of midline along the scoliotic curvature. Additional degenerative changes of the lesser extent at L2-L3 and remainder of the lumbar levels. DISC HEIGHT: Multilevel intervertebral disc height loss ranging up to severe at L4-L5 to the left of midline. HARDWARE: None in the spine. INDIVIDUAL DISC LEVELS: Suboptimally evaluated by non myelographic CT technique. L1-L2: No significant disc bulge, osseous spinal canal or neural foraminal narrowing. L2-L3: Minor disc bulge eccentric to the right foramen. Thickened ligamentum flavum and facet arthropathy. No significant osseous spinal canal or neural foraminal narrowing. L3-L4: Disc bulge with thickened ligamentum flavum and bilateral facet arthropathy. Mild osseous spinal canal stenosis. No significant osseous neural foraminal narrowing. L4-L5: Retrolisthesis of L4 on L5 with unroofing of the disc and marginal spur formation eccentric to the left neural foramen. Thickened ligamentum flavum and facet arthropathy [id number] osseous spinal canal stenosis. Lateral recess effacement on both sides. Severe left and mild right osseous neural foraminal narrowing. L5-S1: Retrolisthesis of L5 on S1 with unroofing of the disc. Tiny central disc protrusion better seen on the previous MRI. Thickened ligamentum flavum and facet arthropathy. No significant osseous spinal canal stenosis. No significant osseous neural foraminal narrowing. OTHER: The sacral spinal canal expansile low-attenuation area as seen on the previous CT and MRI and compatible with a prominent Tarlov cyst. IMPRESSION: 1. Lumbar disc degeneration ranging up to severe at L4-L5 has progressed when compared to the lumbar spine CT dated 10/11/2021 as described. The osseous spinal canal narrowing is most noticeable at L4-L5. 2. Varying degrees of osseous neural foraminal stenosis ranging up to severe on the left at L4-L5 and other findings as above. 3. Further evaluation with MRI as clinically indicated. THIS IS AN ELECTRONICALLY VERIFIED FINAL REPORT 11/16/2024 7:41 AM - Electronically signed by Rafael LEONARDO T: Report ID: [id number] Reading Location: [id number] Procedure Note Rafael Cary, DO - 11/16/2024 EXAM DESCRIPTION: CT LUMBAR SPINE WO CONTRAST REASON FOR STUDY: M54.16 Low back pain for many years, hx of bulging disc since 2022. TECHNIQUE: Axial images acquired through the lumbar spine withoutintravenous contrast. Reconstructed coronal and sagittal MPR images reviewed. Allimages stored on PACS. Automated exposure control was used as a dose optimization technique forthis examination. COMPARISON: Lumbar spine CT dated 10/11/2021 and lumbar spine MRI dated 10/11/2021. Lumbar spine radiographs dated 06/30/2017. FINDINGS: SEGMENTATION: In keeping with the nomenclature used on lumbar spine MRI dated 10/11/2021 assumption is made for the last well-formeddisc space seen on series 2, image 96 4 to be labeled as L5-S1. In this systemof nomenclature there are unfused right and left transverse processes of L1. ALIGNMENT: Levoconvex lumbar curvature. Grade 1 retrolisthesis of L3 onL4 through L5 on S1. VERTEBRAE: Endplate degenerative changes ranging up to severe at L4-L5to the left of midline along the scoliotic curvature. Additionaldegenerative changes of the lesser extent at L2-L3 and remainder of the lumbar levels. DISC HEIGHT: Multilevel intervertebral disc height loss ranging up tosevere at L4-L5 to the left of midline. HARDWARE: None in the spine. INDIVIDUAL DISC LEVELS: Suboptimally evaluated by non myelographic CT technique. L1-L2: No significant disc bulge, osseous spinal canal or neural foraminal narrowing. L2-L3: Minor disc bulge eccentric to the right foramen. Thickenedligamentum flavum and facet arthropathy. No significant osseous spinal canal orneural foraminal narrowing. L3-L4: Disc bulge with thickened ligamentum flavum and bilateral facet arthropathy. Mild osseous spinal canal stenosis. No significant osseous neural foraminal narrowing. L4-L5: Retrolisthesis of L4 on L5 with unroofing of the disc and marginalspur formation eccentric to the left neural foramen. Thickened ligamentumflavum and facet arthropathy [id number] osseous spinal canal stenosis.Lateral recess effacement on both sides. Severe left and mild right osseousneural foraminal narrowing. L5-S1: Retrolisthesis of L5 on S1 with unroofing of the disc. Tinycentral disc protrusion better seen on the previous MRI. Thickened ligamentumflavum and facet arthropathy. No significant osseous spinal canal stenosis. No significant osseous neural foraminal narrowing. OTHER: The sacral spinal canal expansile low-attenuation area as seen onthe previous CT and MRI and compatible with a prominent Tarlov cyst. IMPRESSION: 1. Lumbar disc degeneration ranging up to severe at L4-L5 has progressed when compared to the lumbar spine CT dated 10/11/2021 as described. The osseous spinal canal narrowing is most noticeable at L4-L5. 2. Varying degrees of osseous neural foraminal stenosis ranging up tosevere on the left at L4-L5 and other findings as above. 3. Further evaluation with MRI as clinically indicated. THIS IS AN ELECTRONICALLY VERIFIED FINAL REPORT 11/16/2024 7:41 AM - Electronically signed by Rafael LEOANRDO T: Report ID: [id number] Reading Location: [place] [address] Liana Montanez [employer] HEL[employer] FLOORING IMG CT PROCEDURES Mechelle l Result from Last 3 Months Insurance [id number] [place] [id number] [facility] Address: [facility] [address] [place] [address] [address] [place] [id number] [facility] MEDICARE ADVANTAGE * Guarantor: Porsha Ochoa Account Type Relation to Patient Date of Phone Billing Address Personal/Family Self 1965 [address] [place] [address] Advance Directives For more information, please contact: [phone] Documents on File Type Date Recorded 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
--- OUTSIDE RECORDS SUMMARY | 2025-02-14 07:44 | XMS_ITS | Clinical Summary ---
Demographics Address [address] [place] [address] Mobile Phone Home Phone Email Address [email or web address] Preferred Language Malagasy Marital Status Orthodoxy Affiliation Unknown Race White Ethnic Group Not or Lati no Author Organization [facility] Address [address] [place] [address] Care Team Providers Care Counsel Name Role Phone Joshua Loo MD Primary Care Provider [phone] Source Comments [facility],non-owned Affiliates and Associated Physician Practices is amultiple site organization consisting of ambulatory clinics and hospital sitesin [place], [place], [place] and [place]. This disclosure is being madepursuant to the Care Everywhere program and may not contain all information available regarding this patient. Last updated 17.[facility] Allergies Active Allergy Reactions Criticality Noted Date [...] time 9 syringe 5 01/07/20 17 Active acetaminophen (Tylenol) 500 MG capsule Active alendronate (Fosamax) 70 MG tablet 1 tab(s) orally once a week; Duration: 28 day(s) Active Aspirin (Vazalore) 81 MG CAPS Take 1 capsule by mouth Active Bacillus Coagulans-Inuli n (Probiotic) 1-250 BILLION-MG CAPS Probiotic Acti ve chlorpheniramin e (Chlor-Trimeton ) 4 MG tablet three times daily as needed (4 mg) Active cranberry (RA Cranberry) 500 MG capsule Take by mouth. Acti ve vitamin D, ergocalciferol, (Drisdol) 1.25 MG (62677 UT) capsule Take 1 capsule every week by oral route. Active escitalopram (Lexapro) 20 MG tablet Take 1 (one) tablet by mouth once daily Active famotidine (Pepcid) 40 MG tablet Take by mouth 2 times daily Active ipratropium (Atrovent) 0.03 % nasal spray USE 2 SPRAY(S) IN EACH NOSTRIL TWICE DAILY Active meloxicam (Mobic) 15 MG tablet Take 1 (one) tablet by mouth once daily Active Magnesium Oxide 420 MG Take by mouth. Activ e Multiple Vitamins-Minera ls (Super Thera Halie M) TABS Take 1 (one) tablet by mouth Active Multiple Vitamins-Minera ls (Super Thera Halie M) TABS Take 1 (one) tablet by mouth once daily Active Active Problems No known active problems Encounters Date Type Department Care Team Description 12/15/2024 Telephone [facility] - ENT [address] [place] [phone] Maria Victoria Gagnon, CASEY Speech Therapy 11/23/2024 9:00 AM CDT Office Visit [facility]NT [address] [place] [phone] Maria Victoria Gagnon, CASEY Chronic cough (Primary Dx); Throat clearing 11/23/2024 Travel from Last 3 Months Immunizations Immunization Administration Dates Next Due Miyaobabei primary monoval ent 12+ yr 0.3mL Purple cap 11/29/2021 INFLUENZA VACCINE 11/29/2021,,12/16/2017,2014,01/01/2013 TDAP (7yrs+) 08/01/2021 Zoster Hzv Vacc Recombinant Inj Im 06/25/2021, Family History Medical History Relation Name Comments Hypertension Brother Diabetes - Type 2 Father Hypertension Father Hypertension Mother Relation Name Status Comments Brother Father Mother Social History Tobacco Use Types Packs/Day Years Used Date Smoking Tobacco: Former Passive Smoke Exposure: Never Smokeless Tobacco: Never [...] Sign Reading Time Taken Comments Blood Pressure 143/85 11/01/2024 3:47 PM CDT Pulse 68 11/01/2024 3:47 PM CDT Temperature - - Respiratory Rate 12 12/25/2016 11:28 AM CDT Oxygen Saturation 98% 11/01/2024 3:47 PM CDT Inhaled Oxygen Concentration - - Weight 62.6 kg (138 lb) 11/01/2024 3:47 PM CDT Height 149.9 cm (4' 11) 11/01/2024 3:47 PM CDT Body Mass Index 27.87 11/01/2024 3:47 PM CDT Plan of Treatment Health Maintenance Due Date Last Done Comments COLOGUARD (AGES 45-75) - COLON CA SCREENING 1965 COLON MONITORING 1965 COLONOSCOPY - COLON CA SCREENING 1965 CT COLONOGRAPHY - COLON CA SCREENING 1965 Colorectal Cancer Screening 1965 FIT - COLON CA SCREENING 1965 FLEX SIG - COLON CA SCREENING 1965 LIPID TESTING 1965 MAMMOGRAM 1965 HIV SCREENING 01/18/1980 HEPATITIS C SCREENING 01/13/1983 PAP SMEAR 1986 PNEUMOCOCCAL VACCINE 50+ (1 of 1 - PCV) 2015 DEPRESSION SCREENING 02/25/2024 MEDICARE AWV CALENDAR YEAR 2024 COVID-19 VACCINE (2 - 2024- season) 2024 11/29/2021 INFLUENZA VACCINE (#1) 2024 , 12/07/2020, 12/16/2017, Additional history exists SCREENING FOR DIABETES 11/01/2024 DTAP/TDAP/TD VACCINES (2 - Td or Tdap) 08/02/2031 08/01/2021 Respiratory Syncytial Virus (RSV) Vaccine Pt: or over 60 yrs (1 - 1-dose 75+ series) 01/18/2040 ZOSTER VACCINE Completed 06/25/2021, 04/26/2021 HEPATITIS B VACCINE Aged Out No longe r eligible based on patient's age to complete this topic HIB VACCINE Aged Out No longer eligi ble based on patient's age to complete this topic HPV VACCINE Aged Out No longer eligi ble based on patient's age to complete this topic MENINGOCOCCAL (Group B) VACCINE SHARED DECISION-MAKING Aged Out No longer eligible based on patient's age to complete this topic MENINGOCOCCAL GROUPS A/C/Y/W VACCINE Aged Out No longer eligible based on patient's age to complete this topic Insurance * Guarantor: Porsha Ochoa Account Type Relation to Patient Date of Phone Billing Address Personal/Family Self 1965 [address] [place] [address] [facility] MEDICARE ADV Care Teams Counsel Relationship Specialty Start Date End Date Joshua Loo MD PCP - General Internal Medicine 06/26/16
--- OUTSIDE RECORDS SUMMARY | 2025-02-14 07:45 | XMS_ITS | Encounter Summary ---
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 Sex Female 5:06 PM CDT Gender Identity Not on file Sexual Orientation Not on file documented as of this encounter Plan of Treatment Upcoming Encounters Date Type Department Care Team (Late st Contact Info) Description 06/09/2025 8:40 AM CDT Office Visit [facility] - [address], [address] [place] [id number] Saida Willams MD [address] [place] [phone] documented as of this encounter Visit Diagnoses Not on filedocumented in this encounter Care Teams Pattern Keeper Relationship Specialty Start Date End Date Joshua Loo MD PCP - General INTERNAL MEDICINE 12/21/21 documented as of this encounter
--- OUTSIDE RECORDS SUMMARY | 2025-02-14 07:45 | XMS_ITS | Patient Health Record ---
Demographics Address [address] [place] [address] Email Address Preferred Language en Marital Status Pentecostal Affiliation Unknown Race White Ethnic Group Not or Lati no Author Organization [facility] [place] ([address]) Address [address] [place] [address] Care Team Providers Care Trash Hauler Name Role Phone Joshua Loo Primary Care Provider UnavailAshwini Barroso Unavailable [phone] Allergies Allergen (clinical drug ingredient) Drug/Non Drug Allergy documented on EMR Reaction Allergy Type Onset Date Status morphine Morphine Hallucinations Drug Allergy Ac tive Reason For Referral No Information Medications Medication SIG (Take, Route, Frequency, Duration) Notes Start Date End Date Status FLONASE 50 mcg/inh 1 spray(s) in each nostril once a day; Duration: 30 day(s) Not-Taking Prochlorperazine Maleate 10 MG 1 tab(s) orally 3 times a day Active Benadryl Allergy 25 MG 1 cap(s) orally 3 times a day Active Flonase Allergy Relief 50 MCG/ACT 1 spray(s) in each nostril once a day; Duration: 30 day(s) Not-Taking Wellbutrin XL 300 MG 1 tab(s) orally every 24 hours; Duration: 30 day(s) Active VITAMIN B COMPLEX 100 Active PROCHLORPERAZINE 10 mg 1 tab(s) orally 3 times a day Active BENADRYL 25 mg 1 cap(s) orally 3 times a day Active IMITREX 6 mg/0.5 mL as directed subcutaneously once Active FOSAMAX 70 mg 1 tab(s) orally once a week; Duration: 28 day(s) Active IPRATROPIUM BROMIDE NASAL 21 mcg/inh 2 spray(s) intranasally 3 times a day; Duration: 90 days Active PROBIOTIC FORMULA Ac tive MULTIVITAMIN Vitamin B Complex with C and Folic Acid 1 tab(s) orally once a day; Duration: 30 day(s) Active Topamax 100 MG 1 tab(s) orally 2 times a day; Duration: 30 day(s) Active CITRACAL *Please review for potential replacement for e-prescription and drug interaction check* Active Lisinopril 5 MG 1 tab(s) orally once a day; Duration: 30 day(s) Active LORazepam 0.5 MG 1 tab(s) orally 3 times a day Active Ipratropium [place] 21 MCG/INH 2 SPRAY(S) INTRANASALLY 3 TIMES A DAY; Duration: 90 DAYS *Please review and pick correct strength-formula tion from [email or web address] options. If intended option is not shown, discontinue and re-order from Quick Search* Active Escitalopram Oxalate 20 MG 1 tab(s) orally once a day; Duration: 30 day(s) Active Imitrex 6 MG/0.5 ML DIRECTED SUBCUTANEOUSLY ONCE *Please review and pick correct strength-formula tion from [email or web address] options. If intended option is not shown, discontinue and re-order from Quick Search* Active Fosamax 70 MG 1 tab(s) orally once a week; Duration: 28 day(s) Active Probiotic Formula *Please review and pick correct strength-formula tion from [email or web address] options. If intended option is not shown, discontinue and re-order from Quick Search* Active Multivitamin VITAMIN B COMPLEX WITH C AND FOLIC ACID 1 TAB(S) ORALLY ONCE A DAY; Duration: 30 DAY(S) *Please review and pick correct strength-formula tion from [email or web address] options. If intended option is not shown, discontinue and re-order from Quick Search* Active Vitamin B Complex 100 *Please re view and pick correct strength-formula tion from [email or web address] options. If intended option is not shown, discontinue and re-order from Quick Search* Active WELLBUTRIN XL 300 mg/24 hours 1 tab(s) orally every 24 hours; Duration: 30 day(s) Active TOPAMAX 100 mg 1 tab(s) orally 2 times a day; Duration: 30 day(s) Active LISINOPRIL 5 mg 1 tab(s) orally once a day; Duration: 30 day(s) Active LORAZEPAM 0.5 mg 1 tab(s) orally 3 times a day Active ESCITALOPRAM 20 mg 1 tab(s) orally once a day; Duration: 30 day(s) Active Social History Tobacco Use: [...] Status Risk Notes Problem Chronic allergic conjunctivitis (78324478) Other chronic allergic conjunctivitis (H10.45) Active confirmed Problem Allergic rhinitis (49988358) Other allergic rhinitis (J30.89) Active confirmed Problem Chronic rhinitis (32249146) Chronic rhinitis (J31.0) Active confirmed Problem Mild intermittent asthma (835217064) Mild intermittent asthma, uncomplicated (J45.20) Active confirmed Problem Uncomplicated mild persistent asthma (920511418) Mild persistent asthma, uncomplicated (J45.30) Active confirmed Problem Uncomplicated moderate persistent asthma (316836901) Moderate persistent asthma, uncomplicated (J45.40) Active confirmed Problem Uncomplicated severe persistent asthma (440592843) Severe persistent asthma, uncomplicated (J45.50) Active confirmed Problem Pruritus (986117742) Pruritus, unspecified (L29.9) Active confirmed Problem Age-related osteoporosis (975430698) Age-related osteoporosis without current pathological fracture (M81.0) Active confirmed Problem Allergic rhinitis caused by pollen (disorder) (85858760) Allergic rhinitis due to pollen (J30.1) Active confirmed Problem Allergic rhinitis caused by animal hair and dander (787625792253105) Allergic rhinitis due to animal (cat) (dog) hair and dander (J30.81) Active confirmed Problem Essential hypertension (60175412) Essential (primary) hypertension (I10) Active confirmed Problem Depression (387424512) Depression, unspecified (F32.A) Active confirmed Plan Of Treatment No Information Insurance Providers Payer Name Payer Address Payer Phone Subscriber Number Group Number Insured Name Patient Relationship to Insured Coverage Start Date Coverage End Date [employer] Medicare [address] [address] [place] [address] [id number] Porsha Ochoa Self - patient is the [...]
--- OUTSIDE RECORDS SUMMARY | 2025-02-14 07:45 | XMS_ITS | Patient Health Record ---
Author Organization [facility] As Evino [facility] Address [address] [facility] [address] [place] [address] Care Team Providers Care Pmo Project Manager Name Role Phone Joshua Loo MD Primary Care Provider Unavaila Alva Araiza Unavailable [phone] Summer Gardner Unavailable [phone] Nelly Macias Unavailable [phone] Allergies Allergen (clinical drug ingredient) Drug/Non Drug Allergy documented on EMR Reaction Allergy Type Onset Date Status morphine Morphine Sulfate Unknown Drug Allergy 05/06/2023 Active Results Component Value Reference Range Notes UDT Reviewed date:08/20/2024 12:04:33 AM Interpretation: Performing Lab: Notes/Report: Amphetamine (AMP) n 0 - 1000 ng/ml Buprenorphine (BUP) n 0 - 10 ng/ml Oxazepam (BZO) n 0 - 300 ng/ml Cocaine (ERICA) n 0 - 300 ng/ml Methamphetamine (mAMP) n 0 - 300 ng/ml Methylenedioxymethamphetamine (MDMA) n 0 - 500 ng/ml Morphine (MOP) n 0 - 25 ng/ml Methadone (MTD) n 0 - 300 ng/ml Oxycodone (OXY) n 0 - 300 ng/ml THC n 0 - 50 ng/ml x n 0 - 1000 ng/ml x n 0 - 1000 ng/ml x n 0 - 300 ng/ml x n 0 - 300 ng/ml x n 0 - 300 ng/ml UDT Reviewed date:11/18/2024 09:01:04 AM Interpretation: Performing Lab: Notes/Report: Amphetamine (AMP) N 0 - 1000 ng/ml Buprenorphine (BUP) N 0 - 10 ng/ml Oxazepam (BZO) P 0 - 300 ng/ml Cocaine (ERICA) N 0 - 300 ng/ml Methamphetamine (mAMP) N 0 - 300 ng/ml Methylenedioxymethamphetamine (MDMA) N 0 - 500 ng/ml Morphine (MOP) N 0 - 25 ng/ml Methadone (MTD) N 0 - 300 ng/ml Oxycodone (OXY) N 0 - 300 ng/ml THC N 0 - 50 ng/ml x N 0 - 1000 ng/ml x N 0 - 1000 ng/ml x N 0 - 300 ng/ml x N 0 - 300 ng/ml UDT Reviewed date:05/20/2024 08:09:06 PM Interpretation: Performing Lab: Notes/Report: Amphetamine (AMP) P 0 - 1000 ng/ml Buprenorphine (BUP) N 0 - 10 ng/ml Oxazepam (BZO) N 0 - 300 ng/ml Cocaine (ERICA) N 0 - 300 ng/ml Methamphetamine (mAMP) N 0 - 300 ng/ml Methylenedioxymethamphetamine (MDMA) N 0 - 500 ng/ml Morphine (MOP) N 0 - 25 ng/ml Methadone (MTD) N 0 - 300 ng/ml Oxycodone (OXY) N 0 - 300 ng/ml THC N 0 - 50 ng/ml x N 0 - 1000 ng/ml x N 0 - 1000 ng/ml x N 0 - 300 ng/ml x N 0 - 300 ng/ml x N 0 - 300 ng/ml Reason For Referral No Information Medications Medication SIG (Take, Route, Frequency, Duration) Notes Start Date End Date Status SUMAtriptan Succinate 6 MG/0.5ML Solution Auto-injector Subcutaneous 05/06/2023 Active buPROPion HCl ER (SR) 150 MG Tablet Extended Release 12 Hour 2 tablets in the morning Oral daily; Duration: 90 days 11/17/2024 Active Lisinopril 5 MG Tablet Oral 05/06/2023 Not-Taking Lisinopril 5 MG Tablet Oral; Duration: 90 Days Active Topiramate 100 MG Tablet Oral 05/06/2023 Active Meloxicam 15 MG Tablet Oral 05/06/2023 Not-Taking Losartan Potassium 25 MG Tablet TAKE 1 TABLET BY MOUTH ONCE DAILY Oral; Duration: 30 Days Active Pregabalin 75 MG Capsule Oral; Duration: 30 Days Active Ipratropium [place] 0.03 % Solution Nasal; Duration: 30 Days Active Topiramate 100 MG Tablet Oral; Duration: 90 Days Active MAGNESIUM 500 MG TABLET *Reorder from [facility] for eRx and Interaction Alerts* 05/06/2023 Active IPRATROPIUM BROMIDE 21 MCG (0.03 %) NASAL SPRAY *Reorder from [facility] for eRx and Interaction Alerts* 05/06/2023 Active SUMAtriptan Succinate 6 MG/0.5ML Solution Auto-injector Subcutaneous; Duration: 30 Days Active buPROPion HCl ER (SR) 150 MG Tablet Extended Release 12 Hour 2 tablets Oral Once a day; Duration: 90 days Active Aspirin 81 MG Tablet Chewable 1 tablet Orally Once a day Active LORazepam 0.5 MG Tablet 1 tablet at bedtime Oral daily; Duration: 90 days 02/09/2025 Active Ipratropium [place] 0.03 % Solution Nasal; Duration: 43 Days Active Escitalopram Oxalate 20 MG Tablet TAKE 1 TABLET BY MOUTH ONCE DAILY FOR 90 DAYS Oral; Duration: 90 Days Active Meloxicam 15 MG Tablet TAKE 1 TABLET BY MOUTH ONCE DAILY Oral; Duration: 100 Days Not-Taking Escitalopram Oxalate 20 MG Tablet 1 tablet Oral Once a day; Duration: 90 days 11/17/2024 Active Fluticasone-[place] rol 100-50 MCG/ACT Aerosol Powder Breath Activated INHALE 1 DOSE BY MOUTH EVERY 12 HOURS Inhalation; Duration: 30 Days Not-Taking Immunizations Vaccine Route Administration Date Status Comme nts Influenza virus vaccine, quadrivalent (IIV4), split virus, 0.25 mL dosage Unknown 12/16/2017 Administered Influenza, seasonal, injecta ble, preservative free, 3 yrs and above Unknown 01/01/2013 Administered Novel [id number], preservative free Unknown 01/05/2015 Administered Novel [id number], preservative free Unknown 12/16/2017 Administered Pfizer Biontech Covid-19 Vac cine 2nd dose Unknown 05/05/2020 Administered Pfizer Biontech Covid-19 Vac cine 2nd dose Unknown 05/29/2020 Administered Pfizer Biontech Covid-19 Vac cine 2nd dose Unknown 02/21/2021 Administered Zoster Unknown 04/26/2021 Administered Social History Tobacco Use: Social History Observation Description Date Details (start date - stop date) Former Smoker 01/25/1980 - 12/16/2011 Sex Assigned At : Social History Observation Description Sex Assigned At Female Social History Miscellaneous: Social Info Question Answer Notes Education: Highest achieved [employer]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 No Do you feel safe at home? Yes Social History Social Info Question Answer Notes Household: Marital Status: Number of Adults in household: 1 Number of Children in Household: 0 Level of Education: Finished College Household: Social Info Question Answer Notes Household Marital status: Drug/Alcohol: Social Info Question Answer Notes Drugs Have you used drugs other than those for medical reasons in the past 12 months? No AUDIT-C (Standard) Did you have a drink containing alcohol in the past year? Yes How often did you have six or more drinks on one occasion in the past year? Never (0 point) How many drinks did you have on a typical day when you were drinking in the past year? 1 or 2 drinks (0 point) How often did you have a drink containing alcohol in the past year? Monthly or less (1 point) Tobacco Use: Social Info Question Answer Notes Tobacco Control (Standard) Tobacco use: Former smoker When did you start smoking? 01/25/1980 When did you stop smoking? 12/16/2011 How long has it been since you last smoked? 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 Occas ionally Section Notes: How many children do you have?: 2 (Notes: Daughter (27) lives in [place]; son (29) lives in [place]. Daughter is in school for certified medical coding specialist.) Do you have any siblings?: 3 (Notes: ARVIN Sterling, lives in [place]; Her middle brother was murdered) How many children do you have?: 2 (Notes: Daughter (27) lives in [place]; son (29) lives in [place]. Daughter is in school for certified medical coding specialist.) Do you have any siblings?: 3 (Notes: ARVIN Sterling, lives in [place]; Her middle brother was murdered) How many children do you have?: 2 (Notes: Daughter (27) lives in [place]; son (29) lives in [place]. 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 Daughter is in school for certified medical coding specialist.) Home and Environment Do you have any siblings?: 3 (Notes: ARVIN Sterling, lives in [place]; Her middle brother was murdered) Are there any smokers in your house?: No Are there any guns present in your home?: No Advance Directive Do you have an advance directive?: Yes Do you have a medical power of sports attorney?: Yes Public Health and Travel Have [...] have?: 2 (Notes: Daughter (27) lives in [place]; son (29) lives in [place]. Daughter is in school for certified medical coding specialist.) Home and Environment Do you have any siblings?: 3 (Notes: ARVIN Sterling, lives in [place]; Her middle brother was murdered) Are there any smokers in your house?: No Are there any guns present in your home?: No Advance Directive Do you have an advance directive?: Yes Do you have a medical power of sports attorney?: Yes Social History Substance Use Do [...] have?: 2 (Notes: Daughter (27) lives in [place]; son (29) lives in [place]. Daughter is in school for certified medical coding specialist.) Home and Environment Do you have any siblings?: 3 (Notes: ARVIN Sterling, lives in [place]; Her middle brother was murdered) Are there any smokers in your house?: No Are there any guns present in your home?: No Advance Directive Do you have an advance directive?: Yes Do you have a medical power of sports attorney?: Yes How many children do you have?: 2 (Notes: Daughter (27) lives in [place]; son (29) lives in [place]. Daughter is in school for certified medical coding specialist.) Do you have any siblings?: 3 (Notes: ARVIN Sterling, lives in [place]; Her middle brother was murdered) How many children do you have?: 2 (Notes: Daughter (27) lives in [place]; son (29) lives in [place]. Daughter is in school for certified medical coding specialist.) Do you have any siblings?: 3 (Notes: ARVIN Sterling, lives in [place]; Her middle brother was murdered) Social History Substance Use Do you or [...] have?: 2 (Notes: Daughter (27) lives in [place]; son (29) lives in [place]. Daughter is in school for certified medical coding specialist.) Home and Environment Do you have any siblings?: 3 (Notes: ARVIN Sterling, lives in [place]; Her middle brother was murdered) Are there any smokers in your house?: No Are there any guns present in your home?: No Advance Directive Do you have an advance directive?: Yes Do you have a medical power of sports attorney?: Yes Social History Substance Use Do [...] have?: 2 (Notes: Daughter (27) lives in [place]; son (29) lives in [place]. 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 Daughter is in school for certified medical coding specialist.) Home and Environment Do you have any siblings?: 3 (Notes: ARVIN Sterling, lives in [place]; Her middle brother was murdered) Are there any smokers in your house?: No Are there any guns present in your home?: No Advance Directive Do you have an advance directive?: Yes Do you have a medical power of sports attorney?: Yes Public Health and Travel Have [...] have?: 2 (Notes: Daughter (27) lives in [place]; son (29) lives in [place]. Daughter is in school for certified medical coding specialist.) Home and Environment Do you have any siblings?: 3 (Notes: ARVIN Sterling, lives in [place]; Her middle brother was murdered) Are there any smokers in your house?: No Are there any guns present in your home?: No Advance Directive Do you have an advance directive?: Yes Do you have a medical power of sports attorney?: Yes Social History Substance Use Do [...] have?: 2 (Notes: Daughter (27) lives in [place]; son (29) lives in [place]. Daughter is in school for certified medical coding specialist.) Home and Environment Do you have any siblings?: 3 (Notes: ARVIN Sterling, lives in [place]; Her middle brother was murdered) Are there any smokers in your house?: No Are there any guns present in your home?: No Advance Directive Do you have an advance directive?: Yes Do you have a medical power of sports attorney?: Yes Problems Problem Type SNOMED Code ICD Code Onset Dates Problem Status W/U Status Risk Notes Problem Mild recurrent major depression (16569171) Major depressive disorder, recurrent, mild (F33.0) 4 Active confirmed Problem Generalized anxiety disorder (66101436) Generalized anxiety disorder (F41.1) 4 Active confirmed Problem Restless legs syndrome (36815579) Restless legs syndrome (G25.81) Active confirmed Problem Chronic migraine without aura with status migrainosus (706644034070208 ) Chronic migraine without aura, not intractable, with status migrainosus (G43.701) 4 Active confirmed Problem Long-term current use of drug therapy (346922818) 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 Active confirmed Problem Essential hypertension (66881571) Benign essential HTN (I10) Active confirmed Vital Signs Heart Rate 67 /min 02/09/2025 Height-cm 157.48 cm 02/09/2025 Blood pressure diastolic 84 mm Hg 02/09/2025 Weight-kg 60.15 kg 02/09/2025 Height 62.00 in 02/09/2025 Blood pressure systolic 153 mm Hg 02/09/2025 Weight 132.6 lbs 02/09/2025 BMI 24.25 kg/m2 02/09/2025 Encounters Encounter Location Date Provider Diagnosis [facility] [employer] [facility] [address] [address] 05/19/2024 Nelly Macias Generalized anxiety disorder F41.1 ; Major depressive disorder, recurrent, mild F33.0 ; Chronic migraine without aura, not intractable, with status migrainosus G43.701 ; Other fci (current) drug therapy Z79.899 ; Benign essential HTN I10 and Encounter for screening for depression Z13.31 [place] [id number] [facility] [address] [place] [address] 05/19/2024 Summer Hemann Generalized anxiety disorder F41.1 and Major depressive disorder, recurrent, mild F33.[address] [facility] [address] [place] [address] 08/19/2024 Summer Hemann Major depressive disorder, recurrent, mild F33.0 and Generalized anxiety disorder F41.1 [place] [address] [facility] [address] [place] [address] 08/19/2024 Nelly Macias Generalized anxiety disorder F41.1 ; Major depressive disorder, recurrent, mild F33.0 ; 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 Z79.899 ; Benign essential HTN I10 and Encounter for screening for depression Z13.[address] [address] 11/17/2024 Summer Hemann Major depressive disorder, recurrent, mild F33.0 and Generalized anxiety disorder F41.1 [place] [id number] [facility] [address] [facility] [address] [place] [address] 11/17/2024 Nelly Macias Generalized anxiety disorder F41.1 ; Major depressive disorder, recurrent, mild F33.0 ; Chronic migraine without aura, not intractable, with status migrainosus G43.701 and Other fci (current) drug therapy Z79.899 [place] [id number] [facility] [address] [facility] [address] [place] [address] 02/09/2025 Summer Hemann Generalized anxiety disorder F41.1 and Major depressive disorder, recurrent, mild F33.0 [place] [id number] [place] [address] 02/09/2025 Alva Shin Major depressive disorder, recurrent, mild F33.0 ; Generalized anxiety disorder F41.1 ; Low back pain M54.5 and Restless legs syndrome G25.81 [place] [id number] [place] [address] 05/01/2024 Nelly [facility], [facility] [address] [place] [address] 05/01/2024 Nelly [facility], [facility] [address] [place] [address] 05/01/2024 Nelly [facility], [facility] [address] [place] [address] 05/01/2024 Nelly Macias [facility], [facility] [address] [place] [address] 05/02/2024 [facility] [address] [place] [address] 05/03/2024 Nelly [facility], [facility] [address] [place] [address] 05/03/2024 Nelly [facility], [facility] [address] [place] [address] 05/03/2024 Nelly [facility], [facility] [address] [place] [address] 05/04/2024 Nelly [facility], [facility] [address] [place] [address] 11/24/20[facility] Ass[facility] Encounter Date Diagnosis (ICD Code) Assessment Notes Treatment Notes Treatment Clinical Notes Section Notes 11/17/2024 Major depressive disorder, recurrent, mild (ICD-10 - F33.0) 08/19/2024 Major depressive disorder, recurrent, mild (ICD-10 - F33.0) 08/19/2024 Generalized anxiety disorder (ICD-10 - F41.1) 08/19/2024 Major depressive disorder, recurrent, mild (ICD-10 - F33.0) 08/19/2024 Generalized anxiety disorder (ICD-10 - F41.1) 02/09/2025 Generalized anxiety disorder (ICD-10 - F41.1) 02/09/2025 Major depressive disorder, recurrent, mild (ICD-10 - F33.0) Patient denies depression but reports fatigue and excessive sleep. Continues bupropion and escitalopram as part of her regimen. - Continue bupropion and escitalopram as prescribed. 02/09/2025 Generalized anxiety disorder (ICD-10 - F41.1) 05/19/2024 Major depressive disorder, recurrent, mild (ICD-10 - F33.0) 05/19/2024 Generalized anxiety disorder (ICD-10 - F41.1) 05/19/2024 Major depressive disorder, recurrent, mild (ICD-10 - F33.0) 05/19/2024 Generalized anxiety disorder (ICD-10 - F41.1) 11/17/2024 Major depressive disorder, recurrent, mild (ICD-10 - F33.0) 11/17/2024 Generalized anxiety disorder (ICD-10 - F41.1) 11/17/2024 Chronic migraine without aura, not intractable, with status migrainosus (ICD-10 - G43.701) 05/19/2024 Chronic migraine without aura, not intractable, with status migrainosus (ICD-10 - G43.701) 02/09/2025 Major depressive disorder, recurrent, mild (ICD-10 - F33.0) 02/09/2025 Low back pain (ICD-10 - M54.5) Chronic pain ongoing for 2.5 years, described as exhausting and interfering with daily activities. Pain disrupts sleep and limits ability to walk dogs. Patient has been receiving steroid injections for pain management. Upcoming injection scheduled for Friday. - Continue steroid injections for pain management. - Schedule intra-articular injection for back pain on Friday. 08/19/2024 Other fci (current) drug therapy (ICD-10 - Z79.899) 11/17/2024 Generalized anxiety disorder (ICD-10 - F41.1) 02/09/2025 Restless legs syndrome (ICD-10 - G25.81) Patient reports restless legs and difficulty with sleep. Uses lorazepam and magnesium at bedtime to improve sleep quality. - Continue lorazepam 0.5 mg tablet at bedtime. - Continue magnesium at bedtime. 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 Multiple Infections (Sinusitis, Bronchitis, Urinary Tract Infection) Assessment: Patient recently visited the ER due to severe symptoms including chills and fever. She was already on antibiotics for sinusitis and bronchitis when she developed symptoms of a urinary tract infection that progressed to involve the kidneys. The patient's primary care physician advised against hospital admission. Currently experiencing ongoing gastrointestinal discomfort, likely due to recent antibiotic use. Plan: - Monitor for resolution of infection symptoms - Assess need for further antibiotic treatment or adjustment - Recommend supportive care for gastrointestinal symptoms Chronic Pain (Hip and Back) Assessment: Patient reports ongoing hip pain following recent nerve ablation in the back and steroid injection in the hip. The hip pain initially improved but has since worsened, with associated popping and clicking. Orthopedic surgeon has suggested potential hip replacement if injections prove ineffective. Unable to take Tylenol due to gastrointestinal issues. Previously discontinued gabapentin due to lack of efficacy for back pain and potential interaction with sumatriptan. Plan: - Follow up with orthopedic surgeon on April 30 to reassess hip pain and discuss potential hip replacement - Continue current pain management regimen, including meloxicam and sumatriptan injections for migraines - Monitor efficacy of current pain management approach Anxiety and Mood Disturbances Assessment: Patient reports increased anxiety, irritability, and feeling on edge. Describes being more short-tempered and easily bothered by minor issues. Denies significant depression but notes mood is affected by increased pain and poor sleep. No suicidal ideation reported. Plan: - Continue Escitalopram 20 mg daily for mood and anxiety - Continue Bupropion 150 mg twice daily in the morning - Continue Lorazepam at bedtime for sleep - Monitor for changes in mood, anxiety, and sleep patterns - Encourage stress-reduction techniques Sleep Disturbances Assessment: Patient reports significant sleep disruption, including frequent nighttime awakenings. Sleep disturbances were exacerbated during recent urinary tract infection. Irregular sleep schedule contributes to migraine occurrences. Plan: - Continue Lorazepam at bedtime for sleep - Educate on sleep hygiene techniques - Monitor sleep patterns and their impact on overall health and migraine frequency Migraine Management Assessment: Patient experiences migraines, which are exacerbated by irregular sleep patterns. Currently managed with sumatriptan injections and topiramate. Gabapentin was discontinued due to potential interaction with sumatriptan, as advised by neurologist. Plan: - Continue sumatriptan injections and topiramate for migraine management - Monitor efficacy of current migraine regimen - Emphasize importance of maintaining regular sleep schedule for migraine prevention Cerebrovascular Risk Assessment: Patient reports history of brain scan revealing old lesions, necessitating daily aspirin therapy for cerebrovascular risk reduction. Plan: - Continue daily baby aspirin for cerebrovascular risk reduction - Monitor for any new neurological symptoms 08/19/2024 Other Swati Ochoa, a patient with a history of anxiety and depression, presents for follow-up with improved anxiety symptoms and ongoing management of chronic pain issues. Anxiety Assessment: Patient reports improvement in her anxiety symptoms since the last visit. Previously, her anxiety was related to health concerns, but these appear to have subsided. Current stressors include managing care for a disabled brother with a history of traumatic brain injury, which is causing some situational stress but not significantly impacting overall anxiety levels. Plan: - Continue Lexapro - Continue lorazepam 0.5 mg at bedtime for sleep - Continue bupropion SR 150 mg twice daily - Follow up in 3 months Chronic Pain - Hip and Spine Assessment: Patient has been experiencing hip pain, which was initially thought to be hip-related but has now been identified as potentially involving both hip and spine issues. Patient has consulted with both a rail specialist and a hip specialist, who are collaborating to determine the exact cause and appropriate treatment plan. Current plan involves conservative management without major surgical intervention. Plan: - Await further evaluation and treatment recommendations from spine and hip specialists - Continue current pain management approach (specific details not discussed) Caregiver Stress Assessment: Patient is experiencing stress related to caregiving responsibilities for a disabled brother with a history of traumatic brain injury from 30 years ago. Current efforts involve attempting to move the brother to an assisted living facility in [place], which is proving challenging due to the brother's difficult behavior. Plan: - Continue therapy sessions with Summer for support and stress management - Monitor for any increase in her anxiety or mood symptoms related to caregiving stress Weight Management Assessment: Patient reports occasional overeating and expresses a desire to manage her weight, aiming to regain weight lost during a previous illness. Plan: - Encourage balanced eating habits - Monitor weight at follow-up visits Hypertension Assessment: Elevated blood pressure noted during the visit, potentially related to acute stress from a phone call with the patient's brother immediately prior to the appointment. Plan: - Monitor blood pressure at future visits to determine if elevation is persistent or situational 11/17/2024 Other Swati Ochoa, female, presents with a history of depression, anxiety, chronic pain including migraines and leg pain, and recent improvement in sleep and mobility. DepressionAssessmen t: Patient reports worsening mood due to severe migraines occurring every 3 days and persistent leg pain. She expressed passive thoughts that life may not be worth living but denied active suicidal ideation. Despite these challenges, she states her mood is generally good, though she experiences significant fatigue. Recent improvement in sleep patterns noted after a prolonged period of sleep disturbance due to pain.Plan:- Continue escitalopram 20 mg- Consider duloxetine as a potential alternative to address both depression and chronic pain but also on Lyrica- Continue follow-up with therapist Summer- Follow up in 3 months AnxietyAssessment: Patient reports improved anxiety when not interacting with her disabled brother. Recent stressors include moving her brother to an assisted living facility in August, which was described as very stressful.Plan:- Continue lorazepam Chronic Pain (Back and Leg)Assessment: Long-standing history of back problems with disc bulging since July 2022. Patient underwent nerve ablation for back pain with some improvement. Current focus is on addressing leg pain. Recent improvements noted, including ability to walk dogs for a short distance and climb stairs, which was not possible for the past 2 years. Patient also reports sitting through oriental orthodox without requiring a back pillow or fidgeting.Plan:- Consider duloxetine for potential benefits in managing chronic pain alongside depression and anxiety- Continue current pain management plan MigrainesAssessment : Patient reports severe migraines occurring every 3 days, described as shot worthy. These migraines are contributing to mood deterioration and overall quality of life concerns. InsomniaAssessment: Patient reports recent improvement in sleep after a 2-year period of sleep disturbance due to pain. She attributes better sleep to the use of lorazepam, fat, and magnesium.Plan:- Continue lorazepam at bedtime- Encourage continued use of helpful sleep aids (fat and magnesium) Medical Decision MakingSwati Ochoa is a female patient with a history of chronic pain, migraines, and back problems presenting with worsening mood and fatigue. The patient's recent exacerbation of migraines and leg pain has led to increased depression and passive thoughts that life may not be worth living, though without active suicidal ideation. Sleep has improved recently, possibly due to the use of lorazepam, fat, and magnesium at bedtime. Anxiety is well-controlled except when interacting with her disabled brother. The current antidepressant regimen of escitalopram (Lexapro) 20mg is being considered for potential adjustment, with duloxetine (Cymbalta) mentioned as a possible alternative due to its efficacy in treating depression, anxiety, and chronic pain simultaneously. Recent nerve ablation for back pain has shown some improvement, with the patient now able to walk her dogs and sit through oriental orthodox without discomfort. Consideration given for patient also on Lyrica. Chronic benzodiazapine usage discussed, option to change meds for residual sx, she wants to keep meds as is. education on meds and treatment course 02/09/2025 Other Patient experiences migraines starting in the evening. Uses magnesium for prevention. - Continue magnesium for migraine prevention. Plan Of Treatment Next Appt Details Provider Name:Summer Gardner, 05/10/2025 08:00:00 AM, [address], [facility], [place], [address], Provider Name:Alva perez, 05/10/2025 09:15:00 AM, [address], [facility], [place], [address], Insurance Providers Payer Name Payer Address Payer Phone Subscriber Number Group Number Insured Name Patient Relationship to Insured Coverage Start Date Coverage End Date [employer] Medicare Replacement/ Advantage - [employer]mo [address] [address] [place] [phone] [id number] SWATI OCHOA Self - patient is the insured Medical (General) History Medical History History ICD Code Problems: Chronic migraine without aura with status migrainosus Familial combined hyperlipidemia Generalized anxiety disorder Hyperparathyroidism 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 Benign essential hypertension I10 Past Psychiatric History: Anxiety Disord er,Major Depressive Episode abdominal aortic aneurysm: No atrial fibrillation: No chronic fatigue syndrome: No essential tremor: Yes hyperlipidemia: No hypertension: Yes Parkinson's disease: No restless leg syndrome: Yes stroke: No subdural hematoma: No type 1 diabetes mellitus: No type 2 diabetes mellitus: No vitamin B12 deficiency: No vitamin D deficiency: Yes Surgical History Surgery Date(Month/Year) Tonsilectomy/adenoids 02/24/1971 Endometrial ablation (90984) 02/24/1999 Hysterectomy (40557) 02/25/2004 Oophorectomy (21479) 02/25/2004 Myringotomy tube placement 02/24/2005 Sinus surgery 09/14/2021
== END 2025-02-14 07:40 | disposition home or self-care (01) ==
PROVIDERS: PCP Internal Medicine; Visit Provider Obstetrics & Gynecology
DX: Z12.31 Encounter for screening mammogram for malignant neoplasm of breast (principal)
CPT/HCPCS: 77063; 77067